=== PATIENT | female | born 1960 | race Caucasian/White ===

== ENCOUNTER 2024-07-25 13:49 | Emergency (ER) | payer MEDICARE, OTHER, SELFPAY ==
[2024-07-25] VITALS (15 sets, daily range): BP systolic 169–250; BP diastolic 77–120; PULSE 60–76; TEMP 36.4; O2SAT 95–98; BMI 24.2
--- NOTE | 2024-07-25 14:17 | XR_ITS ---
The [address] [address] Patient Name: LING MALDONADO MRN: [id number] date: 1960 Sex: F Assigned Patient Location: ER Current Patient Location: ER Accession/Order Number: [id number] Exam Date: 07/25/2024 14:36 Report Date: 07/25/2024 14:48 At the request of: RONDA CABRERA Procedure: XR chest 1V EXAMINATION: XR chest 1V HISTORY: HTN Urgency COMPARISON: 08/12/2021 TECHNIQUE: AP portable FINDINGS: LUNGS: No significant pulmonary parenchymal abnormalities. VASCULATURE: No increased pulmonary vasculature. PLEURA: No pneumothorax, effusion, or pleural thickening. CARDIAC: No cardiomegaly or cardiac silhouette abnormality. MEDIASTINUM: No visible mass or adenopathy. Aortic atherosclerosis BONES: No fracture or visible bone lesion. Cervical fusion hardware OTHER: Negative. XR/XR chest 1V IMPRESSION: No acute cardiopulmonary process Electronically authenticated by: ARBEN VANN Date: 07/25/2024 14:48
--- NOTE | 2024-07-25 14:17 | CT_ITS ---
The [address] [address] Patient Name: LING MALDONADO MRN: [id number] date: 1960 Sex: F Assigned Patient Location: ER Current Patient Location: ER Accession/Order Number: [id number] Exam Date: 07/25/2024 14:36 Report Date: 07/25/2024 14:54 At the request of: RONDA CABRERA Procedure: CT head/brain wo con EXAM: CT scan of the head without contrast. Dose reduction technique used: Automated exposure control and/or adjustment of the mA and/or kV according to patient size and/or use of iterative reconstruction technique. REASON FOR EXAM: headache, HTN Uregency COMPARISON: CT scan dated 11/20/2020 FINDINGS: No intracranial hemorrhage, mass effect, midline shift, fractures or evidence of acute ischemic infarct. No hydrocephalus. Paranasal sinuses and mastoid air cells are clear. Remainder unremarkable. CT/CT head/brain wo con IMPRESSION: No acute intracranial abnormalities. Electronically authenticated by: SHY BRENNER Date: 07/25/2024 14:54
--- NOTE | 2024-07-25 14:17 | ECG_ITS ---
The [facility] Test Date: 2024-07-25 Pat Name: LING MALDONADO Department: Room: - Gender: Female Material Assistant: : 1960 Requested By: [id number] Order Number: [id number] Reading MD: MIGEL CHRISTIANSON Measurements Intervals [place] Rate: 65 P: 80 SD: 152 QRS: 77 QRSD: 84 T: 70 QT: 424 QTc: 435 Interpretive Statements 1100 Sinus rhythm 9110 normal ECG Compared to ECG 08/12/2021 15:48:19 ST (T wave) deviation no longer present Possible ischemia no longer present Electronically Signed On 07-25-2024 20:49:04 EST by MIGEL CHRISTIANSON
--- NOTE | 2024-07-25 14:19 | ED.GENADUL1 ---
HPI HPI - General Adult General Chief complaint: Headache Stated complaint: HIGH BLOOD PRESSURE SENT BY Time Seen by Provider: 07/25/24 14:08 Source: patient and family (grandson) Mode of arrival: walk-in Limitations: no limitations History of Present Illness HPI narrative: 64-year-old female presents with grandson with complaint of elevated blood pressure. States she started not feeling well yesterday. Patient has had a slight headache, intermittent blurry vision, numbness tingling in her fingers. They went to area stores where they checked her blood pressure and noted it to be above 200/100. Went to her doctor's office this afternoon where they noted her blood pressure to be 250/110 and sent her in for further evaluation. Patient takes carvedilol 3.125 mg twice daily. Has not missed any doses. Denies any chest pain, shortness of breath, focal weakness. Quality:?As above Severity:?Severe Timing:?As above, constant Context: Normal setting and activity? Modifying factors:?None Associated symptoms: As above Related Data Home Medications ?Medication ?Instructions ?Recorded ?Confirmed albuterol sulfate 90 mcg/actuation 2 puff inhalation Q6H PRN 07/25/24 07/25/24 aerosol inhaler shortness of breath or wheezing aspirin 81 mg tablet,delayed 81 mg PO DAILY 07/25/24 07/25/24 release (Adult Aspirin Regimen) carvedilol 3.125 mg tablet 3.125 mg PO Q12H 07/25/24 07/25/24 escitalopram oxalate 5 mg tablet 5 mg PO DAILY 07/25/24 07/25/24 methimazole 5 mg tablet 5 mg PO .q12 07/25/24 07/25/24 Allergies Allergy/AdvReac Type Severity Reaction Status Date / Time No Known Drug Allergies Allergy Verified 07/25/24 13:54 Opioid HPI Opioid Management Most Recent Opioid Data: No Data to Display Review of Systems ROS Narrative CONST: Denies fever, chills EYES: + intermittent blurred vision. Denies eye redness RESP: Denies shortness of breath CV: Denies chest pain, palpitations GI: Denies abd pain, nausea, vomiting MS: Denies back pain, myalgias SKIN: Denies color change, rash NEURO: + headache, numbness. Denies weakness, dizziness PSYCHIATRIC: Denies confusion, agitation PFSH PFSH Medical History (Updated 07/25/24 @ 15:40 by SHAYNA Lloyd) Anxiety disorder ?F41.9 - Anxiety disorder, unspecified (ICD-10) HTN (hypertension) ?I10 - Essential (primary) hypertension (ICD-10) Hyperthyroidism ?E05.90 - Thyrotoxicosis, unspecified without thyrotoxic crisis or storm (ICD-10) Surgical History (Updated 07/25/24 @ 15:08 by Deborah Villalobos) Hx of cardiac catheterization ?Z98.890 - Other specified postprocedural states (ICD-10) Social History Little interest or pleasure in doing things: not at all Feeling down, depressed, or hopeless: not at all Exam Narrative Exam Narrative: Vital signs reviewed Nurses notes noted CONST: Nontoxic, well appearing, well nourished, in no distress.? No diaphoresis.?? HENT: normocephalic, atraumatic, moist mucous membrane, no abnormalities of the nose noted, hearing normal EYES: normal appearing conjunctiva, no apparent discharge bilat. PERRL. EOMI NECK: normal appearance CV: normal rate, regular rhythm, no murmur RESP: normal effort, speaking in complete sentences. Lung sounds clear and equal bilat.? No wheezes, rales, rhonchi MS: no edema, tenderness SKIN: no pallor NEURO: A&Ox 3, no focal findings, gait intact PSYCH: normal mood, affect Constitutional Vital Signs, click to edit/add: Last Vital Signs Temp 97.6 F 07/25/24 13:55 Pulse 60 07/25/24 15:55 Resp 14 07/25/24 15:55 BP 185/89 H 07/25/24 15:55 Pulse Ox 97 07/25/24 15:55 O2 Del Method Room Air 07/25/24 15:55 Course Reevaluation(s) Reevaluation #1: Blood pressure improved to 177/93. States she only has a, very, very slight headache. Denies any blurred vision, malaise at this time. Discussed with patient and grandson, at length, results, plan, and disposition. They are agreeable with plan. Consultations Consultation #1: Patient discussed with patient's provider, Tamara Spears NP. Feels comfortable with plan to discharge patient to home. Will send Rx to patient's pharmacy for Losartan and will see patient within 2 weeks. Would like patient to keep a diary of her blood pressures Time: 15:17 Vital Signs Vital signs: Vital Signs Temperature 97.6 F 07/25/24 13:55 Pulse Rate 72 07/25/24 13:55 Respiratory Rate 16 07/25/24 13:55 Blood Pressure 250/120 H 07/25/24 13:55 Pulse Oximetry 98 07/25/24 13:55 Oxygen Delivery Method Room Air 07/25/24 13:55 Temperature 97.6 F 07/25/24 13:55 Pulse Rate 60 07/25/24 15:55 Respiratory Rate 14 07/25/24 15:55 Blood Pressure 185/89 H 07/25/24 15:55 Pulse Oximetry 97 07/25/24 15:55 Oxygen Delivery Method Room Air 07/25/24 15:55 Medical Decision Making MDM Narrative Medical decision making narrative: This is a pleasant 64-year-old who presents to the emergency department for evaluation of elevated blood pressure. Also had a slight headache, intermittent blurred vision. Denies any chest pain, shortness of breath. On arrival, afebrile, hypertensive, otherwise vital signs are stable. Initial blood pressure was 250/120 Exam, nontoxic, well-appearing patient in no distress. No focal deficits on exam. Gait intact. PERRL. EOMI. No facial droop. Heart regular rate and rhythm. Lung sounds clear and equal bilaterally. Passenger Booking Clerk, push, pull are strong and equal bilaterally. EKG reveals no acute or concerning changes IV access established, blood work was drawn and sent to the lab. She was given 10 mg of hydralazine IV. Labs revealed no leukocytosis, anemia, thrombocytopenia, electrolyte imbalance, renal impairment. Glucose 87. LFTs unremarkable. Magnesium 1.7. Chest x-ray imaging, per radiologist reveals no acute findings CT head imaging, per radiologist reveals no acute findings Patient had good response to the hydralazine during ED course. Her symptoms improved. She was discussed with her primary provider as noted above who is comfortable with patient being discharged to home. She sent a prescription to patient's pharmacy for losartan. Patient and grandson are comfortable with being discharged home. They were advised to start a diary of blood pressures in the morning, afternoon, and evening. She is to return for any blood pressure greater than 190/100. She is otherwise to follow-up in 2 weeks. Favor hypertensive urgency, resolved Hypertensive emergency less likely based on lab work, no evidence of endorgan injury ICH less likely based on imaging ACS less likely based on EKG, patient not having any chest pain, shortness of breath. History and Record Review Discussion with independent historian: Yony Management Discussion with another healthcare provider: Patient's provider Independent interpretation: Chest x-ray: NAD Additional Tests and Interventions ECG Re-Evaluation See ED course Disposition ? The patient was discharged. Plan: Patient will be discharged to home.? Condition at time of disposition: stable, improved.? Advised to follow up with primary provider. Advised to return for any worsening and/or development of new, concerning signs or symptoms Admission considered: But patient's blood pressure markedly improved and her symptoms improved as well. Close follow-up plan put in place PLEASE NOTE: Portions of the medical record may have been produced using electronic power and recovery supervisor and may contain errors with respect to translation of words which may not have been identified prior to finalization of the chart. Medical Records Medical records reviewed: Yes I reviewed the patient's medical records Lab Data Lab results reviewed: Yes I reviewed the patient's lab results Labs: Lab Results 07/25/24 Range/Units 14:15 WBC 6.7 (4.0-11.0) 10^3/uL RBC 4.37 (4.20-5.40) 10^6/uL Hgb 13.2 (12.0-16.0) g/dL Hct 38.9 (36.0-48.0) % MCV 89.0 (81.0-99.0) fL MCH 30.2 (26.7-34.0) pg MCHC 33.9 (29.9-35.2) g/dL RDW 12.5 (11.0-15.0) % Plt Count 260 (150-450) 10^3/uL MPV 9.8 (9.5-13.5) fL Neut % (Auto) 44.8 (43.0-75.0) % Lymph % (Auto) 39.3 (20.5-60.0) % [place] % (Auto) 11.5 (1.7-12.0) % Eos % (Auto) 3.6 (0.9-7.0) % Baso % (Auto) 0.7 (0.2-2.0) % Neut # (Auto) 3.0 (1.4-6.5) 10^3/uL Lymph # (Auto) 2.6 (1.2-3.8) 10^3/uL [place] # (Auto) 0.8 (0.3-0.8) 10^3/uL Eos # (Auto) 0.2 (0.0-0.7) 10^3/uL Baso # (Auto) 0.1 (0.0-0.1) 10^3/uL Abs Immat Gran (auto) 0.01 (0.00-0.03) 10^3/uL Imm/Tot Granulo (auto) 0.1 (0.0-0.5) % Sodium 138 (136-145) mmol/L Potassium 3.7 (3.5-5.1) mmol/L Chloride 102 (98-107) mmol/L Carbon Dioxide 25.3 (21.0-32.0) mmol/L Anion Gap 14.4 BUN 20.0 H (7.0-18.0) mg/dL Creatinine 0.94 (0.55-1.02) mg/dL Est GFR ( Amer) >60 (>=60 mL/min/1.73m^2) Est GFR (Non-Af Amer) 60 (>=60 mL/min/1.73m^2) BUN/Creatinine Ratio 21.3 Glucose 87 (74-106) mg/dL Calcium 8.9 (8.5-10.1) mg/dL Magnesium 1.7 L (1.8-2.4) mg/dL Total Bilirubin 0.4 (0.2-1.0) mg/dL AST 16 (15-37) U/L ALT 20 (14-59) U/L Alkaline Phosphatase 79 (46-116) U/L Total Protein 7.1 (6.4-8.2) g/dL Albumin 3.5 (3.4-5.0) g/dL Globulin 3.6 g/dL Albumin/Globulin Ratio 1.0 Imaging Data CXR, CT BRAIN: Radiologist's impression: ITS Impressions Chest X-Ray 07/25/24 14:17 IMPRESSION: No acute cardiopulmonary process Electronically authenticated by: ARBEN VANN Date: 07/25/2024 14:[address] 07/25/24 14:17 IMPRESSION: No acute intracranial abnormalities. Electronically authenticated by: SHY BRENNER Date: 07/25/2024 14:54 ECG Data Attestation: I personally reviewed and interpreted this ECG as follows: (EKG performed at 1421 hrs. reveals sinus rhythm at 65 bpm. No ectopy, ischemia, other acute changes noted. Normal axis.) Discharge Plan Discharge Chief Complaint: Headache Clinical Impression: Hypertension Qualifiers: Hypertension type: unspecified Qualified Code(s): I10 - Essential (primary) hypertension Headache Qualifiers: Headache type: unspecified Headache chronicity pattern: acute headache Intractability: not intractable Qualified Code(s): R51.9 - Headache, unspecified Patient Disposition: Home, Self-Care Time of Disposition Decision: 15:41 Condition: Good Mode of Transportation: Private Vehicle Prescriptions / Home Meds: No Action albuterol sulfate 90 mcg/actuation HFA aerosol inhaler 2 puff INHALATION Q6H PRN (Reason: shortness of breath or wheezing) carvedilol 3.125 mg tablet 3.125 mg PO Q12H escitalopram oxalate 5 mg tablet 5 mg PO DAILY methimazole 5 mg tablet 5 mg PO .q12 aspirin [Adult Aspirin Regimen] 81 mg tablet,delayed release (DR/EC) 81 mg PO DAILY Print Language: Faroese Instructions: Acute Headache (DC), Hypertension (ED) Additional Instructions: Obtain losartan prescription sent to your pharmacy by your provider Keep a diary of your blood pressures over the next 2 weeks. RETURN FOR ANY BLOOD PRESSURE GREATER THAN 190/100 Referrals: JAQUELINE SPEARS [Primary Care Provider] - 1-2 weeks Discharge Date/Time: 07/25/24 15:57
[2024-07-25] MEDS: HYDRALAZINE HCL 20 MG/ML VIAL 10 MG IVP (14:32)
[2024-07-25 14:36] LABS: Basophils Absolute Auto 0.1 10^3/uL (0.0-0.1); Basophils Percent Auto 0.7 % (0.2-2.0); Eosinophils Absolute Auto 0.2 10^3/uL (0.0-0.7); Eosinophils Percent Auto 3.6 % (0.9-7.0); Hematocrit 38.9 % (36.0-48.0); Hemoglobin 13.2 g/dL (12.0-16.0); Immature Granulocytes Abs Auto 0.01 10^3/uL (0.00-0.03); Immature Granulocytes Pct Auto 0.1 % (0.0-0.5); Lymphocytes Absolute Auto 2.6 10^3/uL (1.2-3.8); Lymphocytes Percent Auto 39.3 % (20.5-60.0); Mean Corpuscular HGB Conc 33.9 g/dL (29.9-35.2); Mean Corpuscular Hemoglobin 30.2 pg (26.7-34.0); Mean Platelet Volume 9.8 fL (9.5-13.5); Monocytes Absolute Auto 0.8 10^3/uL (0.3-0.8); Monocytes Percent Auto 11.5 % (1.7-12.0); Neutrophils Percent Auto 44.8 % (43.0-75.0); Platelet Count 260 10^3/uL (150-450); Red Blood Count 4.37 10^6/uL (4.20-5.40); Red Cell Distribution Width 12.5 % (11.0-15.0); White Blood Count 6.7 10^3/uL (4.0-11.0)
[2024-07-25 14:50] LABS: Alanine Aminotransferase 20 U/L (14-59); Albumin Level 3.5 g/dL (3.4-5.0); Alkaline Phosphatase 79 U/L (46-116); Anion Gap 14.4; Aspartate Amino Transferase 16 U/L (15-37); BUN Creatinine Ratio 21.3; Bilirubin Total 0.4 mg/dL (0.2-1.0); Calcium 8.9 mg/dL (8.5-10.1); Carbon Dioxide 25.3 mmol/L (21.0-32.0); Chloride 102 mmol/L (98-107); Estimated GFR (African America >60 (>=60 mL/min/1.73m^2); Estimated GFR (Non-African Ame 60 (>=60 mL/min/1.73m^2); Globulin 3.6 g/dL; Glucose 87 mg/dL (74-106); Magnesium 1.7 mg/dL (1.8-2.4); Potassium 3.7 mmol/L (3.5-5.1); Sodium 138 mmol/L (136-145); Total Protein 7.1 g/dL (6.4-8.2)
[2024-07-25] MEDS: LOSARTAN POTASSIUM 25 MG TABLET PO (15:48)
== END 2024-07-25 15:57 | disposition home or self-care (01) ==
PROVIDERS: Physician Assistant; Emergency Provider Emergency Medicine; PCP Nurse Practitioner
DX: I10 Essential (primary) hypertension (principal); H53.8 Other visual disturbances; Z79.899 Other long term (current) drug therapy; R51.9 Headache, unspecified
CPT/HCPCS: 36415; 70450; 71045; 80053; 83735; 85025; 93005; 96374; 99285; J0360

== ENCOUNTER 2024-08-14 19:51 | Outpatient (OUT) | payer MEDICARE, OTHER, SELFPAY ==
--- OUTSIDE RECORDS SUMMARY | 2024-08-14 19:54 | XMS_ITS | CCD ---
Author Organization [facility] Care Team Providers Care Attendant Arcade Name Role Phone JORDON CARDOSO Unavailable Unavailable DELMER OSEGUERA Unavailable Unavailable Unavailable Unavailable DO Luisa Mott Admit Provider [phone] DO Luisa Mott Attending Provider [phone] MANAS Nava Primary Care Provider JACQUE Maki Attending Provider ALYXC, DR MORAN Primary Care Unavailable HAY, DR CAGLE Attending Unavailable ZIEBER, DR JOHNATHAN Pereira Consulting Unavailable HAY, DR CAGLE Admitting Unavailable HAY, DR CAGLE Consulting Unavailable MISC, DR MORAN Admitting Unavailable REQUEST, DR LOCK LISTED Primary Care Unavaila ble MISC, DR MORAN Attending Unavailable MISC, DR MORAN Consulting Unavailable PAY, DR SAPP Attending Unavailable PAY, DR SAPP Consulting Unavailable PAY, DR SAPP Admitting Unavailable MISC, DR MORAN Primary Care Unavailable Karo Nava Primary Care Physician Pantera, Dr. Berto Haas Referring Unava ilable Pantera, Dr. Berto Haas Attending Unava ilable KAELA, Dr. SHAWN Sharp Attending Unavailabl e Tonya Fan Referring Unavaila ble ARAFAH, Dr. OVIDIO Treviño Attending Unavailable KAELA, Dr. SHAWN Sharp Referring Unavailabl e Pantera, Dr. Berto Haas Referring Unava ilable Pantera, Dr. Berto Haas Attending Unava ildahiana Mott, Dr. Berto Haas Referring Unava ilable Pantera, Dr. Berto Haas Attending Unava ilable Pantera, Dr. Berto Haas Attending Unava ilable Pantera, Dr. Berto Haas Attending Unava ilable Pantera, Dr. Berto Haas Attending Unava Karo Willams Primary Care Unavailable Simona Maki Attending Unavailable Simona Maki Admitting Unavailable Luisa Mott Admitting Unavailable Luisa Mott Attending Unavailable Karo Nava Primary Care Unavailable VIRY AHN Primary Care Physician [phone] Unavailable Primary Care Provider UnavailMOUNIKA Riley Attending Unavailable MOUNIKA GOINS Attending Unavailable Chacho, Josephine Ferguson Primary Care Physician [phone] Chacho, Josephine Ferguson Attending Unavailable Chacho, Josephine L Admitting Unavailable Chacho, Josephine L Attending Unavailable Chacho, Josephine L Attending Unavailable Chacho, Josephine L Attending Unavailable Chacho, MANAGER CULINARY Josephine L Attending Unavailable Chacho, MANAGER CULINARY Josephine L Admitting Unavailable Chacho, MANAGER CULINARY Josephine L Attending Unavailable Chacho, MANAGER CULINARY Josephine L Admitting Unavailable Chacho, MANAGER CULINARY Josephine L Attending Unavailable Chacho, MANAGER CULINARY Josephine L Attending Unavailable Chacho, MANAGER CULINARY Josephine L Admitting Unavailable Chacho, MANAGER CULINARY Josephine L Attending Unavailable Chacho, MANAGER CULINARY Josephine L Referring Unavailable REFERRAL, SELF Admitting Unavailable REFERRAL, SELF Attending Unavailable REFERRAL, SELF Referring Unavailable Chacho, MANAGER CULINARY Josephine L Consulting Unavailable Chacho, Josephine L Consulting Unavailable Chacho, Josephine L Consulting Unavailable Chacho, Josephine L Consulting Unavailable Chacho, Josephine L Consulting Unavailable Chacho, Josephine L Consulting Unavailable Chacho, Josephine L Consulting Unavailable Chacho, Josephine L Consulting Unavailable Chacho, Josephine L Consulting Unavailable Chacho, Josephine L Consulting Unavailable Chacho, Josephine L Attending Unavailable Chacho, Josephine L Attending Unavailable Chacho, Josephine L Attending Unavailable Chacho, Josephine L Attending Unavailable Chacho, Josephine L Referring Unavailable Chacho, Josephine L Admitting Unavailable Chacho, Josephine L Attending Unavailable Chacho, Josephine L Attending Unavailable Chacho, Josephine L Admitting Unavailable SarminMarilyn arnold Attending Unavaila ble Chacho, Josephine Ferguson Attending Unavailable Medications Current Medications Medication Drug Class(es) Dates Sig (Normalized) Sig (Original) amLODIPine 5 mg oral tablet (2 sources) Dihydropyridine Calcium Channel Juancarlos Start: 08-01-2024 take 1 tablet by mouth once daily amLODIPine 5 mg Tab 5 mg = 1 tab(s), Oral, Daily, # 90 tab(s), Refills(s) 0, Pharmacy: [facility]/pharmacy #[id number], 151, cm, 08/01/24 11:07:00 EST, Height/Length Dosing, 54, kg, 08/01/24 11:07:00 EST, Weight Dosing Start Date: 08/01/24 Status: Ordered amoxicillin 500 mg oral capsule (3 sources) Penicillin-class Antibacterial Start: 03-17-2023 take 1 capsule by mouth every twelve hours amoxicillin 500 mg Cap 500 mg = 1 cap(s), Oral, q12hr, # 20 cap(s), Refills(s) 0, [id number], cm, 03/17/23 9:22:00 EDT, Height/Length Dosing, 47.4, kg, 03/17/23 9:22:00 EDT, Weight Dosing Start Date: 03/17/23 Status: Ordered Start: 05-16-2021 Amoxicillin 87 5 MG Oral Tablet Quantity: 14 Refills: 0 Ordered: 16-May-2021 DO Start : 16-May-2021 Complete amoxicillin 875 mg / clavulanate 125 mg oral tablet (2 sources) Penicillin-class Antibacterial Start: 08-07-2024 End: 08-14-2024 amoxicillin-clavulanate 875 mg-125 mg Tab 1 tab(s), Oral, q12hr for 7 day(s), 14 tab(s), Refill(s) 0, [facility]/pharmacy #[id number], 151, cm, 08/07/24 8:48:00 EST, Height/Length Dosing, 53, kg, 08/07/24 8:48:00 EST, Weight Dosing Start Date: 08/07/24 Stop Date: 08/14/24 Status: Ordered aspirin 81 mg delayed release oral tablet (20 sources) Platelet Aggregation Inhibitor, Nonsteroidal Anti-inflammatory Drug Start: 05-31-2024 take 1 mg by mouth once daily aspirin 81 mg Oral EC Tab mg tab(s), Oral, Daily, Refills(s) 0 Start Date: 05/31/24 Status: Ordered Start: 11-18-2022 take 1 tablet by valentin th once daily aspirin 81 mg Oral EC Tab 81 mg = 1 tab(s), Oral, Daily, # 90 tab(s), Refills(s) 3, Pharmacy: [facility] #[id number], 156, cm, 04/02/22 10:26:00 EDT, Height/Length Dosing, 52.5, kg, 04/02/22 10:26:00 EDT, Weight Dosing Start Date: 11/18/22 Status: Ordered Start: 08-12-2021 take 1 tablet by valentin th once daily aspirin 81 mg Oral EC Tab 81 mg = 1 tab(s), Oral, Daily, # 90 tab(s), Refills(s) 2, Pharmacy: [facility]/pharmacy #[id number], 156, cm, 02/02/22 14:25:00 EDT, Height/Length Dosing, 49.2, kg, 02/02/22 14:25:00 EDT, Weight Dosing Start Date: 02/02/22 Status: Ordered atorvastatin 40 mg oral tablet (18 sources) HMG-CoA Reductase Inhibitor Start: 10-14-2022 take 1 tablet by mouth once daily in the evening atorvastatin 40 mg Tab 40 mg = 1 tab(s), Oral, Daily, take in the evening, # 90 tab(s), Refills(s) 1, [id number], cm, 04/02/22 10:26:00 EDT, Height/Length Dosing, 52.5, kg, 04/02/22 10:26:00 EDT, Weight Dosing Start Date: 10/14/22 Status: Ordered Start: 08-12-2021 take 1 tablet by valentin th once daily in the evening atorvastatin 40 mg Tab 40 mg = 1 tab(s), Oral, Daily, take in the evening, # 90 tab(s), Refills(s) 2, Pharmacy: [facility]/pharmacy #[id number], 156, cm, 02/02/22 14:25:00 EDT, Height/Length Dosing, 49.2, kg, 02/02/22 14:25:00 EDT, Weight Dosing Start Date: 02/02/22 Status: Ordered carvedilol 3.125 mg oral tablet (20 sources) alpha-Adrenergic Juancarlos, beta-Adrenergic Juancarlos Start: 05-31-2024 take 1 tablet by mouth twice daily carvedilol 3.125 mg Tab 3.125 mg = 1 tab(s), Oral, BID, # 180 tab(s), Refills(s) 0, Pharmacy: [id number], 151, cm, 05/31/24 14:29:00 EST, Height/Length Dosing, 53.6, kg, 05/31/24 14:29:00 EST, Weight Dosing Start Date: 05/31/24 Status: Ordered Start: 10-22-2022 take 1 tablet by valentin th twice daily Coreg 3.125 mg Tab 3.125 mg = 1 tab(s), Oral, BID, # 180 tab(s), Refills(s) 0, Pharmacy: [facility]/pharmacy #[id number], 156, cm, 04/02/22 10:26:00 EDT, Height/Length Dosing, 52.5, kg, 04/02/22 10:26:00 EDT, Weight Dosing Start Date: 10/22/22 Status: Ordered Start: 08-12-2021 take 3.125 mg by valentin th twice daily Carvedilol Active 3.125 MG PO Twice daily August 12, 2021 8:21pm Start: 08-11-2021 End: 08-06-2022 take 1 tablet by mouth twice daily Coreg 3.125 mg Tab 3.125 mg = 1 tab(s), Oral, BID, X 90 day(s), # 180 tab(s), Refills(s) 3, [id number], cm, 08/01/21 14:10:00 EST, Height/Length Dosing, 50.4, kg, 08/01/21 14:10:00 EST, Weight Dosing Start Date: 08/11/21 Stop Date: 08/06/22 Status: Ordered chlorthalidone 25 mg oral tablet (2 sources) Thiazide-like Diuretic Start: 08-01-2024 take 1 tablet by mouth once daily chlorthalidone 25 mg Tab 25 mg = 1 tab(s), Oral, Daily, # 90 tab(s), Refills(s) 0, Pharmacy: [facility]/pharmacy #[id number], 151, cm, 08/01/24 11:07:00 EST, Height/Length Dosing, 54, kg, 08/01/24 11:07:00 EST, Weight Dosing Start Date: 08/01/24 Status: Ordered doxycycline hyclate 100 mg oral capsule (1 source) Tetracycline-class Drug Start: 04-07-2023 End: 04-17-2023 take 1 capsule by mouth twice daily doxycycline hyclate 100 mg Cap 100 mg = 1 cap(s), Oral, BID, X 10 day(s), # 20 cap(s), Refills(s) 0, Pharmacy: [facility]/pharmacy #[id number], 156, cm, 04/05/23 8:07:00 EDT, Height/Length Dosing, 48.2, kg, 04/05/23 8:07:00 EDT, Weight Dosing Start Date: 04/07/23 Stop Date: 04/17/23 Status: Ordered escitalopram 5 mg oral tablet (6 sources) Serotonin Reuptake Inhibitor Start: 07-18-2024 End: 07-13-2025 take 1 tablet by mouth once daily escitalopram 5 mg oral tablet 5 mg = 1 tab(s), Oral, Daily, X 90 day(s), # 90 tab(s), Refills(s) 3, Pharmacy: [facility]/pharmacy #[id number], 151, cm, 07/18/24 8:27:00 EST, Height/Length Dosing, 55, kg, 07/18/24 8:27:00 EST, Weight Dosing Start Date: 07/18/24 Stop Date: 07/13/25 Status: Ordered Start: 05-31-2024 take 1 tablet by valentin th once daily escitalopram 5 mg oral tablet 5 mg = 1 tab(s), Oral, Daily, # 90 tab(s), Refills(s) 0, Pharmacy: [facility]/pharmacy #[id number], 151, cm, 05/31/24 14:29:00 EST, Height/Length Dosing, 53.6, kg, 05/31/24 14:29:00 EST, Weight Dosing Start Date: 05/31/24 Status: Ordered fluticasone furoate 0.0275 mg/actuat metered dose nasal spray (3 sources) Corticosteroid Start: 04-02-2022 End: 05-02-2022 fluticasone nasal 27.5 mcg/inh spray 2 spray(s), Nasal, Daily for allergy symptoms for 30 day(s), 15.8 mL, Refill(s) 0, [facility]/pharmacy #[id number], 156, cm, 04/02/22 10:26:00 EDT, Height/Length Dosing, 52.5, kg, 04/02/22 10:26:00 EDT, Weight Dosing Start Date: 04/02/22 Stop Date: 05/02/22 Status: Ordered Start: 05-28-2021 take 2 spray(s) nasa l route once daily Fluticasone Propionate 50 MCG/ACT Nasal Suspension USE 2 SPRAYS IN EACH NOSTRIL ONCE A DAY Quantity: 16 Refills: 0 Ordered: 28-May-2021 DO Start : 28-May-2021 Complete hydrOXYzine pamoate 25 mg oral capsule (4 sources) Antihistamine Start: 08-12-2021 take 25 mg by mouth three times daily Hydroxyzine Pamoate Active 25 MG PO Three times daily August 12, 2021 8:30pm take 1 tablet by valentin th three times daily as needed hydrOXYzine HCl - 25 MG Oral Tablet TAKE 1 TABLET 3 TIMES DAILY NEEDED. Quantity: 0 Refills: 0 Ordered: 03-Sep-2021 DO Active loratadine 10 mg oral tablet (1 source) Start: 04-02-2022 End: 04-16-2022 take 1 tablet by mouth once daily Claritin 10 mg Tab 10 mg = 1 tab(s), Oral, Daily, X 14 day(s), # 14 tab(s), Refills(s) 0, Pharmacy: [facility]/pharmacy #[id number], 156, cm, 04/02/22 10:26:00 EDT, Height/Length Dosing, 52.5, kg, 04/02/22 10:26:00 EDT, Weight Dosing Start Date: 04/02/22 Stop Date: 04/16/22 Status: Ordered losartan potassium 50 mg oral tablet (2 sources) Angiotensin 2 Receptor Juancarlos Start: 07-25-2024 take 1 tablet by mouth once daily losartan 50 mg Tab 50 mg = 1 tab(s), Oral, Daily, # 90 tab(s), Refills(s) 0, Pharmacy: [facility]/pharmacy #[id number], 151, cm, 07/18/24 8:27:00 EST, Height/Length Dosing, 55, kg, 07/18/24 8:27:00 EST, Weight Dosing Start Date: 07/25/24 Status: Ordered methIMAzole 5 mg oral tablet (16 sources) Thyroid Hormone Synthesis Inhibitor Start: 07-17-2024 take 1 tablet by mouth twice daily methimazole 5 mg Tab 5 mg = 1 tab(s), Oral, BID, # 180 tab(s), Refills(s) 0, Pharmacy: [facility]/pharmacy #[id number], 151, cm, 05/31/24 14:29:00 EST, Height/Length Dosing, 53.6, kg, 05/31/24 14:29:00 EST, Weight Dosing Start Date: 07/17/24 Status: Ordered Start: 10-24-2021 take 1 tablet by valentin twice daily methimazole 5 mg Tab 5 mg = 1 tab(s), Oral, BID, # 90 tab(s), Refills(s) 0 Start Date: 02/02/22 Status: Ordered Mucinex DM 30 mg-600 mg Tab-ER (1 source) Start: 04-02-2022 End: 04-12-2022 Mucinex DM 30 mg-600 mg Tab-ER 1 tab(s), Oral, q12hr for 10 day(s), 20 tab(s), Refill(s) 0, [facility]/pharmacy #[id number], 156, cm, 04/02/22 10:26:00 EDT, Height/Length Dosing, 52.5, kg, 04/02/22 10:26:00 EDT, Weight Dosing Start Date: 04/02/22 Stop Date: 04/12/22 Status: Ordered 24 hr nicotine 0.875 mg/hr transdermal system (19 sources) Cholinergic Nicotinic Agonist Start: 05-31-2024 apply 1 dose transdermal route once daily nicotine 21 mg/24 hr Transderm ER Film APPLY 1 PATCH TOPICALLY DAILY Start Date: 05/31/24 Status: Ordered Start: 03-17-2023 nicotine 21 mg /24 hr Transderm ER Film 1 patch(es), Topical, Daily, 30 EA, Refill(s) 1, [facility]/pharmacy #[id number], 156, cm, 03/17/23 9:22:00 EDT, Height/Length Dosing, 47.4, kg, 03/17/23 9:22:00 EDT, Weight Dosing Start Date: 03/17/23 Status: Ordered Start: 02-02-2022 nicotine 14 mg /24 hr Transderm ER Film 1 patch(es), Topical, Daily, 30 EA, Refill(s) 1, [facility]/pharmacy #[id number], 156, cm, 02/02/22 14:25:00 EDT, Height/Length Dosing, 49.2, kg, 02/02/22 14:25:00 EDT, Weight Dosing Start Date: 02/02/22 Status: Ordered Start: 02-02-2022 nicotine 21 mg /24 hr Transderm ER Film 1 patch(es), Topical, Daily, 30 EA, Refill(s) 1, [facility]/pharmacy #[id number], 156, cm, 02/02/22 14:25:00 EDT, Height/Length Dosing, 49.2, kg, 02/02/22 14:25:00 EDT, Weight Dosing Start Date: 02/02/22 Status: Ordered Start: 08-01-2021 apply 1 dose transde rmal route once daily Nicotine 21 MG/24HR Transdermal Patch 24 Hour APPLY 1 PATCH DAILY Quantity: 28 Refills: 0 Ordered: 29-Aug-2021 DO Start : 01-Aug-2021 Complete nicotine (Nicode rm, Step 1) 21 MG/24HR patch 1 patch Daily Active pantoprazole 20 mg delayed release oral tablet (19 sources) Proton Pump Inhibitor Start: 10-22-2022 take 1 tablet by mouth once daily Pantoprazole [address] Tab 20 mg = 1 tab(s), Oral, Daily, # 90 tab(s), Refills(s) 1, Pharmacy: [facility]/pharmacy #[id number], 156, cm, 04/02/22 10:26:00 EDT, Height/Length Dosing, 52.5, kg, 04/02/22 10:26:00 EDT, Weight Dosing Start Date: 10/22/22 Status: Ordered Start: 08-12-2021 take 1 tablet by valentin th once daily Pantoprazole [address] Tab 20 mg = 1 tab(s), Oral, Daily, # 90 tab(s), Refills(s) 1, Pharmacy: [facility]/pharmacy #[id number], 156, cm, 08/01/21 14:10:00 EST, Height/Length Dosing, 50.4, kg, 08/01/21 14:10:00 EST, Weight Dosing Start Date: 10/27/21 Status: Ordered Start: 09-18-2020 Pantoprazole S odium 40 MG Oral Tablet Delayed Release Quantity: 30 Refills: 0 Ordered: 18-Oct-2020 DO Start : 18-Sep-2020 Complete polyethylene glycol 3350 736576 mg / potassium chloride 1480 mg / sodium bicarbonate 5720 mg / sodium chloride 99587 mg powder for oral solution (2 sources) Osmotic Laxative Start: 08-07-2024 Rafa Pedrotimur mishra oral powder for reconstitution See Instructions, 1 EA, Refill(s) 0, follow up physicians insctructions, [facility]/pharmacy #[id number], 151, cm, 08/07/24 8:48:00 EST, Height/Length Dosing, 53, kg, 08/07/24 8:48:00 EST, Weight Dosing Start Date: 08/07/24 Status: Ordered sertraline 25 mg oral tablet (11 sources) Serotonin Reuptake Inhibitor Start: 07-05-2023 take 1 tablet by mouth once daily sertraline (Zoloft) 25 MG tablet Take 25 mg by mouth Daily 07/05/2023 Active Start: 04-05-2023 take 1 tablet by valentin th once daily sertraline 25 mg Tab 25 mg = 1 tab(s), Oral, Daily, # 30 tab(s), Refills(s) 0, Pharmacy: [facility]/pharmacy #[id number], 156, cm, 04/05/23 8:07:00 EDT, Height/Length Dosing, 48.2, kg, 04/05/23 8:07:00 EDT, Weight Dosing Start Date: 04/05/23 Status: Ordered Start: 11-16-2022 take 1 tablet by valentin th once daily Zoloft 25 mg Tab 25 mg = 1 tab(s), Oral, Daily, # 90 tab(s), Refills(s) 1, Pharmacy: [facility]/pharmacy #[id number], 156, cm, 04/02/22 10:26:00 EDT, Height/Length Dosing, 52.5, kg, 04/02/22 10:26:00 EDT, Weight Dosing Start Date: 11/16/22 Status: Ordered Start: 02-02-2022 take 1 tablet by valentin th once daily Zoloft 25 mg Tab 25 mg = 1 tab(s), Oral, Daily, # 30 tab(s), Refills(s) 2, Pharmacy: [facility]/pharmacy #[id number], 156, cm, 02/02/22 14:25:00 EDT, Height/Length Dosing, 49.2, kg, 02/02/22 14:25:00 EDT, Weight Dosing Start Date: 02/02/22 Status: Ordered Symbicort 80/4.5 inhalation aerosol with adapter (6 sources) Start: 05-31-2024 take 2 puff(s) by inhalation twice daily Symbicort 80/4.5 inhalation aerosol with adapter 2 puff(s), Inhalation, BID, 10.2 gm, Refill(s) 0, [facility]/pharmacy #[id number], 151, cm, 05/31/24 14:29:00 EST, Height/Length Dosing, 53.6, kg, 05/31/24 14:29:00 EST, Weight Dosing Start Date: 05/31/24 Status: Ordered Completed/Discontinued Medications Medication Drug Class(es) Dates Sig (Normalized) Sig (Original) [id number] 200 actuat albuterol 0.09 mg/actuat metered dose inhaler (19 sources) beta2-Adrenergic Agonist Start: 09-08-2021 take 2 puff(s) by inhalation every six hours Ventolin HFA 108 (90 Base) MCG/ACT Inhalation Aerosol Solution INHALE 2 PUFFS EVERY 6 HOURS Quantity: 18 Refills: 0 Ordered: 08-Sep-2021 DO Start : 08-Sep-2021 Complete Start: 08-12-2021 take 1 puff(s) by in halation every six hours Albuterol Sulfate Active 2 PUFF INHALATION Q6H August 12, 2021 8:21pm Start: 03-16-2019 take 2 puff(s) by in halation every four hours for wheezing ProAir HFA 90 mcg/inh inhalation aerosol 2 puff(s), Inhalation, q4hr for wheezing, 8.5 gram, Refill(s) 2, [facility]/pharmacy #[id number] Start Date: 03/16/19 Status: Ordered take 2 puff(s) by in halation every six hours albuterol HFA 90 mcg/act inhaler Inhale 2 puffs every 6 (six) hours Active Albuterol Sulfat e (2.5 MG/3ML) 0.083% Inhalation Nebulization Solution USE DIRECTED. Quantity: 0 Refills: 0 Ordered: 03-Sep-2021 DO Active Albuterol (Eqv-ProAir HFA) 90 mcg/inh inhalation aerosol (13 sources) Start: 05-25-2023 take 1 dose by inhalation every six hours Albuterol (Eqv-ProAir HFA) 90 mcg/inh inhalation aerosol 2 puff(s), Inhalation, q6hr, 1 EA, Refill(s) 4, [facility]/pharmacy #[id number], 151, cm, 05/03/23 10:31:00 EST, Height/Length Dosing, 47.9, kg, 05/03/23 10:31:00 EST, Weight Dosing Start Date: 05/25/23 Status: Ordered Start: 01-11-2023 take 1 dose by inhal ation every six hours Albuterol (Eqv-ProAir HFA) 90 mcg/inh inhalation aerosol 2 puff(s), Inhalation, q6hr, 1 EA, Refill(s) 4, [facility]/pharmacy #[id number], 156, cm, 04/02/22 10:26:00 EDT, Height/Length Dosing, 52.5, kg, 04/02/22 10:26:00 EDT, Weight Dosing Start Date: 01/11/23 Status: Ordered Start: 01-09-2022 take 1 dose by inhal ation every six hours Albuterol (Eqv-ProAir HFA) 90 mcg/inh inhalation aerosol 2 puff(s), Inhalation, q6hr, 1 EA, Refill(s) 4, [facility]/pharmacy #[id number], 156, cm, 08/01/21 14:10:00 EST, Height/Length Dosing, 50.4, kg, 08/01/21 14:10:00 EST, Weight Dosing Start Date: 01/09/22 Status: Ordered cefdinir 300 mg oral capsule (2 sources) Cephalosporin Antibacterial Start: 05-28-2021 Cefdinir 300 MG Oral Capsule Quantity: 14 Refills: 0 Ordered: 28-May-2021 DO Start : 28-May-2021 Complete cholecalciferol 0.025 mg oral tablet (13 sources) Vitamin D Start: 08-12-2021 Vitamin D 25 M CG (1000 UT) Oral Tablet Quantity: 30 Refills: 0 Ordered: 26-Aug-2021 DO Start : 26-Aug-2021 Complete take 1 capsule by mouth once amauri ly Vitamin D3 25 MCG (1000 UT) Oral Capsule TAKE 1 CAPSULE Daily Quantity: 0 Refills: 0 Ordered: 03-Sep-2021 DO Active citalopram 10 mg oral tablet (2 sources) Serotonin Reuptake Inhibitor Start: 08-01-2021 take 1 tablet by mouth once daily Citalopram Hydrobromide 10 MG Oral Tablet TAKE 1 TABLET BY MOUTH EVERY DAY Quantity: 30 Refills: 0 Ordered: 26-Aug-2021 DO Start : 01-Aug-2021 Complete clopidogrel 75 mg oral tablet (1 source) [id number] Platelet Inhibitor Start: 08-12-2021 End: 08-14-2021 take 75 mg by mouth once daily Clopidogrel Discontinued 75 MG PO Daily August 12, 2021 8:21pm August 14, 2021 3:07pm dextromethorphan hydrobromide 10 mg / guaiFENesin 200 mg oral capsule (2 sources) Uncompetitive P-mkqxea-O-aspart ate Receptor Antagonist, Sigma-1 Agonist Start: 05-16-2021 take 10-200 mg by mouth every four hours as needed [facility] Chest Congestion-Cough HBP 10-200 MG Oral Capsule TAKE 2 CAPSULES BY MOUTH EVERY 4 HOURS NEEDED FOR COUGH Quantity: 20 Refills: 0 Ordered: 16-May-2021 DO Start : 16-May-2021 Complete hydroCHLOROthiazide 25 mg oral tablet (1 source) Thiazide Diuretic Start: 08-12-2021 End: 08-14-2021 take 25 mg by mouth once daily Hydrochlorothiazide Discontinued 25 MG PO Daily August 12, 2021 8:21pm August 14, 2021 3:07pm hydrocortisone 25 mg/ml rectal cream (2 sources) Corticosteroid Start: 11-25-2020 Hydrocortisone (Perianal) 2.5 % External Cream Quantity: 30 Refills: 0 Ordered: 25-Nov-2020 DO Start : 25-Nov-2020 Complete lisinopril 40 mg oral tablet (1 source) Angiotensin Converting Enzyme Inhibitor Start: 08-12-2021 End: 08-14-2021 take 40 mg by mouth once daily Lisinopril Discontinued 40 MG PO Daily August 12, 2021 8:21pm August 14, 2021 3:07pm polyethylene glycol 3350 [id number] mg / potassium chloride 2970 mg / sodium bicarbonate 6740 mg / sodium chloride 5860 mg / sodium sulfate 36442 mg powder for oral solution (1 source) Osmotic Laxative Start: 07-14-2021 GaviLyte-G 236 GM Oral Solution Reconstituted Quantity: 4000 Refills: 0 Ordered: 25-Dec-2020 DO Start : 25-Dec-2020 Complete potassium chloride 10 meq oral tablet (2 sources) Start: 08-01-2024 take 1 tablet by mouth twice daily Potassium Chloride (Eqv-K-Tab) 10 mEq oral tablet, extended release 10 mEq = 1 tab(s), Oral, BID, # 90 tab(s), Refills(s) 0, Pharmacy: [facility]/pharmacy #[id number], 151, cm, 08/01/24 11:07:00 EST, Height/Length Dosing, 54, kg, 08/01/24 11:07:00 EST, Weight Dosing Start Date: 08/01/24 Status: Ordered psyllium 520 mg oral capsule (2 sources) Start: 12-23-2020 take 2 capsules by mouth once daily [facility] Fiber 0.52 GM Oral Capsule TAKE 2 CAPSULES BY MOUTH DAILY, 2 HOUR APART FROM THE OTHER MEDICATIONS WITH AT LEAST 8 OZ OF WATER Quantity: 160 Refills: 0 Ordered: 23-Dec-2020 DO Start : 23-Dec-2020 Complete sennosides, snf 8.6 mg oral tablet (1 source) Start: 11-25-2020 Senna 8.6 MG Oral Tablet Quantity: 20 Refills: 0 Ordered: 25-Nov-2020 DO Start : 25-Nov-2020 Complete Vitamin D 1000 intl units (25 mcg) Tab (7 sources) Start: 10-22-2022 take 1 tablet by mouth once daily Vitamin D 1000 intl units (25 mcg) Tab 1,000 International_Unit = 1 tab(s), Oral, Daily, # 90 tab(s), Refills(s) 1, Pharmacy: [facility]/pharmacy #[id number], 156, cm, 04/02/22 10:26:00 EDT, Height/Length Dosing, 52.5, kg, 04/02/22 10:26:00 EDT, Weight Dosing Start Date: 10/22/22 Status: Ordered Start: 10-27-2021 take 1 tablet by valentin th once daily Vitamin D 1000 intl units (25 mcg) Tab 1,000 International_Unit = 1 tab(s), Oral, Daily, # 90 tab(s), Refills(s) 1, Pharmacy: [facility]/pharmacy #[id number], 156, cm, 08/01/21 14:10:00 EST, Height/Length Dosing, 50.4, kg, 08/01/21 14:10:00 EST, Weight Dosing Start Date: 10/27/21 Status: Ordered Problems Active Problems Problem Classification Problem Date Documented Da te Episodic/Chronic Acute myocardial infarction (1 source) ST elevation (STEMI) myocardial infarction of unspecified site; Translations: [ST ELEVATION MT UNSPECIFIED SITE] Onset: 08-14-2021 Chronic Anxiety disorders (15 sources) Generalized anxiety disorder; Translations: [Generalized anxiety disorder] Onset: 02-02-2022 Chronic Chronic obstructive pulmonary disease and bronchiectasis (16 sources) Chronic obstructive lung disease; Translations: [Chronic obstructive pulmonary disease, unspecified] Onset: 02-02-2022 Chronic Coma; stupor; and brain damage (2 sources) Daytime somnolence 08-01-2024 Episodic Coronary atherosclerosis and other heart disease (20 sources) Coronary atherosclerosis; Translations: [Coronary atherosclerosis of unspecified type of vessel, [place] or graft] Onset: 02-02-2022 08-12-2021 Chronic Disorders of lipid metabolism (16 sources) Mixed hyperlipidemia; Translations: [Mixed hyperlipidemia] 05-31-2024 Chronic Essential hypertension (20 sources) Benign hypertension; Translations: [Benign essential hypertension] Onset: 02-02-2022 Chronic Gastrointestinal hemorrhage (13 sources) Rectal hemorrhage 12-23-2020 Episodic Mood disorders (8 sources) Depressive disorder; Translations: [Moderate recurrent major depression] 05-31-2024 Chronic Comment on above: added per 07/17/2024 query response. Nonspecific chest pain (9 sources) Chest pain, unspecified; Translations: [Chest pain] Onset: 08-12-2021 Episodic Occlusion or stenosis of precerebral arteries (20 sources) Carotid artery stenosis; Translations: [Occlusion and stenosis of carotid artery without mention of cerebral infarction] 09-09-2020 Chronic Other circulatory disease (1 source) Disorder of carotid artery; Translations: [Disorder of arteries and arterioles, unspecified] 08-12-2021 Chronic Other circulatory disease (2 sources) Disorder of arteries and arterioles, unspecified; Translations: [Unspecified disorders of arteries and arterioles] Onset: 08-12-2021 Chronic Other gastrointestinal disorders (13 sources) Constipation 07-12-2021 Episodic Other hereditary and degenerative nervous system conditions (2 sources) Restless legs 08-01-2024 Chronic Other lower respiratory disease (1 source) Shortness of breath; Translations: [Shortness of breath] Onset: 09-17-2017 Episodic Other lower respiratory disease (6 sources) Cough 05-03-2023 Episodic Other lower respiratory disease (2 sources) Snoring 08-01-2024 Episodic Other nutritional; endocrine; and metabolic disorders (1 source) Body mass index less than 20; Translations: [Body mass index (BMI) 19.9 or less, adult] Onset: 04-05-2023 Episodic Other screening for suspected conditions (not mental disorders or infectious disease) (11 sources) Echocardiogram abnormal; Translations: [Nonspecific (abnormal) findings on radiological and other examination of other intrathoracic organs] Onset: 08-04-2024 Episodic Other skin disorders (2 sources) Seborrheic keratosis; Translations: [Other seborrheic keratosis] 05-09-2024 Episodic Other skin disorders (4 sources) Actinic keratosis; Translations: [Actinic keratosis] 05-09-2024 Episodic Other upper respiratory infections (6 sources) Sinusitis 05-03-2023 Chronic Other upper respiratory infections (2 sources) Acute upper respiratory infection; Translations: [Acute upper respiratory infection, unspecified] Onset: 04-02-2022 Episodic Otitis media and related conditions (20 sources) Otitis media; Translations: [Non-suppurative otitis media] Onset: 04-02-2022 08-01-2021 Episodic Pulmonary heart disease (10 sources) Pulmonary hypertension; Translations: [Other chronic pulmonary heart diseases] Chronic Residual codes; unclassified (2 sources) Sleep apnea 08-01-2024 Chronic Residual codes; unclassified (10 sources) Body mass index 20-24 - normal; Translations: [Body Mass Index between 19-24, adult] Episodic Residual codes; unclassified (1 source) Tobacco user; Translations: [Tobacco use] 08-12-2021 Episodic Screening and history of mental health and substance abuse codes (1 source) Ex-smoker; Translations: [Personal history of tobacco use] Episodic Comment on above: 2020 quit; Substance-related disorders (16 sources) Nicotine dependence, cigarettes, uncomplicated; Translations: [Nicotine dependence] Onset: 08-14-2021 Chronic Comment on above: Added secondary to d ocumentation in Social History. Added secondary to d ocumentation in Social History. Thyroid disorders (20 sources) Goiter; Translations: [Goiter, unspecified] Onset: 09-19-2021 Chronic Unclassified (1 source) CONTACT W/AND (SUSP) EXPOS COVID-19; Translations: [CONTACT W/AND (SUSP) EXPOS COVID-19] Onset: 08-14-2021 Unclassified (1 source) E87.1 - Hypo-osmolality and hyponatremia; Translations: [E87.1 - Hypo-osmolality and hyponatremia] Onset: 09-03-2021 Unclassified (1 source) I24.9 - Acute ischemic heart disease, unspecified; Translations: [I24.9 - Acute ischemic heart disease, unspecified] Onset: 08-12-2021 Unclassified (6 sources) Body mass index 20-24 - normal 05-31-2024 Unclassified (2 sources) Patient encounter status 08-04-2024 Past or Other Problems Problem Classification Problem Date Documented Da te Episodic/Chronic Fluid and electrolyte disorders (14 sources) Hyponatremia; Translations: [Hyposmolality and/or hyponatremia] Onset: 08-12-2021 08-12-2021 Episodic Open wounds of head; neck; and trunk (4 sources) Laceration without foreign body of scalp, subsequent encounter; Translations: [LACERATION W/O FB SCLP SUBSQT ENC] Onset: 11-29-2020 Episodic Other aftercare (1 source) group home (current) use of antithrombotics/an tiplatelets; Translations: [SENIOR LIVING ANTITHROMBOT/ANTIP LATLETS] Onset: 08-14-2021 Episodic Other aftercare (1 source) [employer] (current) use of aspirin; Translations: [SENIOR LIVING CURRENT USE OF ASPIRIN] Onset: 08-14-2021 Episodic Other aftercare (1 source) Other [facility] (current) drug therapy; Translations: [OTH SENIOR LIVING CURRENT DRUG THERAPY] Onset: 08-14-2021 Episodic Residual codes; unclassified (2 sources) Tobacco use; Translations: [Tobacco use disorder] Onset: 08-12-2021 Episodic Results Test Name Value Interpretation Reference Range Facility CT Chest, Low Dose Screening on 08-11-2024 CT Chest, Low Dose Screening Exam Date/Time: 08/10/2024 09:11 EST Reason for Exam: Screening;Z87.891 Report IMPRESSION: Lung RADS category 1: Negative. No nodules and/or definitely benign nodules. Continue annual screening with screening CT chest in [address] IMAGING OF THE CHEST WITHOUT INTRAVENOUS CONTRAST MEDIUM. HISTORY: Tobacco use. TECHNICAL FACTORS: Low dose CT imaging of the chest was obtained and formatted as 2.5 mm contiguous axial images from the thoracic inlet through the adrenal glands. Sagittal and coronal reconstructions obtained during postprocessing. Intravenous contrast medium: None. Comparison: CT chest 08/09/2020. Thyroid ultrasound June 05, 2024. FINDINGS: Right lung: No nodules, masses, consolidation, pleural effusion, pneumothorax. Scarring anterior base right middle lobe. Left lung: No nodules, masses, consolidation, pleural effusion, pneumothorax. Lymph nodes: No hilar, mediastinal, or axillary lymph node enlargement. Thoracic aorta: Normal in course and caliber. Cardiac: Size normal. No pericardial effusion. Coronary artery calcification identified. Thyroid: Enlarged thyroid bilaterally and diffusely with multiple bilateral low-attenuation nodules and calcification identified, unchanged. Upper abdomen:Limited imaging upper abdomen shows no gross anomaly. Musculoskeletal:No osteoblastic, and no osteolytic lesions. Remote internal fixation T1. Report All CT scans at this facility use dose modulation, iterative reconstruction, and/or weight based dosing when appropriate to reduce radiation dose to as low as reasonably achievable. Ordering Provider: Josephine Flor FINAL REPORT Dictated: 08/11/2024 12:52 pm Dillan Camarillo MD Signed (Electronic Signature): 08/11/2024 12:52 pm Signed by: Dillan Camarillo MD Transcribed by: CHAPIN Technologist: AUNDREA [facility] Reminderson 08-11-2024 Reminders Reminders - From: Josephine Flores To: [facility] - Clinical; Sent: 08/10/2024 13:45:04 EST Show up: 08/10/2024 13:44:00 EST Subject: Ambulatory Reminder Due Date/Time: 08/11/2024 13:43:00 EST Bone density showed osteopenia. will need to start calcium and Vitamin D. Does she want to get that OTC or would she like me to send in prescription for it. Results: Date Result Type Result Name 08/10/2024 13:34 Radiology BD Bone Density DEXA - From: Melissa Anaya M.A. ([facility] - Clinical) To: Josephine Flores; Sent: 08/11/2024 12:38:21 EST Show up: 08/11/2024 12:32:00 EST Subject: RE: Ambulatory Reminder she would like a prescription sent in so she knows she is taking the right thing pt. called to check on script. . Normal [facility] Reminders Reminders - From: Josephine Flores To: [facility] Clinical; Sent: 08/11/2024 13:34:30 EST Show up: 08/11/2024 13:35:00 EST Subject: Ambulatory Reminder Due Date/Time: 08/12/2024 13:34:[address] of chest was negative Results: Date Result Type Result Name 08/11/2024 12:[address] Chest, Low Dose Screening LVM for pt to return call, please advise pt of message below Normal [facility] BD Bone Density DEXAon 08-10 BD Bone Density DEXA Exam Date/Time: 08/10/2024 09:08 EST Reason for Exam: E28.39;Post menopausal Report IMPRESSION: OSTEOPENIA. The 10 year probability (FRAX) of a major osteoporotic fracture with a calculated due to treatment. EXAM: BD Bone Density DEXA CLINICAL HISTORY: Post menopausal, E28.39. COMPARISON: None COMMENTS: The lumbar spine and both hips were scanned. The mean bone mineral density from L1 to L4 is 0.951 g/cm2 and this value is -1.9 standard of deviation below the standard reference value for a young adult. Bone mineral density of the left femoral neck is 0.711 g/cm2 and this value is -2.4 standard of deviation below the standard reference value. Bone mineral density of the right femoral neck is 0.722 g/cm2 and this value is -2.3 standard of deviation below the standard reference value. The lowest value(s) meet WHO criteria for osteopenia. RECOMMENDATIONS: 1. All patients should optimize her calcium and vitamin D intake. 2. Consider FDA-approved medical therapies in postmenopausal women and minimal age 50 years and older, based on the following: - hip or vertebral (clinical or morphometric) fracture. - T-score less than or equal to -2.5 at the femoral neck or spine after the appropriate evaluation to exclude secondary causes. - Low bone density (T score between -1.0 and -2.5 at the femoral neck or spine) and a 10 year probability of hip fracture greater than or equal to 3% or a 10-year probability of a major osteoporosis-related fracture greater than or equal to 20% based on FRAX calculation. - Clinician judgment and/or patient preferences may indicate treatment for people with 10 year fracture probability above or below these levels. - Further guidance on treatment can be found at the National Osteoporosis Foundation's website: bonesource.org 3. Patients with diagnosis of osteoporosis or high risk for fracture should have regular bone mineral density tests. For patients eligible for Medicare, routine testing is allowed once every 2 years. Testing frequency can be increased to 1 year for patient's history of rapidly progressing disease, those who are receiving or discontinuing medical therapy to restore bone mass or have additional risk factors. Report Ordering Provider: Josephine Flor FINAL REPORT Dictated: 08/10/2024 1:31 pm Mitchell Carrera MD. Signed (Electronic Signature): 08/10/2024 1:31 pm Signed by: Mitchell Carrera MD Transcribed by: CHAPIN Technologist: [facility] Ambulatory Visit Summaryon 0 08-07-2024 Ambulatory Visit Summary Ambulatory Visit Summary SANDHYA MALDONADO :1960 Visit Date:08/07/2024 Ambulatory Visit Instructions Your Diagnosis Screening for colon cancer Your Care Team Attending Physician - Marilyn Hopson MD Primary Care Physician - Josephine Flores This Is Your Medications List polyethylene glycol 3350 with electrolytes (NuLYTELY [place] oral powder for reconstitution) Contact prescribing physician if questions or concerns albuterol (Albuterol (Eqv-ProAir HFA) 90 mcg/inh inhalation aerosol) amlodipine (amLODIPine 5 mg Tab) aspirin (aspirin 81 mg Oral EC Tab) budesonide-formotero l (Symbicort 80/4.5 inhalation aerosol with adapter) chlorthalidone (chlorthalidone 25 mg Tab) escitalopram (escitalopram 5 mg oral tablet) losartan (losartan 50 mg Tab) methimazole (methimazole 5 mg Tab) potassium chloride (Potassium Chloride (Eqv-K-Tab) 10 mEq oral tablet, extended release) Procedures Performed pinched nerve in neck (1960), colonoscopy. Discharge Vitals Heart Rate (Peripheral) 75 Respiratory Rate 14 Blood Pressure 163/80 Height 151 cm Height 59 in Weight 53 kg Weight 116.845 lb BMI 23.24 What to do next Scheduled Follow-Up Appointments Wednesday 10:20 AM EST With: Where: [place] [id number] 2024 9:00 AM EST With: Where: [facility] 2024 9:30 AM EST With: Where: [facility] Wednesday 8:20 AM EDT With: Josephine Flores Where: [address] [id number]- Wednesday2025 8:00 AM EST With: Where: [address] [address]- Medications What How Much When Why Instructions New polyethylene glycol 3350 with electrolytes (NuLYTELY [place] oral powder for reconstitution) See instructions follow up physicians insctructions Pickup at [facility]/pharmacy #[id number] Unchanged albuterol (Albuterol (Eqv-ProAir HFA) 90 mcg/ inh inhalation aerosol) 2 Puffs Inhalation Every 6 hours Contact prescribing physician if questions or concerns Unchanged amlodipine (amLODIPine 5 mg Tab) 1 Tablets By Mouth Every day Hypertension Sleep apnea Loud snoring Restless leg Daytime somnolence BMI 23.0-23.9, adult Former smoker Contact prescribing physician if questions or concerns Unchanged aspirin (aspirin 81 mg Oral EC Tab) By Mouth Every day Contact prescribing physician if questions or concerns Unchanged budesonide-formotero l (Symbicort 80/ 4.5 inhalation aerosol with adapter) 2 Puffs Inhalation 2 times a day COPD, mild Carotid artery stenosis Multiple thyroid nodules Chest pain Goiter Hyperlipemia BMI 23.0-23.9, adult Smoker Contact prescribing physician if questions or concerns Unchanged chlorthalidone (chlorthalidone 25 mg Tab) 1 Tablets By Mouth Every day Hypertension Sleep apnea Loud snoring Restless leg Daytime somnolence BMI 23.0-23.9, adult Former smoker Contact prescribing physician if questions or concerns Unchanged escitalopram (escitalopram 5 mg oral tablet) 1 Tablets By Mouth Every day COPD, mild Carotid artery stenosis Multiple thyroid nodules Chest pain Goiter Hyperlipemia BMI 23.0-23.9, adult Smoker Duration: 90 Days Contact prescribing physician if questions or concerns Unchanged losartan (losartan 50 mg Tab) 1 Tablets By Mouth Every day Contact prescribing physician if questions or concerns Unchanged methimazole (methimazole 5 mg Tab) 1 Tablets By Mouth 2 times a day Contact prescribing physician if questions or concerns Unchanged potassium chloride (Potassium Chloride (Eqv-K-Tab) 10 mEq oral tablet, extended release) 1 Tablets By Mouth 2 times a day Hypertension Sleep apnea Loud snoring Restless leg Daytime somnolence BMI 23.0-23.9, adult Former smoker Contact prescribing physician if questions or concerns Pharmacy Information [facility]/pharmacy #[id number]: [address] [place], [place] [id number] [phone] Allergies No Known Allergies Problems Ongoing - Any problem that you are currently receiving treatment for. BMI 24.0-24.9, adult Carotid artery stenosis Chest pain Constipation COPD, mild Cough Daytime somnolence Fluid level behind tympanic membrane of both ears Generalized anxiety disorder Hyperlipemia Hypertension Hyperthyroidism Loud snoring Major depressive disorder, recurrent episode, moderate Mild CAD Multiple thyroid nodules Rectal bleed Restless leg Screening for colon cancer Sinusitis Sleep apnea Smoker Thyroid goiter Historical - Any problem that you are no longer receiving treatment for. Depression Hypertension Patient Survey You may receive a survey via text or e-mail asking about your office visit. Please share your experience with us by complet (more content not included)... Normal [facility] Gastroenterology Office/Clin ic Noteon 08-07-2024 Gastroenterology Office/Clinic Note Gastroenterology Office/Clinic Note Chief Complaint screening colonoscopy HPI Staff New patient is a(n) 64 year old female who was referred by [facility] for a screening colonoscopy. Denies Fhx colon cancer/diseases. previous EGD/Colonoscopy- [place] about 30 years ago. Cologuard - 5 years ago. Previously seen with Dr. Serrano for constipation - colonoscopy ordered but pt did not complete. Denies n/v/c/d, abd pain, bloody or mucus stools. Blood thinners? aspirin 81mg daily. GLP-1 agonists? no. History of Present Illness Reviewed HPI collected by staff Review of Systems PHQ Score Initial Depression Screen Score: 0 SCORE All systems reviewed, negative; Except for above Physical Exam Vitals & Measurements HR: 75(Peripheral) RR: 14 BP: 163/80 HT: 59 in HT: 151 cm WT: 53 kg WT: 116.845 lb BMI: 23.24 General: in Nad Abdomen: Soft, NTND Assessment/Plan 1. Screening for colon cancer (Z12.11: Encounter for screening for malignant neoplasm of colon) Negative cologuard 5 years ago Denies Fhx of colon cancer Quit smoking 4 years ago C/o hemorrhoids - OTC fibers - Avoid constipation - Advised to use MiraLAX and titrate to have 1-2 bowel movements every day Schedule Colonoscopy to evaluate. Discussed risks and benefits, patient agreeable. I, Emmanuelle Gee, personally scribed for Marilyn Hopson on 08/07/2024 08:59:27. .. Documentation recorded by Herminia Gee, accurately reflects the services I performed and decisions made by me. Marilyn Hopson MD Follow-up No qualifying data available Problem List/Past Medical History Ongoing BMI 24.0-24.9, adult Carotid artery stenosis Chest pain Constipation COPD, mild Cough Daytime somnolence Fluid level behind tympanic membrane of both ears Generalized anxiety disorder Hyperlipemia Hypertension Hyperthyroidism Loud snoring Major depressive disorder, recurrent episode, moderate Mild CAD Multiple thyroid nodules Rectal bleed Restless leg Screening for colon cancer Sinusitis Sleep apnea Smoker Thyroid goiter Historical Depression Hypertension Procedure/Surgical History pinched nerve in neck (1960), colonoscopy. Medications Albuterol (Eqv-ProAir HFA) 90 mcg/inh inhalation aerosol, 2 puff(s), Inhalation, q6hr, 4 refills amLODIPine 5 mg Tab, 5 mg= 1 tab(s), Oral, Daily aspirin 81 mg Oral EC Tab, Oral, Daily chlorthalidone 25 mg Tab, 25 mg= 1 tab(s), Oral, Daily escitalopram 5 mg oral tablet, 5 mg= 1 tab(s), Oral, Daily, 3 refills losartan 50 mg Tab, 50 mg= 1 tab(s), Oral, Daily methimazole 5 mg Tab, 5 mg= 1 tab(s), Oral, BID NuLYTELY [place] oral powder for reconstitution, See Instructions Potassium Chloride (Eqv-K-Tab) 10 mEq oral tablet, extended release, 10 mEq= 1 tab(s), Oral, BID Symbicort 80/4.5 inhalation aerosol with adapter, 2 puff(s), Inhalation, BID Allergies No Known Allergies Social History Alcohol - Denies Alcohol Use, 03/16/2019 Never, 07/18/2024 Exercise - Does not exercise, 03/16/2019 Substance Abuse - Denies Substance Abuse, 03/16/2019 Never, 07/18/2024 Tobacco - High Risk, 08/01/2021 Former smoker, quit more than 30 days ago Tobacco Use:., 08/07/2024 Former smoker, quit more than 30 days ago Tobacco Use:. Never Smokeless Tobacco Use:. Cigarettes, Household tobacco concerns: No. Yes, 07/18/2024 Family History Cardiac arrest: Father. Hypertension: Brother and Brother. Lupus: Mother. Immunizations Vaccine Date Status Comments influenza virus vaccine, inactivated 04/05/2023 Given influenza virus vaccine, inactivated 08/14/2021 Recorded SARS-CoV-2 (COVID-19) mRNA-1273 vaccine 06/05/2021 Recorded 2022-04-02: [id number] SARS-CoV-2 (COVID-19) mRNA-1273 vaccine 09/20/2020 Recorded SARS-CoV-2 (COVID-19) mRNA-1273 vaccine 08/20/[address] [facility] Comment on above: Result Comment: Elec tronically Signed By: Emiliana SMILEY, Marilyn Burton\.br\Date and Time Signed: 08/07/24 09:08 EST\.br\Electronically Co-Signed By: Emmanuelle Gee MA\.br\Date and Time Co-Signed: 08/07/24 09:06 EST Ambulatory Visit Summaryon 0 08-01-2024 Ambulatory Visit Summary Ambulatory Visit Summary SANDHYA MALDONADO :1960 Visit Date:08/01/2024 Ambulatory Visit Instructions Your Diagnosis Sleep apnea Hypertension BMI 23.0-23.9, adult Former smoker Your Care Team Attending Physician - Josephine Flores Primary Care Physician - Josephine Flores This Is Your Medications List albuterol (Albuterol (Eqv-ProAir HFA) 90 mcg/inh inhalation aerosol) aspirin (aspirin 81 mg Oral EC Tab) budesonide-formotero l (Symbicort 80/4.5 inhalation aerosol with adapter) escitalopram (escitalopram 5 mg oral tablet) losartan (losartan 50 mg Tab) methimazole (methimazole 5 mg Tab) [Image Removed: STOP]Stop taking these medications carvedilol (carvedilol 3.125 mg Tab) Procedures Performed pinched nerve in neck (1960), colonoscopy. Discharge Vitals Heart Rate (Peripheral) 66 Respiratory Rate 18 Blood Pressure 170/80 Height 151.0 cm Height 59 in Weight 54.0 kg Weight 119.049 lb BMI 23.68 What to do next Scheduled Follow-Up Appointments Wednesday 8:30 AM EST With: Emiliana SMILEY, Marilyn Burton Where: [facility] [address] [place] [address] [place] [id number]- Wednesday 10:20 AM EST With: Where: [facility] [address] [address] 2024 9:00 AM EST With: Where: [facility] 2024 9:30 AM EST With: Where: [facility] Wednesday 8:20 AM EDT With: Josephine Flores Where: [address] [address] [id number] 8:00 AM EST With: Where: [address] [address]- Medications What How Much When Why Instructions Unchanged albuterol (Albuterol (Eqv-ProAir HFA) 90 mcg/ inh inhalation aerosol) 2 Puffs Inhalation Every 6 hours Unchanged aspirin (aspirin 81 mg Oral EC Tab) By Mouth Every day Unchanged budesonide-formotero l (Symbicort 80/ 4.5 inhalation aerosol with adapter) 2 Puffs Inhalation 2 times a day COPD, mild Carotid artery stenosis Multiple thyroid nodules Chest pain Goiter Hyperlipemia BMI 23.0-23.9, adult Smoker Unchanged escitalopram (escitalopram 5 mg oral tablet) 1 Tablets By Mouth Every day COPD, mild Carotid artery stenosis Multiple thyroid nodules Chest pain Goiter Hyperlipemia BMI 23.0-23.9, adult Smoker Duration: 90 Days Unchanged losartan (losartan 50 mg Tab) 1 Tablets By Mouth Every day Unchanged methimazole (methimazole 5 mg Tab) 1 Tablets By Mouth 2 times a day What How Much When Comments Stop Taking carvedilol (carvedilol 3.125 mg Tab) 1 Tablets By Mouth 2 times a day Duration: 90 Days Allergies No Known Allergies Problems Ongoing - Any problem that you are currently receiving treatment for. BMI 24.0-24.9, adult Carotid artery stenosis Chest pain Constipation COPD, mild Cough Fluid level behind tympanic membrane of both ears Generalized anxiety disorder Hyperlipemia Hypertension Major depressive disorder, recurrent episode, moderate Mild CAD Multiple thyroid nodules Rectal bleed Sinusitis Sleep apnea Smoker Thyroid goiter Historical - Any problem that you are no longer receiving treatment for. Depression Hypertension Patient Survey You may receive a survey via text or e-mail asking about your office visit. Please share your experience with us by completing your survey. We appreciate your feedback and thank you for choosing us for your care. Normal [facility] Medicine Office/Clini c Noteon 08-01-2024 Family Medicine Office/Clinic Note Family Medicine Office/Clinic Note HPI Staff Sandhya is a 64 year old female presenting for ER follow up ER followup: 07/25/24 started Losartan 50mg Hospital: [facility] Visit date: 07/25/24 Symptoms the patient presented with: elevated blood pressure Symptom onset/injury onset: 07/25/24 Current concerns: Pt has been checking blood pressures at home and brought in a log, continues to have headache Left Frontal. Pt di bring in a list of her Twin brothers medication who also had HTN and he is controlled with his medication. Pt brought in at home b/p cuff and took in offcie and got 173/86 Snoring: yes Witnessed Apnea: no Gasping at night: yes Fatigue: yes Restless leg: yes HTN: yes Nocturnal Urination: yes Concerns: pt would like to be checked for sleep apnea. Respiratory C/O: Onset:5 days ago Body aches: yes Chest congestion: yes Chills: no Cough: yes Sputum production: yes Sore throat: yes Ear complaints: yes popping,pressure Eye itching/watering: no Fever: no Headache: yes Nasal congestion: yes Nasal discharge: yes Poor appetite: no Reduced activity: yes Sinus pain/pressure: yes Sneezing: yes Wheezing: yes Ill contacts: no Remedies tried: none Questions/Concerns: History of Present Illness pt presents today for follow up on HTN. She is also having some sinus drainage Review of Systems PHQ Score Initial Depression Screen Score: 0 SCORE Physical Exam Vitals & Measurements HR: 66(Peripheral) RR: 18 BP: 170/80 SpO2: 95% HT: 59 in HT: 151.0 cm WT: 54.0 kg WT: 119.049 lb BMI: 23.68 General: alert, no acute distress ENMT: oral mucosa moist, no pharyngeal erythema or exudate Cardiovascular: regular rate and rhythm, normal peripheral perfusion Respiratory: Lungs CTA, respirations non labored Extremities: no deformity, no trauma Neurological: oriented x 4, LOC appropriate for age, CN II-XII intact, motor strength equal & normal bilaterally, speech normal Assessment/Plan 1. Hypertension (I10: Essential (primary) hypertension) pt presents today for follow up on BP. BP log reviewed. Bp is still elevated. will adjust meds today. will stop carvdilol. Will add amlodipine 5mg, chlorthalidone and potassium to losartan she is already taking. will also order sleep apnea testing. pt was sent to ER last week when she walked into clinic with severely high BP. we started losartan at that time. RTC in 1 week for BP check. Ordered: amlodipine, 5 mg = 1 tab(s), Oral, Daily, # 90 tab(s), Refills(s) 0, [id number], cm, 08/01/24 11:07:00 EST, Height/Length Dosing, 54, kg, 08/01/24 11:07:00 EST, Weight Dosing chlorthalidone, 25 mg = 1 tab(s), Oral, Daily, # 90 tab(s), Refills(s) 0, [id number], 151, cm, 08/01/24 11:07:00 EST, Height/Length Dosing, 54, kg, 08/01/24 11:07:00 EST, Weight Dosing potassium chloride, 10 mEq = 1 tab(s), Oral, BID, # 90 tab(s), Refills(s) 0, [id number], 151, cm, 08/01/24 11:07:00 EST, Height/Length Dosing, 54, kg, 08/01/24 11:07:00 EST, Weight Dosing Influenza Type A&B POC 44153 Rapid COVID POC 90851 2. Sleep apnea (G47.30: Sleep apnea, unspecified) pt c/o snoring, gasping, frequent wakening, restless leg, daytime fatigue will order sleep apnea testing through [facility]. pt is convinced her BP is elevated due to sleep apnea issues. Ordered: amlodipine, 5 mg = 1 tab(s), Oral, Daily, # 90 tab(s), Refills(s) 0, [id number], 151, cm, 08/01/24 11:07:00 EST, Height/Length Dosing, 54, kg, 08/01/24 11:07:00 EST, Weight Dosing chlorthalidone, 25 mg = 1 tab(s), Oral, Daily, # 90 tab(s), Refills(s) 0, [id number], 151, cm, 08/01/24 11:07:00 EST, Height/Length Dosing, 54, kg, 08/01/24 11:07:00 EST, Weight Dosing potassium chloride, 10 mEq = 1 tab(s), Oral, BID, # 90 tab(s), Refills(s) 0, [id number], 151, cm, 08/01/24 11:07:00 EST, Height/Length Dosing, 54, kg, 08/01/24 11:07:00 EST, Weight Dosing Influenza Type A&B POC 10131 Rapid COVID POC 95146 3. Loud snoring (R06.83: Snoring) see above Ordered: amlodipine, 5 mg = 1 tab(s), Oral, Daily, # 90 tab(s), Refills(s) 0, [id number], 151, cm, 08/01/24 11:07:00 EST, Height/Length Dosing, 54, kg, 08/01/24 11:07:00 EST, Weight Dosing chlorthalidone, 25 mg = 1 tab(s), Oral, Daily, # 90 tab(s), Refills(s) 0, [id number], 151, cm, 08/01/24 11:07:00 EST, Height/Length Dosing, 54, kg, 08/01/24 11:07:00 EST, Weight Dosing potassium chloride, 10 mEq = 1 tab(s), Oral, BID, # 90 tab(s), Refills(s) 0, [id number], 151, cm, 08/01/24 11:07:00 EST, Height/Length Dosing, 54, kg, 08/01/24 11:07:00 EST, Weight Dosing 4. Restless leg (G25.81: Restless legs syndrome) see above Ordered: amlodipine, 5 mg = 1 tab(s), Oral, Daily, # 90 tab(s), Refills(s) 0, [id number], 151, cm, 08/01/24 11:07:00 EST, Height/Length Dosing, 54, kg, 08/01/24 11:07:00 EST, Weight Dosing chlorthalidon (more content not included)... Normal [facility] Comment on above: Result Comment: Elec tronically Signed By: Josephine Flores\.br\Date and Time Signed: 08/01/24 11:51 EST Reminderson 07-27-2024 Reminders Reminders - From: Yadira Junior To: [facility] - Clinical; Sent: 07/25/2024 15:23:06 EST Show up: 07/25/2024 15:23:00 EST Subject: Ambulatory Reminder Due Date/Time: 07/27/2024 15:23:00 EST Reminder/Recall Check to see if pt scheudled a 2 week ER follow up for blood pressure. Pt went to [facility] 07/25/14 for elevated blood pressure in office to when she stopped in 250/110. pt has appt 08/07 for follow up Normal [facility] Family Medicine Phone Visit - Telehealthon 07-25-2024 Family Medicine Phone Visit - Telehealth Family Medicine Phone Visit - Telehealth Physical Exam Vitals & Measurements BP: 250/110 Assessment/Plan 1. Hypertension (I10: Essential (primary) hypertension) pt walked into office to have BP checked. Was sent to [facility] ER. they treated her with IV medication and wanted to keep her but she insisted on going home. will order losartan. pt will return in 2 weeks with BP log. Orders: losartan, 50 mg = 1 tab(s), Oral, Daily, # 90 tab(s), Refills(s) 0, Pharmacy: [facility] #[id number], 151, cm, 07/18/24 8:27:00 EST, Height/Length Dosing, 55, kg, 07/18/24 8:27:00 EST, Weight Dosing Follow-up No qualifying data available Problem List/Past Medical History Ongoing BMI 24.0-24.9, adult Carotid artery stenosis Chest pain Constipation COPD, mild Cough Fluid level behind tympanic membrane of both ears Generalized anxiety disorder Hyperlipemia Hypertension Major depressive disorder, recurrent episode, moderate Mild CAD Multiple thyroid nodules Rectal bleed Sinusitis Smoker Thyroid goiter Historical Depression Hypertension Procedure/Surgical History pinched nerve in neck (1959), colonoscopy. Medications Albuterol (Eqv-ProAir HFA) 90 mcg/inh inhalation aerosol, 2 puff(s), Inhalation, q6hr, 4 refills aspirin 81 mg Oral EC Tab, Oral, Daily carvedilol 3.125 mg Tab, 3.125 mg= 1 tab(s), Oral, BID, 3 refills escitalopram 5 mg oral tablet, 5 mg= 1 tab(s), Oral, Daily, 3 refills losartan 50 mg Tab, 50 mg= 1 tab(s), Oral, Daily methimazole 5 mg Tab, 5 mg= 1 tab(s), Oral, BID, Not taking Symbicort 80/4.5 inhalation aerosol with adapter, 2 puff(s), Inhalation, BID Allergies No Known Allergies Social History Alcohol - Denies Alcohol Use, 03/16/2019 Never, 07/18/2024 Exercise - Does not exercise, 03/16/2019 Substance Abuse - Denies Substance Abuse, 03/16/2019 Never, 07/18/2024 Tobacco - High Risk, 08/01/2021 Former smoker, quit more than 30 days ago Tobacco Use:. Never Smokeless Tobacco Use:. Cigarettes, Household tobacco concerns: No. Yes, 07/18/2024 Family History Cardiac arrest: Father. Hypertension: Brother and Brother. Lupus: Mother. Immunizations Vaccine Date Status Comments influenza virus vaccine, inactivated 04/05/2023 Given influenza virus vaccine, inactivated 08/14/2021 Recorded SARS-CoV-2 (COVID-19) mRNA-1273 vaccine 06/05/2021 Recorded 2022-04-02: [id number] SARS-CoV-2 (COVID-19) mRNA-1273 vaccine 09/20/2020 Recorded SARS-CoV-2 (COVID-19) mRNA-1273 vaccine 08/20/2020 Recorded [address] [facility] Comment on above: Result Comment: Elec tronically Signed By: Josephine Flores\.br\Date and Time Signed: 07/25/24 15:24 EST Ambulatory Visit Summaryon 0 07-18-2024 Ambulatory Visit Summary Ambulatory Visit Summary SANDHYA MALDONADO Rao :1960 Visit Date:07/18/2024 Ambulatory Visit Instructions Your Diagnosis Welcome to Medicare preventive visit Major depressive disorder, recurrent episode, moderate Hyperlipemia Hypertension Generalized anxiety disorder Ovarian failure due to menopause History of smoking Advance directive declined by patient BMI 24.0-24.9, adult Smoker Screening for malignant neoplasm of colon Your Care Team Attending Physician - Josephine Flores Primary Care Physician - Josephine Flores This Is Your Medications List albuterol (Albuterol (Eqv-ProAir HFA) 90 mcg/inh inhalation aerosol) aspirin (aspirin 81 mg Oral EC Tab) budesonide-formotero l (Symbicort 80/4.5 inhalation aerosol with adapter) carvedilol (carvedilol 3.125 mg Tab) escitalopram (escitalopram 5 mg oral tablet) methimazole (methimazole 5 mg Tab) Procedures Performed pinched nerve in neck (1959), colonoscopy. Discharge Vitals Heart Rate (Peripheral) 53 Respiratory Rate 16 Blood Pressure 148/90 Height 59 in Height 151 cm Weight 121.298 lb Weight 55.02 kg BMI 24.13 What to do next Scheduled Follow-Up Appointments Wednesday 8:30 AM EST Where: [facility] Wednesday2025 8:00 AM EST Where: [place] [id number]- You Need to Complete the Following [facility] DEXA, 07/25/24, Routine, Order for Future Visit, Transport Mode: Ambulatory, Reason: Post menopausal, Reason: E28.39, Ovarian failure due to menopause, No, 121, pp_set_radiology_sub specialty, Not Required, [facility] CT Chest, Low Dose Screening, 07/18/24, Routine, Order for future visit, Transport Mode: Ambulatory, Reason: Screening, No, Yes, Yes, 1, 40, Yes, 4, [id number], No, History of smoking, pp_set_radiology_sub specialty, Not Required, [facility] Medications What How Much When Why Instructions Unchanged albuterol (Albuterol (Eqv-ProAir HFA) 90 mcg/ inh inhalation aerosol) 2 Puffs Inhalation Every 6 hours Unchanged aspirin (aspirin 81 mg Oral EC Tab) By Mouth Every day Unchanged budesonide-formotero l (Symbicort 80/ 4.5 inhalation aerosol with adapter) 2 Puffs Inhalation 2 times a day COPD, mild Carotid artery stenosis Multiple thyroid nodules Chest pain Goiter Hyperlipemia BMI 23.0-23.9, adult Smoker Unchanged carvedilol (carvedilol 3.125 mg Tab) 1 Tablets By Mouth 2 times a day Unchanged escitalopram (escitalopram 5 mg oral tablet) 1 Tablets By Mouth Every day COPD, mild Carotid artery stenosis Multiple thyroid nodules Chest pain Goiter Hyperlipemia BMI 23.0-23.9, adult Smoker Unchanged methimazole (methimazole 5 mg Tab) 1 Tablets By Mouth 2 times a day Pickup at [facility]/pharmacy #[id number] Pharmacy Information [facility]/pharmacy #[id number]: [address] [place], [place] [id number] [phone] Allergies No Known Allergies Problems Ongoing - Any problem that you are currently receiving treatment for. BMI 24.0-24.9, adult Carotid artery stenosis Chest pain Constipation COPD, mild Cough Fluid level behind tympanic membrane of both ears Generalized anxiety disorder Hyperlipemia Hypertension Major depressive disorder, recurrent episode, moderate Mild CAD Multiple thyroid nodules Rectal bleed Sinusitis Smoker Thyroid goiter Historical - Any problem that you are no longer receiving treatment for. Depression Hypertension Patient Survey You may receive a survey via text or e-mail asking about your office visit. Please share your experience with us by completing your survey. We appreciate your feedback and thank you for choosing us for your care. Education Materials Health Maintenance After Age 65 After age 65, you are at a higher risk for certain long-term diseases and infections as well as injuries from falls. Falls are a major cause of broken bones and head injuries in people who are older than age 65. Getting regular preventive care can help to keep you healthy and well. Preventive care includes getting regular testing and making lifestyle changes as recommended by your health care provider. Talk with your health care provider about: ??? Which screenings and tests you should have. A screening is a test that checks for a disease when you have no symptoms. ??? A diet and exercise plan that is right for you. What should I know about screenings and tests to prevent falls? Screening and testing are the best ways to find a health problem early. Early diagnosis and treatment give you the best chance of managing medical conditions that are common after age 65. Certain conditions and lifestyle choices may make you more likely to have a fall. Your health care provider may recommend: ??? Regular vision checks. Poor vision and conditions such as cataracts can make you more likely to have a fall. If you wear glasses, make sure to (more content not included)... Normal [facility] Family Medicine Office/Tosha santiago Noteon 07-18-2024 Family Medicine Office/Clinic Note Family Medicine Office/Clinic Note Chief Complaint Welcome to Medicare HPI Staff Sandhya is a 64 year old female presenting for medication refill. Patient had Welcome to Medicare visit today. Patient is here for follow up on hypertension. How often are you checking your blood pressure? no What are your average readings? _ COPD: Inhaler is working well Follow up for Mental Status: Medication adherence- Yes, takes medication as prescribed Medication refill needed: _ Suicidal thoughts-Not at this time Most recent ISHAAN: 4 Most recent PHQ: 10 Hyperthyroidism: pt hadn't picked up medication yet to start. Pt needs refill Carvedilol, escitalopram, History of Present Illness pt presents today for follow up on BP Review of Systems PHQ Score Initial Depression Screen Score: 4 SCORE Physical Exam Vitals & Measurements HR: 53(Peripheral) RR: 16 BP: 148/90 SpO2: 97% HT: 151 cm HT: 59 in WT: 55.02 kg WT: 121.298 lb BMI: 24.13 General: alert, no acute distress ENMT: oral mucosa moist, no pharyngeal erythema or exudate Cardiovascular: regular rate and rhythm, normal peripheral perfusion Respiratory: Lungs CTA, respirations non labored Extremities: no deformity, no trauma Neurological: oriented x 4, LOC appropriate for age, CN II-XII intact, motor strength equal & normal bilaterally, speech normal Assessment/Plan 1. Welcome to Medicare preventive visit (Z00.00: Encounter for general adult medical examination without abnormal findings) pt presents for welcome to medicare. Ordered: 1124F ACP discussed and documented; patient declines surrogate decision or ACPr 1125F Pain severity quantified; pain present Body Mass Index (BMI) documented 3008F Current tobacco non-user 1036F Depression Screening Positive 3354F Functional status assessed 1170F Influenza immunization status assessed 1030F Medicare Welcome Visit G0402 Medication list documented in medical record 1159F Most recent diastolic blood pressure 80-89 mm Hg 3079F Most recent systolic blood pressure >= 140 mm Hg 3077F Patient screen for fall risk: no falls in last year or 1 fall with no injury in last year 1101F Pneumococcus immunization status assessed 1022F Review of all meds by a prescribing practitioner or clinical pharmacist documented in EHR 1160F Screening mammography documented and reviewed 3014F 2. Major depressive disorder, recurrent episode, moderate (F33.1: Major depressive disorder, recurrent, moderate) continue escitalopram 3. Hyperlipemia (E78.5: Hyperlipidemia, unspecified) discussed making healthy food choices Ordered: escitalopram, 5 mg = 1 tab(s), Oral, Daily, X 90 day(s), # 90 tab(s), Refills(s) 3, [id number] 151, cm, 07/18/24 8:27:00 EST, Height/Length Dosing, 55, kg, 07/18/24 8:27:00 EST, Weight Dosing escitalopram, 5 mg = 1 tab(s), Oral, Daily, # 90 tab(s), Refills(s) 0, [id number], 151, cm, 05/31/24 14:29:00 EST, Height/Length Dosing, 53.6, kg, 05/31/24 14:29:00 EST, Weight Dosing 4. Hypertension (I10: Essential (primary) hypertension) refills sent 5. Generalized anxiety disorder (F41.1: Generalized anxiety disorder) stable at this time 6. Ovarian failure due to menopause (E28.39: Other primary ovarian failure) dexa scan ordered Ordered: [facility] DEXA 7. History of smoking (Z87.891: Personal history of nicotine dependence) LDCT ordered Ordered: CT Chest, Low Dose Screening 8. Advance directive declined by patient (Z78.9: Other specified health status) declines 9. BMI 24.0-24.9, adult (Z68.24: Body mass index [BMI] 24.0-24.9, adult) BMIK education 10. Smoker (F17.200: Nicotine dependence, unspecified, uncomplicated) consider not smoking Ordered: escitalopram, 5 mg = 1 tab(s), Oral, Daily, X 90 day(s), # 90 tab(s), Refills(s) 3, Pharmacy: [facility] #[id number], 151, cm, 07/18/24 8:27:00 EST, Height/Length Dosing, 55, kg, 07/18/24 8:27:00 EST, Weight Dosing escitalopram, 5 mg = 1 tab(s), Oral, Daily, # 90 tab(s), Refills(s) 0, [id number], 151, cm, 05/31/24 14:29:00 EST, Height/Length Dosing, 53.6, kg, 05/31/24 14:29:00 EST, Weight Dosing 11. Screening for malignant neoplasm of colon (Z12.11: Encounter for screening for malignant neoplasm of colon) colonoscopy ordered Ordered[place] [facility] [place] BMI 23.0-23.9, adult (Z68.23: Body mass index [BMI] 23.0-23.9, adult) BMI education given Ordered: escitalopram, 5 mg = 1 tab(s), Oral, Daily, X 90 day(s), # 90 tab(s), Refills(s) 3, [id number], 151, cm, 07/18/24 8:27:00 EST, Height/Length Dosing, 55, kg, 07/18/24 8:27:00 EST, Weight Dosing escitalopram, 5 mg = 1 tab(s), Oral, Daily, # 90 tab(s), Refills(s) 0, [id number], 151, cm, 05/31/24 14:29:00 EST, Height/Length Dosing, 53.6, kg, 05/31/24 14:29:00 EST, Weight Dosing Carotid artery stenosis (I65.29: Occlusion and stenosis of unspecified carotid artery) w (more content not included)... Normal [facility] Comment on above: Result Comment: Elec tronically Signed By: Josephine Flores\.br\Date and Time Signed: 07/18/24 09:56 EST Pre-Visit Planningon 025 Pre-Visit Planning Pre-Visit Planning - From: Eunice Taylor To: Josephine Flores; Sent: 07/17/2024 08:58:38 EST Subject: Pre-Visit Planning Due Date/Time: 07/17/2024 08:58:00 EST Caller Name: SANDHYA MALDONADO; Caller Number: , Frederic Burton. During a pre-visit planning chart review, I noted the following documentation in the medical record: Current Problem List: Depression, unspecified and ISHAAN. Current Medication List: escitalopram. PHQ-9 Score: =14 on 04/05/2023. 05/31/2024 Office Visit Note: Depression (F32.A: Depression, unspecified) pt becomes very tearful during visit. states I lost my mother last year we just lost my sister in law. my daughter 4 years ago. and I am just not doing well with all of this. denies suicidal ideations. lexapro sent to pharmacy' Based on your medical judgment, can you please clarify which, if any, of the following conditions are present? I can update the Chronic Problem List with your response if you would like. Major Depressive Disorder, Single Episode ??? Major depressive disorder, single episode, mild ??? Major depressive disorder, single episode, moderate ??? Major depressive disorder, single episode, severe without mention of psychotic behavior ??? Major depressive disorder, single episode, in partial remission ??? Major depressive disorder, single episode in full remission Major Depressive Disorder, Recurrent ??? Major depressive disorder, recurrent, mild ??? Major depressive disorder, recurrent, moderate ??? Major depressive disorder, recurrent, severe without mention of psychotic behavior ??? Major depressive disorder, recurrent, in partial remission ??? Major depressive disorder, recurrent, in full remission -Other (Please Specify): In responding to this request, please exercise your independent professional judgement. The fact that a question is asked does not imply that any particular answer is desired or expected. If you have any questions, please feel free to contact me at extension [phone]. Thank you! Eunice Taylor LPN Clinical Pulmonologist Intensivist [place] [address] Extension: [email or web address] - From: Josephine Flores To: Eunice Taylor; Sent: 07/17/2024 10:40:35 EST Subject: RE: Pre-Visit Planning Caller Name: SANDHYA MALDONADO; Caller Number: , M major depressive disorder moderate recurrent Normal [facility] Reminderson 07-17-2024 Reminders Reminders - From: Josephine Flores To: B - Clinical; Sent: 07/17/2024 08:09:47 EST Show up: 07/17/2024 08:09:00 EST Subject: Ambulatory Reminder Due Date/Time: 07/18/2024 08:08:00 EST TSH is still low. She will need to restart methimazole for hyperthyroidism. I will send to pharmacy. Results: Date Result Name Ind Value Ref Range 07/14/2024 9:57 TSH ((L)) 0.25 mcIU/mL (0.34 - 5.60) 07/14/2024 9:57 T4 Free 1.13 ng/dL (0.58 - 1.64) 07/14/2024 9:57 T3 Free 2.6 pg/mL (2.0-4.4 - ) pt notified of message below Normal [facility] T3 Freeon 07-16-2024 Free T3 [Mass/Vol] 2.6 pg/mL Invalid Interpretation Code 2.0-4.[address] [facility] Comment on above: Result Comment: Perf ormed at: [facility] [address] [id number] PhD Piyush Aaron Performed By: #### 2 [id number] ####[facility] [address] [place] [address] CHEMISTRYOrdered By: SYSTEM SYSTEM on 07-14-2024 Free T4 [Mass/Vol] 1.13 ng/dL Normal 0.58 - 1. 64 ng/dL Remisol Chem TSH Qn 0.25 m[IU]/L Low 0.34 - 5.60 mcIU/mL Remisol Chem Free T4on 07-14-2024 Free T4 [Mass/Vol] 1.13 ng/dL Normal 0.58-1.[address] [facility] Comment on above: Performed By: #### 2 [id number] #### [facility] [address] [place] [address] TSHon 07-14-2024 TSH Qn 0.25 m[IU]/L Low 0.34-5.[address] [facility] Comment on above: Performed By: #### 2 [id number] #### [facility] [address] [place] [address] Reminderson 06-19-2024 Reminders Reminders - From: Josephine Flores To: [facility] - Clinical; Sent: 06/09/2024 15:17:57 EST Show up: 06/09/2024 15:18:00 EST Subject: Ambulatory Reminder Due Date/Time: 06/10/2024 15:17:00 EST mammogram negative Results: Date Result Type Result Name 06/08/2024 14:17 Radiology MA Mamm Screen w/CAD if perf and 3D Kush - From: Melissa Anaya M.A. ([facility] - Clinical) To: Josephine Flores; [facility] - Clinical; Sent: 06/09/2024 15:31:07 EST Show up: 06/09/2024 15:30:00 EST Subject: RE: Ambulatory Reminder left message for her to call back to relay below message Pt has been notified. Normal [facility] MA Mamm Screen w/CAD if perf and 3D Bilon 06-08-2024 MA Mamm Screen w/CAD if perf and 3D Kush Exam Date/Time: 06/06/2024 09:39 EST Reason for Exam: Z12.31 Report IMPRESSION: BIRADS 1 NEGATIVE, NORMAL INTERVAL FOLLOW-UP Follow-up: 12 MONTH RECALL Density: There are scattered areas of fibroglandular density. Vascular calcifications: Absent. EXAM: MA Mamm Screen w/CAD if perf and 3D Kush DATE: 06/06/2024 9:38 AM CLINICAL HISTORY: Z12.31. COMPARISONS: 02/04/2022, 04/27/2020, and 09/23/2017. TECHNIQUE: Routine full-field digital mammograms and 3D breast tomosynthesis were obtained of both breasts. FINDINGS: There are no developing densities, suspicious microcalcifications, or areas of architectural distortion identified on the current study. No significant changes are identified from the prior studies, given differences in technique and positioning. Dense Breast: No. CAD analysis was performed and used in the interpretation. Board Certified Radiologists. Accredited by the ACR and FDA. MAMMOGRAPHY IS VERY IMPORTANT TO YOUR HEALTH. THE CURRENT [employer] GUIDELINES RECOMMENDS ANNUAL MAMMOGRAPHY BEGINNING AT AGE 40. THIS FACILITY UTILIZES A REMINDER SYSTEM TO ENSURE ALL PATIENTS RECEIVE REMINDER NOTIFICATIONS AT THE APPROPRIATE TIME BASED ON THE RECOMMENDATIONS OF THIS EXAM. Report Ordering Provider: REFERRAL, SELF FINAL REPORT Dictated: 06/08/2024 2:14 pm Olayinka Yost MD Signed (Electronic Signature): 06/08/2024 2:14 pm Signed by: Olayinka Yost MD Transcribed by: CHAPIN Technologist: SANTIAGO Assessment: BI-RADS Category 1-Negative Recommendation: Normal interval follow-up Normal [facility] Reminderson 06-08-2024 Reminders Reminders - From: Josephine Flores To: [facility] - Clinical; Sent: 06/08/2024 11:41:25 EST Show up: 06/08/2024 11:41:00 EST Subject: Ambulatory Reminder Due Date/Time: 06/09/2024 11:40:00 EST thyroid goiter is stable. has not changed since last ultrasound. Results: Date Result Type Result Name 06/06/2024 15:42 Radiology US Thyroid - From: Melissa Anaya M.A. ([facility] - Clinical) To: Josephine Flores; Sent: 06/08/2024 12:38:17 EST Show up: 06/08/2024 12:37:00 EST Subject: RE: Ambulatory Reminder verbalizes understanding Normal [facility] US Thyroidon 06-06-2024 US Thyroid Exam Date/Time: 06/05/2024 10:26 EST Reason for Exam: E04.2;Other (please specify) Report IMPRESSION: STABLE MULTINODULAR GOITER. EXAM: US Thyroid DATE: 06/05/2024 10:09 AM CLINICAL HISTORY: E04.2. COMPARISON: 04/11/[address] 08/09/2020. TECHNIQUE: Ultrasound of the thyroid was performed with a regional survey. Guidance on fine-needle aspiration (FNA) and follow-up for nodules using TI-RADS, based on 2017 ACR white paper. FINDINGS: The thyroid is normal in size, with expected vascularity. Numerous essentially contiguous predominantly T3 nodules have not significantly changed, but were measured in aggregate dimension rather than individually on the prior ultrasound. The right lobe measures 5.6 cm x 3.4 cm x 3.4 cm with a volume of 34.2 cm3. The left lobe measures 6.1 cm x 2.2 cm x 2.9 cm with a volume of 20.2 cm3. The isthmus measures 1.2 cm. Ordering Provider: Josephine Flor FINAL REPORT Dictated: 06/06/2024 3:39 pm Olayinka Yost MD Signed (Electronic Signature): 06/06/2024 3:39 pm Signed by: Olayinka Yost MD Transcribed by: CHAPIN Technologist: VICKIE Wise [facility] Reminderson 06-02-2024 Reminders Reminders - From: Josephine Flores To: [facility] - Clinical; Sent: 06/02/2024 09:02:19 EST Show up: 06/02/2024 09:02:00 EST Subject: Ambulatory Reminder Due Date/Time: 06/03/2024 09:01:00 EST cholesterol is slightly elevated her TSH is really low. would like to recheck TSH with free T3 and Free T4 in 6 weeks please have her schedule that as a nurse visit. Thank you Results: Date Result Name Ind Value Ref Range 05/31/2024 15: WBC 6.3 E9/L (4.0 - 11.0) 05/31/2024 15: RBC 4.3 E12/L (4.3 - 5.9) 05/31/2024 15: HGB 13.6 gm/dL (12.0 - 16.0) 05/31/2024 15: Hct 40.0 % (34.0 - 46.0) 05/31/2024 15: MCV 92.0 fL (80.0 - 100.0) 05/31/2024 15: MCH 31.2 pg (27.0 - 34.0) 05/31/2024 15:29 MCHC 33.9 gm/dL (31.4 - 36.0) 05/31/2024 15:29 RDW 13.9 % (10.9 - 14.2) 05/31/2024 15:29 Platelet 271.0 E9/L (150.0 - 500.0) 05/31/2024 15: MPV 8.6 fL (6.4 - 10.8) 05/31/2024 15:29 Neutro Auto 49.2 % (36.0 - 75.0) 05/31/2024 15: Lymph Auto 39.3 % (14.0 - 50.0) 05/31/2024 15:29 Chase Auto 6.5 % (4.0 - 14.0) 05/31/2024 15:29 Eos Auto 3.7 % (0.0 - 8.0) 05/31/2024 15: Basophil Auto 1.3 % (0.0 - 2.0) 05/31/2024 15:29 Neutro Absolute 3.1 E9/L (2.0 - 7.5) 05/31/2024 15:29 Lymph Absolute 2.5 E9/L (1.0 - 4.0) 05/31/2024 15:29 Chase Absolute 0.4 E9/L (0.2 - 1.0) 05/31/2024 15:29 Eos Absolute 0.2 E9/L (0.0 - 0.5) 05/31/2024 15: Basophil Absolute 0.1 E9/L (0.0 - 0.2) 05/31/2024 15:29 Glucose Lvl 98 mg/dL (55 - 199) 05/31/2024 15:29 BUN 14 mg/dL (5 - 21) 05/31/2024 15:29 Creatinine 0.8 mg/dL (0.5 - 1.3) 05/31/2024 15:29 eGFR 82 mL/min/1.73 m2 (>=59 - ) 05/31/2024 15:29 BUN/Creat Ratio 18 (10 - 20) 05/31/2024 15:29 Sodium Lvl 138 mmol/L (135 - 145) 05/31/2024 15:29 Potassium Lvl 4.9 mmol/L (3.5 - 5.3) 05/31/2024 15:29 Chloride 105 mmol/L (101 - 111) 05/31/2024 15:29 CO2 29 mmol/L (21 - 31) 05/31/2024 15:29 AGAP 9 mEq/L (6 - 16) 05/31/2024 15:29 Calcium Lvl 9.2 mg/dL (8.9 - 11.1) 05/31/2024 15:29 Alk Phos 63 Int._Unit/L (21 - 98) 05/31/2024 15:29 ALT 13 Int._Unit/L (6 - 46) 05/31/2024 15:29 AST 17 Int._Unit/L (5 - 43) 05/31/2024 15:29 Total Protein 6.9 gm/dL (6.0 - 7.8) 05/31/2024 15:29 Albumin Lvl 4.0 gm/dL (3.3 - 5.0) 05/31/2024 15:29 Globulin 2.9 gm/dL (1.4 - 4.0) 05/31/2024 15:29 A/G Ratio 1.4 (1.1 - 2.2) 05/31/2024 15:29 Bili Total 0.3 mg/dL (0.0 - 1.1) 05/31/2024 15:29 Chol ((H)) 212 mg/dL (120 - 200) 05/31/2024 15:29 Trig 133 mg/dL ( - <=149) 05/31/2024 15:29 HDL 65 mg/dL 05/31/2024 15:29 LDL Direct ((H)) 135 mg/dL ( - <=129) 05/31/2024 15:29 VLDL 27 mg/dL (7 - 40) 05/31/2024 15:29 TSH ((L)) 0.13 mcIU/mL (0.34 - 5.60) 05/31/2024 15:29 Troponin HS ((L)) 6.10 pg/mL (10.10 - 27.10) Pt has been notified & transferred to desk lieutenant to schedule appt. Normal [facility] CBC w/ Auto Diffon 4 Basophils/100 WBC (Bld) 1.3 % Normal 0.0-2.[address] [facility] Comment on above: Performed By: #### 2 [id number] #### [facility] [address] [place] [address] Basophils/Leukocytes Auto (Bld) [Pure # fraction] 0.1 E9/L Normal 0.0-0.[address] [facility] Comment on above: Performed By: #### 2 [id number] #### [facility] [address] [place] [address] Eosinophils (Bld) [#/Vol] 0.2 E9/L Normal 0.0-0.[address] [facility] Comment on above: Performed By: #### 2 [id number] #### [facility] [address] [place] [address] Eosinophils/100 WBC (Bld) 3.7 % Normal 0.0-8.[address] [facility] Comment on above: Performed By: #### 2 [id number] #### [facility] [address] [place] [address] Erythrocyte distribution width (RBC) [Ratio] 13.9 % Normal 10.9-14.[address] [facility] Comment on above: Performed By: #### 2 [id number] #### [facility] [address] [place] [address] Hematocrit (Bld) [Volume fraction] 40.0 % Normal 34.0-46.[address] [facility] Comment on above: Performed By: #### 2 [id number] #### [facility] [address] [place] [address] Hemoglobin (Bld) [Mass/Vol] 13.6 g/dL Normal 12.0-16.[address] [facility] Comment on above: Performed By: #### 2 [id number] #### [facility] [address] [place] [address] Lymphocytes (Bld) [#/Vol] 2.5 E9/L Normal 1.0-4.[address] [facility] Comment on above: Performed By: #### 2 [id number] #### [facility] [address] [place] [address] Lymphocytes/100 WBC (Bld) 39.3 % Normal 14.0-50.[address] [facility] Comment on above: Performed By: #### 2 [id number] #### [facility] [address] [place] [address] MCH (RBC) [Entitic mass] 31.2 pg Normal 27.0-34.[address] [facility] Comment on above: Performed By: #### 2 [id number] #### [facility] [address] [place] [address] MCHC (RBC) [Mass/Vol] 33.9 g/dL Normal 31.4-36.0 [facility] Comment on above: Performed By: #### 2 [id number] #### [facility] [address] [place] [address] MCV (RBC) [Entitic vol] 92.0 fL Normal 80.0-100.[address] [facility] Comment on above: Performed By: #### 2 [id number] #### [facility] [address] [place] [address] Monocytes (Bld) [#/Vol] 0.4 E9/L Normal 0.2-1.[address] [facility] Comment on above: Performed By: #### 2 [id number] #### [facility] [address] [place] [address] Neutrophils (Bld) [#/Vol] 3.1 E9/L Normal 2.0-7.[address] [facility] Comment on above: Performed By: #### 2 [id number] #### [facility] [address] [place] [address] Neutrophils/100 WBC (Bld) 49.2 % Normal 36.0-75.[address] [facility] Comment on above: Performed By: #### 2 865035 #### [facility] [address] [place] [address] Platelet 271.0 E9/L Normal 150.0-500.[address] [facility] Comment on above: Performed By: #### 2 [id number] #### [facility] [address] [place] [address] Platelet mean volume (Bld) [Entitic vol] 8.6 fL Normal 6.4-10.[address] [facility] Comment on above: Performed By: #### 2 074844 #### [facility] [address] [place] [address] RBC (Bld) [#/Vol] 4.3 E12/L Normal 4.3-5.[address] [facility] Comment on above: Performed By: #### 2 [id number] #### [facility] [address] [place] [address] WBC corrected for nucl RBC Auto (Bld) [#/Vol] 6.3 E9/L Normal 4.0-11.0 [facility] Comment on above: Performed By: #### 2 [id number] #### [facility] [address] [place] [address] CMPon 06-01-2024 Albumin [Mass/Vol] 4.0 g/dL Normal 3.3-5.[address] [facility] Comment on above: Performed By: #### 2 972174 #### [facility] [address] [place] [address] Albumin/Globulin (S) [Mass conc ratio] 1.4 Normal 1.1-2.[address] [facility] Comment on above: Performed By: #### 2 [id number] #### [facility] [address] [place] [address] ALP [Catalytic activity/Vol] 63 Int._Unit/L Normal 21-[address] [facility] Comment on above: Performed By: #### 2 [id number] #### [facility] [address] [place] [address] ALT No additional P-5'-P [Catalytic activity/Vol] 13 Int._Unit/L Normal 6-[address] [facility] Comment on above: Performed By: #### 2 197000 #### [facility] [address] [place] [address] Anion gap [Moles/Vol] 9 mmol/L Normal 6-16 [facility] Comment on above: Performed By: #### 2 [id number] #### [facility] [address] [place] [address] AST [Catalytic activity/Vol] 17 Int._Unit/L Normal 5-[address] [facility] Comment on above: Performed By: #### 2 [id number] #### [facility] [address] [place] [address] Bilirubin [Mass/Vol] 0.3 mg/dL Normal 0.0-1.1 [facility] Comment on above: Performed By: #### 2 823310 #### [facility] [address] [place] [address] Calcium [Mass/Vol] 9.2 mg/dL Normal 8.9-11.[address] [facility] Comment on above: Performed By: #### 2 [id number] #### [facility] [address] [place] [address] Chloride [Moles/Vol] 105 mmol/L Normal 101-111 [facility] Comment on above: Performed By: #### 2 [id number] #### [facility] [address] [place] [address] CO2 [Moles/Vol] 29 mmol/L Normal 21-31 [facility] Comment on above: Performed By: #### 2 207873 #### [facility] [address] [place] [address] Creatinine [Mass/Vol] 0.8 mg/dL Normal 0.5-1.3 [facility] Comment on above: Performed By: #### 2 911122 #### [facility] [address] [place] [address] Globulin (S) [Mass/Vol] 2.9 g/dL Normal 1.4-4.[address] [facility] Comment on above: Performed By: #### 2 [id number] #### [facility] [address] [place] [address] Glucose [Mass/Vol] 98 mg/dL Normal 55-[address] [facility] Comment on above: Performed By: #### 2 102957 #### [facility] [address] [place] [address] Potassium [Moles/Vol] 4.9 mmol/L Normal 3.5-5.3 [facility] Comment on above: Performed By: #### 2 156809 #### [facility] [address] [place] [address] Protein [Mass/Vol] 6.9 g/dL Normal 6.0-7.[address] [facility] Comment on above: Performed By: #### 2 [id number] #### [facility] [address] [place] [address] Sodium [Moles/Vol] 138 mmol/L Normal 135-[address] [facility] Comment on above: Performed By: #### 2 425859 #### [facility] [address] [place] [address] Urea nitrogen [Mass/Vol] 14 mg/dL Normal 5-[address] [facility] Comment on above: Performed By: #### 2 158303 #### [facility] [address] [place] [address] Urea nitrogen/Creatinine [Mass ratio] 18 No Units Normal 10-[address] [facility] Comment on above: Performed By: #### 2 [id number] #### [facility] [address] [place] [address] Lipid Panelon 06-01-2024 Cholesterol [Mass/Vol] 212 mg/dL High 120-200 [facility] Comment on above: Performed By: #### 2 [id number] #### [facility] [address] [place] [address] Cholesterol in HDL [Mass/Vol] 65 mg/dL Invalid Interpretation Code [facility] Comment on above: Result Comment: '>= 60 LOW RISK' '<= 40 HIGH RISK' Performed By: #### 2 [id number] #### [facility] [address] [place] [address] Cholesterol in LDL [Mass/Vol] 135 mg/dL High <=[address] [facility] Comment on above: Performed By: #### 2 [id number] #### [facility] [address] [place] [address] Cholesterol in VLDL [Mass/Vol] 27 mg/dL Normal 7-[address] [facility] Comment on above: Performed By: #### 2 172584 #### [facility] [address] [place] [address] Triglyceride [Mass/Vol] 133 mg/dL Normal <=[address] [facility] Comment on above: Performed By: #### 2 [id number] #### [facility] [address] [place] [address] TSHon 06-01-2024 TSH Qn 0.13 m[IU]/L Low 0.34-5.[address] [facility] Comment on above: Performed By: #### 2 [id number] #### [facility] [address] [place] [address] Troponinon 06-01-2024 Troponin HS 6.10 pg/mL Low 10.10-27.[address] [facility] Comment on above: Result Comment: The 95% CI (Confidence Interval) PPV (Positive Predictive Value) for myocardial infarction in females is 38 pg/mL, in males 51 pg/mL. The results should be used in conjunction with clinical conditions of myocardial infarction. (Access High Sensitivity Troponin I Instructions For Use, Marlen Romina, January 2018) Performed By: #### 2 [id number] #### [facility] [address] [place] [address] eGFRon 06-01-2024 eGFR 82 mL/min/1.73 m2 Normal >=[address] [facility] Comment on above: Performed By: #### 1 [id number] #### [facility] [address] [place] [address] Ambulatory Visit Summaryon 1 08-01-2023 Ambulatory Visit Summary Ambulatory Visit Summary SANDHYA MALDONADO :1960 Visit Date:05/31/2024 Ambulatory Visit Instructions Your Diagnosis COPD, mild Carotid artery stenosis Multiple thyroid nodules Chest pain Goiter Hyperlipemia BMI 23.0-23.9, adult Smoker Your Care Team Attending Physician - Josephine Flores Primary Care Physician - Josephine Flores This Is Your Medications List albuterol (Albuterol (Eqv-ProAir HFA) 90 mcg/inh inhalation aerosol) aspirin (aspirin 81 mg Oral EC Tab) escitalopram (escitalopram 5 mg oral tablet) nicotine (nicotine 21 mg/24 hr Transderm ER Film) Procedures Performed pinched nerve in neck (1960), colonoscopy. Discharge Vitals Heart Rate (Peripheral) 65 Respiratory Rate 18 Blood Pressure 162/90 Height 151 cm Height 59 in Weight 53.6 kg Weight 118.168 lb BMI 23.51 What to do next Scheduled Follow-Up Appointments Wednesday 8:40 AM EST With: Josephine Flores Where: [address] [address]- You Need to Complete the Following US Thyroid, 05/31/24, Routine, Order for future visit, Transport Mode: Ambulatory, Reason: Other (please specify), No, Multiple thyroid nodules Goiter, pp_set_radiology_sub specialty, [facility] Medications What How Much When Why Instructions New escitalopram (escitalopram 5 mg oral tablet) 1 Tablets By Mouth Every day COPD, mild Carotid artery stenosis Multiple thyroid nodules Chest pain Goiter Hyperlipemia BMI 23.0-23.9, adult Smoker Pickup at [facility]/pharmacy #[id number] Unchanged albuterol (Albuterol (Eqv-ProAir HFA) 90 mcg/ inh inhalation aerosol) 2 Puffs Inhalation Every 6 hours Unchanged aspirin (aspirin 81 mg Oral EC Tab) By Mouth Every day Unchanged nicotine (nicotine 21 mg/ 24 hr Transderm ER Film) APPLY 1 PATCH TOPICALLY DAILY Pharmacy Information [facility]/pharmacy #[id number]: [address] [place], [place] [id number] [phone] Allergies No Known Allergies Problems Ongoing - Any problem that you are currently receiving treatment for. Benign hypertension BMI 23.0-23.9, adult Carotid artery stenosis Chest pain Constipation COPD, mild Cough Fluid level behind tympanic membrane of both ears Generalized anxiety disorder Goiter Hyperlipemia Mild CAD Multiple thyroid nodules Otitis media Rectal bleed Right otitis media Sinusitis Smoker Thyroid goiter Historical - Any problem that you are no longer receiving treatment for. Hypertension Patient Survey You may receive a survey via text or e-mail asking about your office visit. Please share your experience with us by completing your survey. We appreciate your feedback and thank you for choosing us for your care. Normal [facility] Family Medicine Office/Clini c Noteon 05-31-2024 Family Medicine Office/Clinic Note Family Medicine Office/Clinic Note Chief Complaint Chronic Care follow up HPI Staff Sandhya is a 63 year old female presenting for chronic care follow up and refills. Stopped taking all medication except albuterol. States she has been having chest pain since Wednesday. started taking ASA 81mg. Someday 4 pills. Still having the chest pain but it has improved. States breathing has been difficult. States she is dx'd w/ COPD. BP is elevated today. Arm hurts. Fingers have been tingling. History of Present Illness pt presents today with multiple complaints Review of Systems PHQ Score Initial Depression Screen Score: 2 SCORE Physical Exam Vitals & Measurements HR: 65(Peripheral) RR: 18 BP: 162/90 SpO2: 98% HT: 59 in HT: 151 cm WT: 53.6 kg WT: 118.168 lb BMI: 23.51 General: alert, no acute distress ENMT: oral mucosa moist, no pharyngeal erythema or exudate Cardiovascular: regular rate and rhythm, normal peripheral perfusion Respiratory: Lungs CTA, respirations non labored Extremities: no deformity, no trauma Neurological: oriented x 4, LOC appropriate for age, CN II-XII intact, motor strength equal & normal bilaterally, speech normal Assessment/Plan 1. Chest pain (R07.9: Chest pain, unspecified) c/o right sided chest pain and hand tingling. ekg WNL in office today. pt had severe chest pain on wednesday and wednesday. took aspirin and says she is feeling better today. BP is elevated. pt stopped taking all meds a year ago. will restart carvedilol today. pt to monitor BP at home. will return in June for follow up. Ordered: budesonide-formotero l, 2 puff(s), Inhalation, BID, 10.2 gm, Refill(s) 0, [facility]/pharmacy #[id number], 151, cm, 05/31/24 14:29:00 EST, Height/Length Dosing, 53.6, kg, 05/31/24 14:29:00 EST, Weight Dosing escitalopram, 5 mg = 1 tab(s), Oral, Daily, # 90 tab(s), Refills(s) 0, Pharmacy: [facility]/pharmacy #[id number], 151, cm, 05/31/24 14:29:00 EST, Height/Length Dosing, 53.6, kg, 05/31/24 14:29:00 EST, Weight Dosing CBC w/ Auto Diff Comprehensive Metabolic Panel ECG 12 Lead Adult Lab Specimen Collect [id number] Lipid Panel Thyroid Stimulating Hormone Troponin 2. Carotid artery stenosis (I65.29: Occlusion and stenosis of unspecified carotid artery) EKG in office today normal sinus rhythm. was previously seen by DR. Restrepo. pt stopped taking all meds. Ordered: budesonide-formotero l, 2 puff(s), Inhalation, BID, 10.2 gm, Refill(s) 0, [facility]/pharmacy #[id number], 151, cm, 05/31/24 14:29:00 EST, Height/Length Dosing, 53.6, kg, 05/31/24 14:29:00 EST, Weight Dosing escitalopram, 5 mg = 1 tab(s), Oral, Daily, # 90 tab(s), Refills(s) 0, Pharmacy: [facility]/pharmacy #[id number], 151, cm, 05/31/24 14:29:00 EST, Height/Length Dosing, 53.6, kg, 05/31/24 14:29:00 EST, Weight Dosing CBC w/ Auto Diff Comprehensive Metabolic Panel ECG 12 Lead Adult Lab Specimen Collect [id number] Lipid Panel Thyroid Stimulating Hormone Troponin 3. COPD, mild (J44.9: Chronic obstructive pulmonary disease, unspecified) pt feeling short of breath with exertion. has never been on ICS. will send steroid inhaler today. when she returns may consider referral to pulm Ordered: budesonide-formotero l, 2 puff(s), Inhalation, BID, 10.2 gm, Refill(s) 0, [facility]/pharmacy #[id number], 151, cm, 05/31/24 14:29:00 EST, Height/Length Dosing, 53.6, kg, 05/31/24 14:29:00 EST, Weight Dosing escitalopram, 5 mg = 1 tab(s), Oral, Daily, # 90 tab(s), Refills(s) 0, Pharmacy: [facility]/pharmacy #[id number], 151, cm, 05/31/24 14:29:00 EST, Height/Length Dosing, 53.6, kg, 05/31/24 14:29:00 EST, Weight Dosing CBC w/ Auto Diff Comprehensive Metabolic Panel ECG 12 Lead Adult Lab Specimen Collect [id number] Lipid Panel Thyroid Stimulating Hormone Troponin 4. Multiple thyroid nodules (E04.2: Nontoxic multinodular goiter) will order u/s of thyroid. pt was supposed to have surgery but it was canceled during covid. and she never returned Ordered: budesonide-formotero l, 2 puff(s), Inhalation, BID, 10.2 gm, Refill(s) 0, [facility]/pharmacy #[id number], 151, cm, 05/31/24 14:29:00 EST, Height/Length Dosing, 53.6, kg, 05/31/24 14:29:00 EST, Weight Dosing escitalopram, 5 mg = 1 tab(s), Oral, Daily, # 90 tab(s), Refills(s) 0, Pharmacy: [facility]/pharmacy #[id number], 151, cm, 05/31/24 14:29:00 EST, Height/Length Dosing, 53.6, kg, 05/31/24 14:29:00 EST, Weight Dosing sertraline, 25 mg = 1 tab(s), Oral, Daily, # 30 tab(s), Refills(s) 0, Pharmacy: [facility]/pharmacy #[id number], 151, cm, 05/03/23 10:31:00 EST, Height/Length Dosing, 47.9, kg, 05/03/23 10:31:00 EST, Weight Dosing CBC w/ Auto Diff Comprehensive Metabolic Panel ECG 12 Lead Adult Lab Specimen Collect [id number] Lipid Panel Thyroid Stimulating Hormone Troponin US Thyroid 5. Goiter (E04.9: Nontoxic goiter, unspecified) pt was supposed to go to for further evaluation but covid hit and she never went back. u/s ordered Ordered: budesonide-formotero l, 2 puff(s), Inhalation, BID, 10.2 gm, Refill(s) 0, [id number], 151, cm, 05/31/24 14:29:00 EST, Height/Length Dosing, 53.6, kg, 12 (more content not included)... Normal [facility] Comment on above: Result Comment: Elec tronically Signed By: Josephine Flores\.ayesha\Date and Time Signed: 05/31/24 16:14 EST No Panel Informationon 05-29 [facility] Healthcare No Panel Informationon 05-09 [facility] CHEMISTRYOrdered By: SYSTEM SYSTEM on 04-05-2023 Albumin [Mass/Vol] 3.6 g/dL Normal 3.3 - 5.0 gm/dL [facility] Albumin/Globulin [Mass ratio] 1.0 {ratio} Low 1.1 - 2.2 [facility] ALP [Catalytic activity/Vol] 67 [iU]/d Normal 21 - 98 Int._Unit/L [facility] ALT No additional P-5'-P [Catalytic activity/Vol] 16 [iU]/d Normal 6 - 46 Int._Unit/L [facility] Anion gap [Moles/Vol] 6 mmol/L Normal 6 - 16 mEq/L [facility] AST [Catalytic activity/Vol] 17 [iU]/d Normal 5 - 43 Int._Unit/L [facility] Bilirubin [Mass/Vol] 0.2 mg/dL Normal 0.0 - 1 .1 mg/dL [facility] Calcium [Mass/Vol] 9.3 mg/dL Normal 8.9 - 11. 1 mg/dL [facility] Chloride [Moles/Vol] 106 mmol/L Normal 101 - 1 11 mmol/L [facility] Cholesterol [Mass/Vol] 207 mg/dL High 120 - 200 mg/dL [facility] Cholesterol in HDL [Mass/Vol] 57 mg/dL Invalid Interpretation Code [facility] Comment on above: Interpretive Data: H DL > or equal to 60 mg/dL: Low cardiovascular risk HDL < 40 mg/dL : High cardiovascular risk Cholesterol in LDL [Mass/Vol] 134 mg/dL High <=129mg/dL [facility] Cholesterol in VLDL [Mass/Vol] 16 mg/dL Normal 7 - 40 mg/dL [facility] CO2 [Moles/Vol] 28 mmol/L Normal 21 - 31 mmol/L [facility] Creatinine [Mass/Vol] 0.8 mg/dL Normal 0.5 - 1.3 mg/dL [facility] Free T4 [Mass/Vol] 1.16 ng/dL Normal 0.58 - 1. 64 ng/dL [facility] GFR/1.73 sq M.predicted among non-blacks MDRD (S/P/Bld) [Vol rate/Area] 83 mL/min/1.73 m2 Normal >=59mL/min/1 .73 m2 [facility] Comment on above: Interpretive Data: C hronic kidney disease could be indicated at eGFR's of less than 60 mL/min/1.73m2. Kidney failure is indicated at less than 15 mL/min/1.73m2. Globulin (S) [Mass/Vol] 3.5 g/dL Normal 1.4 - 4.0 gm/dL [facility] Glucose [Mass/Vol] 84 mg/dL Normal 55 - 199 mg/dL [facility] Comment on above: Interpretive Data: I f this glucose result represents a fasting glucose, interpretation should refer to the following reference range: 55-99 mg/dL Potassium [Moles/Vol] 4.4 mmol/L Normal 3.5 - 5.3 mmol/L [facility] Protein [Mass/Vol] 7.1 g/dL Normal 6.0 - 7.8 gm/dL [facility] Sodium [Moles/Vol] 136 mmol/L Normal 135 - 145 mmol/L [facility] Triglyceride [Mass/Vol] 79 mg/dL Normal <=149mg/dL [facility] TSH Qn 0.26 m[IU]/L Low 0.34 - 5.60 mcIU/mL [facility] Urea nitrogen [Mass/Vol] 16 mg/dL Normal 5 - 21 mg/dL [facility] Urea nitrogen/Creatinine [Mass ratio] 20 mg/mg Normal 10 - 20 [facility] Office Visit (Cardiology)on 05-13-2022 Follow-up visit Diagnoses/Problems Assessed Carotid stenosis (433.10) (I65.29) Mild CAD (414.00) (I25.10) Mixed hyperlipidemia (272.2) (E78.2) Pulmonary hypertension (416.8) (I27.20) Hypertension, benign (401.1) (I10) optimal in office COPD (chronic obstructive pulmonary disease) (496) (J44.9) Body mass index (BMI) of 22.0 to 22.9 in adult (V85.1) (Z68.22) Former smoker (V15.82) (Z87.891) 2020 quit Orders SocHx: Former smoker Tobacco Use Screening; Status:Complete; Done: [id number] Patient Instructions Please bring all medicines, vitamins, and herbal supplements with you when you come to the office. Prescriptions will not be filled unless you are compliant with your follow up appointments or have a follow up appointment scheduled as per instruction of your physician. Refills should be requested at the time of your visit. Follow up as needed only. Instructed to follow up with PCP for Carotid Ultrasound. Chief Complaint SANDHYA MALDONADO is being seen for a 6 month follow-up of. 61-year-old female returns for follow-up, she is doing well she has no cardiovascular complaints, remains on primary preventive therapies for mild ASHD. She had a suspected anterior STEMI (falsely) in September 02, catheterization revealed minimal disease. She has underlying COPD and right carotid disease that needs to be followed by her primary care physician and vascular surgery eventually. She is in need of partial thyroidectomy and certainly from a cardiovascular standpoint she is clear for this procedure. As she has no primary cardiac related issues, and she is doing well from cardiovascular standpoint and remains simply on primary preventive therapies she can follow-up with her primary care physician and/or nurse practitioner. We did educate her and the need to further follow-up with primary care or vascular surgery for ongoing surveillance of her right carotid, we can see her on a as needed basis. Surgical History Problems History of Neck surgery Current Meds Medication NameInstruction Albuterol Sulfate (2.5 MG/3ML) 0.083% Inhalation Nebulization SolutionUSE DIRECTED. Aspirin EC 81 MG Oral Tablet Delayed ReleaseTAKE 1 TABLET DAILY. Carvedilol 3.125 MG Oral TabletTAKE 1 TABLET TWICE DAILY WITH MEALS. Lipitor 40 MG Oral TabletTAKE 1 TABLET DAILY. methIMAzole 5 MG Oral Tablettake one tablet twice a day Pantoprazole Sodium 20 MG Oral Tablet Delayed ReleaseTAKE 1 TABLET DAILY. Vitamin D3 25 MCG (1000 UT) Oral CapsuleTAKE 1 CAPSULE Daily Allergies Medication No Known Drug Allergies Recorded By: Esha Mahajan; 09/03/2021 8:37:49 AM Social History Problems Daily caffeine consumption 10 CUPS OF COFFEE DAILY Former smoker (V15.82) (Z87.891) 2019 quit No alcohol use No illicit drug use Review of Systems Constitutional: not feeling tired. Cardiovascular: no intermittent leg claudication and as noted in HPI. Respiratory: shortness of breath, but no cough. Gastrointestinal: no change in bowel habits and no blood in stools. Integumentary: no skin rashes. Neurological: no seizures and no frequent falls. All other systems have been reviewed and are negative for complaint. Vitals Vital Signs Recorded: 13May2022 09:27AM Heart Rate66, L Radial Dfnnjoyf267, LUE, Sitting Oazdshnaf41, LUE, Sitting Height5 ft 1 in Pqszbf873 lb BMI Nsketmdvbp62.11 kg/m2 BSA Calculated1.5 Tobacco Useb) No PHQ-2 #1. Over the last 2 weeks have you felt down, depressed or hopeless? (If yes, answer PHQ-9 below)No PHQ-2 #2. Over the last 2 weeks have you felt little interest or pleasure in doing things? (If yes, answer PHQ-9 below)No Falls Screening (Age 18+)c) Not medically indicated Physical Exam Constitutional: alert and in no acute distress. Neck: neck is supple, symmetric, trachea midline, no masses and no thyromegaly . Pulmonary: no increased work of breathing or signs of respiratory distress and lungs clear to auscultation. Cardiovascular: carotid pulses 2+ bilaterally with no bruit , JVP was normal, no thrills , regular rhythm, normal S1 and S2, no murmurs , pedal pulses 2+ bilaterally and no edema . Abdomen: abdomen non-tender, no masses and no hepatomegaly . Skin: skin warm and dry, normal skin turgor . Psychiatric judgment and insight is normal and oriented to person, place and time . Signatures Electronically signed by : Berto Mott DO; May 13 2022 4:47PM EST (Author) Normal Touchworks Tobacco Screening.on 022 Adult depression screening assessment No -[facility] [facility] [address] DO Work Phone: Fall risk assessment c) Not medically indicated -[facility] [address] DO Work Phone: Tobacco use status [facility] b) No -[facility] [address] DO Work Phone: CHEMISTRYOrdered By: SYSTEM SYSTEM on 02-04-2022 Albumin [Mass/Vol] 3.6 g/dL Normal 3.3 - 5.0 gm/dL [facility] Albumin/Globulin [Mass ratio] 1.2 {ratio} Normal 1.1 - 2.2 [facility] ALP [Catalytic activity/Vol] 54 [iU]/d Normal 21 - 98 Int._Unit/L [facility] ALT No additional P-5'-P [Catalytic activity/Vol] 16 [iU]/d Normal 6 - 46 Int._Unit/L [facility] Anion gap [Moles/Vol] 10 mmol/L Normal 6 - 16 mEq/L [facility] AST [Catalytic activity/Vol] 17 [iU]/d Normal 5 - 43 Int._Unit/L [facility] Bilirubin [Mass/Vol] 0.3 mg/dL Normal 0.0 - 1 .1 mg/dL [facility] Calcium [Mass/Vol] 9.0 mg/dL Normal 8.9 - 11. 1 mg/dL [facility] Chloride [Moles/Vol] 107 mmol/L Normal 101 - 1 11 mmol/L [facility] Cholesterol [Mass/Vol] 168 mg/dL Normal 120 - 200 mg/dL [facility] Cholesterol in HDL [Mass/Vol] 54 mg/dL Invalid Interpretation Code [facility] Cholesterol in LDL [Mass/Vol] 102 mg/dL Normal <=129mg/dL [facility] Cholesterol in VLDL [Mass/Vol] 13 mg/dL Normal 7 - 40 mg/dL [facility] CO2 [Moles/Vol] 27 mmol/L Normal 21 - 31 mmol/L [facility] Creatinine [Mass/Vol] 0.9 mg/dL Normal 0.5 - 1.3 mg/dL [facility] GFR/1.73 sq M.predicted among blacks MDRD (S/P/Bld) [Vol rate/Area] mL/min/1.73 m2 Normal >=59mL/min/1 .73 m2 [facility] GFR/1.73 sq M.predicted among non-blacks MDRD (S/P/Bld) [Vol rate/Area] mL/min/1.73 m2 Normal >=59mL/min/1 .73 m2 [facility] Globulin (S) [Mass/Vol] 3.1 g/dL Normal 1.4 - 4.0 gm/dL [facility] Glucose [Mass/Vol] 93 mg/dL Normal 55 - 199 mg/dL [facility] Potassium [Moles/Vol] 4.5 mmol/L Normal 3.5 - 5.3 mmol/L [facility] Protein [Mass/Vol] 6.7 g/dL Normal 6.0 - 7.8 gm/dL [facility] Sodium [Moles/Vol] 139 mmol/L Normal 135 - 145 mmol/L [facility] Triglyceride [Mass/Vol] 67 mg/dL Normal <=149mg/dL [facility] Urea nitrogen [Mass/Vol] 17 mg/dL Normal 5 - 21 mg/dL [facility] Urea nitrogen/Creatinine [Mass ratio] 19 mg/mg Normal 10 - 20 [facility] Chart Updateon 11-26-2021 Chart Update Chart Update This is a 61-year-old female referred to us by Dr. 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 She has been taking MMI 5 mg BID as prescribed with appropriate response. Most recent TSH 0.24 and FT4 0.94 (labs scanned to chart, 11/17/21) Okay to proceed with surgery from endocrine standpoint. Patient advised to schedule f/u with Dr. Sandoval for surgery planning. Continue MMI until surgery. Prescription refilled. Case discussed with attending Dr. Williamson and recommendations conveyed to patient.2 1 1 Amended By: Jose Guadalupe Bowden; Nov 27 2021 7:43 PM EST 2 Amended By: Jose Guadalupe Bowden; Nov 27 2021 8:08 PM ESTSignatures Reviewed by : Ovidio Williamson MD; Nov 26 2021 2:47PM EST Electronically signed by : Jose Guadalupe Bowden MD; Nov 27 2021 8:08PM EST (Author) Reviewed by : Shawn Sandoval MD; Nov 28 2021 9:35AM EST Normal Touchworks T3, TOTAL (TRIIODOTHYRONINE) on 11-18-2021 T3, TOTAL 97 ng/dL Normal 71-180 [facility] Comment on above: Performed By: #### T 3TOTAL #### [facility] [address] [place] [address] Dr. Stuart Weaver FREE T4on 11-17-2021 Free T4 [Mass/Vol] 0.94 ng/dL Normal 0.76-1.46 [facility] Comment on above: Performed By: #### F T4 #### [facility] [address] [place] [address] Dr. Stuart Weaver TSHon 11-17-2021 TSH 0.249 uIU/mL Critically low 0.358-3.740 [facility] Comment on above: Performed By: #### T SH #### [facility] [address] [place] [address] Dr. Stuart Weaver TSH RANGE SEE BELOW Normal [facility] Comment on above: Result Comment: <0.3 4 UIU/ml HYPERTHYROID 0.34-5.60 UIU/ml EUTHYROID >5.60 UIU/ml HYPOTHYROID Performed By: #### T SH #### [facility] [address] [place] [address] Dr. Stuart Weaver THYROID STIM IMMUNOGLOBon THYROID STIM IMMUNOGLOB <1.0 Normal <=1.3 [facility] Comment on above: Result Comment: Test Performed by: [facility] [address] [place] [address] Shop Coordinator: Berto Barraza M.D. Ph.D.; CLIA# [id number] Performed By: #### T SIG #### [facility] [address] [place] [address] THYROGLOBULIN AND ANTI THYRO GLOBULIN ABon 10-28-2021 ANTI-THYROGLOBULIN AB 2.2 IU/mL Normal 0.0-4.0 [facility] Comment on above: Result Comment: INTE RPRETIVE INFORMATION: Thyroglobulin Antibody A value of 4.0 IU/mL or less indicates a negative result for thyroglobulin antibodies. The Thyroglobulin Antibody assay is being performed using the Marlen York Access DxI method. Performed By: #### T HYR2 #### [address] [address] THYROGLOBULIN 108.9 ng/mL High 1.3-31.8 [facility] Comment on above: Result Comment: INTE RPRETIVE INFORMATION: Thyroglobulin, Serum or Plasma Specimens negative for thyroglobulin antibodies (TgAb) are tested for thyroglobulin (Tg) by chemiluminescent immunoassay (MIKY) using the Marlen Romina Access DxI method. Specimens with TgAb results above the upper reference limit are tested for Tg by high-performance liquid chromatography-tandem mass spectrometry (LC-MS/MS). Results obtained with different test methods or kits cannot be used interchangeably. Tg results, regardless of concentration, should not be interpreted as absolute evidence for the presence or absence of papillary or follicular thyroid cancer. Tg testing is not recommended for use as a screening procedure to detect the presence of thyroid cancer in the general population. Performed By: #### T HYR2 #### [address] [address] THYROGLOBULIN LC-MS/MS Not Applicable Normal 1.3-31.8 [facility] Comment on above: Result Comment: INTE RPRETIVE INFORMATION: Thyroglobulin by LC-MS/MS, Serum/Plasma Lower limit of detection for Thyroglobulin by LC-MS/MS is 0.5 ng/mL. This test was developed and its performance characteristics determined by [facility]. It has not been cleared or approved by the US Food and Drug Administration. This test was performed in a CLIA certified laboratory and is intended for clinical purposes. Performed By: [facility] [address] [place] [id number] Proposition Player: Georgina Chao MD Performed By: #### T HYR2 #### [address] [address] CBCon 10-24-2021 Erythrocyte distribution width (RBC) [Ratio] 13.5 % Normal 11.5 - 14.5 [facility] Comment on above: Performed By: #### C BC #### [facility] [address] [place] [address] Hematocrit (Bld) [Volume fraction] 38.1 % Normal 36.0 - 46.0 [facility] Comment on above: Performed By: #### C BC #### [facility] [address] [place] [address] Hemoglobin (Bld) [Mass/Vol] 12.6 g/dL Normal 12.0 - 16.0 [facility] Comment on above: Performed By: #### C BC #### [facility] [address] [place] [address] MCHC (RBC) [Mass/Vol] 33.1 g/dL Normal 32.0 - 36.0 [facility] Comment on above: Performed By: #### C BC #### [facility] [address] [place] [address] MCV (RBC) [Entitic vol] 92 fL Normal 80 - 100 [facility] Comment on above: Performed By: #### C BC #### [facility] [address] [place] [address] NUCLEATED RBC 0.0 /100 WBC Normal 0.0-0.0 [facility] Comment on above: Performed By: #### C BC #### [facility] [address] [place] [address] Platelets (Bld) [#/Vol] 247 10*3/uL Normal 150 - 450 [facility] Comment on above: Performed By: #### C BC #### [facility] [address] [place] [address] RBC 4.14 x10E12/L Normal 4.00 - 5.20 [facility] Comment on above: Performed By: #### C BC #### [facility] [address] [place] [address] WBC (Bld) [#/Vol] 6.4 10*3/uL Normal 4.4 - 11.3 [facility] Comment on above: Performed By: #### C BC #### [facility] [address] [place] [address] HEPATIC FUNCTION PANELon Albumin [Mass/Vol] 4.1 g/dL Normal 3.4 - 5.0 [facility] Comment on above: Performed By: #### H EPFP #### [facility] [address] [place] [address] ALP [Catalytic activity/Vol] 57 U/L Normal 33 - 136 [facility] Comment on above: Performed By: #### H EPFP #### [facility] [address] [place] [address] ALT [Catalytic activity/Vol] 18 U/L Normal 7 - 45 [facility] Comment on above: Result Comment: Awilda ents treated with Sulfasalazine may generate falsely decreased results for ALT. Performed By: #### H EPFP #### [facility] [address] [place] [address] AST [Catalytic activity/Vol] 15 U/L Normal 9 - 39 [facility] Comment on above: Performed By: #### H EPFP #### [facility] [address] [place] [address] Bilirubin [Mass/Vol] 0.5 mg/dL Normal 0.0 - 1.2 [facility] Comment on above: Performed By: #### H EPFP #### [facility] [address] [place] [address] Bilirubin.indirect [Mass/Vol] 0.1 mg/dL Normal 0.0 - 0.3 [facility] Comment on above: Performed By: #### H EPFP #### [facility] [address] [place] [address] Protein [Mass/Vol] 6.7 g/dL Normal 6.4 - 8.2 [facility] Comment on above: Performed By: #### H EPFP #### [facility] [address] [place] [address] Hepatic Function Panelon Albumin BCP dye [Mass/Vol] 4.1 g/dL 3.4 - 5.0 [facility] [place] [facility] [address] Work Phone: ALP [Catalytic activity/Vol] 57 U/L 33 - 136 [facility] [address] Work Phone: ALT With P-5'-P [Catalytic activity/Vol] 18 U/L 7 - 45 [facility] Work Phone: Comment on above: Patients treated wit h Sulfasalazine may generate falsely decreased results for ALT. AST With P-5'-P [Catalytic activity/Vol] 15 U/L 9 - 39 [facility] [place] [facility] Work Phone: Bilirubin [Mass/Vol] 0.5 mg/dL 0.0 - 1.2 [facility] ndocrinol o[facility]-[employer] Work Phone: Bilirubin.direct [Mass/Vol] 0.1 mg/dL 0.0 - 0.3 [facility] [place] [facility] Work Phone: Protein [Mass/Vol] 6.7 g/dL 6.4 - 8.2 [facility] [place] Work Phone: Initial Visit (Endocrinology )on 10-24-2021 Initial Visit (Endocrinology) Diagnoses/Problems Assessed Thyroid goiter (240.9) (E04.9) Hyperthyroidism (242.90) (E05.90) Orders Thyroid goiter Start: methIMAzole 5 MG Oral Tablet; take one tablet twice a day Rx By: Jose Guadalupe Bowden; Dispense: 30 Days ; #:60 Tablet; Refill: 0;For: Thyroid goiter; LIDIA = N; Verified Transmission to [id number]; Last Updated By: [employer]; 10/24/2021 11:48:40 AM Complete Blood Count; Status:Resulted - Requires Verification; Done: 24Oct2021 11:02AM Performed:[facility]; Due:29Oct2021;Ordere d; For:Thyroid goiter; Ordered By:Ovidio Williamson; Hepatic Function Panel; Status:In Progress - Specimen/Data Collected; Done: 24Oct2021 Perform:Lab Services - Lab To Draw (Blood Test); Due:29Oct2021;Ordere d; For:Thyroid goiter; Ordered By:Ovidio Williamson; T4 - Free Thyroxine, Serum; Status:Active; Requested for:07Nov2021; Perform:Lab Services - Lab To Draw (Blood Test); Due:12Nov2021; Last Updated By:Jose Guadalupe Bowden; 10/24/2021 10:28:50 AM;Ordered; For:Thyroid goiter; Ordered By:Ovidio iWlliamson; T4 - Free Thyroxine, Serum; Status:In Progress - Specimen/Data Collected; Done: 24Oct2021 Perform:Lab Services - Lab To Draw (Blood Test); Due:29Oct2021;Ordere d; For:Thyroid goiter; Ordered By:Ovidio Williamson; THYROGLOBULIN AND ANTI-THYRGLOBULIN AB; Status:In Progress - Specimen/Data Collected; Done: 24Oct2021 Perform:Lab Services - Lab To Draw (Blood Test); Due:29Oct2021;Ordere d; For:Thyroid goiter; Ordered By:Ovidio Williamson; Thyroid Stimulating Immunoglobulin; Status:In Progress - Specimen/Data Collected; Done: 24Oct2021 Perform:Lab Services - Lab To Draw (Blood Test); Due:29Oct2021;Ordere d; For:Thyroid goiter; Ordered By:Ovidio Williamson; Triiodothyronine, Level (T3); Status:Active; Requested for:07Nov2021; Perform:Lab Services - Lab To Draw (Blood Test); Due:12Nov2021; Last Updated By:Jose Guadalupe Bowden; 10/24/2021 10:28:50 AM;Ordered; For:Thyroid goiter; Ordered By:Ovidio Williamson; Triiodothyronine, Level (T3); Status:In Progress - Specimen/Data Collected; Done: 24Oct2021 Perform:Lab Services - Lab To Draw (Blood Test); Due:29Oct2021;Ordere d; For:Thyroid goiter; Ordered By:Ovidio Williamson; TSH - Thyroid Stimulating Hormone, Serum; Status:Active; Requested for:07Nov2021; Perform:Lab Services - Lab To Draw (Blood Test); Due:12Nov2021; Last Updated By:Jose Guadalupe Bowden; 10/24/2021 10:28:50 AM;Ordered; For:Thyroid goiter; Ordered By:Ovidio Williamson; TSH - Thyroid Stimulating Hormone, Serum; Status:In Progress - Specimen/Data Collected; Done: 24Oct2021 Perform:Lab Services - Lab To Draw (Blood Test); Due:29Oct2021;Ordere d; For:Thyroid goiter; Ordered By:Ovidio Williamson; Provider Impressions This is a 61-year-old female who is referred to us by Dr Sandoval for clinical and biochemical evidence of 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 Labs AND images reviewed by Dr Williamson and myself. Recommendations - Agree with deferring surgery until a euthyroid state is achieved - Start methimazole 5mg BID - Adverse effects of MMI therapy discussed with patient: can cause pruritus, rash, urticaria, arthralgias, arthritis, fever, nausea, or vomiting. Agranulocytosis is a rare but serious complication. Advised patient to have an immediate white cell count with differential at the earliest sign of a fever, sore throat, or other infection and to discontinue the drug until the result is available. Hepatotoxicity is also a rare complication, patient will require periodic monitoring of hepatic function while on methimazole therapy. - Labs today including: TSH, FT4, T3, TSI, Tg, TgAb, CBC, Hepatic panel - Repeat labs in 2 weeks. May need adjustment of MMI dose based on lab results. Will call patient with results. - RTC in 2 months Patient seen AND examined with attending Dr. Williamson Chief Complaint Chief Complaints Visit For: Other Referred by ENT for thyroid goiter. 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 Review of systems: Constitutional: Reports no recent changes in energy levels, baseline chronic fatigue, awakens at night to use bathroom and drink water with difficulty falling back asleep, no changes in weight per EMR review but patient feels like she has gained a few pounds in the past one year. Eyes: Denies protruding of eyes, denies photosensitivity, denies itching/redness/tear ing/irritation of eyes, no changes in vision, no double vision Cardiovascular: No chest pain, shortness of breath, reports exertional palpitations Respiratory: No cough, sputum, wheezing or dyspnea Gastrointestinal: No nausea or vomiting, regular bowel movements with no diarrhea or constipation Musculoskeletal: No arthralgias, occasional leg cramps Skin: No skin lesions, no pruritis Neuro: No weakness, numbness, paresthesias, dizziness or headaches Psych: No anxiety or depression Endocrine: No p (more content not included)... Normal [facility] - Chemistry and C hemistry - challengeon 10-24-2021 Thyroglobulin [Mass/Vol] Not Applicable 1.3-31.8 [facility] [address] Work Phone: Comment on above: INTERPRETIVE INFORMA TION: Thyroglobulin by LC-MS/MS, Serum/PlasmaLower limit of detection for Thyroglobulin by LC-MS/MS is 0.5 ng/mL.This test was developed and its performance characteristics determined by [facility]. It has not been cleared or approved by the US Food and Drug Administration. This test was performed in a CLIA certified laboratory and is intended for clinical purposes.Performed By: [facility] [place] [id number] Director: Georgina Chao MD Thyroglobulin [Mass/Vol] 108.9 ng/mL above high threshold 1.3-31.8 [facility] [place] [facility] [address] Work Phone: Comment on above: INTERPRETIVE INFORMA TION: Thyroglobulin, Serum or PlasmaSpecimens negative for thyroglobulin antibodies (TgAb) are tested for thyroglobulin (Tg) by chemiluminescent immunoassay (MIKY) using the Marlen [place] Access DxI method. Specimens with TgAb results above the upper reference limit are tested for Tg by high-performance liquid chromatography-tandem mass spectrometry (LC-MS/MS). Results obtained with different test methods or kits cannot be used interchangeably. Tg results, regardless of concentration, should not be interpreted as absolute evidence for the presence or absence of papillary or follicular thyroid cancer. Tg testing is not recommended for use as a screening procedure to detect the presence of thyroid cancer in the general population. Laboratory - Hematology and Cell countson 10-24-2021 Erythrocyte distribution width (RBC) [Ratio] 13.5 % See Below [facility] [address] Work Phone: Comment on above: Reference Range: 11. 5 - 14.5 Hematocrit (Bld) [Volume fraction] 38.1 % See Below [facility] [place] [employer] Work Phone: [phone] Comment on above: Reference Range: 36. 0 - 46.0 Hemoglobin (Bld) [Mass/Vol] 12.6 g/dL See Below [facility] [employer] [address] Work Phone: [phone] Comment on above: Reference Range: 12. 0 - 16.0 MCHC (RBC) [Mass/Vol] 33.1 g/dL See Below [facility] [employer] Work Phone: [phone] Comment on above: Reference Range: 32. 0 - 36.0 MCV (RBC) [Entitic vol] 92 fL 80 - 100 [facility] [place] [employer] Work Phone: [phone] Platelets (Bld) [#/Vol] 247 10*3/uL 150 - 450 [facility] [place] [employer] Work Phone: [phone] RBC (Bld) [#/Vol] 4.14 {x10E12/L} See Below [facility] [employer] Work Phone: [phone] Comment on above: Reference Range: 4.0 0 - 5.20 WBC (Bld) [#/Vol] 6.4 10*3/uL 4.4 - 11.3 [facility] [place] [place] [employer] Work Phone: [phone] Laboratory - Serology - non- microon 10-24-2021 Thyroglobulin Ab Qn 2.2 [IU]/mL 0.0-4.0 [facility] [place] [employer] Work Phone: [phone] Comment on above: INTERPRETIVE INFORMA TION: Thyroglobulin Antibody A value of 4.0 IU/mL or less indicates a negative result for thyroglobulin antibodies.The Thyroglobulin Antibody assay is being performed using the [employer] DxI method. No Panel Informationon 10-24 0.0 {/100_WBC} 0.0-0.0 MG-Endocri nol [facility] [employer] [address] Work Phone: T4 - Free Thyroxine, Serumon 10-24-2021 Free T4 [Mass/Vol] 1.36 ng/dL See Below MG-End ocrinol [facility] [address] Work Phone: Comment on above: Reference Range: 0.7 8 - 1.48 Thyroxine Free testing is performed using different testing methodology at [facility] than at [facility]. Direct result comparisons should only be made within the same method. THYROXINE,FREEon 10-24-2021 THYROXINE,FREE 1.36 ng/dL Normal 0.78 - 1.48 [facility] Comment on above: Result Comment: Thyr oxine Free testing is performed using different testing methodology at [facility] than at [facility]. Direct result comparisons should only be made within the same method. Performed By: #### T 4FRE #### [facility] [address] [place], [place] TRIIODOTHYRONINEon 2 TRIIODOTHYRONINE 115 ng/dL Normal 60 - 200 [facility] Comment on above: Performed By: #### T 3 #### [facility] [address] [place] [address] TSHon 10-24-2021 TSH Qn 0.04 m[IU]/L Low 0.44 - 3.98 [facility] Comment on above: Result Comment: TSH testing is performed using different testing methodology at [facility] than at other [facility]. Direct result comparisons should only be made within the same method. Performed By: #### T SH2 #### [facility] [address] [place] [address] TSH - Thyroid Stimulating Ho rmone, Serumon 10-24-2021 TSH Qn 0.04 m[IU]/L below low threshold See Below MG-Endocrinol [facility] [address] Work Phone: Comment on above: Reference Range: 0.4 4 - 3.98 TSH testing is performed using different testing methodology at [facility] than at other [facility]. Direct result comparisons should only be made within the same method. Thyroid Stimulating Immunogl obulinon 10-24-2021 Thyroid stimulating immunoglobulins Qn (S) <1.0 <=1.3 [facility]Endocr inol [facility] [address] Work Phone: Comment on above: Test Performed by:[facility] [address] [address]Vkt Director: Berto Barraza M.D. Ph.D.; [facility]# [id number] Tobacco Screening.on 022 Fall risk assessment a) No falls within the last year [facility]ocrinol [facility] [address] Work Phone: Tobacco use status CPHS b) No [facility]inol [facility] [address] Work Phone: Triiodothyronine, Level (T3) on 10-24-2021 T3 [Mass/Vol] 115 ng/dL 60 - 200 [facility]ocrin ol [facility] [employer] Work Phone: BASIC METABOLIC PANELon 04-0 Anion gap [Moles/Vol] 15 mmol/L Normal 10 - 20 [facility] Comment on above: Performed By: #### B MP #### [facility] [address] [place] [address] Calcium [Mass/Vol] 9.4 mg/dL Normal 8.6 - 10.6 [facility] Comment on above: Performed By: #### B MP #### [facility] [address] [place] [address] Chloride [Moles/Vol] 105 mmol/L Normal 98 - 107 [facility] Comment on above: Performed By: #### B MP #### [facility] [address] [place] [address] Creatinine [Mass/Vol] 0.77 mg/dL Normal 0.50 - 1.05 [facility] Comment on above: Performed By: #### B MP #### [facility] [address] [place] [address] GFR/1.73 sq M.predicted among non-blacks MDRD (S/P/Bld) [Vol rate/Area] 87 mL/min/{1.73_m2} Normal >90 [facility] Comment on above: Result Comment: CALC ULATIONS OF ESTIMATED GFR ARE PERFORMED USING THE 2020 CKD-EPI STUDY REFIT EQUATION WITHOUT THE RACE VARIABLE FOR THE IDMS-TRACEABLE CREATININE METHODS. https://jasn.asnjournals.org/content//ASN.45863 00901 Performed By: #### B MP #### [facility] [address] [place] [address] Glucose [Mass/Vol] 87 mg/dL Normal 74 - 99 [facility] Comment on above: Performed By: #### B MP #### [facility] [address] [place] [address] HCO3 (Bld) [Moles/Vol] 25 mmol/L Normal 21 - 32 [facility] Comment on above: Performed By: #### B MP #### [facility] [address] [place] [address] Potassium [Moles/Vol] 4.4 mmol/L Normal 3.5 - 5.3 [facility] Comment on above: Performed By: #### B MP #### [facility] [address] [place] [address] Sodium [Moles/Vol] 141 mmol/L Normal 136 - 145 [facility] Comment on above: Performed By: #### B MP #### [facility] [address] [place] [address] Urea nitrogen [Mass/Vol] 16 mg/dL Normal 6 - 23 [facility] Comment on above: Performed By: #### B MP #### [facility] [address] [place] [address] Initial Visit (Otolaryngolog y)on 09-19-2021 Initial Visit (Otolaryngology) Diagnoses/Problems Thyroid goiter (240.9) (E04.9) Orders TSH - Thyroid Stimulating Hormone, Serum; Status:Active; Requested for:19Sep2021; Patient Discussion/Summary Large thyroid goiter with substernal extension. Surgical excision is recommended. Thyroid function levels will be obtained. The patient is told about the surgery and possible complications including bleeding, injury to the recurrent laryngeal nerves, and parathyroids. She wishes to proceed. Obviously we will make sure that her cardiology clearance is completed. I will see her at the time of the surgery. Provider Impressions Large thyroid goiter with substernal extension. Surgical excision is recommended. Thyroid function levels will be obtained. The patient is told about the surgery and possible complications including bleeding, injury to the recurrent laryngeal nerves, and parathyroids. She wishes to proceed. Obviously we will make sure that her cardiology clearance is completed. I will see her at the time of the surgery. Chief Complaint Consultation for the management of a thyroid goiter History of Present IllnessThikatie is a 62-year-old lady is seen at the request of a local colleague. She was found to have a fairly large area thyroid gland with substernal extension. She may have had some issues with airway obstruction recently related to that. She had some scans that were done in July 2020. It shows an enlarged gland bilaterally with a substernal extension on the left side. There is minimal compression of the trachea. She does have occasional dysphagia. Review of Systems Her past medical history and view the system otherwise shows high blood pressure, elevated cholesterol. She had some recent evaluation for possible carotid stenosis and it does not seem that this is an issue. She used to be a significant smoker. She smoked for about 40 years plus. She stopped about a year year and a half ago. She is here today with her . Active Problems Body mass index (BMI) of 20.0 to 20.9 in adult (V85.1) (Z68.20) Carotid stenosis (433.10) (I65.29) Echocardiogram abnormal (793.2) (R93.1) Hypertension, benign (401.1) (I10) optimal in office Hyponatremia (276.1) (E87.1) Mild CAD (414.00) (I25.10) Mixed hyperlipidemia (272.2) (E78.2) Pulmonary hypertension (416.8) (I27.20) Surgical History History of Neck surgery Family History Family history of atrial fibrillation (V17.49) (Z82.49) Family history of Lupus Family history of Family history of myocardial infarction (V17.3) (Z82.49) Family history of hypertension (V17.49) (Z82.49) Social History Daily caffeine consumption 10 CUPS OF COFFEE DAILY Former smoker (V15.82) (Z87.891) QUIT 6 MONTHS AGO No alcohol use No illicit drug use Allergies No Known Drug Allergies Recorded By: Esha Mahajan; 09/03/2021 8:37:49 AM Current Meds Medication NameInstruction Albuterol Sulfate (2.5 MG/3ML) 0.083% Inhalation Nebulization SolutionUSE DIRECTED. Aspirin EC 81 MG Oral Tablet Delayed ReleaseTAKE 1 TABLET DAILY. Carvedilol 3.125 MG Oral TabletTAKE 1 TABLET TWICE DAILY WITH MEALS. hydrOXYzine HCl - 25 MG Oral TabletTAKE 1 TABLET 3 TIMES DAILY NEEDED. Lipitor 40 MG Oral TabletTAKE 1 TABLET DAILY. Pantoprazole Sodium 20 MG Oral Tablet Delayed ReleaseTAKE 1 TABLET DAILY. Vitamin D3 25 MCG (1000 UT) Oral CapsuleTAKE 1 CAPSULE Daily Physical Exam The patient is alert and oriented. Examination of the external ears, ear canals, and eardrums, is within normal limits. Examination of the anterior and external nose is negative. Examination of the oral cavity and oropharynx is normal. There is no evidence of any mucosal lesions. There is good mobility of the tongue and palate. There is good mandibular excursion. Palpation of the parotid, neck, and thyroid field fails to show any worrisome masses or adenopathies. Interestingly it is difficult to appreciate the thyroid. A flexible laryngoscopy was carried out. Under topical Xylocaine and Jorge-Synephrine the scope was introduced through the nostril. The nasopharynx, base of tongue, hypopharynx, and larynx are visualized. The vocal cords are normally mobile. There is no pooling of secretions in the piriform sinuses. There is no evidence of any mucosal lesions. 'Scores and Scales' Signatures Electronically signed by : Shawn Sandoval MD; Sep 19 2021 11:10AM EST (Author) Normal [employer] TSHon 09-19-2021 TSH Qn 0.02 m[IU]/L Low 0.44 - 3.98 [facility] Comment on above: Result Comment: TSH testing is performed using different testing methodology at [facility] than at other [facility]. Direct result comparisons should only be made within the same method. Performed By: #### T [facility] #### [facility] [address] [place] [id number] Tobacco Screening.on 022 Fall risk assessment a) No falls within the last year MG-Otolaryngo logy[facility] Work Phone: Tobacco use status CPHS b) No MG-Otolaryngo logy[facility] Work Phone: Basic Metabolic Panelon 08-13 Calcium [Mass/Vol] 8.9 mg/dL Normal 8.2-10.2 [facility] Comment on above: Order Comment: PT IS NON FASTING Result Comment: PERF ORMED BY: [place] [address] PATHOLOGIST COLLATOR OPERATOR ERNESTO ALCARAZ M.D. Performed By: #### B MP #### [facility] [address] [place] [address] [place] Chloride [Moles/Vol] 103 mmol/L Normal 95-114 [facility] Comment on above: Order Comment: PT IS NON FASTING Performed By: #### B MP #### [facility] [address] [place] [address] [place] CO2 [Moles/Vol] 22.9 mmol/L Normal 22.0-30.0 [facility] Comment on above: Order Comment: PT IS NON FASTING Performed By: #### B MP #### [facility] [address] Creatinine [Mass/Vol] 0.78 mg/dL Normal 0.44-1.03 [facility] Comment on above: Order Comment: PT IS NON FASTING Performed By: #### B MP #### [facility] [address] [place] [id number] [place] Estimated GFR ( Lillie > 60 Normal [facility] Comment on above: Order Comment: PT IS NON FASTING Result Comment: GFR estimated reference range: According to KDOQI guidelines, <60 ml/min/1.73m2 is sufficient to diagnose a patient with chronic kidney disease. Performed By: #### B MP #### [facility] [address] [place] [address] [place] Estimated GFR (Non- Am > 60 Normal [facility] Comment on above: Order Comment: PT IS NON FASTING Performed By: #### B MP #### [facility] [address] Glucose [Mass/Vol] 88 mg/dL Normal 70-100 [facility] Comment on above: Order Comment: PT IS NON FASTING Result Comment: [facility] Glucose Reference Range is dependent on time and content of last meal. Glucose of more than 200 mg/dL in a nonstressed, ambulatory subject supports the diagnosis of Diabetes Mellitus. ADA recommended reference range Performed By: #### B MP #### [facility] [address] Potassium [Moles/Vol] 4.4 mmol/L Normal 3.5-5.1 [facility] Comment on above: Order Comment: PT IS NON FASTING Performed By: #### B MP #### [facility] [address] Sodium [Moles/Vol] 135 mmol/L Low 136-146 [facility] Comment on above: Order Comment: PT IS NON FASTING Performed By: #### B MP #### [facility] [address] Urea nitrogen [Mass/Vol] 10 mg/dL Normal - [facility] Comment on above: Order Comment: PT IS NON FASTING Performed By: #### B MP #### [facility] [address] [place] [address] [place] Creatinine and Glomerular fi ltration rate.predicted panel (S/P/Bld)Ordered By: Simona Vargas on 09-03-2021 Creatinine [Mass/Vol] 0.78 mg/dL 0.44-1.03 [facility] Estimated glomerular filtrat ion rate (GFR) non- AmericanOrdered By: Simona Vargas on 09-03-2021 GFR/1.73 sq M.predicted among non-blacks MDRD (S/P/Bld) [Vol rate/Area] > 60 mL/Min [facility] No Panel InformationOrdered By: Simona Vargas on 09-03-2021 Estimated GFR () > 60 mL/Min [facility] Comment on above: GFR estimated refere nce range: According to KDOQI guidelines, <60 ml/min/1.73m2 is sufficient to diagnose a patient with chronic kidney disease. Pharmacy Creatinine Clearance (Chem N/A [facility] No Panel Informationon 09-03 8.9\S\8.9 Normal 8.2-10.2 [facility]Kevin y 250 DO Work Phone: Comment on above: PERFORMED BY:[facility] [place] [phone] MEDICAL DIRECTORERNESTO ALCARAZ M.D. 22.9\S\22.9 Normal 22.0-30.0 [facility] y 250 DO Work Phone: 103\S\103 Normal 95-[facility] Work Phone: 4.4\S\4.4 Normal 3.5-5.1 [facility] HeartChanelle y 250 DO Work Phone: 135\S\135 below low threshold 136-146 [facility] Work Phone: > [address] [facility] Work Phone: Comment on above: GFR estimated refere nce range: According to KDOQI guidelines, <60 ml/min/1.73m2 is sufficient to diagnose a patient with chronic kidney disease. 0.78\S\0.78 Normal 0.44-1.03 [facility] HeartKevin y 250 DO Work Phone: 10\S\10 Normal 9-23 [facility] Work Phone: 88\S\88 Normal 70-100 [facility] Work Phone: Comment on above: Random Glucose Refer ence Range is dependent on time and content of last meal. Glucose of more than 200 mg/dL in a nonstressed, ambulatory subject supports the diagnosis of Diabetes Mellitus. ADA recommended reference range Office Visit (Cardiology)on 09-03-2021 Follow-up visit Diagnoses/Problems Assessed Mild CAD (414.00) (I25.10) August 2021 cardiac cath dLAD 25% Cx normal OM1 50% (small vessel) RCA normal Echocardiogram abnormal (793.2) (R93.1) August 2021 Echo LVEF 55-60% MR mild RVSP 40-50. Pulmonary hypertension (416.8) (I27.20) August 2021 Echo: RVSP 40-50 prior 50 p/yr/hx COPD Hypertension, benign (401.1) (I10) optimal in office optimal in office Mixed hyperlipidemia (272.2) (E78.2) Moderate intensity statin Carotid stenosis (433.10) (I65.29) Jul 2020 CT neck with severe bilateral stenosis August 2021 USN ALANIS 50-69% LICA < 50% Hyponatremia (276.1) (E87.1) HCTZ and lisinopril d/c'd at August 2021 discharge Need to repeat Body mass index (BMI) of 20.0 to 20.9 in adult (V85.1) (Z68.20) Orders Body mass index (BMI) of 20.0 to 20.9 in adult Healthy Weight Tips; Status:Complete; Done: 04Sep[address] Angio Neck; Status:Hold For - Scheduling; Requested for:03Sep2021; Patient taking Metformin or Derivatives? : No Radiologist to Determine Optimal Study : Y What are the patient's signs and symptoms? : dizziness Hyponatremia Basic Metabolic Panel; Status:Active; Requested for:03Sep2021; Patient Instructions Please bring all medicines, vitamins, and herbal supplements with you when you come to the office. Prescriptions will not be filled unless you are compliant with your follow up appointments or have a follow up appointment scheduled as per instruction of your physician. Refills should be requested at the time of your visit. PLAN: Through informed decision making process incorporating patients unique circumstances, the following treatment plan will be initiated: 1. Prescription drug management of cardiovascular medication for efficacy, adherence to treatment, side effect assessment and polypharmacy. Current treatment clinically warranted and to continue without modifications. 2. Chem 6 (f/u low sodium) 3. Carotid CT (f/u due to different results on 08/04 CT neck vs. 09/02 carotid USN) 4. Return for follow-up; in the interim, contact the office if new symptoms arise. Dr. Mott in 6 months Chief Complaint I am doing ok SANDHYA MALDONADO is being seen for follow-up of a hospitalization for chest pain. August 12, 2021 transferred from [place] to [facility] due to chest pain/? STEMI. Managed emergently by Dr. Mott - [facility] mild CAD, normal LVEF. Type II NSTEMI due to medical illness, hyponatremia, COPD. Added: asa, lipitor, coreg. Left groin access site healed with adverse sequelae. Tolerating meds without concerns. August 2021 Inpatient USN Carotids: ALANIS 50-69%, LICA no significant Jul 2020 CT neck with contrast: ALANIS 99%, LICA 68% - [place] someone [place] [facility] but did not hear any follow-up Will plan to repeat CTA carotids Thyroid: to see ENT at [facility] Hyponatremia; off HCTZ since discharge (also lisinopril) - has not been repeated since discharge Daily activity: housework, stairs at home History of Present Illness The patient states she has been generally doing well since the last visit. Comorbid Illnesses: hypertension and hyperlipidemia. Symptoms: denies chest pain at rest, denies exertional chest pain, denies dyspnea, denies fatigue, denies exercise intolerance, denies palpitations, denies edema, denies orthopnea, denies dizziness and denies orthostatic dizziness. Associated symptoms: no syncope. Her symptoms do not limit her activities. Disease Monitoring: Medications: the patient is adherent with her medication regimen. She denies medication side effects. Surgical History Problems History of Neck surgery Current Meds Medication NameInstruction Albuterol Sulfate (2.5 MG/3ML) 0.083% Inhalation Nebulization SolutionUSE DIRECTED. Aspirin EC 81 MG Oral Tablet Delayed ReleaseTAKE 1 TABLET DAILY. Carvedilol 3.125 MG Oral TabletTAKE 1 TABLET TWICE DAILY WITH MEALS. hydrOXYzine HCl - 25 MG Oral TabletTAKE 1 TABLET 3 TIMES DAILY NEEDED. Lipitor 40 MG Oral TabletTAKE 1 TABLET DAILY. Pantoprazole Sodium 20 MG Oral Tablet Delayed ReleaseTAKE 1 TABLET DAILY. Vitamin D3 25 MCG (1000 UT) Oral CapsuleTAKE 1 CAPSULE Daily Allergies Medication No Known Drug Allergies Recorded By: Esha Mahajan; 09/03/2021 8:37:49 AM Social History Problems Daily caffeine consumption 10 CUPS OF COFFEE DAILY Former smoker (V15.82) (Z87.891) QUIT 6 MONTHS AGO No alcohol use No illicit drug use Review of Systems Constitutional: not feeling tired. Cardiovascular: no chest pain, no palpitations and no lower extremity edema. Respiratory: no shortness of breath during exertion, no orthopnea and no PND. Vitals Vital Signs Recorded: 03Sep2021 08:42AM Heart Rate62, L Radial Vrobchgp487, LUE, Sitting Giipcwqdg00, LUE, Sitting Height5 ft 1 in Wcaovf978 lb BMI Fwyelbbixi34.97 kg/m2 BSA Calculated1.47 Tobacco Useb) No PHQ-2 #1. Over the last 2 weeks have you felt down, depressed or hopeless? (If yes, a (more content not included)... Normal Touchworks Serum or plasma calcium kashmir urement (mass/volume)Ordered By: Simona Vargas on 09-03-2021 Calcium [Mass/Vol] 8.9 mg/dL 8.2-10.2 [facility] Serum or plasma chloride henny surement (moles/volume)Ordered By: Simona Vargas on 09-03-2021 Chloride [Moles/Vol] 103 mmol/L 95-114 [facility] Serum or plasma glucose kashmir urement (mass/volume)Ordered By: Simona Vargas on 09-03-2021 Glucose [Mass/Vol] 88 mg/dL 70-100 [facility] Comment on above: ADA recommended refe rence rangeRandom Glucose Reference Range is dependent on time and content of last meal. Glucose of more than 200 mg/dL in a nonstressed, ambulatory subject supports the diagnosis of Diabetes Mellitus. Serum or plasma potassium me asurement (moles/volume)Ordered By: Simona Vargas on 09-03-2021 Potassium [Moles/Vol] 4.4 mmol/L 3.5-5.1 [facility] Serum or plasma sodium measu rement (moles/volume)Ordered By: Simona Vargas on 09-03-2021 Sodium [Moles/Vol] 135 mmol/L 136-146 [facility] Serum or plasma total carbon dioxide measurement (moles/volume)Ordered By: Simona Vargas on 09-03-2021 CO2 [Moles/Vol] 22.9 mmol/L 22.0-30.0 [facility] Serum or plasma urea nitroge n measurement (mass/volume)Ordered By: Simona Vargas on 09-03-2021 Urea nitrogen [Mass/Vol] 10 mg/dL 03-06 [facility] Tobacco Screening.on 022 Adult depression screening assessment No [facility] y 250 DO Work Phone: Fall risk assessment a) No falls within the last year [facility] [facility] 250 DO Work Phone: Tobacco use status CPHS b) No [facility] [facility] 250 DO Work Phone: Basic Metabolic Panelon Calcium [Mass/Vol] 8.4 mg/dL Normal 8.2-10.2 [facility] Comment on above: Performed By: #### D IFF CBC, BMP #### [facility] [address] [place] [address] [place] Chloride [Moles/Vol] 97 mmol/L Normal 95-114 [facility] Comment on above: Performed By: #### D IFF CBC, BMP #### [facility] [address] [place] [id number] [place] CO2 [Moles/Vol] 24.6 mmol/L Normal 22.0-30.0 [facility] Comment on above: Performed By: #### D IFF CBC, BMP #### [facility] [address] [place] [id number] [place] Creatinine [Mass/Vol] 0.75 mg/dL Normal 0.44-1.03 [facility] Comment on above: Performed By: #### D IFF CBC, BMP #### [facility] [address] [place] [id number] [place] Creatinine Clr Calc Pharmacy 59.67 Normal [facility] Comment on above: Result Comment: PERF ORMED BY: [facility] [address] [place] [id number] PATHOLOGIST COLLATOR OPERATOR ERNESTO ALCARAZ M.D. Performed By: #### D IFF CBC, BMP #### [address] Estimated GFR ( Lillie > 60 Normal [facility] Comment on above: Result Comment: GFR estimated reference range: According to KDOQI guidelines, <60 ml/min/1.73m2 is sufficient to diagnose a patient with chronic kidney disease. Performed By: #### D IFF CBC, BMP #### [address] Estimated GFR (Non- Am > 60 [facility] Comment on above: Performed By: #### D IFF CBC, BMP #### [address] Glucose [Mass/Vol] 88 mg/dL Normal 70-100 [facility] Comment on above: Result Comment: [place] Glucose Reference Range is dependent on time and content of last meal. Glucose of more than 200 mg/dL in a nonstressed, ambulatory subject supports the diagnosis of Diabetes Mellitus. ADA recommended reference range Performed By: #### D IFF CBC, BMP #### [address] Potassium [Moles/Vol] 4.2 mmol/L Normal 3.5-5.1 [facility] Comment on above: Performed By: #### D IFF CBC, BMP #### [place] [address] [place] Sodium [Moles/Vol] 128 mmol/L Low 136-146 [facility] Comment on above: Performed By: #### D IFF CBC, BMP #### [address] Urea nitrogen [Mass/Vol] 7 mg/dL Low 9-23 [facility] Comment on above: Performed By: #### D IFF CBC, BMP #### [facility] [address] [place] [address] [place] Basophils Auto (Bld) [#/Vol] Ordered By: Luisa Mott on 08-14-2021 Basophils (Bld) [#/Vol] N/A [facility] Basophils/100 WBC Auto (Bld) Ordered By: Luisa Mott on 08-14-2021 Basophils/100 WBC (Bld) N/A [facility] Blood hemoglobin measurement (mass/volume)Ordered By: Luisa Mott on 08-14-2021 Hemoglobin (Bld) [Mass/Vol] 12.4 g/dL 11.8-15.4 [facility] Blood leukocytes automated c ount (number/volume)Ordered By: Luisa Mott on 08-14-2021 WBC (Bld) [#/Vol] 5.9 10*3/uL 4.5-11.0 [facility] Creatinine and Glomerular fi ltration rate.predicted panel (S/P/Bld)Ordered By: Luisa Mott on 08-14-2021 Creatinine [Mass/Vol] 0.75 mg/dL 0.44-1.03 [facility] Diff and CBCon 08-14-2021 Eosinophils/100 WBC (Bld) 1 % Normal 1-3 [facility] Comment on above: Performed By: #### D IFF CBC, BMP #### [facility] [address] Erythrocyte distribution width (RBC) [Ratio] 13.3 % Normal 11.9-15.3 [facility] Comment on above: Performed By: #### D IFF CBC, BMP #### [facility] [address] [place] [address] [place] Hematocrit (Bld) [Volume fraction] 35.6 % Normal 34.0-46.4 [facility] Comment on above: Performed By: #### D IFF CBC, BMP #### [facility] [address] [place] [id number] [place] Hemoglobin (Bld) [Mass/Vol] 12.4 g/dL Normal 11.8-15.4 [facility] Comment on above: Performed By: #### D IFF CBC, BMP #### [facility] [address] [place] [id number] [place] Lymphocytes/100 WBC (Bld) 31 % Normal 18-42 [facility] Comment on above: Performed By: #### D IFF CBC, BMP #### [facility] [address] MCH (RBC) [Entitic mass] 30.8 pg Normal 24.7-34.3 [facility] Comment on above: Performed By: #### D IFF CBC, BMP #### [facility] [address] MCV (RBC) [Entitic vol] 88.4 fL Normal 80-100 [facility] Comment on above: Performed By: #### D IFF CBC, BMP #### [facility] [address] Mean Corpuscular HGB Conc 34.9 g/dL Normal 32.0-35.0 [facility] Comment on above: Performed By: #### D IFF CBC, BMP #### [address] Monocytes/100 WBC (Bld) 14 % High 2-11 [facility] Comment on above: Performed By: #### D IFF CBC, BMP #### [facility] [address] [place] [address] Myelocytes 3 % High 0-0 [facility] Comment on above: Performed By: #### D IFF CBC, BMP #### [facility] [address] [place] [address] Nucleated RBC/100 WBC (Bld) [Ratio] 0.2 % Normal 0-0.5 [facility] Comment on above: Result Comment: PERF ORMED BY: [place] [address] PATHOLOGIST COLLATOR OPERATOR ERNESTO ALCARAZ M.D. Performed By: #### D IFF CBC, BMP #### [address] Platelet Estimate Normal Normal Normal [facility] Comment on above: Performed By: #### D IFF CBC, BMP #### [address] Platelet mean volume (Bld) [Entitic vol] 7.2 fL Normal 6.3-10.7 [facility] Comment on above: Performed By: #### D IFF CBC, BMP #### [facility] [address] [place] [address] Platelet Morphology Normal Normal Normal [facility] Comment on above: Result Comment: PERF ORMED BY: [place] [address] PATHOLOGIST COLLATOR OPERATOR ERNESTO ALCARAZ M.D. Performed By: #### D IFF CBC, BMP #### [facility] [address] Platelets (Bld) [#/Vol] 290 10*3/uL Normal 150-450 [facility] Comment on above: Performed By: #### D IFF CBC, BMP #### [address] RBC (Bld) [#/Vol] 4.03 10*6/uL Normal 3.60-5.00 [facility] Comment on above: Performed By: #### D IFF CBC, BMP #### [facility] [address] [place] [address] RBC morphology finding Nom (Bld) Normal Normal [facility] Comment on above: Performed By: #### D IFF CBC, BMP #### [facility] [address] [place] [address] Reactive Lymphocytes 4 % Normal 0-12 [facility] Comment on above: Performed By: #### D IFF CBC, BMP #### [facility] [address] Segmented neutrophils/100 WBC (Bld) 47 % Low 50-70 [facility] Comment on above: Performed By: #### D IFF CBC, BMP #### [facility] [address] [place] [address] WBC (Bld) [#/Vol] 5.9 10*3/uL Normal 4.5-11.0 [facility] Comment on above: Performed By: #### D IFF CBC, BMP #### [facility] [address] [place] [address] [place] ECG 12 lead ECGon 08-14-2021 ECG 12 lead ECG [facility] [address] [place] [address] [place] [address] Electrocardiograph Report Signed Patient: Sandhya Maldonado MR#: [id number] 692 : 1960 Acct:[id number] Age/Sex: 61 / F ADM Date: 08/12/21 Loc: Room: [address] [place] [address] Type: DIS INOo Attending Dr: Luisa Mott DO Ordering Provider: Luisa Mott DO Date of Service: 08/14/2109/02/499 ECG/ECG 12 lead ECG: Possible Ant STEMI Copies to: Test Reason : Blood Pressure : / mmHG Vent. Rate : 092 BPM Atrial Rate : 092 BPM P-R Int : 146 ms QRS Dur : 082 ms QT Int : 370 ms P-R-T Axes : 071 060 055 degrees QTc Int : 457 ms Normal sinus rhythm Right atrial enlargement T wave abnormality, consider anterior ischemia Abnormal ECG When compared with ECG of 13-AUG-2021 07:32, T wave inversion no longer evident in Inferior leads T wave inversion no longer evident in Lateral leads Confirmed by ADRIANNA LAWS [facility] ([facility]) on 08/14/2021 11:38:08 AM Referred By: Electronically Signed By:PRECIOUS LAWS MD Transcribed By: MUS Signed By Precious Laws MD 0 08/14/21 1138 Normal [facility] Eosinophils Auto (Bld) [#/Vo l]Ordered By: Luisa Mott on 08-14-2021 Eosinophils (Bld) [#/Vol] N/A [facility] Eosinophils/100 WBC Auto (Bl d)Ordered By: Luisa Mott on 08-14-2021 Eosinophils/100 WBC (Bld) N/A [facility] Erythrocyte distribution wid th Auto (RBC) [Ratio]Ordered By: Luisa Mott on 08-14-2021 Erythrocyte distribution width (RBC) [Ratio] 13.3 % 11.9-15.3 [facility] Estimated glomerular filtrat ion rate (GFR) non- AmericanOrdered By: Luisa Mott on 08-14-2021 GFR/1.73 sq M.predicted among non-blacks MDRD (S/P/Bld) [Vol rate/Area] > 60 mL/Min [facility] Hematocrit Auto (Bld) [Volum e fraction]Ordered By: Luisa Mott on 08-14-2021 Hematocrit (Bld) [Volume fraction] 35.6 % 34.0-46.4 [facility] Laboratory - Hematology and Cell countsOrdered By: Luisa Mott on 08-14-2021 Nucleated RBC/100 WBC (Bld) [Ratio] 0.2 % 0-0.5 [facility] Lymphocytes Auto (Bld) [#/Vo l]Ordered By: Luisa Mott on 08-14-2021 Lymphocytes (Bld) [#/Vol] N/A [facility] Lymphocytes/100 WBC Auto (Bl d)Ordered By: Luisa Mott on 08-14-2021 Lymphocytes/100 WBC (Bld) N/A [facility] Lymphocytes/100 WBC (Bld) 31 % 18-42 [facility] Lymphocytes/100 WBC Manual c nt (Bld)Ordered By: Luisa Mott on 08-14-2021 Lymphocytes/100 WBC (Bld) 4 % 0-12 [facility] MCH Auto (RBC) [Entitic mass ]Ordered By: Luisa Mott on 08-14-2021 MCH (RBC) [Entitic mass] 30.8 pg 24.7-34.3 [facility] MCHC Auto (RBC) [Mass/Vol]Or dered By: Luisa Mott on 08-14-2021 MCHC (RBC) [Mass/Vol] 34.9 g/dL 32.0-35.0 [facility] MCV Auto (RBC) [Entitic vol] Ordered By: Luisa Mott on 08-14-2021 MCV (RBC) [Entitic vol] 88.4 fL 80-100 [facility] Monocyte %Ordered By: Luisa cheema on 08-14-2021 Monocytes/100 WBC (Bld) 1 % 1-3 [facility] Monocytes Auto (Bld) [#/Vol] Ordered By: Luisa Mott on 08-14-2021 Monocytes (Bld) [#/Vol] N/A [facility] Monocytes/100 WBC Auto (Bld) Ordered By: Luisa Mott on 08-14-2021 Monocytes/100 WBC (Bld) N/A [facility] Monocytes/100 WBC Manual cnt (Bld)Ordered By: Luisa Mott on 08-14-2021 Monocytes/100 WBC (Bld) 14 % 2-11 [facility] Myelocytes/100 WBC Manual cn t (Bld)Ordered By: Luisa Mott on 08-14-2021 Myelocytes/100 WBC (Bld) 3 % 0-0 [facility] Neutrophils Auto (Bld) [#/Vo l]Ordered By: Luisa Mott on 08-14-2021 Neutrophils (Bld) [#/Vol] N/A [facility] Neutrophils/100 WBC Auto (Bl d)Ordered By: Luisa Mott on 08-14-2021 Neutrophils/100 WBC (Bld) N/A [facility] No Panel InformationOrdered By: Luisa Mott on 08-14-2021 Estimated GFR () > 60 mL/Min [facility] Comment on above: GFR estimated refere nce range: According to KDOQI guidelines, <60 ml/min/1.73m2 is sufficient to diagnose a patient with chronic kidney disease. Pharmacy Creatinine Clearance (Chem 59.67 [facility] Platelet Estimate Normal Normal [facility] Platelet Morphology Comment Normal Normal [facility] Platelet mean volume Auto (B ld) [Entitic vol]Ordered By: Luisa Mott on 08-14-2021 Platelet mean volume (Bld) [Entitic vol] 7.2 fL 6.3-10.7 [facility] Platelets Auto (Bld) [#/Vol] Ordered By: Luisa Mott on 08-14-2021 Platelets (Bld) [#/Vol] 290 10*3/uL 150-450 [facility] RBC Auto (Bld) [#/Vol]Ordere d By: Luisa Mott on 08-14-2021 RBC (Bld) [#/Vol] 4.03 10*6/uL 3.60-5.00 [facility] RBC morphologyOrdered By: Luisa Mott on 08-14-2021 RBC morphology finding Nom (Bld) Normal [facility] Segmented neutrophils/100 WB C Manual cnt (Bld)Ordered By: Luisa Mott on 08-14-2021 Segmented neutrophils/100 WBC (Bld) 47 % 50-70 [facility] Serum or plasma calcium kashmir urement (mass/volume)Ordered By: Luisa Mott on 08-14-2021 Calcium [Mass/Vol] 8.4 mg/dL 8.2-10.2 [facility] Serum or plasma chloride henny surement (moles/volume)Ordered By: Luisa Mott on 08-14-2021 Chloride [Moles/Vol] 97 mmol/L 95-114 [facility] Serum or plasma glucose kashmir urement (mass/volume)Ordered By: Luisa Mott on 08-14-2021 Glucose [Mass/Vol] 88 mg/dL 70-100 [facility] Comment on above: ADA recommended refe rence rangeRandom Glucose Reference Range is dependent on time and content of last meal. Glucose of more than 200 mg/dL in a nonstressed, ambulatory subject supports the diagnosis of Diabetes Mellitus. Serum or plasma potassium me asurement (moles/volume)Ordered By: Luisa Mott on 08-14-2021 Potassium [Moles/Vol] 4.2 mmol/L 3.5-5.1 [facility] Serum or plasma sodium measu rement (moles/volume)Ordered By: Luisa Mott on 08-14-2021 Sodium [Moles/Vol] 128 mmol/L 136-146 [facility] Serum or plasma total carbon dioxide measurement (moles/volume)Ordered By: Luisa Mott on 08-14-2021 CO2 [Moles/Vol] 24.6 mmol/L 22.0-30.0 [facility] Serum or plasma urea nitroge n measurement (mass/volume)Ordered By: Luisa Mott on 08-14-2021 Urea nitrogen [Mass/Vol] 7 mg/dL 9-23 [facility] Basic Metabolic Panelon 0 Calcium [Mass/Vol] 7.6 mg/dL Low 8.2-10.2 [facility] Comment on above: Performed By: #### B MP #### [facility] [address] Chloride [Moles/Vol] 92 mmol/L Low 95-114 [facility] Comment on above: Performed By: #### B MP #### [facility] [address] CO2 [Moles/Vol] 23.9 mmol/L Normal 22.0-30.0 [facility] Comment on above: Performed By: #### B MP #### [address] Creatinine [Mass/Vol] 0.73 mg/dL Normal 0.44-1.03 [facility] Comment on above: Performed By: #### B MP #### [address] Creatinine Clr Calc Pharmacy 67.49 [facility] Comment on above: Result Comment: PERF ORMED BY: [place] [address] PATHOLOGIST COLLATOR OPERATOR ERNESTO ALCARAZ M.D. Performed By: #### B MP #### [address] Estimated GFR ( Lillie > 60 [facility] Comment on above: Result Comment: GFR estimated reference range: According to KDOQI guidelines, <60 ml/min/1.73m2 is sufficient to diagnose a patient with chronic kidney disease. Performed By: #### B MP #### [address] Estimated GFR (Non- Am > 60 [facility] Comment on above: Performed By: #### B MP #### [address] Glucose [Mass/Vol] 103 mg/dL High 70-100 [facility] Comment on above: Result Comment: [place] om Glucose Reference Range is dependent on time and content of last meal. Glucose of more than 200 mg/dL in a nonstressed, ambulatory subject supports the diagnosis of Diabetes Mellitus. ADA recommended reference range Performed By: #### B MP #### [address] Potassium [Moles/Vol] 3.3 mmol/L Low 3.5-5.1 [facility] Comment on above: Performed By: #### B MP #### [address] Sodium [Moles/Vol] 123 mmol/L Off scale low 136-146 [facility] Comment on above: Result Comment: Resu lts called at 0610 on 08/13/21 Performed By: #### B MP #### [facility] [address] Urea nitrogen [Mass/Vol] 7 mg/dL Low 9-23 [facility] Comment on above: Performed By: #### B MP #### [address] Complete Blood Count Auto Di ffon 08-13-2021 Basophils (Bld) [#/Vol] 0.0 10*3/uL Normal 0.0-0.2 [facility] Comment on above: Result Comment: PERF ORMED BY: [place] [address] PATHOLOGIST COLLATOR OPERATOR ERNESTO ALCARAZ M.D. Performed By: #### C BC, BMP #### [place] [id number] [place] Basophils/100 WBC (Bld) 0.6 % Normal . [facility] Comment on above: Performed By: #### C BC, BMP #### [place] [id number] [place] Eosinophils (Bld) [#/Vol] 0.1 10*3/uL Normal 0.0-0.45 [facility] Comment on above: Performed By: #### C BC, BMP #### [place] [id number] [place] Eosinophils/100 WBC (Bld) 1.9 % Normal . [facility] Comment on above: Performed By: #### C BC, BMP #### [facility] [address] Erythrocyte distribution width (RBC) [Ratio] 13.4 % Normal 11.9-15.3 [facility] Comment on above: Performed By: #### C BC, BMP #### [facility] [address] Hematocrit (Bld) [Volume fraction] 32.8 % Low 34.0-46.4 [facility] Comment on above: Performed By: #### C BC, BMP #### [address] Hemoglobin (Bld) [Mass/Vol] 11.6 g/dL Low 11.8-15.4 [facility] Comment on above: Performed By: #### C BC, BMP #### [address] Lymphocytes (Bld) [#/Vol] 1.6 10*3/uL Normal 1.00-4.8 [facility] Comment on above: Performed By: #### C BC, BMP #### [address] Lymphocytes/100 WBC (Bld) 29.8 % Normal . [facility] Comment on above: Performed By: #### C BC, BMP #### [address] MCH (RBC) [Entitic mass] 31.1 pg Normal 24.7-34.3 [facility] Comment on above: Performed By: #### C BC, BMP #### [address] MCV (RBC) [Entitic vol] 88.2 fL Normal 80-100 [facility] Comment on above: Performed By: #### C BC, BMP #### [address] Mean Corpuscular HGB Conc 35.3 g/dL High 32.0-35.0 [facility] Comment on above: Performed By: #### C BC, BMP #### [address] [place] [address] [place] Monocytes (Bld) [#/Vol] 0.7 10*3/uL Normal 0.0-0.8 [facility] Comment on above: Performed By: #### C BC, BMP #### [facility] [address] [place] [address] [place] Monocytes/100 WBC (Bld) 12.9 % Normal . [facility] Comment on above: Performed By: #### C BC, BMP #### [facility] [address] [place] [address] [place] Neutrophils (Bld) [#/Vol] 2.9 10*3/uL Normal 1.8-7.7 [facility] Comment on above: Performed By: #### C LUIS, BMP #### [address] Neutrophils/100 WBC (Bld) 54.8 % Normal . [facility] Comment on above: Performed By: #### C LUIS, BMP #### [facility] [address] [place] [address] [place] Nucleated RBC/100 WBC (Bld) [Ratio] 0.4 % Normal 0-0.5 [facility] Comment on above: Performed By: #### C LUIS, BMP #### [place] [id number] [place] Platelet mean volume (Bld) [Entitic vol] 7.4 fL Normal 6.3-10.7 [facility] Comment on above: Performed By: #### C BC, BMP #### [facility] [address] [place] [address] [place] Platelets (Bld) [#/Vol] 278 10*3/uL Normal 150-450 [facility] Comment on above: Performed By: #### C BC, BMP #### [facility] [address] [place] [address] [place] RBC (Bld) [#/Vol] 3.72 10*6/uL Normal 3.60-5.00 [facility] Comment on above: Performed By: #### C BC, BMP #### [address] [place] [address] [facility] WBC (Bld) [#/Vol] 5.3 10*3/uL Normal 4.5-11.0 [facility] Comment on above: Performed By: #### C BC, BMP #### [facility] [address] [place], [place] [id number] [facility] ECG 12 lead ECGon 08-13-2021 ECG 12 lead ECG [facility] [address] Electrocardiograph Report Signed Patient: Sandhya Maldonado MR#: [id number] 692 : 1960 Acct:[id number] Age/Sex: 61 / F ADM Date: 08/12/21 Loc: 3T Room: [address] [place] [address] Type: DIS INOo Attending Dr: Luisa Mott DO Ordering Provider: Luisa Mott DO Date of Service: 08/13/2108/05/499 ECG/ECG 12 lead ECG: Possible Ant STEMI Copies to: Test Reason : Blood Pressure : / mmHG Vent. Rate : 063 BPM Atrial Rate : 063 BPM P-R Int : 166 ms QRS Dur : 086 ms QT Int : 492 ms P-R-T Axes : 066 068 255 degrees QTc Int : 503 ms Normal sinus rhythm Septal infarct , age undetermined Prolonged QT Abnormal ECG No previous ECGs available Confirmed by PRECIOUS LAWS MD ([id number]) on 08/13/2021 1:11:11 PM Referred By: Electronically Signed By:PRECIOUS LAWS MD Transcribed By: MUS Signed By Precious Laws MD 0 08/13/21 1311 Normal [facility] ECH echo transthoracicon ECH echo transthoracic [facility] [place] [address] Echocardiogram Signed Patient: Sandhya Maldonado MR#: [id number] 692 : 1960 Acct:[id number] Age/Sex: 61 / F ADM Date: 08/12/21 Loc: 3T Room: [address] [place] [address] Type: DIS INOo Attending Dr: Luisa Mott DO Ordering Provider: Luisa Mott DO Date of Service: 08/13/2108/05/499 ECH/ECH echo transthoracic: Possible STEMI Copies to: MD Luisa Chandler DO Weight: 117 lb Performed By: VINNY Gandhi BSA: 1.6 m2 BP: 137/60 mmHg HR: 70 Reason For Study: Possible STEMI History: COPD,HTN,HLD Interpretation Summary Ejection Fraction = 55-60%. The left ventricular size, thickness and function are normal The left ventricular wall motion is normal. A variety of Doppler measurements indicate impaired left ventricular relaxation, which is associated with grade I/IV or mild diastolic dysfunction. There is mild mitral regurgitation. There is mild tricuspid regurgitation. Right ventricular systolic pressure is elevated at 40-50mmHg. Right ventricular systolic pressure is consistent with moderate pulmonary hypertension. There is no comparison study available. Procedure/Quality: A two-dimensional transthoracic echocardiogram with color flow and Doppler was performed. Left Ventricle: The left ventricular size, thickness and function are normal. Ejection Fraction = 55-60%. A variety of Doppler measurements indicate impaired left ventricular relaxation, which is associated with grade I/IV or mild diastolic dysfunction. The left ventricular wall motion is normal. Left Atrium: The left atrium appears normal in size. Right Atrium: The right atrium appears normal in size. Right Ventricle: The right ventricular size, thickness and function are normal. Aortic Valve: The aortic valve is normal in structure and function. No aortic regurgitation is present. Mitral Valve: The mitral valve is normal in structure and function. There is mild mitral regurgitation. Tricuspid Valve: The tricuspid valve is normal in structure and function. There is mild tricuspid regurgitation. Right ventricular systolic pressure is elevated at 40-50mmHg. Right ventricular systolic pressure is consistent with moderate pulmonary hypertension. Pulmonic Valve: The pulmonic valve is normal in structure and function. Arteries: The aortic root is normal size. Pericardium/Pleura: No pericardial effusion seen. There is no pleural effusion. IVC/Hepatic Viens: The inferior vena cava is normal in size, with a normal collapsibility index. Measurements with Normals IVSd: 0.91 cm (0.7-1.1 cm)LVIDd: 3.9 cm (3.7-5.4 cm) LVPWd: 0.86 cm (0.7-1.1 cm)LVIDs: 2.3 cm (2.3-3.6 cm) LA dimension: 3.1 cm(2.3-4.0 cm)Ao root diam: 2.6 cm(2.0-3.6 cm) Doppler with Normals RVSP(TR): 47.5 mmHg (18-35mmHg) MV E max raad: 75.8 cm/sec(0.8-1.3m/s) MV A max raad: 92.5 cm/sec(0.0-0.0m/s) MV E/A: 0.82 (<1.5) MMode/2D Measurements Calculations RVDd: 2.3 cm FS: 39.5 % Ao root area: LVOT diam: 1.8 cm TAPSE: 2.2 cm EDV(Teich): 5.3 cm2 LVOT area: 2.5 cm2 RV S Raad: 65.2 ml 15.4 cm/sec ESV(Teich): 19.1 ml EF(Teich): 70.7 % __ LVLd ap4: 6.2 cm SV(MOD-sp4): LAV(MOD-sp4): LA A2 area: 12.7 cm2 EDV(MOD-sp4): 14.0 ml 25.4 ml 25.3 ml LAV(MOD-sp2): LA A4 area: 11.5 cm2 LVLs ap4: 5.3 cm 29.7 ml LA length (vol): ESV(MOD-sp4): 4.2 cm 11.3 ml LA vol: 29.2 ml EF(MOD-sp4): 55.3 % LA vol index: 18.8 ml/m2 Doppler Measurements Calculations MV dec time: MV max PG: E/E' lat: 9.8 MV dec slope: 0.34 sec 21.0 mmHg E/E' med: 11.2 222.0 cm/sec2 __ MR max raad: TV max PG: TR max raad: 231.3 cm/sec 37.0 mmHg 306.2 cm/sec MR max PG: TR max P.5 mmHg 37.5 mmHg RAP systole: 10.0 mmHg Transcribed By: SCV Performed At: 08/13/21 0917 Signed By: Precious Laws MD 08/13/21 1127 Normal [facility] Troponin I High Sensitivityo n 08-13-2021 Troponin I High Sensitivity 60 pg/mL Off scale high 0-15 [facility] Comment on above: Result Comment: Resu lts called at 0609 on 08/13/21 PERFORMED BY: [place] [phone] PATHOLOGIST COLLATOR OPERATOR ERNESTO ALCARAZ M.D. Performed By: #### H S TROP #### [address] Troponin I High Sensitivity 75 pg/mL Off scale high [address] Comment on above: Result Comment: Resu lts called at 0140 on 08/13/21 PERFORMED BY: [place] [phone] PATHOLOGIST COLLATOR OPERATOR ERNESTO ALCARAZ M.D. Performed By: #### H S TROP #### [address] Troponin I.cardiac [Mass/vol ume] in Serum or Plasma by High sensitivity methodOrdered By: Luisa Mott on 08-13-2021 Troponin I.cardiac High sensitivity method [Mass/Vol] 60 pg/mL 0-15 [facility] Comment on above: Results calledat 060 9 on 08/13/21 US carotid doppler BIon - US carotid doppler BI [facility] [place] [address] [place] [address] Ultrasound Report Signed Patient: Sandhya Maldonado MR#: [id number] 692 : 1960 Acct:[id number] Age/Sex: 61 / F ADM Date: 08/12/21 Loc: 4C Room: 0E5650-1 Type: ADM INOo Attending Dr: Luisa Mott DO Ordering Provider: Luisa Mott DO Date of Service: 08/13/21 US/US carotid doppler BI: History of carotid disease Copies to: Luisa Mott DO CAROTID DUPLEX INDICATION: Surveillance study, patient with known history of carotid stenoses. Multiple vascular risk factors such as hypertension, smoking, hyperlipidemia PROCEDURE: Color-flow duplex scanning is used to interrogate the extracranial carotid arterial system, as well as both vertebral arteries. Both carotid bifurcations show mild to moderate heterogeneous plaque formation. The proximal right internal carotid artery shows a highest peak systolic velocity of 213 cm/s with an end-diastolic velocity of 65.9 cm/s . The mid internal carotid artery measures 146 cm/s peak systolic and 46.8 cm/s end diastolic. The distal segment measures 81.5 cm/s peak systolic with an end diastolic velocity of 18.8 cm/s . The velocities of the right common carotid artery are 92.2 cm/s peak systolic and 28.5 cm/s end-diastolic proximally and 179 cm/s peak systolic and 51.2 cm/s end diastolic distally. The peak systolic velocity ratio of the internal to the common carotid artery is 1.19. The right external carotid artery measures 220 cm/s peak systolic. The right vertebral artery is patent at 44.8 cm/s with antegrade flow. The proximal left internal carotid artery shows a highest peak systolic velocity of 96.8 cm/s with an end-diastolic velocity of 27 cm/s . The mid internal carotid artery measures 88.6 cm/s peak systolic and 29.3 cm/s end diastolic. The distal segment measures 78.1 cm/s peak systolic with an end diastolic velocity of 22.1 cm/s . The velocities of the left common carotid artery are 75.8 cm/s peak systolic and 24.2 cm/s end-diastolic proximally and 61.4 cm/s peak systolic and 25.6 cm/s end diastolic distally. The peak systolic velocity ratio of the internal to the common carotid artery is 1.28 . The left external carotid artery measures 388 cm/s peak systolic. The left vertebral artery is patent at 53.6 cm/s with antegrade flow. US/US carotid doppler BI IMPRESSION: MILD TO MODERATE PLAQUE FORMATION IS NOTED BILATERAL EXTRACRANIAL CAROTID ARTERIES. MODERATE STENOSIS OF 50-69% WAS FOUND IN THE RIGHT INTERNAL CAROTID ARTERY. The left internal carotid artery did not have any significant stenoses. The thyroid does have enlargement. Impression dictated by: Christian Ross MD08/13/2021 11:45 AM Dictation Location: [place] [address] Tech: Gilda Streeter Transcribed By: [facility] 08/13/21 1145 Dictated By: Christian Ross MD 08/13/21 1143 Signed By: 08/13/21 1145 Normal [facility] BNPon 08-12-2021 Natriuretic peptide B (Bld) [Mass/Vol] 5542.0 pg/mL Critically high <=900.0 [facility] Comment on above: Performed By: #### H STROPN, BNP, BMP #### [facility] [address] [place] [address] Dr. Stuart Weaver CBC AUTO DIFFon 08-12-2021 BASO # 0.1 103/ul Normal 0.0-0.1 [facility] Comment on above: Performed By: #### C BC #### [facility] [address] [address] [address] Stuart Weaver Basophils/100 WBC (Bld) 0.6 % Normal 0.2-2.0 [facility] Comment on above: Performed By: #### C BC #### [facility] [address] [place] [address] Dr. Stuart Weaver EO # 0.1 103/ul Normal 0.0-0.7 [facility] Comment on above: Performed By: #### C BC #### [facility] [address] [address] [address] Stuart Weaver Eosinophils/100 WBC (Bld) 1.4 % Normal 0.9-7.0 [facility] Comment on above: Performed By: #### C BC #### [facility] [address] [place] [address] Dr. Stuart Weaver Erythrocyte distribution width (RBC) [Ratio] 12.6 % Normal 11.0-15.0 [facility] Comment on above: Performed By: #### C BC #### [facility] [address] [place] [address] Dr. Stuart Weaver Hematocrit (Bld) [Volume fraction] 37.7 % Normal 36.0-48.0 [facility] Comment on above: Performed By: #### C BC #### [facility] [address] [place] [address] Dr. Stuart Weaver Hemoglobin (Bld) [Mass/Vol] 13.4 g/dL Normal 12.0-16.0 [facility] Comment on above: Performed By: #### C BC #### [facility] [address] [place] [address] Dr. Stuart Weaver IG # 0.02 10e3/ul Normal 0.00-0.03 [facility] Comment on above: Performed By: #### C BC #### [facility] [address] [place] [address] Dr. Stuart Weaver IG % 0.2 % Normal 0.0-0.5 [facility] Comment on above: Performed By: #### C BC #### [facility] [address] [place] [address] Dr. Stuart Weaver LYMPH # 3.1 103/ul Normal 1.2-3.8 [facility] Comment on above: Performed By: #### C BC #### [facility] [address] [place] [address] Dr. tSuart Weaver Lymphocytes/100 WBC (Bld) 37.7 % Normal 20.5-60.0 [facility] Comment on above: Performed By: #### C BC #### [facility] [address] [place] [address] Dr. Stuart Weaver MANUAL DIFF REQ NO Normal [facility] Comment on above: Performed By: #### C BC #### [facility] [address] [place] [address] Dr. Stuart Weaver MCH (RBC) [Entitic mass] 30.3 pg Normal 26.7-34.0 [facility] Comment on above: Performed By: #### C BC #### [facility] [address] [address] [address] Stuart Weaver MCHC (RBC) [Mass/Vol] 35.5 g/dL Critically high 29.9-35.2 [facility] Comment on above: Performed By: #### C BC #### [facility] [address] [address] [address] Stuart Weaver MCV (RBC) [Entitic vol] 85.3 fL Normal 81.0-99.0 [facility] Comment on above: Performed By: #### C BC #### [facility] [address] [address] [address] Stuart Weaver MONO # 1.2 103/ul Critically high 0.3-0.8 [facility] Comment on above: Performed By: #### C BC #### [facility] [address] [place] [address] Dr. Stuart Weaver Monocytes/100 WBC (Bld) 13.8 % Critically high 1.7-12.0 [facility] Comment on above: Performed By: #### C BC #### [facility] [address] [address] [address] Stuart Weaver NEUT # 3.8 103/ul Normal 1.4-6.5 [facility] Comment on above: Performed By: #### C BC #### [facility] [address] [address] [address] Stuart Weaver Neutrophils/100 WBC (Bld) 46.3 % Normal 43.0-75.0 [facility] Comment on above: Performed By: #### C BC #### [facility] [address] [address] [address] Stuart Weaver Platelet mean volume (Bld) [Entitic vol] 9.1 fL Critically low 9.5-13.5 [facility] Comment on above: Performed By: #### C BC #### [facility] [address] [address] [address] Stuart Weaver PLT 322 103/ul Normal 150-450 [facility] Comment on above: Performed By: #### C BC #### [facility] [address] [place] [address] Dr. Stuart Weaver RBC 4.42 106/ul Normal 4.20-5.40 [facility] Comment on above: Performed By: #### C BC #### [facility] [address] [place] [address] Dr. Stuart Weaver WBC 8.3 103/ul Normal 4.0-11.0 [facility] Comment on above: Performed By: #### C BC #### [facility] [address] [place] [address] Dr. Stuart Weaver Covid-19 PCR (CVDTB)on SARS-CoV-2 (COVID-19) RNA RAFIA+probe Ql (Unsp spec) Not detected Normal NOT DETECTED [facility] Comment on above: Result Comment: This test is not yet approved or cleared by the [place] FDA. When there are no FDA-approved or cleared tests available, and other criteria are met, FDA can make tests available under an emergency access mechanism called an Emergency Use Authorization (EUA). The EUA for this test is supported by the Activity Therapist of Health and Human Service's (HHS's) declaration that circumstances exist to justify the emergency use of in vitro diagnostics for the detection and/or diagnosis of the virus that causes COVID-19. This EUA will remain in effect (meaning this test can be used) for the duration of the COVID-19 declaration justifying emergency of IVDs, unless it is terminated or revoked by FDA (after which the test may no longer be used). When diagnostic testing is negative, the possibility of a false negative should be considered in the context of a patient's recent exposures and the presence of clinical signs and symptoms consistent with SARS-CoV-2. Performed By: #### C VDTBH #### [facility] [address] [place] [address] Dr. Stuart Weaver PROF CHEM 8 (BAS METB)on Anion gap [Moles/Vol] 7.0 mmol/L Normal [facility] Comment on above: Performed By: #### H STROPN, BNP, BMP #### [facility] [address] [place] [address] Dr. Stuart Weaver Calcium [Mass/Vol] 8.6 mg/dL Normal 8.4-10.2 [facility] Comment on above: Performed By: #### H STROPN, BNP, BMP #### [facility] [address] [address] [address] Stuart Weaver Chloride [Moles/Vol] 87 mmol/L Critically low 98-107 [facility] Comment on above: Performed By: #### H STROPN, BNP, BMP #### [facility] [address] [place] [address] Dr. Stuart Weaver CO2 [Moles/Vol] 28.3 mmol/L Normal 22.0-30.0 [facility] Comment on above: Performed By: #### H STROPN, BNP, BMP #### [facility] [address] [place] [address] Dr. Stuart Weaver Creatinine [Mass/Vol] 0.82 mg/dL Normal 0.52-1.04 [facility] Comment on above: Performed By: #### H STROPN, BNP, BMP #### [facility] [address] [place] [address] Dr. Stuart Weaver EGFR-AF NICARAGUAN >60 Normal >=60 [facility] Comment on above: Performed By: #### H STROPN, BNP, BMP #### [facility] [address] [place] [address] Dr. Stuart Weaver EGFR-NON AF NICARAGUAN >60 Normal >=60 [facility] Comment on above: Performed By: #### H STROPN, BNP, BMP #### [facility] [address] [place] [address] Dr. Stuart Weaver Glucose [Mass/Vol] 111 mg/dL Critically high 74-106 [facility] Comment on above: Performed By: #### H STROPN, BNP, BMP #### [facility] [address] [place] [address] Dr. Stuart Weaver Potassium [Moles/Vol] 4.3 mmol/L Normal 3.4-5.0 [facility] Comment on above: Performed By: #### H STROPN, BNP, BMP #### [facility] [address] [address] [address] Stuart Weaver Sodium [Moles/Vol] 117 mmol/L Critically low 137-145 [facility] Comment on above: Result Comment: TEST REPEATED CRITICAL VALUE VERIFIED Performed By: #### H STROPN, BNP, BMP #### [facility] [address] [place] [address] Dr. Stuart Weaver Urea nitrogen [Mass/Vol] 9.0 mg/dL Normal 7.0-17.0 [facility] Comment on above: Performed By: #### H STROPN, BNP, BMP #### [facility] [address] [address] [address] Stuart Weaver Urea nitrogen/Creatinine [Mass ratio] 11.0 mg/mg Normal [facility] Comment on above: Performed By: #### H STROPN, BNP, BMP #### [facility] [address] [place] [address] Dr. Stuart Weaver TROPONIN, HIGH SENSITIVITYon 08-12-2021 HSTROP 131.4 pg/mL Critically high 4.0-35.5 [facility] Comment on above: Result Comment: CUT- OFF POINTS HAVE BEEN ESTABLISHED BASED ON THE FOURTH UNIVERSAL DEFINITIONS OF MYOCARDIAL INFARCTION. THE UPPER REFERENCE LIMIT (URL) OF TROPONIN, DEFINED THE 99TH PERCENTILE OF cTnI DISTRIBUTION IN A REFERENCE POPULATION, HAS BEEN CONFIRMED THE DECISION THRESHOLD FOR MT DIAGNOSIS. TEST REPEATED CRITICAL VALUE VERIFIED Performed By: #### H STROPN, BNP, BMP #### [facility] [address] [place] [address] Dr. Stuart Weaver Troponin I High Sensitivityo n 08-12-2021 Troponin I High Sensitivity 86 pg/mL Off scale high 0-15 [facility] Comment on above: Result Comment: Resu lts called at 2228 on 08/12/21 PERFORMED BY: [place] [address] PATHOLOGIST COLLATOR OPERATOR ERNESTO ALCARAZ M.D. Performed By: #### H S TROP #### [address] Troponin I High Sensitivity 91 pg/mL Off scale high 0-15 [facility] Comment on above: Result Comment: LUCAS TITY NOT SUFFICIENT FOR REPEAT TESTING. FIBRIN MAY FALSELY ELEVATE RESULTS. Results called at 2056 on 08/12/21 PERFORMED BY: [place] [address] PATHOLOGIST COLLATOR OPERATOR ERNESTO ALCARAZ M.D. Performed By: #### H S TROP #### [address] XR CHEST 1 Von 08-12-2021 XR CHEST 1 V EXAMINATION: XR CHEST 1 V HISTORY: SHORTNESS OF BREATH COMPARISON: XR chest 03/01/2012 FINDINGS: LUNGS: No significant pulmonary parenchymal abnormalities. VASCULATURE: No increased pulmonary vasculature. PLEURA: No pneumothorax, effusion, or pleural thickening. CARDIAC: No cardiomegaly or cardiac silhouette abnormality. MEDIASTINUM: No visible mass or adenopathy. BONES: Mechanical stabilization of lower cervical spine. OTHER: Negative. IMPRESSION: 1. No acute cardiopulmonary process. Electronically authenticated by: JOHNATHAN BETANCOURT Date: 2021-08-12 16:28 Normal [facility] Vital Signs Date Time Vital Sign Value Performing Clinician Facility 08-07-2024 08:43-0500 Blood Pressure Location Marilyn Sanchezi [facility] 08-07-2024 08:43-0500 Diastolic blood pressure 80 mm[Hg] Sanders Sarmini [facility] 08-07-2024 08:43-0500 Heart rate 75 /min Sanders Sarmini [facility] 08-07-2024 08:43-0500 Respiratory rate 14 /min Sanders Sarmini [facility] 08-07-2024 08:43-0500 Systolic blood pressure 163 mm[Hg] Sanders Sarmini [facility] 04-05-2023 08:00-0400 Blood Pressure Location VIRY ANABELLE [facility] 04-05-2023 08:00-0400 Diastolic blood pressure 60 mm[Hg] VIRY ANABELLE [facility] 04-05-2023 08:00-0400 Heart rate 69 /min VIRY ANABELLE [facility] 04-05-2023 08:00-0400 SaO2% (BldA) [Mass fraction] 100 % VIRY ANABELLE [facility] 04-05-2023 08:00-0400 Systolic blood pressure 130 mm[Hg] VIRY ANABELLE [facility] 03-17-2023 09:26-0400 Diastolic blood pressure 72 mm[Hg] VIRY ANABELLE [facility] 03-17-2023 09:26-0400 Mean blood pressure 95 mm[Hg] VIRY ANABELLE [facility] 03-17-2023 09:26-0400 Systolic blood pressure 140 mm[Hg] VIRY ANABELLE [facility] 03-17-2023 09:20-0400 Blood Pressure Location VIRY ANABELLE [facility] 03-17-2023 09:20-0400 Body temperature 98.6 [degF] VIRY ANABELLE [facility] 03-17-2023 09:20-0400 Diastolic blood pressure 70 mm[Hg] VIRY ANABELLE [facility] 03-17-2023 09:20-0400 Heart rate 54 /min VIRY ANABELLE [facility] 03-17-2023 09:20-0400 Respiratory rate 19 /min VIRY AHN [facility] 03-17-2023 09:20-0400 SaO2% (BldA) [Mass fraction] 98 % VIRY AHN [facility] 03-17-2023 09:20-0400 Systolic blood pressure 128 mm[Hg] VIRY AHN [facility] 05-13-2022 09:27-0500 Body height 154.94 cm Shawn Sandoval MD Work Phone: [facility] [address] DO Work Phone: 05-13-2022 09:27-0500 Body mass index (BMI) [Ratio] 22.11 kg/m2 Shawn Sandoval MD Work Phone: [facility] [address] DO Work Phone: 05-13-2022 09:27-0500 Body surface area Derived from formula 1.5 m2 Shawn Sandoval MD Work Phone: [facility] [address] DO Work Phone: 05-13-2022 09:27-0500 Body weight 53.07 kg Shawn Sandoval MD Work Phone: [facility] [address] DO Work Phone: 05-13-2022 09:27-0500 Diastolic blood pressure 70 mm[Hg] Shawn Sandoval MD Work Phone: [facility] [address] DO Work Phone: 05-13-2022 09:27-0500 Heart rate 66 /min Shawn Sandoval MD Work Phone: [facility] [address] DO Work Phone: 05-13-2022 09:27-0500 Systolic blood pressure 134 mm[Hg] Shawn Sandoval MD Work Phone: [facility] DO Work Phone: 04-02-2022 10:22-0400 Blood Pressure Location Kamilahqing MASCORRO [facility] 04-02-2022 10:22-0400 Body temperature 97.7 [degF] Kamilah LUDWIN [facility] 04-02-2022 10:22-0400 Diastolic blood pressure 86 mm[Hg] Kamilahqing MASCORRO [facility] 04-02-2022 10:22-0400 Heart rate 63 /min Kamilah LUDWIN [facility] 04-02-2022 10:22-0400 SaO2% (BldA) [Mass fraction] 98 % Kamilah LUDWIN [facility] 04-02-2022 10:22-0400 Systolic blood pressure 134 mm[Hg] Kamilahqing MASCORRO [facility] 02-02-2022 15:01-0400 Diastolic blood pressure 84 mm[Hg] Karo Freireonk [facility] 02-02-2022 15:01-0400 Mean blood pressure 103 mm[Hg] Karo Klonk [facility] 02-02-2022 15:01-0400 Systolic blood pressure 142 mm[Hg] Karo Klonk [facility] 02-02-2022 14:23-0400 Blood Pressure Location Karo Nava [facility] 02-02-2022 14:23-0400 Body temperature 97.16 [degF] Karo Nava [facility] 02-02-2022 14:23-0400 Diastolic blood pressure 100 mm[Hg] Karo Gonzalezk [facility] 02-02-2022 14:23-0400 Heart rate 70 /min Karo Nava [facility] 02-02-2022 14:23-0400 SaO2% (BldA) [Mass fraction] 98 % Karo Nava [facility] 02-02-2022 14:23-0400 Systolic blood pressure 170 mm[Hg] Karo Nava [facility] 10-24-2021 08:58-0400 Body height 154.94 cm Ovidio Williamson MD Work Phone: OB-Vycykjdaouakr-JX [address] [place] [address] Work Phone: 10-24-2021 08:58-0400 Body mass index (BMI) [Ratio] 20.6 kg/m2 Ovidio Williamson MD Work Phone: WR-Epszepyemhhbb-DN [address] [place] [address] Work Phone: 10-24-2021 08:58-0400 Body surface area Derived from formula 1.46 m2 Ovidio Williamson MD Work Phone: YZ-Jcabmpgrixbhb-VH [address] [place] [address] Work Phone: 10-24-2021 08:58-0400 Body weight 49.44 kg Ovidio Williamson MD Work Phone: II-Vgebwsygdgdlf-CE [address] [place] [address] Work Phone: 10-24-2021 08:58-0400 Diastolic blood pressure 78 mm[Hg] Ovidio Williamson MD Work Phone: MU-Pvollvpednvkw-HH [address] [place] [address] Work Phone: 10-24-2021 08:58-0400 Heart rate 57 /min Ovidio Williamson MD Work Phone: QD-Rwkcvqfstymwk-DR [address] [place] [address] Work Phone: 10-24-2021 08:58-0400 Systolic blood pressure 168 mm[Hg] Ovidio Williamson MD Work Phone: ZR-Nirihpkvzrbiw-JO [address] [place] [address] Work Phone: 09-19-2021 10:03-0400 Body height 154.94 cm Simona Vargas [employer] Work Phone: UZ-Hclatidnplrhir-U [place] Work Phone: 09-19-2021 10:03-0400 Body mass index (BMI) [Ratio] 21.01 kg/m2 Simona Vargas [employer] Work Phone: MQ-Gagtgigcgmqjes-L [place] Work Phone: 09-19-2021 10:03-0400 Body surface area Derived from formula 1.47 m2 Simona Vargas [employer] Work Phone: XO-Doquifjrabcxoe-F [place] Work Phone: 09-19-2021 10:03-0400 Body temperature 97.88 [degF] Simona Vargas [employer] Work Phone: PS-Tmwanhoybkrjxl-F [place] Work Phone: 09-19-2021 10:03-0400 Body weight 50.44 kg Simona Vargas [employer] Work Phone: SP-Ngdtpbywuqhqey-T [place] Work Phone: 09-19-2021 10:03-0400 Respiratory rate 16 /min Simona Vargas [employer] Work Phone: VK-Qcjcuprravczsu-F [place] Work Phone: 09-03-2021 08:42-0400 Body height 154.94 cm Simona Vargas [employer] Work Phone: [facility] DO Work Phone: 09-03-2021 08:42-0400 Body mass index (BMI) [Ratio] 20.97 kg/m2 Simona Vargas [employer] Work Phone: [facility] DO Work Phone: 09-03-2021 08:42-0400 Body surface area Derived from formula 1.47 m2 Simona Vargas [employer] Work Phone: [facility] DO Work Phone: 09-03-2021 08:42-0400 Body weight 50.35 kg Simona Vargas [employer] Work Phone: [facility] DO Work Phone: 09-03-2021 08:42-0400 Diastolic blood pressure 68 mm[Hg] Simona Vargas [employer] Work Phone: [facility] DO Work Phone: 09-03-2021 08:42-0400 Heart rate 62 /min Simona Vargas [employer] Work Phone: [facility] DO Work Phone: 09-03-2021 08:42-0400 Systolic blood pressure 114 mm[Hg] Simona Maria Vargas [employer] Work Phone: [facility] DO Work Phone: 08-14-2021 11:23-0500 Diastolic blood pressure 65 mm[Hg] DO W Waldo Mott Work Phone: [facility] 08-14-2021 11:23-0500 Heart rate 67 /min DO W Waldo Mott Work Phone: [facility] 08-14-2021 11:23-0500 Respiratory rate 14 /min DO W Waldo Mott Work Phone: [facility] 08-14-2021 11:23-0500 SaO2% (BldA) [Mass fraction] 95 % DO W Waldo Mott Work Phone: [facility] 08-14-2021 11:23-0500 Systolic blood pressure 113 mm[Hg] DO W Waldo Mott Work Phone: [facility] 08-14-2021 08:00-0500 Body temperature 97.8 [degF] DO W Waldo Mott Work Phone: [facility] 08-14-2021 04:01-0500 Body weight 48.6 kg DO W Waldo Mott Work Phone: [facility] 08-13-2021 12:12-0500 Body height 162.56 cm DO W Waldo Mott Work Phone: [facility] 08-12-2021 19:11-0500 Body mass index (BMI) [Ratio] 20.2 kg/m2 DO W Waldo Mott Work Phone: [facility] Encounters Encounter Date Encounter Type Care Provider Facility Start: 08-10-2024 End: 08-10-2024 ambulatory Josephine Flor [facility] Start: 08-10-2024 End: 08-10-2024 Patient encounter procedure Josephine Flor [facility] Start: 08-08-2024 End: 08-08-2024 ambulatory Josephine L Chacho Facility:[facility] [place] [facility] Start: 08-07-2024 End: 08-07-2024 ambulatory Sanders Talal Katiemini Facility:[facility] Start: 08-07-2024 End: 08-07-2024 Patient encounter procedure Sanders Talal Sarmini [facility] Start: 08-01-2024 End: 08-01-2024 ambulatory Josephine L Chacho Facility:[facility] [place] [facility] Start: 07-25-2024 End: 07-25-2024 ambulatory Josephine L Chacho Facility:[facility] [place] [facility] Start: 07-18-2024 End: 07-18-2024 ambulatory MANAGER CULINARY Josephine L Chacho Facility:[facility] [place] [facility] Start: 07-14-2024 End: 07-14-2024 Lab Drop off Josephine L Chacho [facility] Start: 07-14-2024 End: 07-14-2024 ambulatory MANAGER CULINARY Josephine L Chacho Facility[facility] Start: 06-19-2024 ambulatory Josephine L Chacho Facility: [facility] [place] Start: 06-06-2024 End: 06-06-2024 ambulatory SELF REFERRAL Facility[place] Start: 06-06-2024 End: 06-06-2024 Patient encounter procedure SELF REFERRAL [facility] Start: 06-05-2024 End: 06-05-2024 ambulatory MANAGER CULINARY Josephine L Chacho Facility[facility] Start: 06-05-2024 End: 06-05-2024 Patient encounter procedure Josephine L Chacho [facility] Start: 05-31-2024 End: 05-31-2024 Lab Drop off Josephine L Chacho [facility] Start: 05-31-2024 End: 05-31-2024 ambulatory Josephine L Chacho Facility[facility] Start: 05-29-2024 End: 05-29-2024 Patient encounter procedure Mounika Goins PA Work Phone: [facility] Comment on above: Actinic keratosis (P rimary Dx) Start: 05-29-2024 End: 05-29-2024 ambulatory MOUNIKA GOINS Not Available Start: 05-25-2024 End: 05-25-2024 ambulatory [facility] Start: 05-09-2024 End: 05-09-2024 Bamboo flowsheet Mounika Goins PA Work Phone: [facility] Start: 05-09-2024 End: 05-09-2024 Bamboo flowsheet Mounika Goins PA Work Phone: [facility] Start: 05-09-2024 End: 05-09-2024 Office outpatient new 20 minutes Mounika Buster PA Work Phone: [facility] Comment on above: Seborrheic keratosis (Primary Dx); Actinic keratosis Start: 05-09-2024 End: 05-09-2024 ambulatory [facility] Start: 04-07-2023 End: 04-07-2023 Off-Site VIRY AHN [facility] Start: 04-05-2023 End: 04-05-2023 Lab Drop off VIRY A ANABELLE [facility] Start: 04-05-2023 End: 04-05-2023 Patient encounter procedure VIRY A ANABELLE [facility] Start: 03-17-2023 End: 03-17-2023 Patient encounter procedure VIRY A ANABELLE [facility] [facility] Start: 05-13-[address] Berto Mott Facility: Start: 04-02-2022 End: 04-02-2022 Patient encounter procedure Kamilah MASCORRO [facility] Start: 02-04-2022 End: 02-04-2022 Patient encounter procedure Karo Nava [facility] Start: 02-02-2022 End: 02-02-2022 Patient encounter procedure Karo Nava [facility] Start: 01-20-2022 BERENICE Williamson MD Work Phone: DK-Mppyudzkztqbi-HSY [place] [address] Work Phone: Start: 11-26-2021 Chart Update Jose Guadalupe Bowden MD Work Phone: [id number]-Uwrluvzxmchbz-Qzqiln [address] Inj Work Phone: Start: 11-17-2021 End: 11-18-[address] DOCTOR SIMS Facility:H1 Start: 10-31-2021 Patient encounter procedure Shawn Sandoval MD Work Phone: [facility] [address] DO Work Phone: Start: 10-30-2021 Chart Update Ovidio Williamson MD Work Phone: GH-Jueaznpblkpzr-RTW [place] [address] Work Phone: Start: 10-28-2021 Chart Update Ovidio Williamson MD Work Phone: UU-Lqdkaswhytdyb-RAU [place] [address] Work Phone: Start: 10-24-2021 Office outpatient ne w 60 minutes Ovidio Williamson MD Work Phone: PQ-Qtcszcclbaehc-CUD [place] [address] Work Phone: Start: 10-24-[address] OVIDIO WILLIAMSON [facility] ity:[id number] Start: 09-19-[address] SHAWN enamoradoty:[facility] Start: 09-03-2021 End: 09-03-2021 ambulatory Karo Nava Facility:[facility] Start: 09-03-2021 Office outpatient vi sit 25 minutes Simona Vargas [employer] Work Phone: [facility] [address] DO Work Phone: Start: 09-03-[address] Berto Mott Facility: Start: 09-03-2021 End: 09-03-2021 Patient encounter procedure Simona Vargas [employer] Work Phone: [facility] [place] Start: 08-14-[address] Berto Mott Facility:[id number] Start: 08-13-[address] Berto Mott Facility:[id number] Start: 08-12-2021 End: 08-14-2021 ambulatory Luisa Mott Facility:[facility] Start: 08-12-2021 End: 08-14-2021 Evaluation and management of inpatient DO W Waldo Mott Work Phone: [facility] [place] [facility] Start: 08-12-2021 End: 08-12-[address] DOCTOR SIMS Facility:H1 Start: 11-29-2020 End: 11-29-[address] SEKOU ANNA Facility:H1 Start: 09-17-2017 End: 09-17-2017 Ambulatory JORDON [facility] Procedures Date Procedure Procedure Detail Performing Clinician Start: 05-29-2024 CRYOTHERAPY SKIN LESION Mounika Reyesronda PA Work Phone: Start: 05-09-2024 CRYOTHERAPY SKIN LESION Mounikaeva Diazm PA Work Phone: Start: 08-13-2021 Doppler ultrasonogra phy of bilateral carotid arteries DO W Waldo Mott Work Phone: Start: 08-12-[address] acement 0 DO W Waldo Mott Work Phone: Start: 08-12-2021 CL [facility] Angio DO W Waldo Mott Work Phone: Start: 1960 pinched nerve in neck A kemi Freireelieldrew Colonoscopy Karo Elijah Procedure on neck Simona Vargas [employer] Work Phone: Plan of Treatment Date Care Activity Detail Author Start: 07-18-2025 ambulatory Ambulatory Facility:[facility] Start: 08-29-2024 ambulatory Ambulatory Facility:[facility] Start: 02-13-2024 Influenza vaccination Influenza Vacc ine (#1) [facility] Start: 03-27-2022 Screening for malign ant neoplasm of colon [facility] Start: 02-19-2022 FUV, Provider: Berto Mott, Status: Pen, Time: 9:30 AM FUV, Provider: Berto Mott, Status: Pen, Time: 9:30 AM [facility] DO Work Phone: Start: 09-19-2021 NPV, Provider: Shawn Sandoval, Status: Pen, Time: 10:30 AM NPV, Provider: Shawn Sandoval, Status: Pen, Time: 10:30 AM [facility] DO Work Phone: Start: 1999 Screening for malign ant neoplasm of breast Mammogram [facility] Start: 1989 Screening for malign ant neoplasm of cervix [facility] Start: 1980 Screening for malign ant neoplasm of cervix Pap Smear [facility] Start: 1959 Screening for malign ant neoplasm of colon [facility] Patient referral [facility] Work Phone: Immunizations Immunization Date Immunization Notes Care Provider Rochelle delgado 04-05-2023 influenza, high dose seasonal, preservative-free VIRY AHN [facility] [place] 04-05-2023 influenza virus vaccine, unspecified formulation Mounika Ericlalodenia SHAYNA Work Phone: [facility] 08-14-2021 influenza virus vaccine, unspecified formulation Kamilah MASCORRO [facility] 08-14-2021 influenza, injectabl e, quadrivalent, preservative free Simona Vargas [employer] Work Phone: [facility] 06-05-2021 Moderna COVID-19 Vaccine 100 MCG/0.5ML Intramuscular Suspension Simona Vargas [employer] Work Phone: [facility] Comment on above: Series: Result Comment: 2021: [id number] 11-20-2020 diphtheria, tetanus toxoids and pertussis vaccine Simona Vargas [employer] Work Phone: [facility] [address] DO Work Phone: 09-20-2020 Moderna COVID-19 Vaccine 100 MCG/0.5ML Intramuscular Suspension Simona Vargas [employer] Work Phone: [facility] 09-20-2020 Pfizer-BioNTech COVID-19 Vacc 30 MCG/0.3ML Intramuscular Suspension Simona Vargas [employer] Work Phone: [facility] Work Phone: Comment on above: Series: 08-20-2020 Moderna COVID-19 Vaccine 100 MCG/0.5ML Intramuscular Suspension Simona Vargas [employer] Work Phone: [facility] 08-20-2020 Pfizer-BioNTech COVID-19 Vacc 30 MCG/0.3ML Intramuscular Suspension Simona Vargas [employer] Work Phone: [facility]btqnted[facility] Work Phone: Comment on above: Series: Payers Date Payer Category Payer Medicare [id number] 2024 Medicare [id number] 2021 Self-pay [id number] 2020 Medicaid (Managed Care) [facility] MEDICAID [id number] 1959 Unknown [id number] 2.16.840.1.180178.3.579.2. 593 1959 Unknown [id number] 2.16.840.1.962586.3.579.2. 593 1959 Unknown [id number] 2.16.840.1.318114.3.579.2. 593 1959 Unknown [id number] 2.16.840.1.373030.3.579.2. 356 1959 Unknown [id number] 2.16.840.1.191328.3.579.2. 356 1959 Unknown [id number] 2.16.840.1.624724.3.579.2. 356 1959 Unknown [id number] 2.16.840.1.367992.3.579.2. 356 1959 Unknown [id number] 2.16.840.1.370681.3.579.2. 356 1959 Unknown [id number] 2.16.840.1.389369.3.579.2. 356 1959 Unknown [id number] 2.16.840.1.706498.3.579.2. 356 1959 Unknown [id number] 2.16.840.1.224719.3.579.2. 356 1959 Unknown [id number] 2.16.840.1.595488.3.579.2. 356 1959 Unknown [id number] 2.16.840.1.905105.3.579.2. 1259 1959 Unknown [id number] 2.16.840.1.388079.3.579.2. 1259 1959 Unknown [id number] 2.16.840.1.416205.3.579.2. 1959 Unknown [id number] 2.16.840.1.254281.3.579.2. 1959 Unknown [id number] 2.16.840.1.836833.3.579.2. 72 1959 Unknown [id number] 2.16.840.1.869137.3.579.2. 72 1959 Unknown [id number] 2.16.840.1.987895.3.579.2. 72 1959 Unknown [id number] 2.16.840.1.573870.3.579.2. 1959 Unknown [id number] 2.16.840.1.203794.3.579.2. 727 1959 Unknown [id number] 2.16.840.1.595567.3.579.2. 72 1959 Unknown [id number] 2.16.840.1.583722.3.579.2. 72 1959 Unknown [id number] 2.16.840.1.775201.3.579.2. 72 1959 Unknown [id number] 2.16.840.1.612197.3.579.2. 727 1959 Unknown [id number] 2.16.840.1.642517.3.579.2. 72 1959 Unknown [id number] 2.16.840.1.377022.3.579.2. 727 1959 Unknown [id number] 2.16.840.1.135422.3.579.2. 727 1959 Unknown [id number] 2.16.840.1.663380.3.579.2. 727 1959 Unknown [id number] 2.16.840.1.519735.3.579.2. 727 1959 Unknown [id number] 2.16.840.1.804758.3.579.2. 727 1959 Unknown [id number] Unknown Unknown [id number] 2.16.840.1.625217.3.579.2. 531 Unknown [id number] 2.16.840.1.244702.3.579.2. 531 Social History Date Type Detail Facility Former smoker Former smoker [facility] [address] DO Work Phone: Comment on above: QUIT 6 MONTHS AGO; 10 CUPS OF COFFEE DA SUZAN; 2019 quit; Start: 08-12-2021 End: 05-31-2024 Tobacco smoking status NHIS Smoker (finding) [facility] Comment on above: stoppped smoking may 2020 stoppped smoking may 2020 Start: 1960 Sex Assigned At Female F [facility] Never [facility] Comment on above: stoppped smoking may 2020 stoppped smoking may 2020 Female [facility] Start: 04-02-2022 End: 08-07-2024 Tobacco smoking status Ex-smoker (finding) [facility] Tobacco smoking status ALIS Tobacco smoking consumption unknown [facility] Start: 1960 Sex assigned at Not on file [facility] Medical Equipment Procedure Code Equipment Code Equipment Origin al Text Equipment Identifier Dates Femoral artery closure plug/patch, synthetic polymer [id number] FDA Start: 08-12-2021 Goals Date Patient Goal Desired Activity /State Functional Status Date Assessment Result Facility 08-07-2024 Functional Status N/A [facility] 04-05-2023 Functional Status N/A [facility] Family [facility] 03-17-2023 Functional Status N/A [facility] 04-02-2022 Functional Status N/A [facility] 02-02-2022 N/A [facility] 08-14-2021 Functional status Patient at [facility] Work Phone: Mental Status Date Assessment Result Facility 08-14-2021 Cognitive function Cognitive Sta tus Patient at Baseline [facility] Work Phone: Clinical Notes 05-15-2021 to 08-08-2024 SHAYNA Mcdonald - 05/29/2024 10:10 AM SHAYNA Peace - 05/09/2024 1:50 PM EST[facility]atoryRadiologyLaboratoryRadiologyRadiologyRadiology Note Date & Type Note Facility 08-08-2024 Note Nurse Consultation N ote Reason for Visit patient cam IO today to get her B/P rechecked Physical Exam Vitals & Measurements BP: 128/84 Medications Albuterol (Eqv-ProAir HFA) 90 mcg/inh inhalation aerosol, 2 puff(s), Inhalation, q6hr, 4 refills amLODIPine 5 mg Tab, 5 mg= 1 tab(s), Oral, Daily amoxicillin-clavulanate 875 mg-125 mg Tab, 1 tab(s), Oral, q12hr aspirin 81 mg Oral EC Tab, Oral, Daily chlorthalidone 25 mg Tab, 25 mg= 1 tab(s), Oral, Daily escitalopram 5 mg oral tablet, 5 mg= 1 tab(s), Oral, Daily, 3 refills losartan 50 mg Tab, 50 mg= 1 tab(s), Oral, Daily methimazole 5 mg Tab, 5 mg= 1 tab(s), Oral, BID NuLYTELY [place] oral powder for reconstitution, See Instructions Potassium Chloride (Eqv-K-Tab) 10 mEq oral tablet, extended release, 10 mEq= 1 tab(s), Oral, BID Symbicort 80/4.5 inhalation aerosol with adapter, 2 puff(s), Inhalation, BID Allergies No Known Allergies Immunizations Vaccine Date Status Comments influenza virus vaccine, inactivated 04/05/2023 Given influenza virus vaccine, inactivated 08/14/2021 Recorded SARS-CoV-2 (COVID-19) mRNA-1273 vaccine 06/05/2021 Recorded 2022-04-02: TPV60 SARS-CoV-2 (COVID-19) mRNA-1273 vaccine 09/20/2020 Recorded SARS-CoV-2 (COVID-19) mRNA-1273 vaccine 08/20/[address] [facility] 07-25-2024 Note Nurse Consultation N ote Physical Exam Vitals & Measurements BP: 250/110 pt stopped into office her blood pressure has been running high at home 200's/100's for the last few days. C/o vision changes, headache and numbness to bilateral hands. Blood pressure in office today is 250/110. Notified Josephine of patient blood pressure and she advises pt go straight to ER. Notified patient she needed to go to ER pt left office and is going straight to [facility]. Once pt left health science writer called [facility] and gave report on patient. Medications Albuterol (Eqv-ProAir HFA) 90 mcg/inh inhalation aerosol, 2 puff(s), Inhalation, q6hr, 4 refills aspirin 81 mg Oral EC Tab, Oral, Daily carvedilol 3.125 mg Tab, 3.125 mg= 1 tab(s), Oral, BID, 3 refills escitalopram 5 mg oral tablet, 5 mg= 1 tab(s), Oral, Daily, 3 refills methimazole 5 mg Tab, 5 mg= 1 tab(s), Oral, BID, Not taking Symbicort 80/4.5 inhalation aerosol with adapter, 2 puff(s), Inhalation, BID Allergies No Known Allergies Immunizations Vaccine Date Status Comments influenza virus vaccine, inactivated 04/05/2023 Given influenza virus vaccine, inactivated 08/14/2021 Recorded SARS-CoV-2 (COVID-19) mRNA-1273 vaccine 06/05/2021 Recorded 2022-04-02: TPV60 SARS-CoV-2 (COVID-19) mRNA-1273 vaccine 09/20/2020 Recorded SARS-CoV-2 (COVID-19) mRNA-1273 vaccine 08/20/[address] [facility] 07-18-2024 Note Nurse Consultation N ote Reason for Visit Welcome to Medicare Physical Exam Vitals & Measurements HR: 53(Peripheral) RR: 16 BP: 148/90 SpO2: 97% HT: 151 cm HT: 59 in WT: 55.02 kg WT: 121.298 lb BMI: 24.13 Assessment/Plan 1. Welcome to Medicare preventive visit (Z00.00: Encounter for general adult medical examination without abnormal findings) The patient was given a customized and personalized print out of all the current AHRQ USPSTF???s recommendations for preventative services and all current CDC recommended immunizations, relevant risk recommendations and the following patient brochures were given. Reviewed Medicare Prevention Services checklist. CDC-Falls Prevention and home safety screening reviewed. Patient denies any falls in last 12 months, voices no worry about falling. Exhibits no problems with sitting, standing or ambulation. Patient aware with keeping walk way area free of clutter to prevent tripping and/or falling. [place] Advance Directives reviewed. See #8. Patient denies any problems with ADL???s and Instrumental ADL???s. Cognitive screening completed with memory and clock face drawing. No deficits noted. Immunization record reviewed, discussed Shingrix vaccine with educational handout and availability. 2 COVID vaccines have been administered, with 1 Booster received. Allergies and medications reviewed and up to date. No concerns with taking medication as prescribed. Reviewed OTC medications, medication list up to date. Blood tests were reviewed: Blood work UTD. No concerns with bowel/ bladder. Colonoscopy has never been done. Patient had Cologuard approximately 30 years ago. See #9. Reviewed pain symptoms : chronic legs and elbows, rates pain as a 5 out of 10, Tylenol used for pain. Reviewed all outside providers that patient follows. Last visit summary notes available in chart and/or have been requested. Patient admits to signs or symptoms of depression at this time. 8 minutes spent with screening and documentation. PHQ2 screening score 4. Patient denies alcohol use. 8 minutes spent with screening and documentation. Audit score 0. Follow up scheduled with PCP, today after AWV AWV has been scheduled, 07/18/2025 Abnormal findings with elevated BP Abnormal findings with positive depression screening Medicare provides yearly screening for alcohol and depression concerns. This is completed during our Medicare wellness visit for those who do not have a current diagnosis of depression or concerns with alcohol use. I spent a total of 17 minutes on this date of service which included preparing to see the patient, face to face patient care, completing clinical documentation, obtaining and/or reviewing separately obtained history, counseling and educating the patient with handouts. Explanations were provided with reviewing questionnaires. AUDIT risk assessment screening completed, risk score 0 with patient denying concerns with use. Completed PHQ-2 risk assessment for depression with risk score 4, total risk score 10, positive findings. Patient has been reminded to notify the provider if there would be a change or concerns with symptoms with fear, unable to sleep, worrying too much or feeling down and/or sad with lost of interest with daily activities. Will continue to monitor with screening yearly during Medicare wellness visits. Patient eligible for CCM. Patient declines at this time. Information provided to patient. Patient can call for a referral to be placed at any time. 2. Major depressive disorder, recurrent episode, moderate (F33.1: Major depressive disorder, recurrent, moderate) Patient taking escitalopram daily, voices medication is effective some. Follows up with PCP with medication management and symptom control. PHQ-9 risk assessment completed with positive findings. Total risk score is 10. Patient denies any suicidal ideations at this time. Reviewed additional signs/symptoms to monitor for and report to provider. 3. Hyperlipemia (E78.5: Hyperlipidemia, unspecified) Reviewed healthy lifestyle with low fat diet and exercise regimen. When you are overweight our body produces more lipids. Risk also increases with family history of hyperlipidemia and with monitoring alcohol use and avoid smoking. Pt voices understanding with importance of monitoring dietary intake to reduce risk factors associated with CVA. Patient is not on statin. Will continue to follow up with office visits with updated labs as directed. 4. Hypertension (I10: Essential (primary) hypertension) Patient is taking carvedilol daily as directed. Does not monitor BP pressure at home. HTN stoplight reviewed with BP goal to be <140/90. Reviewed different factors that can alter blood pressure readings. Education handout provided with s/s to monitor for and report to provider. Patient is encouraged to increase portions of fruit, vegetables, fiber and increase exercise as much as tolerable. Reviewed importance with monitoring foods high in salt content and encouraged to (more content not included)... [facility] 07-18-2024 Note Patient Education Cardiovascular Hypertension, Adult Hypertension is another name for high blood pressure. High blood pressure forces your heart to work harder to pump blood. This can cause problems over time. There are two numbers in a blood pressure reading. There is a top number (systolic) over a bottom number (diastolic). It is best to have a blood pressure that is below 120/80. What are the causes? The cause of this condition is not known. Some other conditions can lead to high blood pressure. What increases the risk? Some lifestyle factors can make you more likely to develop high blood pressure: ??? Smoking. ??? Not getting enough exercise or physical activity. ??? Being overweight. ??? Having too much fat, sugar, calories, or salt (sodium) in your diet. ??? Drinking too much alcohol. Other risk factors include: ??? Having any of these conditions: ? Heart disease. ? Diabetes. ? High cholesterol. ? Kidney disease. ? Obstructive sleep apnea. ??? Having a family history of high blood pressure and high cholesterol. ??? Age. The risk increases with age. ??? Stress. What are the signs or symptoms? High blood pressure may not cause symptoms. Very high blood pressure (hypertensive crisis) may cause: ??? Headache. ??? Fast or uneven heartbeats (palpitations). ??? Shortness of breath. ??? Nosebleed. ??? Vomiting or feeling like you may vomit (nauseous). ??? Changes in how you see. ??? Very bad chest pain. ??? Feeling dizzy. ??? Seizures. How is this treated? This condition is treated by making healthy lifestyle changes, such as: ? Eating healthy foods. ? Exercising more. ? Drinking less alcohol. ??? Your doctor may prescribe medicine if lifestyle changes do not help enough and if: ? Your top number is above 130. ? Your bottom number is above 80. ??? Your personal target blood pressure may vary. Follow these instructions at home: Eating and drinking ??? If told, follow the DASH eating plan. To follow this plan: ? Fill one half of your plate at each meal with fruits and vegetables. ? Fill one fourth of your plate at each meal with whole grains. Whole grains include whole-wheat pasta, brown rice, and whole-grain bread. ? Eat or drink low-fat dairy products, such as skim milk or low-fat yogurt. ? Fill one fourth of your plate at each meal with low-fat (lean) proteins. Low-fat proteins include fish, chicken without skin, eggs, beans, and tofu. ? Avoid fatty meat, cured and processed meat, or chicken with skin. ? Avoid pre-made or processed food. ??? Limit the amount of salt in your diet to less than 1,500 mg each day. ??? Do not drink alcohol if: ? Your doctor tells you not to drink. ? You are , may be , or are planning to become . ??? If you drink alcohol: ? Limit how much you have to: ? 0?1 drink a day for women. ? 0?2 drinks a day for men. ? Know how much alcohol is in your drink. In the [place] one drink equals one 12 oz bottle of beer (355 mL), one 5 oz glass of wine (148 mL), or one 1? oz glass of hard liquor (44 mL). Lifestyle ??? Work with your doctor to stay at a healthy weight or to lose weight. Ask your doctor what the best weight is for you. ??? Get at least 30 minutes of exercise that causes your heart to beat faster (aerobic exercise) most days of the week. This may include walking, swimming, or biking. ??? Get at least 30 minutes of exercise that strengthens your muscles (resistance exercise) at least 3 days a week. This may include lifting weights or doing Pilates. ??? Do not smoke or use any products that contain nicotine or tobacco. If you need help quitting, ask your doctor. ??? Check your blood pressure at home as told by your doctor. ??? Keep all follow-up visits. Medicines ??? Take pbkz-dhp-potmvwl and prescription medicines only as told by your doctor. Follow directions carefully. ??? Do not skip doses of blood pressure medicine. The medicine does not work as well if you skip doses. Skipping doses also puts you at risk for problems. ??? Ask your doctor about side effects or reactions to medicines that you should watch for. Contact a doctor if: ??? You think you are having a reaction to the medicine you are taking. ??? You have headaches that keep coming back. ??? You feel dizzy. ??? You have swelling in your ankles. ??? You have trouble with your vision. Get help right away if: ??? You get a very bad headache. ??? You start to feel mixed up (confused). ??? You feel weak or numb. ??? You feel faint. ??? You have very bad pain in your: ? Chest. ? Belly (abdomen). ??? You vomit more than once. ??? You have trouble breathing. These symptoms may be an emergency. Get help right away. Call 911. ??? Do not wait to see if the symptoms will go away. ??? Do not drive yourself to the hospital. Summary ??? Hypertension is a (more content not included)... [facility] 05-29-2024 History of Present illness Narrative Follow up Diagnosis: Actinic Keratosis Location: left nasal sidewall Last visit: 05/09/2024 Symptoms: red, scaly Status: its getting smaller Procedure performed: Cryotherapy Date of procedure: 05/09/2024 Number of treatments to date: 1 All pertinent medical history, medications, and allergies were reviewed. General Exam: alert, oriented to person, place, and time, normal affect, well appearing Unaccompanied A focused exam completed based on patient reported problems, see below: 1. Actinic keratosis Left Nasal Sidewall Erythematous scaly papules Patient was counseled regarding these sun-induced growths that can develop into squamous cell carcinoma if left untreated. Discussed treatment with cryotherapy. It was emphasized that any treated lesions that fail to resolve should be re-evaluated. Cryotherapy performed today; see procedure note Diagnosis: Actinic keratosis Indication: Precancerous Location: see skin exam Consent: Verbal consent was obtained and risks were discussed, including, but not limited to risks of scarring, darker or enrollment processor pigmentary changes, recurrence, incomplete removal and infection. Method: Liquid nitrogen was used to treat the lesion(s) with two 5-10 second freeze-thaw cycles. Number of lesions treated: 1 Post-procedure instructions: Instructions were given orally and in writing. The office will be contacted if the lesion fails to resolve despite treatment, or if a side effect develops such as abnormal crusting, scabbing, redness or tenderness Cryotherapy, skin lesion - Left Nasal Sidewall Next Visit: Recommend FBSE, 3-4 weeks if unresolved. documented in this encounter [facility] 05-09-2024 History of Present illness Narrative Lesions: Location: left nasal side wall Duration: long time Quality: denies pain, denies itch, denies bleeding Associated symptoms: non-healing Treatments: none New patient All pertinent medical history, medications, and allergies were reviewed. General Exam: alert, oriented to person, place, and time, normal affect, well appearing Unaccompanied A focused exam completed based on patient reported problems, see below: 1. Seborrheic keratosis (2) Left Forehead, Left Lower Leg - Anterior Stuck on verrucous, raphael-brown papules and plaques. Patient was counseled regarding these benign growths. Removal is normally not necessary, but they may be removed if they are symptomatic or for cosmetic reasons. 2. Actinic keratosis Left Nasal Sidewall Erythematous scaly papules Patient was counseled regarding these sun-induced growths that can develop into squamous cell carcinoma if left untreated. Discussed treatment with cryotherapy. It was emphasized that any treated lesions that fail to resolve should be re-evaluated. Cryotherapy performed today; see procedure note Diagnosis: Actinic keratosis Indication: Precancerous Location: see skin exam Consent: Verbal consent was obtained and risks were discussed, including, but not limited to risks of scarring, darker or enrollment processor pigmentary changes, recurrence, incomplete removal and infection. Method: Liquid nitrogen was used to treat the lesion(s) with two 5-10 second freeze-thaw cycles. Number of lesions treated: 1 Post-procedure instructions: Instructions were given orally and in writing. The office will be contacted if the lesion fails to resolve despite treatment, or if a side effect develops such as abnormal crusting, scabbing, redness or tenderness Cryotherapy, skin lesion - Left Nasal Sidewall Next Visit: Recommend FBSE documented in this encounter [facility] 04-05-2023 Hospital Discharge instructions Patient Education 04/05/2023 08:29:44 Generalized Anxiety Disorder, Adult Generalized Anxiety Disorder, Adult Generalized anxiety disorder (ISHAAN) is a mental health condition. Unlike normal worries, anxiety related to ISHAAN is not triggered by a specific event. These worries do not fade or get better with time. ISHAAN interferes with relationships, work, and school. ISHAAN symptoms can vary from mild to severe. People with severe ISHAAN can have intense waves of anxiety with physical symptoms that are similar to panic attacks. What are the causes? The exact cause of ISHAAN is not known, but the following are believed to have an impact: Differences in natural brain chemicals. Genes passed down from parents to children. Differences in the way threats are perceived. Development and stress during childhood. Personality. What increases the risk? The following factors may make you more likely to develop this condition: Being female. Having a family history of anxiety disorders. Being very shy. Experiencing very stressful life events, such as the of a loved one. Having a very stressful family environment. What are the signs or symptoms? People with ISHAAN often worry excessively about many things in their lives, such as their health and family. Symptoms may also include: Mental and emotional symptoms: ?Worrying excessively about natural disasters. ?Fear of being late. ?Difficulty concentrating. ?Fears that others are judging your performance. Physical symptoms: ?Fatigue. ?Headaches, muscle tension, muscle twitches, trembling, or feeling shaky. ?Feeling like your heart is pounding or beating very fast. ?Feeling out of breath or like you cannot take a deep breath. ?Having trouble falling asleep or staying asleep, or experiencing restlessness. ?Sweating. ?Nausea, diarrhea, or irritable bowel syndrome (IBS). Behavioral symptoms: ?Experiencing erratic moods or irritability. ?Avoidance of new situations. ?Avoidance of people. ?Extreme difficulty making decisions. How is this diagnosed? This condition is diagnosed based on your symptoms and medical history. You will also have a physical exam. Your health care provider may perform tests to rule out other possible causes of your symptoms. To be diagnosed with ISHAAN, a person must have anxiety that: Is out of his or her control. Affects several different aspects of his or her life, such as work and relationships. Causes distress that makes him or her unable to take part in normal activities. Includes at least three symptoms of ISHAAN, such as restlessness, fatigue, trouble concentrating, irritability, muscle tension, or sleep problems. Before your health care provider can confirm a diagnosis of ISHAAN, these symptoms must be present more days than they are not, and they must last for 6 months or longer. How is this treated? This condition may be treated with: Medicine. Antidepressant medicine is usually prescribed for long-term daily control. Anti-anxiety medicines may be added in severe cases, especially when panic attacks occur. Talk therapy (psychotherapy). Certain types of talk therapy can be helpful in treating ISHAAN by providing support, education, and guidance. Options include: ?Cognitive behavioral therapy (CBT). People learn coping skills and self-calming techniques to ease their physical symptoms. They learn to identify unrealistic thoughts and behaviors and to replace them with more appropriate thoughts and behaviors. ?Acceptance and commitment therapy (ACT). This treatment teaches people how to be mindful as a way to cope with unwanted thoughts and feelings. ?Biofeedback. This process trains you to manage your body's response (physiological response) through breathing techniques and relaxation methods. You will work with a therapist while machines are used to monitor your physical symptoms. Stress management techniques. These include yoga, meditation, and exercise. A mental health specialist can help determine which treatment is best for you. Some people see improvement with one type of therapy. However, other people require a combination of therapies. Follow these instructions at home: Lifestyle Maintain a consistent routine and schedule. Anticipate stressful situations. Create a plan and allow extra time to work with your plan. Practice stress management or self-calming techniques that you have learned from your therapist or your health care provider. Exercise regularly and spend time outdoors. Eat a healthy diet that includes plenty of vegetables, fruits, whole grains, low-fat dairy products, and lean protein. ?Do not eat a lot of foods that are high in fat, added sugar, or salt (sodium). ?Drink plenty of water. Avoid alcohol. Alcohol can increase anxiety. Avoid caffeine and certain dxae-uim-sxryopa cold medicines. These may make you feel worse. Ask your pharmacist which medicines to avoid. General instructions Take okfs-bvk-wglydou and prescription medicines only as told by your health care provider. Understand that you are likely to have setbacks. Accept this and be kind to yourself as you persist to take better care of yourself. Anticipate stressful situations. Create a plan and allow extra time to work with your plan. Recognize and accept your accomplishments, even if you sr. director them as small. Spend time with people who care about you. Keep all follow-up visits. This is important. Where to find more information [place] of Mental Health: www.nimh.nih.gov Substance Abuse and Mental Health Services: www.samhsa.gov Contact a health care provider if: Your symptoms do not get better. Your symptoms get worse. You have signs of depression, such as: ?A persistently sad or irritable mood. ?Loss of enjoyment in activities that used to bring you yusra. ?Change in weight or eating. ?Changes in sleeping habits. Get help right away if: You have thoughts about hurting yourself or others. If you ever feel like you may hurt yourself or others, or have thoughts about taking your own life, get help right away. Go to your nearest emergency department or: Call your local emergency services (719 in the [place] Call a suicide crisis helpline, such as the National Suicide Prevention Lifeline at or 137 in the [place] This is open 24 hours a day in the [place] Text the Crisis Text Line at 430122 (in the [place] Summary Generalized anxiety disorder (ISHAAN) is a mental health condition that involves worry that is not triggered by a specific event. People with ISHAAN often worry excessively about many things in their lives, such as their health and family. ISHAAN may cause symptoms such as restlessness, trouble concentrating, sleep problems, frequent sweating, nausea, diarrhea, headaches, and trembling or muscle twitching. A mental health specialist can help determine which treatment is best for you. Some people see improvement with one type of therapy. However, other people require a combination of therapies. This information is not intended to replace advice given to you by your health care provider. Make sure you discuss any questions you have with your health care provider. Document Revised: 12/24/2021 Document Reviewed: 09/21/2021 [employer] Patient Education 2022 [employer]. Follow Up Care 03/17/2023 09:52:22 With:ANABELLE VARGAS VIRY YehJULIO C Address: [address] [place], [place] [id number]- Business (1) When:4 weeks Comments:Saar [facility] 03-17-2023 Hospital Discharge instructions Patient Education 03/17/2023 09:58:44 Sinus Infection, Adult, Uoyf-io-Tbhh Sinus Infection, Adult A sinus infection is soreness and swelling (inflammation) of your sinuses. Sinuses are hollow spaces in the bones around your face. They are located: Around your eyes. In the middle of your forehead. Behind your nose. In your cheekbones. Your sinuses and nasal passages are lined with a fluid called mucus. Mucus drains out of your sinuses. Swelling can trap mucus in your sinuses. This lets germs (bacteria, virus, or fungus) grow, which leads to infection. Most of the time, this condition is caused by a virus. What are the causes? Allergies. Asthma. Germs. Things that block your nose or sinuses. Growths in the nose (nasal polyps). Chemicals or irritants in the air. A fungus. This is rare. What increases the risk? Having a weak body defense system (immune system). Doing a lot of swimming or diving. Using nasal sprays too much. Smoking. What are the signs or symptoms? The main symptoms of this condition are pain and a feeling of pressure around the sinuses. Other symptoms include: Stuffy nose (congestion). This may make it hard to breathe through your nose. Runny nose (drainage). Soreness, swelling, and warmth in the sinuses. A cough that may get worse at night. Being unable to smell and taste. Mucus that collects in the throat or the back of the nose (postnasal drip). This may cause a sore throat or bad breath. Being very tired (fatigued). A fever. How is this diagnosed? Your symptoms. Your medical history. A physical exam. Tests to find out if your condition is short-term (acute) or long-term (chronic). Your doctor may: ?Check your nose for growths (polyps). ?Check your sinuses using a tool that has a light on one end (endoscope). ?Check for allergies or germs. ?Do imaging tests, such as an MRI or CT scan. How is this treated? Treatment for this condition depends on the cause and whether it is short-term or long-term. If caused by a virus, your symptoms should go away on their own within 10 days. You may be given medicines to relieve symptoms. They include: ?Medicines that shrink swollen tissue in the nose. ?A spray that treats swelling of the nostrils. ?Rinses that help get rid of thick mucus in your nose (nasal saline washes). ?Medicines that treat allergies (antihistamines). ?Ghxb-cgq-kmfnysc pain relievers. If caused by bacteria, your doctor may wait to see if you will get better without treatment. You may be given antibiotic medicine if you have: ?A very bad infection. ?A weak body defense system. If caused by growths in the nose, surgery may be needed. Follow these instructions at home: Medicines Take, use, or apply nyyp-gky-iiqgeik and prescription medicines only as told by your doctor. These may include nasal sprays. If you were prescribed an antibiotic medicine, take it as told by your doctor. Do not stop taking it even if you start to feel better. Hydrate and humidify Drink enough water to keep your pee (urine) pale yellow. Use a cool mist humidifier to keep the humidity level in your home above 50%. Breathe in steam for 10 15 minutes, 3 4 times a day, or as told by your doctor. You can do this in the bathroom while a hot shower is running. Try not to spend time in cool or dry air. Rest Rest as much as you can. Sleep with your head raised (elevated). Make sure you get enough sleep each night. General instructions Put a warm, moist washcloth on your face 3 4 times a day, or as often as told by your doctor. Use nasal saline washes as often as told by your doctor. Wash your hands often with soap and water. If you cannot use soap and water, use hand telegraphic typewriter mechanic. Do not smoke. Avoid being around people who are smoking (secondhand smoke). Keep all follow-up visits. Contact a doctor if: You have a fever. Your symptoms get worse. Your symptoms do not get better within 10 days. Get help right away if: You have a very bad headache. You cannot stop vomiting. You have very bad pain or swelling around your face or eyes. You have trouble seeing. You feel confused. Your neck is stiff. You have trouble breathing. These symptoms may be an emergency. Get help right away. Call 911. Do not wait to see if the symptoms will go away. Do not drive yourself to the hospital. Summary A sinus infection is swelling of your sinuses. Sinuses are hollow spaces in the bones around your face. This condition is caused by tissues in your nose that become inflamed or swollen. This traps germs. These can lead to infection. If you were prescribed an antibiotic medicine, take it as told by your doctor. Do not stop taking it even if you start to feel better. Keep all follow-up visits. This information is not intended to replace advice given to you by your health care provider. Make sure you discuss any questions you have with your health care provider. Document Revised: 05/05/2022 Document Reviewed: 05/05/2022 [employer] Patient Education 2022 [employer]. Follow Up Care 03/10/2023 08:10:45 With:VIRY AHN CNP, FAM Address: When: Unknown [facility] 04-02-2022 Hospital Discharge instructions Patient Education 04/02/2022 10:57:51 Viral Respiratory Infection, Gzwq-Mr-Egok Viral Respiratory Infection A viral respiratory infection is an illness that affects parts of the body that are used for breathing. These include the lungs, nose, and throat. It is caused by a germ called a virus. Some examples of this kind of infection are: A cold. The flu (influenza). A respiratory syncytial virus (RSV) infection. A person who gets this illness may have the following symptoms: A stuffy or runny nose. Yellow or green fluid in the nose. A cough. Sneezing. Tiredness (fatigue). Achy muscles. A sore throat. Sweating or chills. A fever. A headache. Follow these instructions at home: Managing pain and congestion Take sdzf-dbp-mqpkhul and prescription medicines only as told by your doctor. If you have a sore throat, gargle with salt water. Do this 3 4 times per day or as needed. To make a salt-water mixture, dissolve 1 tsp of salt in 1 cup of warm water. Make sure that all the salt dissolves. Use nose drops made from salt water. This helps with stuffiness (congestion). It also helps soften the skin around your nose. Drink enough fluid to keep your pee (urine) pale yellow. General instructions Rest as much as possible. Do not drink alcohol. Do not use any products that have nicotine or tobacco, such as cigarettes and e-cigarettes. If you need help quitting, ask your doctor. Keep all follow-up visits as told by your doctor. This is important. How is this prevented? Get a flu shot every year. Ask your doctor when you should get your flu shot. Do not let other people get your germs. If you are sick: ?Stay home from work or school. ?Wash your hands with soap and water often. Wash your hands after you cough or sneeze. If soap and water are not available, use hand telegraphic typewriter mechanic. Avoid contact with people who are sick during cold and flu season. This is in fall and winter. Get help if: Your symptoms last for 10 days or longer. Your symptoms get worse over time. You have a fever. You have very bad pain in your face or forehead. Parts of your jaw or neck become very swollen. Get help right away if: You feel pain or pressure in your chest. You have shortness of breath. You faint or feel like you will faint. You keep throwing up (vomiting). You feel confused. Summary A viral respiratory infection is an illness that affects parts of the body that are used for breathing. Examples of this illness include a cold, the flu, and respiratory syncytial virus (RSV) infection. The infection can cause a runny nose, cough, sneezing, sore throat, and fever. Follow what your doctor tells you about taking medicines, drinking lots of fluid, washing your hands, resting at home, and avoiding people who are sick. This information is not intended to replace advice given to you by your health care provider. Make sure you discuss any questions you have with your health care provider. Document Released: 05/13/2009 Document Revised: 06/08/2019 Document Reviewed: 07/11/2018 [employer] Patient Education 2020 [employer]. Follow Up Care 04/02/2022 09:42:29 With:Elijah DOSS, JULIO C Santana Address: [address] [place] [address] [phone] When: Unknown [facility] 05-15-2021 Evaluation + Plan note Future Scheduled TestsRapid [place] Antigen [place] 05/15/21Comprehensive Metabolic Panel 02/02/22Lipid Panel 02/02/22MA Mamm Screen w/CAD if perf and 3D Kush 02/02/22 [facility] 05-15-2021 Evaluation + Plan note Future Scheduled TestsRapid COVID Antigen [place] 05/15/21 [facility] Evaluation + Plan note Future Appointments Appointment Date:04/05/2023 08:00:00 AM Scheduled Provider:VIRY AHN CNP Location:[facility] Appointment Type:[facility] Evaluation + Plan note Future Appointments Appointment Date:05/03/2023 08:00:00 AM Scheduled Provider:VIRY AHN CNP Location:[facility] Appointment Type: Open [facility] Evaluation + Plan note Future Appointments Appointment Date:06/19/2024 08:40:00 AM Scheduled Provider:Josephine Flores Location:[facility] [place] Appointment Type: Open Diagnostic Tests PendingCBC w/ Auto Diff 05/31/24Comprehensive Metabolic Panel 05/31/24Lipid Panel 05/31/24Thyroid Stimulating Hormone 05/31/24Troponin 05/31/24 Future Scheduled TestsUS Thyroid 05/31/24 [facility] Evaluation + Plan note Future Appointments Appointment Date:06/06/2024 10:15:00 AM Scheduled Provider: [facility] Type:MA Screen (FT) Appointment Date:06/19/2024 08:40:00 AM Scheduled Provider:Josephine Flores [facility] Type:FM Open Appointment Date:07/14/2024 10:00:00 AM Scheduled Provider: [facility] Type:FM Lab Draw Future Scheduled TestsMA Mamm Screen w/CAD if perf and 3D Kush 06/06/24 [facility] Evaluation + Plan note Future Appointments Appointment Date:06/19/2024 08:40:00 AM Scheduled Provider:Josephine Flores [facility] App[facility] Type: Open Appointment Date:07/14/2024 10:00:00 AM Scheduled Provider: [facility] App[facility] Type:FM Lab Draw [facility] Evaluation + Plan note Future Appointments Appointment Date:07/18/2024 08:40:00 AM Scheduled Provider:Josephine Flores Location:[facility] Appointment Type: Open Diagnostic Tests PendingT3 Free 07/14/24 [facility] Evaluation + Plan note Future Appointments Appointment Date:08/08/2024 10:20:00 AM Scheduled Provider: [facility] App[facility] Type:FM Nurse Visit Appointment Date:08/10/2024 09:00:00 AM Scheduled Provider: [facility] Type:CT Chest, Low Dose Screening (FT) Appointment Date:08/10/2024 09:30:00 AM Scheduled Provider: Location:.[facility] Appointment Type:BD Bone Density () Appointment Date:08/21/2024 12:15:00 PM Scheduled Provider: Location:[facility] Appointment Type:Surgery FT Appointment Date:08/29/2024 08:20:00 AM Scheduled Provider:Josephine Flores [facility] App[facility] Type:FM Open Appointment Date:07/18/2025 08:00:00 AM Scheduled Provider: [facility] App[facility] Type:FM Medicare Wellness Subsequent Future Scheduled TestsCT Chest, Low Dose Screening 08/10/24BD Bone Density DEXA 08/10/24 [facility] Evaluation + Plan note Future Appointments Appointment Date:08/21/2024 12:15:00 PM Scheduled Provider: Location:[facility] Appointment Type:Surgery FT Appointment Date:08/29/2024 08:20:00 AM Scheduled Provider:Josephine Flores Location:[facility] Appointment Type:FM Open Appointment Date:07/18/2025 08:00:00 AM Scheduled Provider: Location:[facility] Appointment Type:FM Medicare Wellness Subsequent [facility] Evaluation note Diagnosis Onset Date Acute coronary syndrome acut e Bilateral carotid artery disease acute Hyponatremia acute Tobacco abuse acute [facility] Work Phone: Evaluation note* Diagnosis Seborrheic keratosis- Primary Actinic keratosis [facility] Diagnosis Actinic keratosis- Primary [facility] N[facility]* The patient states she has been generally doing well since the last visit. Comorbid Illnesses: hyper tension and hyperlipidemia. * Symptoms: denies chest pain at rest, denies exertional chest pain, denies dyspnea, denies fatigue, denies exercise intolerance, denies palpitations, denies edema, denies orthopnea, denies dizziness and denies orthostatic dizziness. * Associated symptoms: no syncope. * Her symptoms do not limit her activities. * Disease Monitoring: * Medications: the patient is adherent with her medication regimen. She denies medication side effects. [facility] [address] DO Work Phone: History of Present illness Narrative* The patient states she has been generally doing well since the last visit. Comorbid Illnesses: hypertension and hyperlipidemia. * Symptoms: denies chest pain at rest, denies exertional chest pain, denies dyspnea, denies fatigue, denies exercise intolerance, denies palpitations, denies edema, denies orthopnea, denies dizziness and denies orthostatic dizziness. * Associated symptoms: no syncope. * Her symptoms do not limit her activities. * Disease Monitoring: * Medications: the patient is adherent with her medication regimen. She denies medication side effects. [facility] [address] DO Work Phone: History of Present illness Narrative* The patient states she has been generally doing well since the last visit. Comorbid Illnesses: hypertension and hyperlipidemia. * Symptoms: denies chest pain at rest, denies exertional chest pain, denies dyspnea, denies fatigue, denies exercise intolerance, denies palpitations, denies edema, denies orthopnea, denies dizziness and denies orthostatic dizziness. * Associated symptoms: no syncope. * Her symptoms do not limit her activities. * Disease Monitoring: * Medications: the patient is adherent with her medication regimen. She denies medication side effects. ZH-Ypfwkqhppgagtn-Ohjwsbi Work Phone: History of Present illness Narrative* This is a 61-year-old female who is referred to us by Dr Sandoval for biochemical evidence of 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 * Review of systems: * Constitutional: Reports no recent changes in energy levels, baseline chronic fatigue, awakens at night to use bathroom and drink water with difficulty falling back asleep, no changes in weight per EMR review but patient feels like she has gained a few pounds in the past one year. * Eyes: Denies protruding of eyes, denies photosensitivity, denies itching/redness/tearing/irritationof eyes, no changes in vision, no double vision * Cardiovascular: No chest pain, shortness of breath, reports exertional palpitations * Respiratory: No cough, sputum, wheezing or dyspnea * Gastrointestinal: No nausea or vomiting, regular bowel movements with no diarrhea or constipation * Musculoskeletal: No arthralgias, occasional leg cramps * Skin: No skin lesions, no pruritis * Neuro: No weakness, numbness, paresthesias, dizziness or headaches * Psych: No anxiety or depression * Endocrine: No polyuria, polydipsia, occasional heat intolerance no overt night sweats * Past Medical/Surgical History: hypertension, hyperlipidemia, GERD, hx of NSTEMI * Family History: unspecified thyroid pathology in mother and sister * Social History: lives by self, independent in ADL, former tobacco user (quit in 2020) * Medications & Allergies: reviewed in EMR * Pertinent labs and images reviewed. BZ-Qfnfftvyzgyts-LCQ [place] [address] Work Phone: Hospital course Narrative No data available for this section [facility] Work Phone: Hospital Discharge instructions No data available for this section [facility] Progress note No data available for this section [facility] Summary Purpose Family History No Family History Records FoundUnknown Family Member Name Dates Details : Father Status:Active Family history of myocardial infarction: Father(V17.3, Z82.49) Status:Active Lupus: Mother Status:Active Family history of atrial fib rillation: Mother(V17.49, Z82.49) Status:Active Family history of hypertensi on: Brother(V17.49, Z82.49) Status:Active Relationship Condition Age at Onset Recorded Date/T spike father Myocardial infarction Unknown Not Specified Malignant neoplasm Unknown Unknown Family Member Name Dates Details : Father Status:Active Family history of myocardial infarction: Father(V17.3, Z82.49) Status:Active Lupus: Mother Status:Active Family history of atrial fib rillation: Mother(V17.49, Z82.49) Status:Active Family history of hypertensi on: Brother(V17.49, Z82.49) Status:Active Unknown Family Member Name Dates Details : Father Status:Active Family history of myocardial infarction: Father(V17.3, Z82.49) Status:Active Lupus: Mother Status:Active Family history of atrial fib rillation: Mother(V17.49, Z82.49) Status:Active Family history of hypertensi on: Brother(V17.49, Z82.49) Status:Active Unknown Family Member Name Dates Details : Father Status:Active Family history of myocardial infarction: Father(V17.3, Z82.49) Status:Active Lupus: Mother Status:Active Family history of atrial fib rillation: Mother(V17.49, Z82.49) Status:Active Family history of hypertensi on: Brother(V17.49, Z82.49) Status:Active Unknown Family Member Name Dates Details : Father Status:Active Family history of myocardial infarction: Father(V17.3, Z82.49) Status:Active Lupus: Mother Status:Active Family history of atrial fib rillation: Mother(V17.49, Z82.49) Status:Active Family history of hypertensi on: Brother(V17.49, Z82.49) Status:Active Unknown Family Member Name Dates Details : Father Status:Active Family history of myocardial infarction: Father(V17.3, Z82.49) Status:Active Lupus: Mother Status:Active Family history of atrial fib rillation: Mother(V17.49, Z82.49) Status:Active Family history of hypertensi on: Brother(V17.49, Z82.49) Status:Active Unknown Family Member Name Dates Details : Father Status:Active Family history of myocardial infarction: Father(V17.3, Z82.49) Status:Active Lupus: Mother Status:Active Family history of atrial fib rillation: Mother(V17.49, Z82.49) Status:Active Family history of hypertensi on: Brother(V17.49, Z82.49) Status:Active Unknown Family Member Name Dates Details : Father Status:Active Family history of myocardial infarction: Father(V17.3, Z82.49) Status:Active Lupus: Mother Status:Active Family history of atrial fib rillation: Mother(V17.49, Z82.49) Status:Active Family history of hypertensi on: Brother(V17.49, Z82.49) Status:Active Unknown Family Member Name Dates Details : Father Status:Active Family history of myocardial infarction: Father(V17.3, Z82.49) Status:Active Lupus: Mother Status:Active Family history of atrial fib rillation: Mother(V17.49, Z82.49) Status:Active Family history of hypertensi on: Brother(V17.49, Z82.49) Status:Active Unknown Family Member Name Dates Details : Father Status:Active Family history of myocardial infarction: Father(V17.3, Z82.49) Status:Active Lupus: Mother Status:Active Family history of atrial fib rillation: Mother(V17.49, Z82.49) Status:Active Family history of hypertensi on: Brother(V17.49, Z82.49) Status:Active Advance Directives No Advanced Directives Records Found Advance Directive Response Recorded Date/ Time Advance Directives Yes August 25 12:44pm Chief Complaint * I am doing ok * SANDHYA MALDONADO is being seen for follow-up of a hospitalization for chest pain. * August 12, 2021 transferred from [place] to [facility] due to chest pain/? STEMI. Managed emergently by Dr. Pantera villa mild CAD, normal LVEF. Type II NSTEMI due to medical illness, hyponatremia, COPD. Added: asa, lipitor, coreg. * Left groin access site healed with adverse sequelae. * Tolerating meds without concerns. * August 2021 Inpatient USN Carotids: ALANIS 50-69%, LICA no significant * Jul 2020 CT neck with contrast: ALANIS 99%, LICA 68% - saw someone at [facility] but did not hear any follow-up * Will plan to repeat CTA carotids * Thyroid: to see ENT at [facility] * Hyponatremia; off HCTZ since discharge (also lisinopril) - has not been repeated since discharge * Daily activity: housework, stairs at home * I am doing ok * SANDHYA MALDONADO is being seen for follow-up of a hospitalization for chest pain. * August 12, 2021 transferred from [place] to [facility] due to chest pain/? STEMI. Managed emergently by Dr. Pantera villa mild CAD, normal LVEF. Type II NSTEMI due to medical illness, hyponatremia, COPD. Added: asa, lipitor, coreg. * Left groin access site healed with adverse sequelae. * Tolerating meds without concerns. * August 2021 Inpatient USN Carotids: ALANIS 50-69%, LICA no significant * Jul 2020 CT neck with contrast: ALANIS 99%, LICA 68% - saw someone at [facility] but did not hear any follow-up * Will plan to repeat CTA carotids * Thyroid: to see ENT at [facility] * Hyponatremia; off HCTZ since discharge (also lisinopril) - has not been repeated since discharge * Daily activity: housework, stairs at home * I am doing ok * SANDHYA MALDONADO is being seen for follow-up of a hospitalization for chest pain. * August 12, 2021 transferred from [place] to [facility] due to chest pain/? STEMI. Managed emergently by Dr. Mott - angela rodríguez mild CAD, normal LVEF. Type II NSTEMI due to medical illness, hyponatremia, COPD. Added: asa, lipitor, coreg. * Left groin access site healed with adverse sequelae. * Tolerating meds without concerns. * August 2021 Inpatient USN Carotids: ALANIS 50-69%, LICA no significant * Jul 2020 CT neck with contrast: ALANIS 99%, LICA 68% - saw someone at [facility] but did not hear any follow-up * Will plan to repeat CTA carotids * Thyroid: to see ENT at [facility] * Hyponatremia; off HCTZ since discharge (also lisinopril) - has not been repeated since discharge * Daily activity: housework, stairs at home Referred by ENT for thyroid goiter. Chief Complaint and Reason for Visit Chief Complaint STEMI E87.1 Reason for Visit Acute coronary syndr ome Bilateral carotid artery disease Hyponatremia Tobacco abuse Additional Source Comments INFORMATION SOURCE (unrecogn ized section and content) DATE CREATED AUTHOR 12/02/2017 [facility] DATE CREATED AUTHOR AUTHOR'S ORGANIZ ATION 11/21/2021 [facility] DATE CREATED AUTHOR AUTHOR'S ORGANIZ ATION 05/13/2022 [facility] DATE CREATED AUTHOR AUTHOR'S ORGANIZ ATION 05/14/2022 [facility] DATE CREATED AUTHOR AUTHOR'S ORGANIZ ATION 07/18/2022 [facility] DATE CREATED AUTHOR AUTHOR'S ORGANIZ ATION 05/31/2024 [facility] DATE CREATED AUTHOR AUTHOR'S ORGANIZ ATION 06/05/2024 [facility] DATE CREATED AUTHOR AUTHOR'S ORGANIZ ATION 06/24/2024 [facility] DATE CREATED AUTHOR AUTHOR'S ORGANIZ ATION 07/17/2024 [facility] DATE CREATED AUTHOR AUTHOR'S ORGANIZ ATION 07/19/2024 [facility] DATE CREATED AUTHOR AUTHOR'S ORGANIZ ATION 08/12/2024 [facility] Care Teams (unrecognized sec tion and content) Team Status: Inactive Member Role Status Dates Luisa Mott DO Admit Provider, Attending Provide r Active MANAS Locke Primary Care Provider Active Team Status: Inactive Member Role Status Dates MANAS Locke Primary Care Provider Active Simona Vargas APRN Attending Provider Active Team Status: Active Member Role Status Dates MANAS Locke Primary Care Provider Active Reason for Visit (unrecogniz ed section and content) Reason Comments Suspicious Skin Lesion Reason Comments Follow-up FOR RECORDS PERTAINING TO PATIENTS WHO ARE OR HAVE BEEN ENROLLED IN A CHEMICAL DEPENDENCY/SUBSTANCEABUSE PROGRAM, SOME INFORMATION MAY BE OMITTED. This clinical summary was aggregated from multiple sources. Caution should be exercised in using it in the provision of clinical care. This summary normalizes information from multiple sources, and as a consequence, information in this document may materially change the coding, format and clinical context of patient data. In addition, data may be omitted in some cases. CLINICAL DECISIONS SHOULD BE BASED ON THE PRIMARY CLINICAL RECORDS. [facility] [employer] [facility]. provides no warranty or guarantee of the accuracy or completeness of information in this document.
== END 2024-08-14 19:52 | disposition home or self-care (01) ==
LOC: SLEEP 19:51
PROVIDERS: PCP Nurse Practitioner; Visit Provider Nurse Practitioner
DX: G47.33 Obstructive sleep apnea (adult) (pediatric) (principal)
CPT/HCPCS: 95810

== ENCOUNTER 2025-04-17 20:25 | Emergency (ER) | payer MEDICARE, OTHER, SELFPAY ==
--- OUTSIDE RECORDS SUMMARY | 2025-04-11 22:59 | XMS_ITS | Continuity of Care Document ---
Author Organization [facility] Address [address] [place] [id number] Care Team Providers Care Acetylene Operator Name Role Phone Josephine Flor Primary Care Physician [phone] Encounter FT_AMBFIN [id number] Date(s): 04/11/25 - 04/11/25 [facility] [address] [place] [address]- Encounter Diagnosis Hyperthyroidism(Discharge Diagnosis) - 04/11/25 Smoker(Discharge Diagnosis) - 04/11/25 BMI 25.0-25.9,adult(Discharge Diagnosis) - 04/11/25 Hypertension(Discharge Diagnosis) - 04/11/25 Discharge Disposition: Home (Routine DC) Attending Physician: Josephine Flores Encounter Type: Clinic Allergies, Adverse Reactions, Alerts No Known Allergies Treatment Plan Future Appointments Appointment Date:05/30/2025 09:20:00 AM Scheduled Provider:Josephine Flores Location:[facility] Appointment Type: Open Appointment Date:07/18/2025 08:00:00 AM Scheduled Provider: Location:[facility] Appointment Type:FM Medicare Wellness Subsequent Immunizations Given and Recorded VaccineDateStatusRefusal Reasoninfluenza virus vaccine, nnwppzrluri71/23/23Given influenza virus vaccine, inactivated321AprjavusBXSQ-ZzY-4 (COVID-19) mRNA- 1273 xtvgagc533/23/03SawlpgfwWIHP-KvG-9 (COVID-19) mRNA-1273 vaccine09/20/20 JevqmbkzCUPG-IpU-0 (COVID-19) mRNA-1273 vaccine08/20/20Recorded 1Result Comment: 2022-04-02: TPV60 Medications Albuterol (Eqv-ProAir HFA) 90 mcg/inh inhalation aerosol 2 puff(s), Inhalation, q6hr, 1 EA, Refill(s) 4, [facility]/pharmacy #[id number], 151, cm, 10/10/24 9:55:00 EDT, Height/Length Dosing, 56, kg, 10/10/24 9:55:00 EDT, Weight Dosing Start Date: 10/10/24 Status: Ordered Medication Dispense Status: Completed Quantity: 1.0 Unit: EA Total Allowed Fills: 5 Fills Dispensed: 0 aspirin 81 mg Oral EC Tab mg tab(s), Oral, Daily, Refills(s) 0, Prophylaxis Start Date: 05/31/24 Status: Ordered Medication Dispense Status: Completed Total Allowed Fills: 1 Fills Dispensed: 0 escitalopram 5 mg oral tablet 5 mg = 1 tab(s), Oral, Daily, X 90 day(s), # 90 tab(s), Refills(s) 3, Pharmacy: [facility]/pharmacy #[id number],151, cm, 10/10/24 9:55:00 EDT, Height/Length Dosing, 56, kg, 10/10/24 9:55:00 EDT, Weight Dosing Start Date: 10/10/24 Stop Date: 10/05/25 Status: Ordered Medication Dispense Status: Completed Quantity: 90.0 Unit: tab(s) Total Allowed Fills: 4 Fills Dispensed: 0 Indications: Chest pain, unspecified; Body mass index [BMI] 23.0-23.9, adult; Nontoxic goiter, unspecified; Occlusion and stenosis of unspecified carotid artery; Nontoxic multinodular goiter; Chronicobstructive pulmonary disease, unspecified; Hyperlipidemia, unspecified; Nicotine dependence, unspecified, uncomplicated; losartan 50 mg Tab 100 mg = 2 tab(s), Oral, Daily, increased dose to 100mg, X 90 day(s), # 180 tab(s), Refills(s) 3, Pharmacy: [facility]/pharmacy #[id number], 151, cm, 10/10/24 9:55:00 EDT, Height/Length Dosing, 56, kg, 10/10/24 9:55:00 EDT, Weight Dosing Start Date: 10/10/24 Stop Date: 10/05/25 Status: Ordered Medication Dispense Status: Completed Quantity: 180.0 Unit: tab(s) Total Allowed Fills: 4 Fills Dispensed: 0 methimazole 5 mg Tab 5 mg = 1 tab(s), Oral, BID, # 180 tab(s), Refills(s) 3, [id number] 151, cm, 10/10/24 9:55:00 EDT, Height/Length Dosing, 56, kg, 10/10/24 9:55:00 EDT, Weight Dosing Start Date: 10/10/24 Status: Ordered Medication Dispense Status: Completed Quantity: 180.0 Unit: tab(s) Total Allowed Fills: 4 Fills Dispensed: 0 Symbicort 80/4.5 inhalation aerosol with adapter 2 puff(s), Inhalation, BID, 10.2 gm, Refill(s) 5, [id number] 151, cm, 10/10/24 9:55:00 EDT, Height/Length Dosing, 56, kg, 10/10/24 9:55:00 EDT, Weight Dosing Start Date: 10/10/24 Status: Ordered Medication Dispense Status: Completed Quantity: 10.2 Unit: g Total Allowed Fills: 6 Fills Dispensed: 0 Indications: Chest pain, unspecified; Nontoxic goiter, unspecified; Body mass index [BMI] 23.0-23.9, adult; Occlusion and stenosis of unspecified carotid artery; Nontoxic multinodular goiter; Chronicobstructive pulmonary disease, unspecified; Hyperlipidemia, unspecified; Nicotine dependence, unspecified, uncomplicated; Vitamin D 50,000 intl units (1.25 mg) oral capsule 50,000 International_Unit = 1 cap(s), Oral, qWeek, # 12 cap(s), Refills(s) 3, Pharmacy: [facility]/pharmacy #[id number], 151, cm, 10/10/24 9:55:00 EDT, Height/Length Dosing, 56, kg, 10/10/24 9:55:00 EDT, Weight Dosing Start Date: 10/10/24 Status: Ordered Medication Dispense Status: Completed Quantity: 12.0 Unit: cap(s) Total Allowed Fills: 4 Fills Dispensed: 0 Indications: Thyrotoxicosis, unspecified without thyrotoxic crisis or storm; Essential (primary) hypertension; Other fatigue; Generalized intra-abdominal and pelvic swelling, mass and lump; Nicotine dependence, unspecified, uncomplicated; Body mass index [BMI] 24.0-24.9, adult; Problem List ConditionConfirmationCourseEffective DatesStatusHealth StatusInformantBMI 24.0- 24.9, adultConfirmedActiveCarotid artery stenosisConfirmedActiveChest pain ConfirmedActiveConstipationConfirmedActiveMild CADConfirmedActiveCoughConfirmed ActiveDaytime somnolenceConfirmedActiveDepressionConfirmedResolvedFatigue ConfirmedActiveGeneralized swelling, mass, or lump of abdomen or pelvisConfirmed ActiveFluid level behind tympanic membrane of both earsConfirmedActive Generalized anxiety disorderConfirmedActiveThyroid goiterConfirmedActive HyperlipemiaConfirmedActiveHypertensionConfirmedResolvedHypertensionConfirmed ActiveHyperthyroidismConfirmedActiveCOPD, mildConfirmedActiveMajor depressive disorder, recurrent episode, digrcieh8WcnzbybvsHcdpucXwgtidub thyroid nodules ConfirmedActiveBMI 25.0-25.9,adultConfirmedActiveScreening for colon cancer ConfirmedActiveRectal bleedConfirmedActiveRestless legConfirmedActiveSinusitis ConfirmedActiveSleep lpndmLiywwmdgrYkamyaXoyolk5KrkyfqmnzMdaeegUgcb snoring ConfirmedActive 1added per 07/17/2024 query response. 2Added secondary to documentation in Social History. Procedures ProcedureDateRelated DiagnosisBody SiteStatusColonoscopy08/21/24Completedpinched nerve in neck59CompletedcolonoscopyCompleted Social History Social History TypeResponseSmoking StatusFormer smoker, quit more than 30 days ago entered on: 08/07/24Birth SexFemaleSex RepresentationFemale (finding) 1stopped smoking 2019 1 ppd smoker 40 years. 2stoppped smoking may 2020 Hospital Discharge Instructions Follow Up Care 10/10/2024 10:07:40 With:Josephine Flores, FAM, MED Address: [address] [place] [address]- Business (1) When:05/30/2025 Comments:after may??18 Patient Care team information Care Team Personnel Name: Josephine Flores Position: FT Ambulatory - Primary Care - NANY Member Role: Primary Care Physician Address: [address] [place] [address]- Telecom: Care Team Related Persons Name: NAVARRO HAIRSTON Name: NAVARRO HAIRSTON Name: NAVARRO HAIRSTON Insurance Providers Guarantor name: LING MALDONADO [employer] Plan Information #: 1 Payer: MEDICARE Payer Identifier: [id number] Member Number: [id number] Group Number: [id number] Subscriber Identifier: [id number] Relationship to Subscriber: self Coverage Type: MEDICARE Coverage Verification Date: 25 Telecom: [phone] Address: [facility] [id number] Health Plan Information #: 2 Payer: [facility] Payer Identifier: [id number] Member Number: [id number] Group Number: [id number] Subscriber Identifier: [id number] Relationship to Subscriber: self Coverage Type: PRIVATE HEALTH INSURANCE Coverage Verification Date: 25 Telecom: [phone] Address: [place], [place] [address]
[2025-04-17] VITALS (15 sets, daily range): BP systolic 138–222; BP diastolic 64–98; PULSE 56–73; TEMP 36.5; O2SAT 94–98; BMI 24.6
--- OUTSIDE RECORDS SUMMARY | 2025-04-17 20:35 | XMS_ITS | Clinical Summary ---
Author Organization [facility] Address [address] [place] [address] Phone Care Team Providers Care Vp Organizational Development Name Role Phone Unavailable Primary Care Provider Unavailabl e Social History Tobacco UseTypesPacks/DayYears UsedDateSmoking Tobacco: Never Assessed CommentsUnknownSex and Gender InformationValueDate RecordedSex Assigned at Not on fileLegal MklOvehko45/26/2022 3:15 PM ESTGender IdentityNot on fileSexual OrientationNot on file Last Filed Vital Signs Vital SignReadingTime TakenCommentsBlood Jolwgnqx794/7005/13/2022 9:27 AM EST Ahaiw606505/13/2022 9:27 AM HYXHgpgvpvyrhl59.6 ??C (97.9 ??F)09/19/2021 10:03 AM EDTRespiratory Gmtf779109/19/2021 10:03 AM EDTOxygen Saturation--Inhaled Oxygen Concentration--Micbif87.1 kg (117 lb)05/13/2022 9:27 AM SDUSvupci558.9 cm (5' 1 )05/13/2022 9:27 AM ESTBody Mass Index22. 9:27 AM EST Plan of Treatment Health MaintenanceDue DateLast DoneCommentsCT Wwcufytkuymv72/18/1960Colonoscopy 1959Colorectal Cancer Uuteqasfe62/18/1960FIT-DNA (Cologuard)1959FIT 1959Lipid Panel07/01/19592359Iceyaxgtfxtfw61/18/1960Yearly Adult Physical 1959MMR Vaccines (1 of 1 - Standard series)1960Hepatitis C Screening 1977Pneumococcal Vaccine (1 of 2 - PCV)1978Cervical Cancer Screening 1980HPV/Htoegh8607/01/1980Pap Smear1980DTaP/Tdap/Td Vaccines (1 - Tdap)07/01/19816203Vhhalslgt86/18/2000RSV High Risk: (Elderly (60+) or Population) (1 - Risk 50-74 years 1-dose series)2009Zoster Vaccines (1 of 2)2009TSH Level, 2Bone Density Scan2024 Influenza Vaccine (#1)2025OVID-19 Vaccine ( - season)2025 HIB VaccinesAged OutNo longer eligible based on patient's age to complete this topicHPV VaccinesAged OutNo longer eligible based on patient's age to complete this topicHepatitis A VaccinesAged OutNo longer eligible based on patient's age to complete this topicHepatitis B VaccinesAged OutNo longer eligible based on patient's age to complete this topicIPV VaccinesAged OutNo longer eligible based on patient's age to complete this topicMeningococcal VaccineAged OutNo longer eligible based on patient's age to complete this topicRotavirus VaccinesAged Out No longer eligible based on patient's age to complete this topic Procedures Procedure NamePriorityDate/TimeAssociated CxlrbblgkSpvgrshpCFCVtcorpq50/13/2022 11:02 AM EDT from Last 3 Months or Most Recently Relevant to Health Maintenance Results * (ABNORMAL) Thyroid Stimulating Hormone (10/24/2021 11:02 AM EDT)ComponentValue Ref RangeTest MethodAnalysis TimePerformed AtPathologist SignatureTSH0.04(L) 0.44 - 3.98 mIU/[facility] LABComment: TSH testing is performed using different testing methodology at [facility] than at other [facility]. Direct result comparisons should only be made within the same method. Specimen (Source)Anatomical Location / LateralityCollection Method / Volume Collection TimeReceived Time10/24/2021 11:02 AM EDT10/24/2021 2:07 PM EDT Narrative Authorizing ProviderResult TypeResult StatusSimona Williamson MDLAB BLOOD ORDERABLES Final ResultPerforming OrganizationAddressCity/State/ZIP CodePhone Number [facility] [address] [address] from Last 3 Months or Most Recently Relevant to Health Maintenance
--- OUTSIDE RECORDS SUMMARY | 2025-04-17 20:35 | XMS_ITS | Clinical Summary ---
Author Organization [facility] Address [address] [place] [address] Care Team Providers Care Manager Primary Name Role Phone Unavailable Primary Care Provider Unavailabl e Allergies No known active allergies Medications MedicationSigDispense QuantityRefillsLast FilledStart DateEnd DateStatus albuterol HFA 90 mcg/act inhaler Inhale 2 puffs every 6 (six) hoursActive nicotine (Nicoderm, Step 1) 21 MG/24HR patch 1 patch DailyActive sertraline (Zoloft) 25 MG tablet Take 25 mg by mouth Daily07/05/2023ctive Active Problems No known active problems Social History Tobacco UseTypesPacks/DayYears UsedDateSmoking Tobacco: Unknown Tobacco Cessation:Counseling Given: Not Answered CommentsUnknownSex and Gender InformationValueDate RecordedSex Assigned at BirthNot on fileLegal DdnXqdtpw48/01/2023 8:32 PM EDTGender IdentityNot on fileSexual OrientationNot on file Last Filed Vital Signs Vital SignReadingTime TakenCommentsBlood Oxdwkvgs682/76009/01/2021 12:00 PM EDT Pulse--Temperature--Respiratory Rate--Oxygen Saturation--Inhaled Oxygen Concentration--Yiipfw54 kg (108 lb)09/01/2021 12:00 PM NHRUfihac298.9 cm (5' 1 ) 09/01/2021 12:00 PM EDTBody Mass Index20.41009/01/2021 12:00 PM EDT Plan of Treatment Health MaintenanceDue DateLast DoneCommentsCT Dytqzjtsbfgy73/18/1960FIT 1959FOBT07/01/19595444Wemrrjutxhuld42/18/1960MMR Vaccines (1 of 1 - Standard series)1DTaP/Tdap/Td Vaccines (1 - Tdap)1966Pap Smear1980 Cervical Cancer Fnensyymj97/18/1990HPV/Rmtvml0407/01/19895518Kovilqblr30/18/2000 Pneumococcal Vaccine: 65+ Years (1 of 1 - PCV)2009FIT-DNA03/27/2022 03/27/2019COVID-19 Vaccine ( - 2024- season)/, 09/20/2020, 08/20/2020Influenza Vaccine (#1)/, 2Colonoscopy 505Colorectal Cancer Axemsbteb65/10/2035HIB VaccinesAged OutNo longer eligible based on patient's age to complete this topicHPV VaccinesAged OutNo longer eligible based on patient's age to complete this topicHepatitis A VaccinesAged OutNo longer eligible based on patient's age to complete this topic Hepatitis B VaccinesAged OutNo longer eligible based on patient's age to complete this topicIPV VaccinesAged OutNo longer eligible based on patient's age to complete this topicMeningococcal B VaccineAged OutNo longer eligible based on patient's age to complete this topicMeningococcal VaccineAged OutNo longer eligible based on patient's age to complete this topicRotavirus VaccinesAged Out No longer eligible based on patient's age to complete this [place] [id number]
--- OUTSIDE RECORDS SUMMARY | 2025-04-17 20:36 | XMS_ITS | CCD ---
Author Organization [facility] Care Team Providers Care Stallion Keeper Name Role Phone JORDON CARDOSO Unavailable Unavailable DELMER OSEGUERA Unavailable Unavailable Unavailable Unavailable DO Luisa Mott Admit Provider DO Luisa Mott Attending Provider [phone] MANAS Nava Primary Care Provider JACQUE Maki [...] Care Unavailable Karo Nava Primary Care Physician Dr. Berto Mott Referring Unava ilable Pantera, Dr. Berto Haas [...] Maki Attending Unavailable Simona Maki Admitting Unavailable Pantera, Luisa Haas Admitting Unavailable Pantera, Luisa Haas Attending Unavailable Karo Nava Primary Care Unavailable VIRY AHN Primary Care Physician [phone] Unavailable Primary Care Provider Unavailabl e Chacho, Josephine Ferguson Primary Care Physician Chacho, HOLE FILLER Josephine Ferguson Attending Unavailable Chacho, HOLE FILLER Josephine Ferguson Admitting Unavailable Chacho, HOLE FILLER Josephine Ferguson Attending Unavailable SarminiMarilyn Talal Admitting Unavaila ble Sarmini, Marilyn Calderonal Attending Unavaila ble Sarmini, Marilyn Calderonal Referring Unavaila ble Chahco, HOLE FILLER Josephine Ferguson Referring Unavailable Chacho, HOLE FILLER Josephine Ferguson Admitting Unavailable Chacho, HOLE FILLER Josephine Ferguson Attending Unavailable SarminiMarilynal Attending Unavaila ble Chacho, HOLE FILLER Josephine Ferguson Attending Unavailable Chacho, HOLE FILLER Josephine Ferguson Attending Unavailable Chacho, HOLE FILLER Josephine Ferguson Attending Unavailable Chacho, HOLE FILLER Josephine Ferguson Attending Unavailable Chacho, Josephine Ferguson Admitting Unavailable Chacho, Josephine Ferguson Attending Unavailable Chacho, Josephine Ferguson Attending Unavailable Chacho, Josephine Ferguson Attending Unavailable Chacho, Josephine Ferguson Attending Unavailable Chacho, Josephine Ferguson Attending Unavailable Chacho, Josephine Ferguson Admitting Unavailable Chacho, Josephine Ferguson Attending Unavailable NORTHEIM, MOUNIKA Attending Unavailable NORTHEIM, MOUNIKA Attending Unavailable NORTHEIM, MOUNIKA Attending Unavailable NORTHEIM, MOUNIKA Attending Unavailable Chacho, Josephine Ferguson Attending Unavailable Chacho, Josephine Ferguson Admitting Unavailable Chacho, Josephine Ferguson Attending Unavailable Chacho, Josephine Ferguson Attending Unavailable Chacho, Josephine Ferguson Admitting Unavailable Chacho, Josephine Ferguson Attending Unavailable Chacho, Josephine Ferguson Referring Unavailable REFERRAL, SELF Admitting Unavailable REFERRAL, SELF Attending Unavailable REFERRAL, SELF Referring Unavailable Chacho, Josephine Ferguson Consulting Unavailable Chacho, Josephine Ferguson Consulting Unavailable Chacho, Josephine Ferguson Consulting Unavailable Chacho, Josephine Ferguson Consulting Unavailable Chacho, Josephine Ferguson Consulting Unavailable Chacho, Josephine Ferguson Consulting Unavailable Chacho, Josephine Ferguson Consulting Unavailable Chacho, Josephine Ferguson Consulting Unavailable Chacho, Josephine Ferguson Consulting Unavailable Chacho, Josephine Ferguson Consulting Unavailable Chacho, Josephine Ferguson Admitting Unavailable Chacho, Josephine Ferguson Attending Unavailable Chacho, Josephine Ferguson Attending Unavailable Chacho, Josephine Ferguson Attending Unavailable Chacho, Josephine Ferguson Referring Unavailable Chacho, Josephine Ferguson Admitting Unavailable Chacho, Josephine Fegruson Attending Unavailable Medications Current Medications MedicationDrug Class(es)DatesSig (Normalized)Sig (Original)amLODIPine 5 mg oral tablet (3 sources)Dihydropyridine Calcium Channel BlockerStart: 86-58-3545yjnc 1 tablet by mouth once dailyamLODIPine 5 mg Tab 5 mg = 1 tab(s), Oral, Daily, # 90 tab(s), Refills(s) 0, Pharmacy: [facility]/pharmacy#[id number], 151, cm, 08/01/24 11:07:00 EST, Height/Length Dosing, 54, kg, 08/01/24 11:07:00 EST, Weight Dosing Start Date: 08/01/24 Status: Orderedamoxicillin 500 mg oral capsule (3 sources)Penicillin-class AntibacterialStart: 59-35-1448eiwz 1 capsule by mouth every twelve hoursamoxicillin 500 mg Cap 500 mg = 1 cap(s), Oral, q12hr, # 20 cap(s), Refills(s) 0, Pharmacy: [facility]/pharmacy #[id number], 156, cm, 03/17/23 9:22:00 EDT, Height/Length Dosing, 47.4, kg, 03/17/23 9:22:00 EDT, Weight Dosing Start Date: 03/17/23 Status: OrderedStart: 14-16-6403Tkumospicbf 875 MG Oral Tablet Quantity: 14 Refills: 0 Ordered: 16-May-2021 DO Start : 16-May-2021 Complete amoxicillin 875 mg / clavulanate 125 mg oral tablet (2 sources)Penicillin-class AntibacterialStart: 08-07-2024 End: 64-88-5257ncsfqkhzseo-clavulanate 875 mg-125 mg Tab 1 tab(s), Oral, q12hr for 7 day(s), 14 tab(s), Refill(s) 0, [facility]/pharmacy #[id number], 151, cm, 08/07/24 8:48:00 EST, Height/Length Dosing, 53, kg, 08/07/24 8:48:00EST, Weight Dosing Start Date: 08/07/24 Stop Date: 08/14/24 Status: Orderedaspirin 81 mg delayed release oral tablet (20 sources)Platelet Aggregation Inhibitor, Nonsteroidal Anti-inflammatory Drug Start: 11-33-7930izhy 1 mg by mouth once dailyaspirin 81 mg Oral EC Tab mg tab(s), Oral, Daily, Refills(s) 0, Prophylaxis Start Date: 05/31/24 Status: OrderedStart: 49-25-9956narj 1 tablet by mouth once dailyaspirin 81 mg Oral EC Tab 81 mg = 1 tab(s), Oral, Daily, # 90 tab(s), Refills(s) 3, Pharmacy: [facility] #[id number], 156, cm, 04/02/22 10:26:00 EDT, Height/Length Dosing, 52.5, kg, 04/02/22 10:26:00 EDT, Weight Dosing Start Date: 11/18/22 Status: OrderedStart: 78-07-7384kyia 1 tablet by mouth once dailyaspirin 81 mg Oral EC Tab 81 mg = 1 tab(s), Oral, Daily, # 90 tab(s), Refills(s) 2, [id number] 156, cm, 02/02/22 14:25:00 EDT, Height/Length Dosing, 49.2, kg, 02/02/22 14:25:00 EDT, Weight Dosing Start Date: 02/02/22 Status: Orderedatorvastatin 40 mg oral tablet (18 sources)HMG-CoA Reductase InhibitorStart: 83-40-0349tgrg 1 tablet by mouth once daily in the eveningatorvastatin 40 mg Tab 40 mg = 1 tab(s), Oral, Daily, take in the evening, # 90 tab(s), Refills(s) 1, Pharmacy: [facility]/pharmacy #[id number], 156, cm, 04/02/22 10:26:00 EDT, Height/Length Dosing, 52.5, kg, 04/02/22 10:26:00 EDT, Weight Dosing Start Date: 10/14/22 Status: OrderedStart: 08-12-2021 take 1 tablet by mouth once daily in the eveningatorvastatin 40 mg Tab 40 mg = 1 tab(s), Oral, Daily, take in the evening, # 90 tab(s), Refills(s) 2, Pharmacy: [facility]/pharmacy #[id number], 156, cm, 02/02/22 14:25:00 EDT, Height/Length Dosing, 49.2, kg, 02/02/22 14:25:00 EDT, Weight Dosing Start Date: 02/02/22 Status: Ordered calcium carbonate 1250 mg / cholecalciferol 200 unt oral tablet (1 source)Vitamin DStart: 63-83-6449lxtl 1 tablet by mouth twice dailycalcium (as carbonate)-vitamin D 500 mg-200 intl units oral tablet 1 tab(s), Oral, BID, 180 tab(s),Refill(s) 1, [facility]/pharmacy #[id number], 151, cm, 08/21/24 11:04:00 EDT, Height/Length Dosing, 53, kg, 08/21/24 11:04:00 EDT, Weight Dosing Start Date: 08/21/24 Status: Orderedcarvedilol 3.125 mg oral tablet (20 sources)alpha-Adrenergic Juancarlos, beta-Adrenergic BlockerStart: 05-31-2024 take 1 tablet by mouth twice dailycarvedilol 3.125 mg Tab 3.125 mg = 1 tab(s), Oral, BID, # 180 tab(s), Refills(s) 0, Pharmacy: [facility]/pharmacy #[id number], 151, cm, 05/31/24 14:29:00 EST, Height/Length Dosing, 53.6, kg, 05/31/24 14:29:00 EST, Weight Dosing Start Date: 05/31/24 Status: OrderedStart: 45-76-0509sjoo 1 tablet by mouth twice dailyCoreg 3.125 mg Tab 3.125 mg = 1 tab(s), Oral, BID, # 180 tab(s), Refills(s) 0, Pharmacy: [facility]/pharmacy #[id number], 156, cm, 04/02/22 10:26:00 EDT, Height/Length Dosing, 52.5, kg, 04/02/22 10:26:00 EDT, Weight Dosing Start Date: 10/22/22 Status: OrderedStart: 92-55-2221vxem 3.125 mg by mouth twice daily Carvedilol Active 3.125 MG PO Twice daily August 12, 2021 8:21pmStart: 08-11-2021 End: 86-72-2973qtta 1 tablet by mouth twice dailyCoreg 3.125 mg Tab 3.125 mg = 1 tab(s), Oral, BID, X 90 day(s), # 180 tab(s), Refills(s) 3, [id number], 156, cm, 08/01/21 14:10:00 EST, Height/Length Dosing, 50.4, kg, 08/01/21 14:10:00 EST, Weight Dosing Start Date: 08/11/21 Stop Date: 08/06/22 Status: Orderedchlorthalidone 25 mg oral tablet (3 sources)Thiazide-like DiureticStart: 08-67-9267xeqb 1 tablet by mouth once dailychlorthalidone 25 mg Tab 25 mg = 1 tab(s), Oral, Daily, # 90 tab(s), Refills(s) 0, [id number], 151, cm, 08/01/24 11:07:00 EST, Height/Length Dosing, 54, kg, 08/01/24 11:07:00 EST, Weight Dosing Start Date: 08/01/24 Status: Ordereddoxycycline hyclate 100 mg oral capsule (1 source)Tetracycline-class DrugStart: 04-07-2023 End: 67-35-8194rcfp 1 capsule by mouth twice dailydoxycycline hyclate 100 mg Cap 100 mg = 1 cap(s), Oral, BID, X 10 day(s), # 20 cap(s), Refills(s) 0, [id number], 156, cm, 04/05/23 8:07:00 EDT, Height/Length Dosing, 48.2, kg, 04/05/23 8:07:00 EDT, Weight Dosing Start Date: 04/07/23 Stop Date: 04/17/23 Status: Orderedescitalopram 5 mg oral tablet (7 sources)Serotonin Reuptake InhibitorStart: 07-18-2024 End: 84-96-1013bdwm 1 tablet by mouth once dailyescitalopram 5 mg oral tablet 5 mg = 1 tab(s), Oral, Daily, X 90 day(s), # 90 tab(s), Refills(s) 3,[id number], 151, cm, 07/18/24 8:27:00 EST, Height/Length Dosing, 55, kg, 258:27:00 EST, Weight Dosing Start Date: 07/18/24 Stop Date: 07/13/25 Status: OrderedStart: 68-03-6376vfcd 1 tablet by mouth once dailyescitalopram 5 mg oral tablet 5 mg = 1 tab(s), Oral, Daily, # 90 tab(s), Refills(s) 0, [id number], cm, 05/31/24 14:29:00 EST, Height/Length Dosing, 53.6, kg, 05/31/24 14:29:00 EST, Weight Dosing Start Date: 05/31/24 Status: Ordered fluticasone furoate 0.0275 mg/actuat metered dose nasal spray (3 sources)CorticosteroidStart: 04-02-2022 End: 99-29-2296bfqgcpvntvo nasal 27.5 mcg/inh spray 2 spray(s), Nasal, Daily for allergy symptoms for 30 day(s), 15.8 mL, Refill(s) 0, [id number] 156, cm, 04/02/22 10:26:00 EDT, Height/Length Dosing, 52.5,kg, 04/02/22 10:26:00 EDT, Weight Dosing Start Date: 04/02/22 Stop Date: 05/02/22 Status: OrderedStart: 52-36-6137uzxq 2 spray(s) nasal route once dailyFluticasone Propionate 50 MCG/ACT Nasal Suspension USE 2 SPRAYS IN EACH NOSTRIL ONCE A DAY Quantity: 16 Refills: 0 Ordered: 28-May-2021 DO Start : 28-May-2021 CompletehydrOXYzine pamoate 25 mg oral capsule (4 sources)AntihistamineStart: 41-76-2748hsug 25 mg by mouth three times daily Hydroxyzine Pamoate Active 25 MG PO Three times daily August 12, 2021 8:30pmtake 1 tablet by mouth three times daily as neededhydrOXYzine HCl - 25 MG Oral Tablet TAKE 1 TABLET 3 TIMES DAILY NEEDED. Quantity: 0 Refills: 0 Ordered: 03-Sep-2021 DO Activeloratadine 10 mg oral tablet (1 source)Start: 04-02-2022 End: 63-99-1668ufmd 1 tablet by mouth once dailyClaritin 10 mg Tab 10 mg = 1 tab(s), Oral, Daily, X 14 day(s), # 14 tab(s), Refills(s) 0, Pharmacy: [facility]/pharmacy #[id number], 156, cm, 04/02/22 10:26:00 EDT, Height/Length Dosing, 52.5, kg, 04/02/22 10:26:00 EDT, Weight Dosing Start Date: 04/02/22 Stop Date: 04/16/22 Status: Orderedlosartan potassium 50 mg oral tablet (3 sources)Angiotensin 2 Receptor BlockerStart: 91-94-2479rrle 1 tablet by mouth once dailylosartan 50 mg Tab 50 mg = 1 tab(s), Oral, Daily, # 90 tab(s), Refills(s) 0, [id number], 151, cm, 07/18/24 8:27:00 EST, Height/Length Dosing, 55, kg, 07/18/24 8:27:00 EST, Weight Dosing Start Date: 07/25/24 Status: OrderedmethIMAzole 5 mg oral tablet (17 sources)Thyroid Hormone Synthesis InhibitorStart: 29-45-6694eikw 1 tablet by mouth twice dailymethimazole 5 mg Tab 5 mg = 1 tab(s), Oral, BID, # 180 tab(s), Refills(s) 0, [id number], 151, cm, 05/31/24 14:29:00 EST, Height/Length Dosing, 53.6, kg, 05/31/24 14:29:00 EST, Weight Dosing Start Date: 07/17/24 Status: OrderedStart: 73-26-5398qqan 1 tablet by mouth twice daily methimazole 5 mg Tab 5 mg = 1 tab(s), Oral, BID, # 90 tab(s), Refills(s) 0 Start Date: 02/02/22 Status: OrderedMucinex DM 30 mg-600 mg Tab-ER (1 source)Start: 04-02-2022 End: 70-14-0492Axuhvjn DM 30 mg-600 mg Tab-ER 1 tab(s), Oral, q12hr for 10 day(s), 20 tab(s), Refill(s) 0, [id number], 156, cm, 04/02/22 10:26:00 EDT, Height/Length Dosing, 52.5, kg, 04/02/22 10:26:00 EDT, Weight Dosing Start Date: 04/02/22 Stop Date: 04/12/22 Status: Zvjaswb56 hr nicotine 0.875 mg/hr transdermal system (20 sources)Cholinergic Nicotinic AgonistStart: 79-53-3087ywghk 1 dose transdermal route once dailynicotine 21 mg/24 hr Transderm ER Film APPLY 1 PATCH TOPICALLY DAILY Start Date: 05/31/24 Status: OrderedStart: 12-70-7042fhivzhia 21 mg/24 hr Transderm ER Film 1 patch(es), Topical, Daily, 30 EA, Refill(s) 1, [id number], 156, cm, 03/17/23 9:22:00 EDT, Height/Length Dosing, 47.4, kg, 03/17/23 9:22:00 EDT, WeightDosing Start Date: 03/17/23 Status: OrderedStart: 51-86-8615ollxkdvt 14 mg/24 hr Transderm ER Film 1 patch(es), Topical, Daily, 30 EA, Refill(s) 1, [facility]acy #[id number], 156, cm, 02/02/22 14:25:00 EDT, Height/Length Dosing, 49.2, kg, 02/02/22 14:25:00 EDT, Weight Dosing Start Date: 02/02/22 Status: OrderedStart: 71-41-1093lxuutqto 21 mg/24 hr Transderm ER Film 1 patch(es), Topical, Daily, 30 EA, Refill(s) 1, [id number], 156, cm, 02/02/22 14:25:00 EDT, Height/Length Dosing, 49.2, kg, 02/02/22 14:25:00 EDT, Weight Dosing Start Date: 02/02/22 Status: OrderedStart: 70-17-9465pozgl 1 dose transdermal route once dailyNicotine 21 MG/24HR Transdermal Patch 24 Hour APPLY 1 PATCH DAILY Quantity: 28 Refills: 0 Ordered: 29-Aug-2021 DO Start : 01-Aug-2021 Completepantoprazole 20 mg delayed release oral tablet (19 sources)Proton Pump InhibitorStart: 67-05-8640jfok 1 tablet by mouth once dailyPantoprazole [address] Tab 20 mg = 1 tab(s), Oral, Daily, # 90 tab(s), Refills(s) 1, [id number], 156, cm, 04/02/22 10:26:00 EDT, Height/Length Dosing, 52.5, kg, 04/02/22 10:26:00 EDT, Weight Dosing Start Date: 10/22/22 Status: OrderedStart: 24-82-6395wksn 1 tablet by mouth once daily Pantoprazole [address] Tab 20 mg = 1 tab(s), Oral, Daily, # 90 tab(s), Refills(s) 1, Pharmacy: [facility]/pharmacy #[id number], 156, cm, 08/01/21 14:10:00 EST, Height/Length Dosing, 50.4, kg, 08/01/21 14:10:00 EST, Weight Dosing Start Date: 10/27/21 Status: OrderedStart: 41-68-9118Brsfoucjwgks Sodium 40 MG Oral Tablet Delayed Release Quantity: 30 Refills: 0 Ordered: 18-Oct-2020 DO Start : 18-Sep-2020 Completepolyethylene glycol 3350 487404 mg / potassium chloride 1480 mg / sodium bicarbonate 5720 mg / sodium chloride 75360 mg powder for oral solution (2 sources)Osmotic LaxativeStart: 29-92-5124ImZXZEVX [place] oral powder for reconstitution See Instructions, 1 EA, Refill(s) 0, follow up physicians insctructions, [facility]/pharmacy #[id number], 151, cm, 08/07/24 8:48:00 EST, Height/Length Dosing, 53, kg, 08/07/24 8:48:00 EST, Weight Dosing Start Date: 08/07/24 Status: Orderedsertraline 25 mg oral tablet (17 sources)Serotonin Reuptake InhibitorStart: 56-83-6003lzek 1 tablet by mouth once dailysertraline (Zoloft) 25 MG tablet Take 25 mg by mouth Daily 07/05/2023 ActiveStart: 13-08-7391modk 1 tablet by mouth once dailysertraline 25 mg Tab 25 mg = 1 tab(s), Oral, Daily, # 30 tab(s), Refills(s) 0, Pharmacy: [facility]/pharmacy #[id number], 156, cm, 04/05/23 8:07:00 EDT, Height/Length Dosing, 48.2, kg, 04/05/23 8:07:00 EDT, Weight Dosing Start Date: 04/05/23 Status: OrderedStart: 11-16-2022 take 1 tablet by mouth once dailyZoloft 25 mg Tab 25 mg = 1 tab(s), Oral, Daily, # 90 tab(s), Refills(s) 1, [id number], 156, cm, 04/02/22 10:26:00 EDT, Height/Length Dosing, 52.5, kg, 04/02/22 10:26:00 EDT, Weight D osing Start Date: 11/16/22 Status: OrderedStart: 56-88-5202dydi 1 tablet by mouth once dailyZoloft 25 mg Tab 25 mg = 1 tab(s), Oral, Daily, # 30 tab(s), Refills(s) 2, Pharmacy: [facility]/pharmacy #[id number], 156, cm, 02/02/22 14:25:00 EDT, Height/Length Dosing, 49.2, kg, 02/02/22 14:25:00 EDT, Weight Dosing Start Date: 02/02/22 Status: OrderedSymbicort 80/4.5 inhalation aerosol with adapter (7 sources)Start: 95-80-6063dlpq 2 puff(s) by inhalation twice dailySymbicort 80/4.5 inhalation aerosol with adapter 2 puff(s), Inhalation, BID, 10.2 gm, Refill(s) 0, [facility]/pharmacy #[id number], 151, cm, 05/31/24 14:29:00 EST, Height/Length Dosing, 53.6, kg, 05/31/24 14:29:00 EST, Weight Dosing Start Date: 05/31/24 Status: Ordered Completed/Discontinued Medications MedicationDrug Class(es)DatesSig (Normalized)Sig (Original)[id number] 200 actuat albuterol 0.09 mg/actuat metered dose inhaler (20 sources)beta2-Adrenergic AgonistStart: 86-46-0614gjsk 2 puff(s) by inhalation every six hoursVentolin HFA 108 (90 Base) MCG/ACT Inhalation Aerosol Solution INHALE 2 PUFFS EVERY 6 HOURS Quantity: 18 Refills: 0 Ordered: 08-Sep-2021 DO Start : 08-Sep-2021 CompleteStart: 49-72-8469uthq 1 puff(s) by inhalation every six hoursAlbuterol Sulfate Active 2 PUFF INHALATION Q6H August 12, 2021 8:21pmStart: 09-78-9628slub 2 puff(s) by inhalation every four hours for wheezingProAir HFA 90 mcg/inh inhalation aerosol 2 puff(s), Inhalation, q4hr for wheezing, 8.5 gram, Refill(s) 2, [facility]/pharmacy #[id number] Start Date: 03/16/19 Status: Orderedtake 2 puff(s) by inhalation every six hoursalbuterol HFA 90 mcg/act inhaler Inhale 2 puffs every 6 (six) hours ActiveAlbuterol Sulfate (2.5 MG/3ML) 0.083% Inhalation Nebulization Solution USE DIRECTED. Quantity: 0 Refills: 0 Ordered: 03-Sep-2021 DO ActiveAlbuterol (Eqv-ProAir HFA) 90 mcg/inh inhalation aerosol (14 sources)Start: 53-95-3072fmaj 1 dose by inhalation every six hoursAlbuterol (Eqv-ProAir HFA) 90 mcg/inh inhalation aerosol 2 puff(s), Inhalation, q6hr, 1 EA, Refill(s) 4, [facility]acy #[id number], 151, cm, 05/03/23 10:31:00 EST, Height/Length Dosing, 47.9, kg, 05/03/23 10:31:00 EST, Weight Dosing Start Date: 05/25/23 Status: OrderedStart: 51-61-7505dxql 1 dose by inhalation every six hoursAlbuterol (Eqv-ProAir HFA) 90 mcg/inh inhalation aerosol 2 puff(s), Inhalation, q6hr, 1 EA, Refill(s) 4, [facility]/pharmacy #[id number], 156, cm, 04/02/22 10:26:00 EDT, Height/Length Dosing, 52.5, kg, 04/02/22 10:26:00 EDT, Weight Dosing Start Date: 01/11/23 Status: OrderedStart: 53-53-6830wrrb 1 dose by inhalation every six hoursAlbuterol (Eqv-ProAir HFA) 90 mcg/inh inhalation aerosol 2 puff(s), Inhalation, q6hr, 1 EA, Refill(s) 4, [facility]/pharmacy #[id number], 156, cm, 08/01/21 14:10:00 EST, Height/Length Dosing, 50.4, kg, 08/01/21 14:10:00 EST, Weight Dosing Start Date: 01/09/22 Status: Orderedcefdinir 300 mg oral capsule (2 sources)Cephalosporin AntibacterialStart: 23-08-7607Tohymraw 300 MG Oral Capsule Quantity: 14 Refills: 0 Ordered: 28-May-2021 DO Start : 28-May-2021 Com pletecholecalciferol 0.025 mg oral tablet (13 sources)Vitamin DStart: 55-76-9977Hookrty D 25 MCG (1000 UT) Oral Tablet Quantity: 30 Refills: 0 Ordered: 26-Aug-2021 DO Start : 26-Aug-2021 Completetake 1 capsule by mouth once dailyVitamin D3 25 MCG (1000 UT) Oral Capsule TAKE 1 CAPSULE Daily Quantity: 0 Refills: 0 Ordered: 03-Sep-2021 DO Activecitalopram 10 mg oral tablet (2 sources)Serotonin Reuptake InhibitorStart: 20-93-0334vppa 1 tablet by mouth once dailyCitalopram Hydrobromide 10 MG Oral Tablet TAKE 1 TABLET BY MOUTH EVERY DAY Quantity: 30 Refills: 0 Ordered: 26-Aug-2021 DO Start : 01-Aug-2021 Complete clopidogrel 75 mg oral tablet (1 source)P2Y12 Platelet InhibitorStart: 08-12-2021 End: 08-90-2903dzbj 75 mg by mouth once dailyClopidogrel Discontinued 75 MG PO Daily August 12, 2021 8:21pm August 14, 2021 3:07pmdextromethorphan hydrobromide 10 mg / guaiFENesin 200 mg oral capsule (2 sources)Uncompetitive L-qmunlw-C-aspartate Receptor Antagonist, Sigma-1 AgonistStart: 26-05-4007jwmj 10-200 mg by mouth every four hours as neededCVS Chest Congestion-Cough HBP 10-200 MG Oral Capsule TAKE 2 CAPSULES BY MOUTH EVERY 4 HOURS NEEDED FOR COUGH Quantity: 20 Refills: 0 Ordered: 16-May-2021 DO Start : 16-May-2021 CompletehydroCHLOROthiazide 25 mg oral tablet (1 source)Thiazide DiureticStart: 08-12-2021 End: 72-79-8627kwkt 25 mg by mouth once dailyHydrochlorothiazide Discontinued 25 MG PO Daily August 12, 2021 8:21pm August 14, 2021 3:07pmhydrocortisone 25 mg/ml rectal cream (2 sources)CorticosteroidStart: 88-56-8762Rdpfxlqwsrqron (Perianal) 2.5 % External Cream Quantity: 30 Refills: 0 Ordered: 25-Nov-2020 DO Start : 25-Nov-2020 Completelisinopril 40 mg oral tablet (1 source)Angiotensin Converting Enzyme InhibitorStart: 08-12-2021 End: 64-02-7423wfto 40 mg by mouth once dailyLisinopril Discontinued 40 MG PO Daily August 12, 2021 8:21pm August 14, 2021 3:07pmpolyethylene glycol 3350 392419 mg / potassium chloride 2970 mg / sodium bicarbonate 6740 mg / sodium chloride 5860 mg / sodium sulfate 70780 mg powder for oral solution (1 source)Osmotic LaxativeStart: 40-06-0383MczwJmno-G 236 GM Oral Solution Reconstituted Quantity: 4000 Refills: 0 Ordered: 25-Dec-2020 DO Start : 25-Dec-2020 Completepotassium chloride 10 meq oral tablet (3 sources)Start: 33-32-9389ifxa 1 tablet by mouth twice dailyPotassium Chloride (Eqv-K-Tab) 10 mEq oral tablet, extended release 10 mEq = 1 tab(s), Oral, BID, # 90 tab(s), Refills(s) 0, Pharmacy: [facility]/pharmacy #[id number], 151, cm, 08/01/24 11:07:00 EST, Height/Length Dosing, 54, kg, 08/01/24 11:07:00 EST, Weight Dosing Start Date: 08/01/24 Status: Orderedpsyllium 520 mg oral capsule (2 sources)Start: 13-09-4864gbhr 2 capsules by mouth once dailyCVS Fiber 0.52 GM Oral Capsule TAKE 2 CAPSULES BY MOUTH DAILY, 2 HOUR APART FROM THE OTHER MEDICATIONS WITH AT LEAST 8 OZ OF WATER Quantity: 160 Refills: 0 Ordered: 23-Dec-2020 DO Start : 06-Xtc-1941Nmozqcnmxkiwwmpprv, correction 8.6 mg oral tablet (1 source)Start: 09-93-8600Hcffp 8.6 MG Oral Tablet Quantity: 20 Refills: 0 Ordered: 25-Nov-2020 DO Start : 25-Nov-2020 CompleteVitamin D 1000 intl units (25 mcg) Tab (7 sources)Start: 21-24-2340rlgy 1 tablet by mouth once dailyVitamin D 1000 intl units (25 mcg) Tab 1,000 International_Unit = 1 tab(s), Oral, Daily, # 90 tab(s) , Refills(s) 1, Pharmacy: [facility]/pharmacy #[id number], 156, cm, 04/02/22 10:26:00 EDT, Height/Length Dosing,52.5, kg, 04/02/22 10:26:00 EDT, Weight Dosing Start Date: 10/22/22 Status: OrderedStart: 60-23-4082fpkb 1 tablet by mouth once dailyVitamin D 1000 intl units (25 mcg) Tab 1,000 International_Unit = 1 tab(s), Oral, Daily, # 90 tab(s), Refills(s) 1, Pharmacy: [facility]/pharmacy #[id number], 156, cm, 08/01/21 14:10:00 EST, Height/Length Dosing,50.4, kg, 08/01/21 14:10:00 EST, Weight Dosing Start Date: 10/27/21 Status: Ordered Problems Active Problems Problem ClassificationProblemDateDocumented DateEpisodic/ChronicAcute myocardial infarction (1 source)ST elevation (STEMI) myocardial infarction of unspecified site; Translations: [ST ELEVATION MD UNSPECIFIED SITE]Onset: [id number] disorders (18 sources)Generalized anxiety disorder; Translations: [Generalized anxiety disorder]Onset: [id number] obstructive pulmonary disease and bronchiectasis (19 sources)Chronic obstructive lung disease; Translations: [Chronic obstructive pulmonary disease, unspecified]Onset: 87-88-8786KpltjsjJoqw; stupor; and brain damage (5 sources)Daytime [id number] atherosclerosis and other heart disease (20 sources)Coronary atherosclerosis; Translations: [Coronary atherosclerosis of unspecified type of vessel, atka or graft]Onset: hronic Disorders of lipid metabolism (19 sources)Mixed hyperlipidemia; Translations: [Mixed hyperlipidemia]05-31-2024 ChronicEssential hypertension (20 sources)Benign hypertension; Translations: [Benign essential hypertension] Onset: 01-12-3746OjmucczXgeqavmhlqocvjaz hemorrhage (16 sources)Rectal rgcuqdguzb86-31-1749WbvfqficMmxrtpv and fatigue (2 sources)Sfmkdte53-03-0986FmxbgjovGuxy disorders (14 sources)Depressive disorder; Translations: [Moderate recurrent major depression]81-59-8277HcjfsrcIxuivol on above:added per 07/17/2024 query response.Nonspecific chest pain (12 sources)Chest pain, unspecified; Translations: [Chest pain]Onset: 08-12-2021 EpisodicOcclusion or stenosis of precerebral arteries (20 sources)Carotid artery stenosis; Translations: [Occlusion and stenosis of carotid artery without mention ofcerebral infarction]89-71-8095VtsimfuEzjfg and unspecified benign neoplasm (1 source)Polyp of colon; Translations: [Polyp of colon]Onset: 08-21-2024 EpisodicOther circulatory disease (1 source)Disorder of carotid artery; Translations: [Disorder of arteries and arterioles, unspecified]73-02-0118TefaibsDzfcq circulatory disease (2 sources)Disorder of arteries and arterioles, unspecified; Translations: [Unspecified disorders of arteries and arterioles]Onset: 71-87-0028DnhlmxdOunkd gastrointestinal disorders (16 sources)Hlyshdrijjbw20-08-5530JjqilqzsLmxqm hereditary and degenerative nervous system conditions (5 sources)Restless rrdm87-54-3411NjkuntrVikjy lower respiratory disease (1 source)Shortness of breath; Translations: [Shortness of breath]Onset: 69-92-8034XkpbzphtTowop lower respiratory disease (9 sources)Tixzi30-46-2635LevzbzwdGebzk lower respiratory disease (5 sources)Tdpkock48-31-6871NhtykgmkWipnc nutritional; endocrine; and metabolic disorders (1 source)Body mass index less than 20; Translations: [Body mass index (BMI) 19.9 or less, adult]Onset: 22-20-5454FqabpqxeMaabe screening for suspected conditions (not mental disorders or infectious disease) (11 sources)Echocardiogram abnormal; Translations: [Nonspecific (abnormal) findings on radiological and other examination of other intrathoracic organs] Onset: 81-52-3939MitzzqefIxwix skin disorders (4 sources)Seborrheic keratosis; Translations: [Other seborrheic keratosis] 24-18-9711CosoqpijTxjjb skin disorders (8 sources)Actinic keratosis; Translations: [Actinic keratosis]05-09-2024 EpisodicOther upper respiratory infections (9 sources)Bvedvgfts27-49-7572UgitvfgRcfjt upper respiratory infections (2 sources)Acute upper respiratory infection; Translations: [Acute upper respiratory infection, unspecified]Onset: 31-39-1623VycbuzodAiback media and related conditions (20 sources)Otitis media; Translations: [Non-suppurative otitis media]Onset: 455730-03-9892CgcjcoaaKbrmbekmf heart disease (10 sources)Pulmonary hypertension; Translations: [Other chronic pulmonary heart diseases]ChronicResidual codes; unclassified (5 sources)Sleep -42-2875RxxymonDehfrtgd codes; unclassified (10 sources)Body mass index 20-24 - normal; Translations: [Body Mass Index between 19-24, adult]EpisodicResidual codes; unclassified (1 source)Tobacco user; Translations: [Tobacco use]15-51-1398YsoaubneZeguwlmrb and history of mental health and substance abuse codes (1 source)Ex-smoker; Translations: [Personal history of tobacco use]Episodic Comment on above:2019 quit;Substance-related disorders (19 sources)Nicotine dependence, cigarettes, uncomplicated; Translations: [Nicotine dependence]Onset: 52-92-4290ZsbkokrVzwmzdz on above:Added secondary to documentation in Social History.Added secondary to documentation in Social History.Thyroid disorders (20 sources)Goiter; Translations: [Goiter, unspecified]Onset: 28-01-7528Wjbidqq Unclassified (1 source)CONTACT W/AND (SUSP) EXPOS COVID-19; Translations: [CONTACT W/AND (SUSP) EXPOS COVID-19]Onset: 76-61-9833Bwuljmcturzy (1 source)E87.1 - Hypo-osmolality and hyponatremia; Translations: [E87.1 - Hypo- osmolality and hyponatremia]Onset: 05-52-4894Fbemdwogwdly (1 source)I24.9 - Acute ischemic heart disease, unspecified; Translations: [I24.9 - Acute ischemic heart disease, unspecified]Onset: 83-02-5019Qmunybcnitqg (9 sources)Body mass index 20-24 - duntnr31-82-4150Wgcwdhezgcek (5 sources)Patient encounter hwowdq77-67-3487Qrxelhjygmol (2 sources)Finding of gtxvipl08-44-5597 Past or Other Problems Problem ClassificationProblemDateDocumented DateEpisodic/ChronicFluid and electrolyte disorders (14 sources)Hyponatremia; Translations: [Hyposmolality and/or hyponatremia] Onset: 932435-38-6835CwlhntevAqzj wounds of head; neck; and trunk (4 sources)Laceration without foreign body of scalp, subsequent encounter; Translations: [LACERATION W/O FB SCLP SUBSQT ENC]Onset: 94-29-4207YrrnxpqfKmsat aftercare (1 source)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; Translations: [TRUCK PACKER ANTITHROMBOT/ANTIPLATLETS]Onset: 14-91-2633Xkmfujql Other aftercare (1 source)residential (current) use of aspirin; Translations: [DETENTION CURRENT USE OF ASPIRIN]Onset: 42-16-7886VlqrlugrHgihk aftercare (1 source)Other intermediate project manager (current) drug therapy; Translations: [OTH TRUCK PACKER CURRENT DRUG THERAPY]Onset: 39-15-4130CqgirbvtTsodcomd codes; unclassified (2 sources)Tobacco use; Translations: [Tobacco use disorder]Onset: 08-12-2021 Episodic Results Test NameValueInterpretationReference RangeFacilityAmbulatory Visit Summaryon 72-29-4264Heapapwkez Visit SummaryAmbulatory Visit Summary SANDHYA MALDONADO :1960 Visit Date:04/11/2025 Ambulatory Visit Instructions Your Diagnosis Hypertension Hyperthyroidism Your Care Team Attending Physician - Josephine Flores Primary Care Physician - Josephine Flores This Is Your Medications List albuterol (Albuterol (Eqv-ProAir HFA) 90 mcg/inh inhalation aerosol) amlodipine (amLODIPine 5 mg Tab) aspirin (aspirin 81 mg Oral EC Tab) budesonide-formoterol (Symbicort 80/4.5 inhalation aerosol with adapter) calcium-vitamin D (calcium (as carbonate)-vitamin D 500 mg-200 intl units oral tablet) chlorthalidone (chlorthalidone 25 mg Tab) ergocalciferol (Vitamin D 50,000 intl units (1.25 mg) oral capsule) escitalopram (escitalopram 5 mg oral tablet) losartan (losartan 50 mg Tab) methimazole (methimazole 5 mg Tab) potassium chloride (Potassium Chloride (Eqv-K-Tab) 10 mEq oral tablet, extended release) Procedures Performed Colonoscopy (08/21/2024), pinched nerve in neck (1960), colonoscopy. Discharge Vitals Heart Rate (Peripheral) 62 Respiratory Rate 16 Blood Pressure 164/82 Height 59 in Height 151 cm Weight 128.309 lb Weight 58.2 kg BMI 25.53 What to do next Scheduled Follow-Up Appointments Wednesday 9:20 AM EST With: Josephine Flores Where: [address] [id number] 8:00 AM EST With: Where: [address] [address]- You Need to Schedule the Following Appointments Follow Up with Josephine Flores, [facility], MED When: In 7 weeks 05/30/2025 EST Comments: after may 31 Where: [address] [place] [address]- Business (1) Medications What How Much When Why Instructions Unchanged albuterol (Albuterol (Eqv-ProAir HFA) 90 mcg/ inh inhalation aerosol) 2 Puffs Inhalation Every 6 hours Unchanged amlodipine (amLODIPine 5 mg Tab) 1 Tablets By Mouth Every day Hypertension Sleep apnea Loud snoring Restless leg Daytime somnolence BMI 23.0- 23.9, adult Former smoker Duration: 90 Days Unchanged aspirin (aspirin 81 mg Oral EC Tab) By Mouth Every day Unchanged budesonide-formoterol (Symbicort 80/ 4.5 inhalation aerosol with adapter) 2 Puffs Inhalation 2 times a day COPD, mild Carotid artery stenosis Multiple thyroid nodules Chest pain Goiter Hyperlipemia BMI 23.0-23.9, adult Smoker Unchanged calcium-vitamin D (calcium (as carbonate)-vitamin D 500 mg-200 intl units oral tablet) 1 Tablets By Mouth 2 times a day Unchanged chlorthalidone (chlorthalidone 25 mg Tab) 1 Tablets By Mouth Every day Hypertension Sleepapnea Loud snoring Restless leg Daytime somnolence BMI 23.0- 23.9, adult Former smoker Duration: 90 Days Unchanged ergocalciferol (Vitamin D 50,000 intl units (1.25 mg) oral capsule) 1 Capsules By Mouth Every week Hypertension Hyperthyroidism Fatigue BMI 24.0-24.9, adult Smoker Generalized swelling, mass, or lump of abdomen or pelvis Unchanged escitalopram (escitalopram 5 mg oral tablet) 1 Tablets By Mouth Every day COPD, mild Carotid artery stenosis Multiple thyroid nodules Chest pain Goiter Hyperlipemia BMI 23.0-23.9, adult Smoker Duration: 90 Days Unchanged losartan (losartan 50 mg Tab) 1 Tablets By Mouth Every day Duration: 90 Days Unchanged methimazole (methimazole 5 mg Tab) 1 Tablets By Mouth 2 times a day Unchanged potassium chloride (Potassium Chloride (Eqv-K-Tab) 10 mEq oral tablet, extended release) See instructions TAKE 1 TABLET BY MOUTH TWICE A DAY Allergies No Known Allergies Problems Ongoing - Any problem that you are currently receiving treatment for. BMI 24.0-24.9, adult Carotid artery stenosis Chest pain Constipation COPD, mild Cough Daytime somnolence Fatigue Fluid level behind tympanic membrane of both ears Generalized anxiety disorder Generalized swelling, mass, or lump of abdomen or pelvis Hyperlipemia Hypertension Hyperthyroidism Loud snoring Major depressive [...] you for choosing us for your care. Patient Portal You may access all of your results and other medical record information on our secure patient portal. If you are not signed up for this yet, please contact [employer] at [phone] to get signed up today. Language Information Language assistance services (more content not included)...[facility] Medicine Office/Clinic Noteon [id number] [facility] Office/Cl[facility] NoteF[facility]ond[facility]/Clinic Note HPI Staff Pt is presenting for 6 month follow up hypertension C/O pt is concerned about her medications pt stated she feels like it is too much medication pt sated after taking mainly her morning medication she feels really pt stated her stomach hurts and she had diarrhea right away, pt stated has been skipping some of her evening medication because she is feeling ill and she is getting SOB after taking her Meds as well pt stated she does have a rash on her back pt stated it itches it is red and had some raised red bumps pt stated is going wednesday for cataract surgery Patient is here for follow up on hypertension. How often are you checking your blood pressure? Couple times a week What are your average readings? 175/83 Yearly BMP: BUN: 14 mg/dL (05/31/24 15:29:00) Calcium Lvl: 9.2 mg/dL (05/31/24 15:29:00) Chloride: 105 mmol/L (05/31/24 15:29:00) CO2: 29 mmol/L (05/31/24 15:29:00) Creatinine: 0.8 mg/dL (05/31/24 15:29:00) eGFR: 82 mL/min/1.73 m2 (05/31/24 15:29:00) Glucose Lvl: 98 mg/dL (05/31/24 15:29:00) Potassium Lvl: 4.9 mmol/L (05/31/24 15:29:00) Sodium Lvl: 138 mmol/L (05/31/24 15:29:00) As per DREW note, check TSH and labs if needed today History of Present Illness pt presents today for 6 month follow up Review of Systems PHQ Score Initial Depression Screen Score: 1 SCORE General: alert, no acute distress ENMT: oral mucosa moist, no pharyngeal erythema or exudate Cardiovascular: regular rate and rhythm, normal peripheral perfusion Respiratory: Lungs CTA, respirations non labored Extremities: no deformity, no trauma Neurological: oriented x 4, LOC appropriate for age, CN II-XII intact, motor strength equal & normal bilaterally, speech normal Physical Exam Vitals & Measurements HR: 62(Peripheral) RR: 16 BP: 164/82 SpO2: 96% HT: 151 cm HT: 59 in WT: 128.309 lb WT: 58.2 kg BMI: 25.53 Assessment/Plan 1. Hypertension (I10: Essential (primary) hypertension) pt presents today for 6 month follow up. pt admits that she has not been taking her meds as prescribed because they make her sick to her stomach. reviewed all meds. BP is elevated in office today. will increase losartan to 100mg. will d/c clorthalidone, potassium and amlodipine. pt also wants to stop vitamin d/cacium combo. will return after May 31 for annual labs and follow up. pt will monitor BP at home if it is trending higher she will call office. Ordered: Complex E&M Add on G2211 E&M of Est. Patient Moderate 30-39 Min 86679 2. Hyperthyroidism (E05.90: Thyrotoxicosis, unspecified without thyrotoxic crisis or storm) will check TSH in May. has plenty of meds. does not need refills at this time. Ordered: Complex E&M Add on G2211 E&M of Est. Patient Moderate 30-39 Min 91670 3. BMI 25.0-25.9,adult (Z68.25: Body mass index [BMI] 25.0-25.9, adult) BMI education given Ordered: Complex E&M Add on G2211 E&M of Est. Patient Moderate 30-39 Min 94015 4. Smoker (F17.200: Nicotine dependence, unspecified, uncomplicated) consider not smoking Ordered: Complex E&M Add on G2211 E&M of Est. Patient Moderate 30-39 Min 97902 Orders: losartan, 100 mg = 2 tab(s), Oral, Daily, increased dose to 100mg, X 90 day(s), # 180 tab(s), Refills(s) 3, Pharmacy: [facility]/pharmacy #[id number], 151, cm, 10/10/24 9:55:00 EDT, Height/Length Dosing, 56, kg, 10/10/24 9:55:00 EDT, Weight Dosing Follow-up With When Contact Information Chacho STEINER, Josephine Ferguson, JULIO C, MED In 7 weeks 05/30/[address] [facility] (1) Additional Instructions: after may 31 Problem List/Past Medical History Ongoing BMI 24.0-24.9, adult BMI 25.0-25.9,adult Carotid artery stenosis Chest pain Constipation COPD, mild Cough Daytime somnolence Fatigue Fluid level behind tympanic membrane of both ears Generalized anxiety disorder Generalized swelling, mass, or lump of abdomen or pelvis Hyperlipemia Hypertension Hyperthyroidism Loud snoring Major depressive disorder, recurrent episode, moderate Mild CAD Multiple thyroid nodules Rectal bleed Restless leg Screening for colon cancer Sinusitis Sleep apnea Smoker Thyroid goiter Historical Depression Hypertension Procedure/Surgical History Colonoscopy (08/21/2024), pinched nerve in neck (1960), colonoscopy. Medications Albuterol (Eqv-ProAir HFA) 90 mcg/inh inhalation aerosol, 2 puff(s), Inhalation, q6hr, 4 refills aspirin 81 mg Oral EC Tab, Oral, Daily escitalopram 5 mg oral tablet, 5 mg= 1 tab(s), Oral, Daily, 3 refills losartan 50 mg Tab, 100 mg= 2 tab(s), Oral, Daily, 3 refills methimazole 5 mg Tab, 5 mg= 1 tab(s), Oral, BID, 3 refills Symbicort 80/4.5 inhalation aerosol with adapter, 2 puff(s), Inhalation, BID, 5 refills Vitamin D 50,000 intl units (1.25 mg) oral capsule, 89050 International_Unit= 1 cap(s), Oral, qWeek, 3 refills Allergies No Known Allergies Social His (more content not included)...[facility] Comment on above:Result Comment: Electronically Signed By: Josephine Flores\Date and Time Signed: 04/11/25 10:03 [facility] on [id number] Medicine Office/Clinic NoteBenjamin [facility]/Clinic Note HPI Staff Sandhya is a 64 year old female presenting for 6 week follow up Patient is here for follow up on hypertension. How often are you checking your blood pressure? yes What are your average readings? 150/80 Do you have any of the following symptoms? Chest Pain? no Palpitations? no REYES/SOB? no Headache? no Peripheral Edema? no Light Headed? no TSH: U/s of thyroid ordered needs refill on Symbicort INH History of Present Illness pt presents today for follow up on BP. Review of Systems PHQ Score Initial Depression Screen Score: 0 SCORE Physical Exam Vitals & Measurements HR: 60(Peripheral) RR: 16 BP: 140/84 SpO2: 95% HT: 151.0 cm HT: 59 in WT: 56.0 kg WT: 123.459 lb BMI: 24.56 General: alert, no acute distress ENMT: oral mucosa moist, no pharyngeal erythema or exudate Cardiovascular: regular rate and rhythm, normal peripheral perfusion Respiratory: Lungs CTA, respirations non labored Extremities: no deformity, no trauma Neurological: oriented x 4, LOC appropriate for age, CN II-XII intact, motor strength equal & normal bilaterally, speech normal Assessment/Plan 1. Hypertension (I10: Essential (primary) hypertension) BP at goal in office today. will send refills on all meds. pt will continue to monitor BP at home. RTC 6 months will check TSH and other labs if needed at that time. Ordered: amlodipine, 5 mg = 1 tab(s), Oral, Daily, # 90 tab(s), Refills(s) 0, Pharmacy: [facility]/pharmacy #[id number], 151, cm, 08/01/24 11:07:00 EST, Height/Length Dosing, 54, kg, 08/01/24 11:07:00 EST, Weight Dosing amlodipine, 5 mg = 1 tab(s), Oral, Daily, X 90 day(s), # 90 tab(s), Refills(s) 3, Pharmacy: [facility]/pharmacy #[id number], 151, cm, 10/10/24 9:55:00 EDT, Height/Length Dosing, 56, kg, 10/10/24 9:55:00 EDT, Weight Dosing chlorthalidone, 25 mg = 1 tab(s), Oral, Daily, # 90 tab(s), Refills(s) 0, [id number], 151, cm, 08/01/24 11:07:00 EST, Height/Length Dosing, 54, kg, 08/01/24 11:07:00 EST, Weight Dosing chlorthalidone, 25 mg = 1 tab(s), Oral, Daily, X 90 day(s), # 90 tab(s), Refills(s) 3, Pharmacy: [facility]/pharmacy #[id number], 151, cm, 10/10/24 9:55:00 EDT, Height/Length Dosing, 56, kg, 10/10/24 9:55:00 EDT,Weight Dosing ergocalciferol, 50,000 International_Unit = 1 cap(s), Oral, qWeek, # 12 cap(s), Refills(s) 3, Pharmacy: [facility]/pharmacy #[id number], 151, cm, 08/29/24 8:26:00 EDT, Height/Length Dosing, 54.8, kg, 08/29/24 8:26:00 EDT, Weight Dosing ergocalciferol, 50,000 International_Unit = 1 cap(s), Oral, qWeek, # 12 cap(s), Refills(s) 3, Pharmacy: [facility]/pharmacy #[id number], 151, cm, 10/10/24 9:55:00 EDT, Height/Length Dosing, 56, kg, 10/10/24 9:55:00 EDT, Weight Dosing 2. 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 nodules are stable at this time. Ordered: budesonide-formoterol, 2 puff(s), Inhalation, BID, 10.2 gm, Refill(s) 5, [facility]/pharmacy #[id number], 151, cm, 10/10/24 9:55:00 EDT, Height/Length Dosing, 56, kg, 10/10/24 9:55:00 EDT, Weight Dosing budesonide-formoterol, 2 puff(s), Inhalation, BID, 10.2 gm, Refill(s) 0, [id number], cm, 05/31/24 14:29:00 EST, Height/Length Dosing, 53.6, kg, 05/31/24 14:29:00 EST, Weight Dosing escitalopram, 5 mg = 1 tab(s), Oral, Daily, X 90 day(s), # 90 tab(s), Refills(s) 3, [id number], 151, cm, 07/18/24 8:27:00 EST, Height/Length Dosing, 55, kg, 07/18/24 8:27:00 EST, Weight Dosing escitalopram, 5 mg = 1 tab(s), Oral, Daily, X 90 day(s), # 90 tab(s), Refills(s) 3, [id number], 151, cm, 10/10/24 9:55:00 EDT, Height/Length Dosing, 56, kg, 10/10/24 9:55:00 EDT, Weight Dosing 3. BMI 24.0-24.9, adult (Z68.24: Body mass index [BMI] 24.0-24.9, adult) BMI educaiton Ordered: ergocalciferol, 50,000 International_Unit = 1 cap(s), Oral, qWeek, # 12 cap(s), Refills(s) 3, [id number], 151, cm, 08/29/24 8:26:00 EDT, Height/Length Dosing, 54.8, kg, 08/29/24 8:26:00 EDT, Weight Dosing ergocalciferol, 50,000 International_Unit = 1 cap(s), Oral, qWeek, # 12 cap(s), Refills(s) 3, [id number], 151, cm, 10/10/24 9:55:00 EDT, Height/Length Dosing, 56, kg, 10/10/24 9:55:00 EDT, Weight Dosing 4. Former smoker (Z87.891: Personal history of nicotine dependence) continue not smoking Ordered: amlodipine, 5 mg = 1 tab(s), Oral, Daily, # 90 tab(s), Refills(s) 0, [id number], 151, cm, 08/01/24 11:07:00 EST, Height/Length Dosing, 54, kg, 08/01/24 11:07:00 EST, Weight Dosing amlodipine, 5 mg = 1 tab(s), Oral, Daily, X 90 day(s), # 90 tab(s), Refills(s) 3, [id number], 151, cm, 10/10/24 9:55:00 EDT, Height/Length Dosing, 56, kg, 10/10/24 9:55:00 EDT, Weight Dosing chlorthalidone, 25 mg = 1 tab(s), Oral, Daily, # 90 tab(s), Refills(s) 0, [id number], 151, cm, 08/01/24 11:07:00 EST, Height/Length Dosing, 54, kg, 08/01/24 11:07:00 EST, Weight Dosing chlorthalidone, 25 mg = 1 tab(s), Oral, Daily, X 90 day(s), # 90 tab(s), Refills(s) (more content not included)...[facility] Comment on above:Result Comment: Electronically Signed By: Josephine Flores\.br\Date and Time Signed: 10/10/24 10:18 EDTNo Panel Informationon 09-21-2024 [facility] HealthcarePatient Letter FTMCon [phone] Letter FTPatient Letter [facility] September 14, 2024 SANDHYA MALDONADO [address] [place] [phone] : 1960 Below is a summary of the results of your recent colonoscopy. Your results have been sent to your primary care provider along with recommendations on when the procedure should be repeated. COLONOSCOPY WITH POLYP REMOVAL OR BIOPSY Type of polyp 1x tubular adenoma - not cancer but can become cancer if not removed. Additional colonoscopies willbe necessary to monitor your condition and assure that new polyps have not developed. 1x hyperplastic polyps - benign - not considered precancerous Based on your results we are recommending you repeat the procedure in 3 years You will be placed in our reminder system and will receive a reminder letter prior to your next duedate. [facility] [phone] [phone] Reminders From: Xiomara Obrien MA To: [facility] - Reminders/Recalls; Sent: 09/14/2024 14:28:34 EDT Show up: 07/15/2027 14:28:00 EST Subject: colon recall Due Date/Time: 08/22/2027 14:28:00 EST Reminder/Recall [address] Hopson [facility]/24[facility], Limitedon [id number] Abdomen, LimitedExam Date/Time: 09/07/2024 09:41 EDT Reason for Exam: R19.07;Abnormal mass Report IMPRESSION: SUBCUTANEOUS ABDOMINAL WALL LIPOMA. CLINICAL HISTORY: Abnormal mass, R19.07 1-2 cm palpable lump with intermittent tenderness. COMPARISON: NONE. FINDINGS: Rectal sonographic interrogation was performed over the region of mid abdomen in the area of clinical concern. A subcutaneous 1.1 x 1.4 x 0.8 cm area of well-defined oval-shaped increased echogenicity was identified, corresponding to the area of clinical concern. No color flow identified. Technical Comments: Ordering Provider: Josephine Flor FINAL REPORT Dictated: 09/07/2024 10:26 am Dillan Camarillo MD Signed (Electronic Signature): 09/07/2024 10:26 am Signed by: Dillan Camarillo MD Transcribed by: CHAPIN Technologist: [facility] [phone] From: Josephine Flores To: [facility] - Clinical; Sent: 08/30/2024 12:00:10 EDT Show up: 08/30/2024 12:00:00 EDT Subject: Ambulatory Reminder Due Date/Time: 08/31/2024 11:59:00 EDT Vitamin D was pretty low. otherwise labs look good. I will send in higher dose of vitamin D. This will be taken once a week. Hopefully getting that back up will help with her fatigue Results: Date Result Name Ind Value Ref Range 08/29/2024 9:01 WBC 6.6 E9/L (4.0 - 11.0) 08/29/2024 9: RBC 4.4 E12/L (4.3 - 5.9) 08/29/2024 9:01 HGB 13.4 gm/dL (12.0 - 16.0) 08/29/2024 9:01 Hct 39.6 % (34.0 - 46.0) 08/29/2024 9: MCV 89.4 fL (80.0 - 100.0) 08/29/2024 9: MCH 30.2 pg (27.0 - 34.0) 08/29/2024 9: MCHC 33.8 gm/dL (31.4 - 36.0) 08/29/2024 9: RDW 13.8 % (10.9 - 14.2) 08/29/2024 9:01 Platelet 315.0 E9/L (150.0 - 500.0) 08/29/2024 9: MPV 8.6 fL (6.4 - 10.8) 08/29/2024 9:01 Neutro Auto 55.3 % (36.0 - 75.0) 08/29/2024 9:01 Lymph Auto 30.4 % (14.0 - 50.0) 08/29/2024 9:01 Leslie Auto 9.4 % (4.0 - 14.0) 08/29/2024 9:01 Eos Auto 3.9 % (0.0 - 8.0) 08/29/2024 9:01 Basophil Auto 1.0 % (0.0 - 2.0) 08/29/2024 9:01 Neutro Absolute 3.7 E9/L (2.0 - 7.5) 08/29/2024 9:01 Lymph Absolute 2.0 E9/L (1.0 - 4.0) 08/29/2024 9:01 Leslie Absolute 0.6 E9/L (0.2 - 1.0) 08/29/2024 9:01 Eos Absolute 0.3 E9/L (0.0 - 0.5) 08/29/2024 9:01 Basophil Absolute 0.1 E9/L (0.0 - 0.2) 08/29/2024 9:01 Iron 98 mcg/dL (35 - 153) 08/29/2024 9:01 Transferrin 235 mg/dL (200 - 370) 08/29/2024 9:01 TIBC 329 mcg/dL (250 - 400) 08/29/2024 9:01 TSH 1.05 mcIU/mL (0.34 - 5.60) 08/29/2024 9:01 Vitamin D 25 Hydroxy (L) 28.4 ng/mL (30.0 - 100.0) 08/29/2024 9:01 Ferritin Lvl 73 ng/mL (11 - 307) pt notified.NormalPremier Health Atrium Medical CenterCBC w/ Auto Diffon 08-29-2024 Basophils/100 WBC (Bld)1.0 %Normal0.0-2.0Prem[facility] Atrium Medical CenterComment on above:Performed By: #### [id number] #### [facility] [address], [place] [address]Yxqtkogca/Leukocytes Auto (Bld) [Pure # fraction]0.1 E9/LNormal 0.0-0.2FGlenbeigh HospitalComment on above:Performed By: #### [id number] #### [facility] [address] [place] [address]Isoyndcearv (Bld) [#/Vol]0.3 E9/LNormal0.0-0.5FGlenbeigh HospitalComment on above:Performed By: #### [id number] #### [facility] [address], [place] [address]Somdjhzhpmv/100 WBC (Bld)3.9 %Normal0.0-8.0Prem[facility] Atrium Medical CenterComment on above:Performed By: #### [id number] #### [facility] [address], [place] [address]Egdxpieijcy distribution width (RBC) [Ratio]13.8 %Normal 10.9-14.2FGlenbeigh HospitalComment on above:Performed By: #### [id number] #### [facility] [address] [place] [address]Ijgwcvmjxl (Bld) [Volume fraction]39.6 %Uhmhkt65.0-46.0Prem[facility] Atrium Medical CenterComment on above:Performed By: #### [id number] #### [facility] [address] [place] [address]Uiagydoppm (Bld) [Mass/Vol]13.4 g/oGIuzqya47.0-16.0[facility] Atrium Medical CenterComment on above:Performed By: #### [id number] #### [facility] [address] [place] [address] 35[address]Nzvclahypyc (Bld) [#/Vol]2.0 E9/LNormal1.0-4.0[facility] Atrium Medical CenterComment on above:Performed By: #### [id number] #### [facility] [address] [place] [address]Nwmdkvdxrvq/100 WBC (Bld)30.4 %Limrhf67.0-50.0[facility] Atrium Medical CenterComment on above:Performed By: #### [id number] #### [facility] [address] [place] [address] 24418THF (RBC) [Entitic mass]30.2 geNoxiju60.0-34.0Prem[facility] Atrium Medical CenterComment on above:Performed By: #### [id number] #### [facility] [address] [place] [address]32[address]WLMN (RBC) [Mass/Vol]33.8 g/bRQismmv34.4-36.0[facility]rium Medical CenterComment on above:Performed By: #### [id number] #### [facility] [address] [place] [address] 27704SVD (RBC) [Entitic vol]89.4 rDLycrgw55.0-100.0[facility]rium Medical CenterComment on above:Performed By: #### [id number] #### [facility] [address] [place] [address]Auyfgggje (Bld) [#/Vol]0.6 E9/LNormal0.2-1.0Prem[facility] Atrium Medical CenterComment on above:Performed By: #### [id number] #### [facility] [address] [place] [address] 18[address]Yrmuhogjgll (Bld) [#/Vol]3.7 E9/LNormal2.0-7.5FGlenbeigh HospitalComment on above:Performed By: #### [id number] #### [facility] [address] [place] [address] 012[address]Ctoucymcddp/100 WBC (Bld)55.3 %Jhyihc48.0-75.0[facility] Atrium Medical CenterComment on above:Performed By: #### [id number] #### [facility] [address] [place] [address] 08398Jikovuzp mean volume (Bld) [Entitic vol]8.6 fLNormal6.4-10.8 [facility] Medical CenterComment on above:Performed By: #### [id number] #### [facility] [address] [place] [address] 874[address]Tqnvovufh (Bld) [#/Vol]315.0 E9/FMmwbjb923.0-500.0Prem[facility] Atrium Medical CenterComment on above:Performed By: #### [id number] #### [facility] [address] [place] [address] 522[address]MAV (Bld) [#/Vol]4.4 E12/LNormal4.3-5.9Prem[facility] Atrium Medical CenterComment on above:Performed By: #### [id number] #### [facility] [address] [place] [address] 16768SXL corrected for nucl RBC Auto (Bld) [#/Vol]6.6 E9/LNormal 4.0-11.0Prem[facility] Atrium Medical CenterComment on above:Performed By: #### [id number] #### [facility] [address], [place] [address]FMOGGPVYNJglatny By: SYSTEM SYSTEM on - hydroxyvitamin D3 [Mass/Vol]28.4 ng/mLLow30.0 - 100.0 ng/mLRemisol ChemFerritin [Mass/Vol]73 ng/aHVkvexe41 - 307 ng/mLRemisol ChemIron [Mass/Vol]98 ug/dLNormal 35 - 153 mcg/dLRemisol ChemIron binding capacity [Mass/Vol]329 ug/rSTsemfi784 - 400 mcg/dLRemisol ChemTransferrin [Mass/Vol]235 mg/oSDowcuk569 - 370 mg/dL Remisol ChemTSH Qn1.05 m[IU]/LNormal0.34 - 5.60 mcIU/mLRemisol ChemFamily Medicine Office/Clinic Noteon 18-11-7249Vccmld Medicine Office/Clinic NoteFami Medicine Office/Clinic Note HPI Staff Sandhya is a 64 year old female presenting for 6 week follow up Patient is here for follow up on hypertension. DREW 08/01/24 stopped carvedilol, added amlodipine, chlorthalidone and potassium to the losartan. ordered sleep apnea testing. Pt was to come back in a week How often are you checking your blood pressure? Daily What are your average readings? 140/86 Do you have any of the following symptoms? Chest Pain? no Palpitations? no REYES/SOB? no Headache? no Peripheral Edema? no Light Headed? no Pt had sleep apnea testing done 08/14/24 Pt states she is tired all the time, says she wants to do things just doesn't have the energy. History of Present Illness pt presents today for BP follow up. Review of Systems PHQ Score Initial Depression Screen Score: 5 SCORE Detailed Depression Screen Score: 15 Total Depression Screen Score: 20 Physical Exam Vitals & Measurements HR: 70(Peripheral) RR: 18 BP: 126/74 SpO2: 98% HT: 59 in HT: 151 cm WT: 54.80 kg WT: 120.813 lb BMI: 24.03 General: alert, no acute distress ENMT: oral mucosa moist, no pharyngeal erythema or exudate Cardiovascular: regular rate and rhythm, normal peripheral perfusion Respiratory: Lungs CTA, respirations non labored Extremities: no deformity, no trauma Neurological: oriented x 4, LOC appropriate for age, CN II-XII intact, motor strength equal & normal bilaterally, speech normal Assessment/Plan 1. Hypertension (I10: Essential (primary) hypertension) BP at goal will continue current dose of medication. continue monitoring Bp at home RTC 6 weeks Ordered: CBC w/ Auto Diff Ferritin Iron Level Lab Specimen Collect [id number] Thyroid Stimulating Hormone TIBC Calculated Vitamin D 25 Hydroxy 2. Hyperthyroidism (E05.90: Thyrotoxicosis, unspecified without thyrotoxic crisis or storm) will check TSH today. pt was supposed to have surgery on thyroid during covid but never went. will order ultrasound for further evaluation of her thyroid. Ordered: CBC w/ Auto Diff Ferritin Iron Level Lab Specimen Collect [id number] Thyroid Stimulating Hormone TIBC Calculated US Thyroid Vitamin D 25 Hydroxy 3. Fatigue (R53.83: Other fatigue) pt c/o severe fatigue. she says I just don't have the energy to do anything. she is usually very active. sleep study was negative. and she is very surprised by this. will check labs today. and will also order u/s of thyroid Ordered: CBC w/ Auto Diff Ferritin Iron Level Lab Specimen Collect 13292 Thyroid Stimulating Hormone TIBC Calculated US Thyroid Vitamin D 25 Hydroxy 4. BMI 24.0-24.9, adult (Z68.24: Body mass index [BMI] 24.0-24.9, adult) BMI education gvien Ordered: CBC w/ Auto Diff Ferritin Iron Level Lab Specimen Collect 01766 Thyroid Stimulating Hormone TIBC Calculated US Thyroid Vitamin D 25 Hydroxy 5. Smoker (F17.200: Nicotine dependence, unspecified, uncomplicated) consider not smoking Ordered: CBC w/ Auto Diff Ferritin Iron Level Lab Specimen Collect [id number] Thyroid Stimulating Hormone TIBC Calculated US Abdomen, Limited US Thyroid Vitamin D 25 Hydroxy 6. Generalized swelling, mass, or lump of abdomen or pelvis (R19.07: Generalized intra-abdominal and pelvic swelling, mass and lump) pt has pea sized palpable mass middle of abdomen. she says it is starting to bother her, its tender. will order u/s for further evaluation Ordered: US Abdomen, Limited Follow-up No qualifying data available Problem List/Past Medical History Ongoing BMI 24.0-24.9, adult Carotid artery stenosis Chest pain Constipation COPD, mild Cough Daytime somnolence Fatigue Fluid level behind tympanic membrane of both ears Generalized anxiety disorder Generalized swelling, mass, or lump of abdomen or pelvis Hyperlipemia Hypertension Hyperthyroidism Loud snoring Major depressive disorder, recurrent episode, moderate Mild CAD Multiple thyroid nodules Rectal bleed Restless leg Screening for colon cancer Sinusitis Sleep apnea Smoker Thyroid goiter Historical Depression Hypertension Procedure/Surgical History Colonoscopy (08/21/2024), pinched nerve in neck (1959), colonoscopy. Medications Albuterol (Eqv-ProAir HFA) 90 mcg/inh inhalation aerosol, 2 puff(s), Inhalation, q6hr, 4 refills amLODIPine 5 mg Tab, 5 mg= 1 tab(s), Oral, Daily aspirin 81 mg Oral EC Tab, Oral, Daily calcium (as carbonate)-vitamin D 500 mg-200 intl units oral tablet, 1 tab(s), Oral, BID, 1 refills chlorthalidone 25 mg Tab, 25 mg= 1 tab(s), Oral, Daily escitalopram 5 mg oral tablet, 5 mg= 1 tab(s), Oral, Daily, 3 refills losartan 50 mg Tab, 50 mg= 1 tab(s), Oral, Daily methimazole 5 mg Tab, 5 mg= 1 tab(s), Oral, BID Potassium Chloride (Eqv-K-Tab) 10 mEq oral tablet, extended release, 10 mEq= 1 tab(s), Oral, BID Symbicort 80/4.5 inhalation aerosol with adapter, 2 puff(s), Inhalation, BID Narayan (more content not included)...[facility] HospitalComment on above:Result Comment: Electronically Signed By: Josephine Flores\.br\Date and Time Signed: 08/29/24 09:13 EDTFerritinon 68-08-9956Faxhspjs [Mass/Vol]73 ng/mL Xeexjp62-594VcstkaPremier Health Atrium Medical CenterComment on above:Performed By: #### [id number] #### [facility] [address] [place] [id number] By: SYSTEM SYSTEM on 55-56-2947Wyfftjqfq/100 WBC (Bld)1.0 %Normal0.0 - 2.0 %Remisol HemeBasophils/Leukocytes Auto (Bld) [Pure # fraction]0.1 E9/LNormal0.0 - 0.2 E9/LRemisol HemeEosinophils (Bld) [#/Vol]0.3 E9/LNormal0.0 - 0.5 E9/LRemisol HemeEosinophils/100 WBC (Bld)3.9 %Normal0.0 - 8.0 %Remisol HemeErythrocyte distribution width (RBC) [Ratio]13.8 %Hmuowc73.9 - 14.2 %Remisol HemeHematocrit (Bld) [Volume fraction]39.6 %Colosg34.0 - 46.0 % Remisol HemeHemoglobin (Bld) [Mass/Vol]13.4 g/uAPiauwq27.0 - 16.0 gm/dLRemisol HemeLymphocytes (Bld) [#/Vol]2.0 E9/LNormal1.0 - 4.0 E9/LRemisol Heme Lymphocytes/100 WBC (Bld)30.4 %Gcrpkl98.0 - 50.0 %Remisol HemeMCH (RBC) [Entitic mass]30.2 bsOiacmk15.0 - 34.0 pgRemisol HemeMCHC (RBC) [Mass/Vol]33.8 g/dL Hfuixx43.4 - 36.0 gm/dLRemisol HemeMCV (RBC) [Entitic vol]89.4 bCMzeqpd59.0 - 100.0 fLRemisol HemeMonocytes (Bld) [#/Vol]0.6 E9/LNormal0.2 - 1.0 E9/LRemisol HemeMonocytes/100 WBC (Bld)9.4 %Normal4.0 - 14.0 %Remisol HemeNeutrophils (Bld) [#/Vol]3.7 E9/LNormal2.0 - 7.5 E9/LRemisol HemeNeutrophils/100 WBC (Bld)55.3 % Pyjctc54.0 - 75.0 %Remisol HemePlatelet mean volume (Bld) [Entitic vol]8.6 fL Normal6.4 - 10.8 fLRemisol HemePlatelets (Bld) [#/Vol]315.0 E9/LRyaaiv791.0 - 500.0 E9/LRemisol HemeRBC (Bld) [#/Vol]4.4 E12/LNormal4.3 - 5.9 E12/LRemisol HemeWBC corrected for nucl RBC Auto (Bld) [#/Vol]6.6 E9/LNormal4.0 - 11.0 E9/L Remisol HemeIronon 67-81-6817Hsmj [Mass/Vol]98 microgram/qXLbwsqp57-020YbynspPremier Health Atrium Medical CenterComment on above:Performed By: #### [id number] #### [facility] [address], [place] [address]XZLR Calculatedon 01-59-9020Eroy binding capacity [Mass/Vol]329 microgram/fPEkqwkb161-260NkpcxwPremier Health Atrium Medical CenterComment on above:Performed By: #### [id number] #### [facility] [address], [place] [address]Bcivrbmjgiy [Mass/Vol]235 mg/vYJsiile768-352OmlcwjPremier Health Atrium Medical CenterComment on above:Performed By: #### [id number] #### [facility] [address], [place] [address]SNOcl 62-85-6150JNW Qn1.05 m[IU]/LNormal0.34-5.60[facility] Atrium Medical CenterComment on above:Performed By: #### [id number] #### [facility] [address], [place] [address]Hzeopno D 25 Hydroxyon 251456-jktidlwcfrbdwc D3 [Mass/Vol]28.4 ng/mLLow30.0-100.0Prem[facility] Atrium Medical CenterComment on above: Performed By: #### [id number] #### [facility] [address], [place] [address]Xmdh OR Intraoperative Recordon [id number] OR Intraoperative RecordMain OR Intraoperative Record IntraOp Document Type FT Summary Primary Physician: Marilyn Hopson MD Finalized Date/Time: 08/24/24 09:25:23 Pt. Name: SANDHYA MALDONADO/Sex: 1960 Female Med Rec #: [id number] Physician: Marilyn Hopson MD Financial #: [id number] Pt. Type: O Room/Bed: / Admit/Disch: 08/21/24 10:46:17 - 08/21/24 23:59:59 Institution: Case Times FT Entry 1 Patient Times In Room 08/21/24 12:08:00 Out Room 08/21/24 12:32:00 Procedure Times Start 08/21/24 12:11:00 Stop 08/21/24 12:30:00 Anesthesia Times Start 08/21/24 12:08:00 Stop 08/21/24 12:32:00 Time at [facility] 08/21/24 12:16:00 Last Modified By: Frankie BRYAN, Rosa Sharma 08/21/24 12:32:54 General Comments: 08/24/24 Chart opened to review and send charges LRoth CSFA Case Attendance FT Entry 1 Entry 2 Entry 3 Case Attendee Amador Chapa DO, Hunter David RN, Rosa Verduzco STEAM TUNNEL FEEDER, Romy Treviño Role Performed Anesthesiologist of Die Set Up Worker - Primary Scrub - Primary Record Time In 08/21/24 12:08:00 08/21/24 12:08:00 08/21/24 12:08:00 Time Out 08/21/24 12:13:00 08/21/24 12:32:00 08/21/24 12:32:00 Procedure COLONOSCOPY(.) COLONOSCOPY(.) COLONOSCOPY(.) Comments Last Modified By: Frankie RN, Rosa David RN, Rosa David RN, Rosa F 08/21/24 12:32:55 F 08/21/24 12:32:55 F 08/21/24 12:32:55 Entry 4 Entry 5 Case Attendee Emiliana SMILEY, Marilyn GARCIA, Hipolito Burton Role Performed Surgeon - Primary Anesthesiologist Rug Scratcher Time In 08/21/24 12:08:00 08/21/24 12:11:00 Time Out 08/21/24 12:32:00 08/21/24 12:32:00 Procedure COLONOSCOPY(.) COLONOSCOPY(.) Comments Dr. English supervising case Last Modified By: Frankie RN, Rosa David RN, Rosa Sharma 08/21/24 12:32:55 F 08/21/24 12:32:55 Perioperative Protocols FT Pre-Care Text: Implements protective measures prior to operative or invasive procedure, confirms identity before the operative or invasive procedure, verifies operative procedure, surgical site, and laterality Entry 1 Procedure(s) COLONOSCOPY(.) Patient Identity Birthday, ID Band Verified (select at Check, Patient least 2): Participation Consents / H and P Anesthesia Consent, Operative Site N/A Verified H&P, Surgery/Procedure Marking Verified Consent Surgical Site No Laterality Verified n/a Verified Procedure Verified Yes Correct Patient Yes Position Verified Availability Equipment, Medication Prep Dry n/a Verified (If Applicable) PreOp Antibiotic No Time Out Amador Chapa DO, Hunter Yeh, Given Participants Rosa David RN, Dax NOLASCO, Emiliana De Jesus MD, Marilyn Burton Time Out Complete 08/21/24 12:09:00 Outcomes Met? Yes Last Modified By: Rosa David RN 08/21/24 12:09:48 Post-Care Text: The patient is free from signs and symptoms of injury caused by extraneous objects Allergy Information FT Pre-Care Text: Verifies allergies Entry 1 Allergies Reviewed? Yes Allergies Reviewed Self/Patient With Outcomes Met? Yes Last Modified By: Rosa David RN 08/21/24 12:04:37 Post-Care Text: The patient received appropriate medication(s) safely administered during the perioperative period Surgical Procedures FT Entry 1 Procedure Description Procedure COLONOSCOPY Modifiers . Surgeon Description Colonoscopy with cecal polyp injected with lifting (Everlift) and removed using cold snare, sigmoid colon polypectomy x2. Primary Procedure Yes Primary Surgeon Emiliana SMILEY, Marilyn Burton Start 08/21/24 12:11:00 Stop 08/21/24 12:30:00 Anesthesia Type General Surgical Service Gastroenterology Wound Class 2 - Clean-Contaminated Last Modified By: Rosa David RN 08/21/24 12:30:44 General Case Data FT Pre-Care Text: Classifies surgical wound, implements aseptic technique, initiates traffic control Entry 1 Case Information OR ENDO 1 FT Case Level Level 2 Wound Class 2 - Clean-Contaminated Specialty Gastroenterology ASA Class 3 Preop Diagnosis Screen for colon cancer Postop Same As Preop No Postop Diagnosis External hemorrhoids, Outcomes Met? Yes cecal polyp, sigmoid colon polyps x2, internal hemorrhoids, diverticulosis Last Modified By: Rosa David RN 08/21/24 12:30:56 Post-Care Text: The patient is free from signs and symptoms of infection Skin Assessment (Pre Procedure) FT Pre-Care Text: Implements protective measures to prevent skin/ tissue injury due to thermal or mechanical sources Evaluates for signs and symptoms of physical injury to skin and tissue Entry 1 Skin Integrity Intact, [place], Warm, & Skin Abnormality No Dry Outcomes Met? Yes Last Modified By: Rosa David RN 08/21/24 12:04:32 Post-Care Text: The patient is free from signs and symptoms of injury caused by extraneous objects Patient Positioning FT Pre-Care Text: Identifies physical alterations that require addit (more content not included)...[facility] Centerurgical Pathology Reporton [id number] Pathology Report[address] [address]- Surgical Pathology Report Collected Date/Time: 08/21/2024 12:24 EDT Pathologist: Owen SMILEY PhD, Stuart Ferguson Received Date/Time: 08/21/2024 12:44 EDT Emiliana SMILEY, Marilyn Hopson MD, Marilyn Burton 07 Surgical Pathology Report - 08/23/2024 12:26 EDT - Auth (Verified) Final Diagnosis A: POLYP, CECUM, POLYPECTOMY: - TUBULAR ADENOMA. B: POLYPS, SIGMOID COLON, POLYPECTOMY: - HYPERPLASTIC POLYP. (Electronic Signature) Stuart Weaver MD PhD 08/23/2024 12:26 Clinical Information Screen for colon cancer Pre-Op Diagnosis: Screen for colon cancer Procedure: Colonoscopy Post-Op Diagnosis: 1. Small internal and external hemorrhoids 2. 2 sessile polyps in the sigmoid colon resected with cold snare together, 5 mm in size, retrieved 3. 1 cm sessile polyp in the cecum, used EMR technique to remove it, injected 3 ml of Everlift, resected using cold snare completely and retrieved 4. Normal examined terminal ileum Specimen(s) Received A.Cecal polyp B.Sigmoid colon polyps Gross Description A: Received in formalin labeled with patient name, number, and cecal polyp are three fragments of raphael/pink soft tissue measuring 0.2 to 0.5 cm in greatest dimension. Entire specimen submitted in one cassette. B: Received in formalin labeled with patient name, number, and sigmoid colon polyps is one fragment of raphael soft tissue measuring 0.4 cm in greatest dimension. Entire specimen submitted in one cassette. (YC) YL:[facility] Microscopic Description Microscopic examination performed unless gross only specified. This report was transcribed using voice recognition technology and might contain unintended computerized wagon drill operator errors.[facility] HospitalComment on above:Performed By: #### [id number] #### [facility] [address], [place] [address]Exlqqyjng Instructionson [id number] Instructions Discharge Instructions SANDHYA MALDONADO Rao :1960 Visit Date:08/21/2024 Inpatient Discharge Instructions Your Care Team Admitting Physician - Marilyn Hopson MD Referring Physician - Emiliana SMILEY, Marilyn Burton Reason for Your Visit SCREEN FOR COLON CANCER Your Diagnosis Colon polyp Tests Performed Pathology Tissue Exam -- Results Pending -- Please visit your patient portal for your results or contact your primary care physician. This Is Your Medications List albuterol (Albuterol (Eqv-ProAir HFA) 90 mcg/inh inhalation aerosol) amlodipine (amLODIPine 5 mg Tab) aspirin (aspirin 81 mg Oral EC Tab) budesonide-formoterol (Symbicort 80/4.5 inhalation aerosol with adapter) chlorthalidone (chlorthalidone 25 mg Tab) escitalopram (escitalopram 5 mg oral tablet) losartan (losartan 50 mg Tab) methimazole (methimazole 5 mg Tab) potassium chloride (Potassium Chloride (Eqv-K-Tab) 10 mEq oral tablet, extended release) Procedure History pinched nerve in neck (1959), colonoscopy. Discharge Vitals Temperature (Temporal Artery) 36.6 ???C Heart Rate (Monitored) 77 Respiratory Rate 11 Blood Pressure 128/62 Height 151 cm Weight 53 kg BMI 23.24 What to do next Instructions From Your Doctor Event Name Event Result Discharge Activity Resume normal activities in 24 hours Discharge Restrictions No driving for 24 hrs Discharge Diet(s) Regular Call Your Doctor For Persistent or heavy bleeding Discharge Instructions Discharge Instructions Previously Scheduled Follow-Up Appointments Wednesday 8:20 AM EDT With: Josephine Flores Where: [address] [address]- [id number] 8:00 AM EST With: Where: [address] [address]- New Follow Up Appointments after Discharge Follow Up with Marilyn Hopson When: Comments: Call for any problems. Where: [address] [place], [place] [address], [facility] [address] [phone] Business (1) Medications What How Much When Why Instructions Next Dose Unchanged albuterol (Albuterol (Eqv-ProAir HFA) 90 mcg/ inh inhalation aerosol) 2 Puffs Inhalation Every 6 hours Unchanged amlodipine (amLODIPine 5 mg Tab) 1 Tablets By Mouth Every day Hypertension Sleep apnea Loud snoring Restless leg Daytime somnolence BMI 23.0- 23.9, adult Former smoker Unchanged aspirin (aspirin 81 mg Oral EC Tab) By Mouth Every day Unchanged budesonide-formoterol (Symbicort 80/ 4.5 inhalation aerosol with adapter) 2 Puffs Inhalation 2 times a day COPD, mild Carotid artery stenosis Multiple thyroid nodules Chest pain Goiter Hyperlipemia BMI 23.0-23.9, adult Smoker Unchanged chlorthalidone (chlorthalidone 25 mg Tab) 1 Tablets By Mouth Every day Hypertension Sleepapnea Loud snoring Restless leg Daytime somnolence BMI 23.0- 23.9, adult Former smoker Unchanged escitalopram (escitalopram 5 mg oral tablet) 1 Tablets By Mouth Every day COPD, mild Carotid artery stenosis Multiple thyroid nodules Chest pain Goiter Hyperlipemia BMI 23.0-23.9, adult Smoker Duration: 90 Days Unchanged losartan (losartan 50 mg Tab) 1 Tablets By Mouth Every day Unchanged methimazole (methimazole 5 mg Tab) 1 Tablets By Mouth 2 times a day Unchanged potassium chloride (Potassium Chloride (Eqv-K-Tab) 10 mEq oral tablet, extended release) 1 Tablets By Mouth 2 times a day Hypertension Sleep apnea Loud snoring Restless leg Daytime somnolence BMI 23.0-23.9, adult Former smoker Test Results No qualifying data available. Allergies No Known Allergies Problems Ongoing - [...] no longer receiving treatment for. Depression Hypertension Education Materials Hemorrhoids Hemorrhoids are swollen veins that may form: ??? In the butt (rectum). These are called internal hemorrhoids. ??? Around the opening of the butt (anus). These are called external hemorrhoids. Most hemorrhoids do not cause very bad problems. They often get better with changes to your lifestyle and what you eat. What are the causes? Having trouble pooping (constipation) or watery poop (diarrhea). ??? Pushing too hard when you poop. ??? . ??? Being very overweight (obese). ??? Sitti (more content not included)...[facility] HospitalComment on above:Result Comment: Electronically Signed By: Damian BRYAN, Sonia\.br\Date and Time Signed: 08/21/24 12:40 EDTInpatient Patient Summaryon 08-21-2024 Inpatient Patient SummaryInpatient Patient Summary [place] [id number] [facility] Clinical Discharge Instructions PERSON INFORMATION Name: SANDHYA MALDONADO PHYSICIANS Admitting Physician: Marilyn Hopson MD Attending Physician: Marilyn Hopson MD PCP: Josephine Flores Discharge Diagnosis: Colon polyp Comment: PATIENT EDUCATION INFORMATION Instructions: Medication Leaflets: Follow up: Type Location Start Finish State FM Open [facility] [place] 08/29/2024 8:20 AM 08/29/2024 8:40 AM Confirmed [facility] 8:00 AM 07/18/2025 9:00 AM Confirmed MEDICATION LIST Medications to Continue with No Changes Other Medications albuterol (Albuterol (Eqv-ProAir HFA) 90 mcg/inh inhalation aerosol) 2 Puffs Inhalation every 6 hours. Refills: 4. amlodipine (amLODIPine 5 mg Tab) 1 Tablets By Mouth every day. Refills: 0. aspirin (aspirin 81 mg Oral EC Tab) By Mouth every day. budesonide-formoterol (Symbicort 80/4.5 inhalation aerosol with adapter) 2 Puffs Inhalation 2 timesa day. Refills: 0. chlorthalidone (chlorthalidone 25 mg Tab) 1 Tablets By Mouth every day. Refills: 0. escitalopram (escitalopram 5 mg oral tablet) 1 Tablets By Mouth every day for 90 Days. Refills: 3. losartan (losartan 50 mg Tab) 1 Tablets By Mouth every day. Refills: 0. methimazole (methimazole 5 mg Tab) 1 Tablets By Mouth 2 times a day. Refills: 0. potassium chloride (Potassium Chloride (Eqv-K-Tab) 10 mEq oral tablet, extended release) 1 Tablets By Mouth 2 times a day. Refills: 0. Comment:[facility] Intraoperative Recordon [id number] OR Intraoperative RecordMain OR Intraoperative Record IntraOp Document Type FT Summary Primary Physician: Marilyn Hopson MD Finalized Date/Time: 08/21/24 12:33:01 Pt. Name: SANDHYA MALDONADO/Sex: 1960 Female Med Rec #: [id number] Physician: Marilyn Hopson MD Financial #: [id number] Pt. Type: O Room/Bed: / Admit/Disch: 08/21/24 10:46:17 - Institution: Case Times FT Entry 1 Patient Times In Room 08/21/24 12:08:00 Out Room 08/21/24 12:32:00 Procedure Times Start 08/21/24 12:11:00 Stop 08/21/24 12:30:00 Anesthesia Times Start 08/21/24 12:08:00 Stop 08/21/24 12:32:00 Time at [facility] 08/21/24 12:16:00 Last Modified By: Frankie BRYAN, Rosa Sharma 08/21/24 12:32:54 Case Attendance FT Entry 1 Entry 2 Entry 3 Case Attendee Amador Chapa DO, Hunter David RN, Rosa Verduzco CST, Romy Treviño Role Performed Anesthesiologist of Die Set Up Worker - Primary Scrub - Primary Record Time In 08/21/24 12:08:00 08/21/24 12:08:00 08/21/24 12:08:00 Time Out 08/21/24 12:13:00 08/21/24 12:32:00 08/21/24 12:32:00 Procedure COLONOSCOPY(.) COLONOSCOPY(.) COLONOSCOPY(.) Comments Last Modified By: Frankie RN, Rosa David RN, Rosa David RN, Rosa Sharma 08/21/24 12:32:55 F 08/21/24 12:32:55 F 08/21/24 12:32:55 Entry 4 Entry 5 Case Attendee Emiliana SMILEY, Marilyn GARCIA, Hipolito Burton Role Performed Surgeon - Primary Anesthesiologist Rug Scratcher Time In 08/21/24 12:08:00 08/21/24 12:11:00 Time Out 08/21/24 12:32:00 08/21/24 12:32:00 Procedure COLONOSCOPY(.) COLONOSCOPY(.) Comments Dr. English supervising case Last Modified By: Frankie RN, Rosa David RN, Rosa Sharma 08/21/24 12:32:55 F 08/21/24 12:32:55 Perioperative Protocols FT Pre-Care Text: Implements protective measures prior to operative or invasive procedure, confirms identity before the operative or invasive procedure, verifies operative procedure, surgical site, and laterality Entry 1 Procedure(s) COLONOSCOPY(.) Patient Identity Birthday, ID Band Verified (select at Check, Patient least 2): Participation Consents / H and P Anesthesia Consent, Operative Site N/A Verified H&P, Surgery/Procedure Marking Verified Consent Surgical Site No Laterality Verified n/a Verified Procedure Verified Yes Correct Patient Yes Position Verified Availability Equipment, Medication Prep Dry n/a Verified (If Applicable) PreOp Antibiotic No Time Out Hunter English Jr, DO, Given Participants Frankie BRYAN, Rosa F, DaxRomy wise CST, Sarmini MD, Marilyn Burton Time Out Complete 08/21/24 12:09:00 Outcomes Met? Yes Last Modified By: Rosa David RN 08/21/24 12:09:48 Post-Care Text: The patient is free from signs and symptoms of injury caused by extraneous objects Allergy Information FT Pre-Care Text: Verifies allergies Entry 1 Allergies Reviewed? Yes Allergies Reviewed Self/Patient With Outcomes Met? Yes Last Modified By: Rosa David RN 08/21/24 12:04:37 Post-Care Text: The patient received appropriate medication(s) safely administered during the perioperative period Surgical Procedures FT Entry 1 Procedure Description Procedure COLONOSCOPY Modifiers . Surgeon Description Colonoscopy with cecal polyp injected with lifting (Everlift) and removed using cold snare, sigmoid colon polypectomy x2. Primary Procedure Yes Primary Surgeon Emiliana SMILEY, Marilyn Burton Start 08/21/24 12:11:00 Stop 08/21/24 12:30:00 Anesthesia Type General Surgical Service Gastroenterology Wound Class 2 - Clean-Contaminated Last Modified By: Rosa David RN 08/21/24 12:30:44 General Case Data FT Pre-Care Text: Classifies surgical wound, implements aseptic technique, initiates traffic control Entry 1 Case Information OR ENDO 1 FT Case Level Level 2 Wound Class 2 - Clean-Contaminated Specialty Gastroenterology ASA Class 3 Preop Diagnosis Screen for colon cancer Postop Same As Preop No Postop Diagnosis External hemorrhoids, Outcomes Met? Yes cecal polyp, sigmoid colon polyps x2, internal hemorrhoids, diverticulosis Last Modified By: Rosa David RN 08/21/24 12:30:56 Post-Care Text: The patient is free from signs and symptoms of infection Skin Assessment (Pre Procedure) FT Pre-Care Text: Implements protective measures to prevent skin/ tissue injury due to thermal or mechanical sources Evaluates for signs and symptoms of physical injury to skin and tissue Entry 1 Skin Integrity Intact, [place], Warm, & Skin Abnormality No Dry Outcomes Met? Yes Last Modified By: Rosa David RN 08/21/24 12:04:32 Post-Care Text: The patient is free from signs and symptoms of injury caused by extraneous objects Patient Positioning FT Pre-Care Text: Identifies physical alterations that require additional precautions for procedure-specific positioning, verifies presence of prosthetics or correctiv (more content not included)... [facility] II Recordon [id number] OR PACU II RecordMain OR PACU II Record PACU Phase II Document Type FT Summary Primary Physician: Marilyn Hopson MD Finalized Date/Time: 08/21/24 14:57:00 Pt. Name: SANDHYA MALDONADO Rao Garcia/Sex: 1960 Female Med Rec #: [id number] Physician: Marilyn Hopson MD Financial #: [id number] Pt. Type: O Room/Bed: / Admit/Disch: 08/21/24 10:46:17 - Institution: Case Times PACU II FT Pre-Care Text: Identifies barriers to communication and implements measures to provide psychological support and determines knowledge level Develops individualized plan of care, and ensures continuity of care Maintains patient's dignity and privacy, and maintains patient confidentiality Identifies and reports philosophical, cultural, and spiritual beliefs and values Identifies individual values and wishes concerning care administers prescribed antibiotic therapy and immunizing agents as ordered, Evaluates postoperative tissue perfusion Implements thermoregulation measures, and monitors body temperature Evaluates postoperative respiratory statusEvaluates postoperative cardiac status Evaluates postoperative neurological status Assesses pain control, collaborated in initiating patient-controlled analgesia and implements alternative methods of pain control Verifies allergies, administers prescribed medications and solutions, evaluates response to medications Entry 1 In PACU II 08/21/24 12:33:00 Discharge from PACU 08/21/24 13:05:00 II Outcomes Met? Yes Last Modified By: Sonia Salgado RN 08/21/24 14:56:54 Post-Care Text: The patient demonstrates knowledge of the expected response to the operative or invasive procedure The patient's care is consistent with the individualized perioperative plan of care The patient's rightto privacy is maintained The patient's value system, lifestyle, ethnicity, and culture are considered, respected, and incorporated into the perioperative plan of care The patient participates in decisions affecting his or her perioperative plan of care. The patient is free from signs and symptoms of infection The patient has wound/tissue perfusion consistent with or improved from baseline levels established preoperatively The patient is at or returning to normothermia at the conclusion of the immediate postoperative period The patient's respiratory function is consistent with or improved from baseline levels established preoperativelyThe patient's cardiovascular status is consistent with or improved from baseline levels established preoperatively The patient's neurological status is consistent with or improved from baseline levels established preoperatively The patient demonstrates and/or reports adequate pain control throughout the perioperative period The patient received appropriate medication(s), safely administered during the perioperativeperiod Finalized By: Sonia Salgado RN Document Signatures Signed By: Sonia Salgado RN 08/21/24 14:57NormalPremier Health [facility] CenterMain OR Preoperative Recordon [id number] OR Preoperative RecordMain OR Preoperative Record Holding Area Document Type FT Summary Primary Physician: Marilyn Hopson MD Finalized Date/Time: 08/21/24 10:56:47 Pt. Name: JOELSANDHYA/Sex: 1960 Female Med Rec #: [id number] Physician: Marilyn Hopson MD Financial #: [id number] Pt. Type: O Room/Bed: / Admit/Disch: 08/21/24 10:46:17 - Institution: Case Times Holding FT Pre-Care Text: Verifies consent for planned procedure, identifies individual values and wishes concerning care, includes family members in perioperative teaching Secures patient's records' belongings, and valuables, maintains patient's dignity and privacy, and maintains patient confidentiality Entry 1 In Holding 08/21/24 10:55:00 Outcomes Met? Yes Last Modified By: Rosa David RN 08/21/24 10:55:45 Post-Care Text: The patient participates in decisions affecting his or her perioperative plan of care The patient'sright to privacy is maintained Surgery Checklist FT Entry 1 Patient Birthday, ID Band Procedure History and Physical, Identification: Check, Patient Verification: Surgical Consent, With Participation Patient NPO after Midnight: Yes Date/Time: 08/21/24 08:00:00 Personal Items: Dentures, Glasses Personal Items glasses, dentures, Comment: clothes, shoes Limitations: n/a Complaints of Pain: No Pain Comment: denies Operative Site n/a Marking: Marked By: n/a Availability Equipment Verified: Does Patient Smoke No Patient states Yes Comment - Adult grandson- Vamsi postop adult Supervision supervision available Case Cancelled in No Holding Area see comments below for reason Last Modified By: Rosa David RN 08/21/24 10:56:46 General Comments: Pt finished colon prep at 0800, states stool is clear liquid yellow, has been NPO since./ ,RN Finalized By: Rosa David RN Document Signatures Signed By: Rosa David RN 08/21/24 10:56No[facility] Discharge Instructionon [id number] Surgery Discharge InstructionOutpatient Surgery Discharge Instruction [place] [id number] Patient Discharge Instructions PERSON INFORMATION Name: SANDHYA MALDONADO Date of : 1960 Current Date: 08/21/2024 12:34:26 PHYSICIANS Admitting Physician: Emiliana SMILEY, Marilyn Burton Discharge Diagnosis: Colon polyp SANDHYA MALDONADO Rao has been given the following list of follow-up instructions, prescriptions, and patient education materials: PATIENT FOLLOW-UP INFORMATION Diet: Regular Discharge Activity: Resume normal activities in 24 hours Discharge Restrictions: No driving for 24 hrs Call Your Doctor For: Persistent or heavy bleeding IF UNABLE TO CONTACT YOUR PHYSICIAN AND YOU FEEL IT IS AN EMERGENCY, GO TO THE NEAREST EMERGENCY ROOM OR CALL 911 IJOEL CAROL A, have received the attached patient education materials/instructions and have verbalized understanding: May we do a follow up call? Yes No I was present when discharge instructions were given Patient Signature Date Clinican/Nurse Signature Date Follow up: Type Location Start Finish State FM Open [facility] [place] 08/29/2024 8:20 AM 08/29/2024 8:40 AM Confirmed FM Medicare Wellness Subsequent [facility] [place] 07/18/2025 8:00 AM 07/18/2025 9:00 AM Confirmed Pharmacy Information: You may receive a survey from Chance Castillo asking you to rate your care experience. Your feedback is important and will help us understand what we do well and how we can improve the quality of care we provide to you, your loved ones and our community. It???s an honor to serve you. Thank you for choosing [facility] HERE ARE THE MEDICATION CHANGES THAT OCCURRED DURING YOUR HOSPITAL STAY Medications to Continue with No Changes Other Medications albuterol (Albuterol (Eqv-ProAir HFA) 90 mcg/inh inhalation aerosol) 2 Puffs Inhalation every 6 hours. Refills: 4. amlodipine (amLODIPine 5 mg Tab) 1 Tablets By Mouth every day. Refills: 0. aspirin (aspirin 81 mg Oral EC Tab) By Mouth every day. budesonide-formoterol (Symbicort 80/4.5 inhalation aerosol with adapter) 2 Puffs Inhalation 2 timesa day. Refills: 0. chlorthalidone (chlorthalidone 25 mg Tab) 1 Tablets By Mouth every day. Refills: 0. escitalopram (escitalopram 5 mg oral tablet) 1 Tablets By Mouth every day for 90 Days. Refills: 3. losartan (losartan 50 mg Tab) 1 Tablets By Mouth every day. Refills: 0. methimazole (methimazole 5 mg Tab) 1 Tablets By Mouth 2 times a day. Refills: 0. potassium chloride (Potassium Chloride (Eqv-K-Tab) 10 mEq oral tablet, extended release) 1 Tablets By Mouth 2 times a day. Refills: 0. PATIENT EDUCATION INFORMATION Instructions: Medication Leaflets:[facility] 08-21-2024 RemindersReminders From: Josephine Flores To: [facility] Clinical; Sent: 08/10/2024 13:45:04 EST Show up: 08/10/2024 13:44:00 EST Subject: Ambulatory Reminder Due Date/Time: 08/11/2024 13:43:00 EST Bone density showed osteopenia. will need to start calcium and Vitamin D. Does she want to get thatOTC or would she like me to send in prescription for it. Results: Date Result Type Result Name 08/10/2024 13:34 Radiology BD Bone Density DEXA From: Melissa Anaya M.A. ([facility]) To: Josephine Flores; Sent: 08/11/2024 12:38:21 EST Show up: 08/11/2024 12:32:00 EST Subject: RE: Ambulatory Reminder she would like a prescription sent in so she knows she is taking the right thing pt. called to check on script. . From: Melissa Anaya M.A. ([facility] Clinical) To: Josephine Flores; [facility] Clinical; Sent: 08/14/2024 09:33:30 EST ! Show up: 08/14/2024 09:33:00 EST Subject: RE: Ambulatory Reminder From: Josephine Flores To: [facility]; Sent: 08/21/2024 13:32:43 EDT Show up: 08/21/2024 13:32:00 EDT Subject: RE: [facility]ulatory [facility] [id number] Reminders From: Josephine Flores To: [facility] - Clinical; Sent: 08/11/2024 13:34:30 EST Show up: 08/11/2024 13:35:00 EST Subject: Ambulatory Reminder Due Date/Time: 08/12/2024 13:34:[address] of chest was negative Results: Date Result Type Result Name 08/11/2024 12:[address] Chest, Low Dose Screening LVM for pt to return call, please advise pt of message below LVM for pt to return call pt made awareNormalRiley [facility], Low Dose Screeningon [id number] Chest, Low Dose ScreeningExam Date/Time: 08/10/2024 09:11 EST Reason for Exam: [...] Flor FINAL REPORT Dictated: 08/11/2024 12:52 pm Dilaln Camarillo MD Signed (Electronic Signature): 08/11/2024 12:52 pm Signed by: Dillan Camarillo MD Transcribed by: CHAPIN Technologist: [facility] HospitalBD [facility] Density DEXAon [id number] Bone Density DEXAExam Date/Time: 08/10/2024 09:08 EST Reason for Exam: [...] REPORT Dictated: 08/10/2024 1:31 pm Mitchell Carrera MD Signed (Electronic Signature): 08/10/2024 1:31 pm Signed by: Mitchell Carrera MD Transcribed by: CHAPIN Technologist: Miguel AngelPremier Health Atrium Medical CenterAmbulatory Visit Summaryon [id number] Visit SummaryAmbulatory Visit Summary SANDHYA MALDONADO :1960 Visit Date:08/07/2024 Ambulatory Visit Instructions Your Diagnosis Screening for colon cancer Your Care Team Attending Physician - Emiliana SMILEY, Marilyn Burton Primary Care Physician - Josephine Flores This Is Your Medications List polyethylene glycol 3350 with electrolytes (NuLYTELY [place] oral powder for reconstitution) Contact prescribing physician if questions or concerns albuterol (Albuterol (Eqv-ProAir HFA) 90 mcg/inh inhalation aerosol) amlodipine (amLODIPine 5 mg Tab) aspirin (aspirin 81 mg Oral EC Tab) budesonide-formoterol (Symbicort 80/4.5 inhalation aerosol with adapter) chlorthalidone [...] Appointments Wednesday 10:20 AM EST With: Where: [address] [address] 2024 9:00 AM EST With: Where: [facility] 2024 9:30 AM EST With: Where: [facility] Wednesday 8:20 AM EDT With: Josephine Flores Where: [address] [address]- Wednesday2025 8:00 AM EST With: Where: [address] [address]- Medications What How Much When Why Instructions New polyethylene glycol 3350 with electrolytes (NuLYTELY [place] oral powder for reconstitution) Seeinstructions follow up physicians insctructions Pickup at [facility]/pharmacy #[id number] Unchanged albuterol (Albuterol (Eqv-ProAir HFA) 90 mcg/ inh inhalation aerosol) 2 Puffs Inhalation Every 6 hours Contact prescribing physician if questions or concerns Unchanged amlodipine (amLODIPine 5 mg Tab) 1 Tablets By Mouth Every day Hypertension Sleep apnea Loud snoring Restless leg Daytime somnolence BMI 23.0- 23.9, adult Former smoker Contact prescribing physician if questions or concerns Unchanged aspirin (aspirin 81 mg Oral EC Tab) By Mouth Every day Contact prescribing physician if questions or concerns Unchanged budesonide-formoterol (Symbicort 80/ 4.5 inhalation aerosol with adapter) 2 Puffs Inhalation 2 times a day COPD, mild Carotid artery stenosis Multiple thyroid nodules Chest pain Goiter Hyperlipemia BMI 23.0-23.9, adult Smoker Contact prescribing physician if questions or concerns Unchanged chlorthalidone (chlorthalidone 25 mg Tab) 1 Tablets By Mouth Every day Hypertension Sleepapnea Loud snoring Restless leg Daytime somnolence BMI 23.0- 23.9, adult Former smoker Contact prescribing physician if [...] physician if questions or concerns Pharmacy Information [facility]/pharmacy #[id number]: [address], [place] [phone] Allergies No Known Allergies Problems Ongoing - [...] us by complet (more content not included)... [facility] Office/Clinic Noteon [id number] Office/Clinic NoteGastroenterology Office/Clinic Note Chief Complaint screening colonoscopy HPI Staff New patient is a(n) 64 year old female who was referred by [facility] for a screening colonoscopy. Denies Fhx colon cancer/diseases. previous EGD/Colonoscopy- [place] about 30 years ago. Cologuard - 5 [...] 5 mg= 1 tab(s), Oral, BID NuLYTELY [place] oral powder for reconstitution, See Instructions Potassium [...] 09/20/2020 Recorded SARS-CoV-2 (COVID-19) mRNA-1273 vaccine 08/20/2020 RecordedWVUMedicine Barnesville HospitalComment on above:Result Comment: Electronically Signed By: Marilyn Hopson MD\.br\Date and Time Signed: 08/07/24 09:08 EST\.br\Electronically Co-Signed By: Emmanuelle Gee MA\.br\Date and Time Co- Signed: 08/07/24 09:06 ESTAmbulatory Visit Summaryon [id number] Visit SummaryAmbulatory Visit Summary SANDHYA MALDONADO :1960 Visit Date:08/01/2024 Ambulatory Visit Instructions Your Diagnosis Sleep apnea Hypertension BMI 23.0-23.9, adult Former smoker Your Care Team Attending Physician - Josephine Flores Primary Care Physician - Josephine Flores This Is Your Medications List albuterol (Albuterol (Eqv-ProAir HFA) 90 mcg/inh inhalation aerosol) aspirin (aspirin 81 mg Oral EC Tab) budesonide-formoterol (Symbicort 80/4.5 inhalation aerosol with adapter) escitalopram [...] EST With: Emiliana SMILEY, Marilyn Burton Where: [facility] [address] [place] [address] Ave [address] [place] [address]- Wednesday 10:20 AM EST With: Where: [address] [address] 2024 9:00 AM EST With: Where: [facility] 2024 9:30 AM EST With: Where: [facility] Wednesday 8:20 AM EDT With: Josephine Flores Where: [address] [address]- Wednesday2025 8:00 AM EST With: Where: [address] [address]- Medications What How Much When Why Instructions Unchanged albuterol (Albuterol (Eqv-ProAir HFA) 90 mcg/ inh inhalation aerosol) 2 Puffs Inhalation Every 6 hours Unchanged aspirin (aspirin 81 mg Oral EC Tab) By Mouth Every day Unchanged budesonide-formoterol (Symbicort 80/ 4.5 inhalation aerosol with adapter) [...] you for choosing us for your care. [facility] Office/Clinic Noteon [id number] Medicine Office/Clinic NoteFapondville state hospital Medicine Office/Clinic Note HPI Staff Sandhya is a 64 year old female presenting for ER follow up ER followup: 07/25/24 started Losartan 50mg Hospital: [facility] Visit date: 07/25/24 Symptoms the patient [...] Daily, # 90 tab(s), Refills(s) 0, Pharmacy: [facility]/pharmacy #[id number], 151, cm, 08/01/24 11:07:00 EST, Height/Length Dosing, 54, kg, 08/01/24 11:07:00 EST, Weight Dosing chlorthalidone, 25 mg = 1 tab(s), Oral, Daily, # 90 tab(s), Refills(s) 0, Pharmacy: [facility]/pharmacy #[id number], 151, cm, 08/01/24 11:07:00 EST, Height/Length Dosing, 54, kg, 08/01/24 11:07:00 EST, Weight Dosing potassium chloride, 10 mEq = 1 tab(s), Oral, BID, # 90 tab(s), Refills(s) 0, [id number], 151, cm, 08/01/24 11:07:00 EST, Height/Length Dosing, 54, kg, 08/01/24 11:07:00 EST, Weight Dosing Influenza Type A&B POC 91619 Rapid COVID POC 07561 2. Sleep apnea (G47.30: Sleep apnea, unspecified) pt c/o snoring, gasping, frequent wakening, restless leg, daytime fatigue will order sleep apnea testing through [facility]. pt is convinced her BP is elevated due to sleep apnea issues. Ordered: amlodipine, 5 mg = 1 tab(s), Oral, Daily, # 90 tab(s), Refills(s) 0, [id number], 151, cm, 08/01/24 11:07:00 EST, Height/Length Dosing, 54, kg, 08/01/24 11:07:00 EST, Weight Dosing chlorthalidone, 25 mg = 1 tab(s), Oral, Daily, # 90 tab(s), Refills(s) 0, [id number], 151, cm, 08/01/24 11:07:00 EST, Height/Length Dosing, 54, kg, 08/01/24 11:07:00 EST, Weight Dosing potassium chloride, 10 mEq = 1 tab(s), Oral, BID, # 90 tab(s), Refills(s) 0, [id number], 151, cm, 08/01/24 11:07:00 EST, Height/Length Dosing, 54, kg, 08/01/24 11:07:00 EST, Weight Dosing Influenza Type A&B POC 16524 Rapid COVID POC 44487 3. Loud snoring (R06.83: Snoring) see above Ordered: amlodipine, 5 mg = 1 tab(s), Oral, Daily, # 90 tab(s), Refills(s) 0, [id number], 151, cm, 08/01/24 11:07:00 EST, Height/Length Dosing, 54, kg, 08/01/24 11:07:00 EST, Weight Dosing chlorthalidone, 25 mg = 1 tab(s), Oral, Daily, # 90 tab(s), Refills(s) 0, Pharmacy: [facility]/pharmacy #[id number], 151, cm, 08/01/24 11:07:00 EST, Height/Length Dosing, 54, kg, 08/01/24 11:07:00 EST, Weight Dosing potassium chloride, 10 mEq = 1 tab(s), Oral, BID, # 90 tab(s), Refills(s) 0, Pharmacy: [facility]/pharmacy#[id number], 151, cm, 08/01/24 11:07:00 EST, Height/Length Dosing, 54, kg, 08/01/24 11:07:00 EST, Weight Dosing 4. Restless leg (G25.81: Restless legs syndrome) see above Ordered: amlodipine, 5 mg = 1 tab(s), Oral, Daily, # 90 tab(s), Refills(s) 0, Pharmacy: [facility]/pharmacy #[id number], 151, cm, 08/01/24 11:07:00 EST, Height/Length Dosing, 54, kg, 08/01/24 11:07:00 EST, Weight Dosing chlorthalidon (more content not included)...[facility] Comment on above:Result Comment: Electronically Signed By: Josephine Flores\.br\Date and Time Signed: 08/01/24 11:51 Charline [id number] Reminders From: Yadira Junior To: [facility] - Clinical; Sent: 07/25/2024 15:23:06 EST Show up: 07/25/2024 15:23:00 EST Subject: Ambulatory Reminder Due Date/Time: 07/27/2024 15:23:00 EST Reminder/Recall Check to see if pt scheudled a 2 week ER follow up for blood pressure. Pt went to [facility] 07/25/14 for elevated blood pressure in office to when she stopped in 250/110. pt has appt 08/07 for follow upNoKindred HealthcareFami Medicine Phone Visit - Telehealthon 81-20-6706Esxgqy Medicine Phone Visit - Telehealth Family Medicine Phone Visit - Telehealth Physical Exam Vitals & Measurements BP: 250/110 Assessment/Plan 1. Hypertension (I10: Essential (primary) hypertension) pt walked into office to have BP checked. Was sent to [facility] ER. they treated her with IV medication and wanted to keep her but she insisted on going home. will order losartan. pt will return in 2 weekswith BP log. Orders: losartan, 50 mg = 1 tab(s), Oral, Daily, # 90 tab(s), Refills(s) 0, Pharmacy: [facility]/pharmacy #[id number], 151, cm, 07/18/24 8:27:00 EST, Height/Length [...] 09/20/2020 Recorded SARS-CoV-2 (COVID-19) mRNA-1273 vaccine 08/20/2020 RecordedNormrobertaPremier Health Atrium Medical CenterComment on above:Result Comment: Electronically Signed By: Josephine Flores\.br\Date and Time Signed: 07/25/24 15:24 ESTAmbulatory Visit Summary on 92-61-7144Ggsjsivxtw Visit SummaryAmbulatory Visit Summary SANDHYA MALDONADO Rao :1960 Visit [...] aspirin (aspirin 81 mg Oral EC Tab) budesonide-formoterol (Symbicort 80/4.5 inhalation aerosol with adapter) carvedilol [...] Bone Density Wednesday2025 8:00 AM EST Where: [address] [address]- You Need to Complete the Following BD Bone Density DEXA, 07/25/24, Routine, Order for Future Visit, Transport Mode: Ambulatory, Reason: Post menopausal, Reason: E28.39, Ovarian failure due to menopause, No, 121, pp_set_radiology_subspecialty, Not Required, [facility] CT Chest, Low Dose Screening, 07/18/24, Routine, Order for future visit, Transport Mode: Ambulatory, Reason: Screening, No, Yes, Yes, 1, 40, Yes, 4, [id number], No, History of smoking, pp_set_radiology_subspecialty, Not Required, [facility] Medications What How Much When Why Instructions Unchanged albuterol (Albuterol (Eqv-ProAir HFA) 90 mcg/ inh inhalation aerosol) 2 Puffs Inhalation Every 6 hours Unchanged aspirin (aspirin 81 mg Oral EC Tab) By Mouth Every day Unchanged budesonide-formoterol (Symbicort 80/ 4.5 inhalation aerosol with adapter) [...] Mouth 2 times a day Pickup at [facility]/pharmacy #[id number] Pharmacy Information [facility]/pharmacy #[id number]: [address] [place], [place] [phone] Allergies No Known Allergies Problems Ongoing - [...] have a fall. Your health care provider mayrecommend: ??? Regular vision checks. Poor vision and conditions such as cataracts can make you more likely to have a fall. If you wear glasses, make sure to (more content not included)...[facility] Medicine Office/Clinic Note on 20-02-0884Sipuqd Medicine Office/Clinic NoteFapondville [facility]/Clinic Note Chief Complaint Welcome to [...] day(s), # 90 tab(s), Refills(s) 3, Pharmacy: [facility]/pharmacy #[id number], 151, cm, 07/18/24 8:27:00 EST, Height/Length Dosing, 55, kg, 07/18/24 8:27:00 EST, Weight Dosing escitalopram, 5 mg = 1 tab(s), Oral, Daily, # 90 tab(s), Refills(s) 0, Pharmacy: [facility]/pharmacy #6177, 151, cm, 05/31/24 14:29:00 EST, Height/Length [...] day(s), # 90 tab(s), Refills(s) 3, [id number], 151, cm, 07/18/24 8:27:00 EST, Height/Length Dosing, 55, kg, 07/18/24 8:27:00 EST, Weight Dosing escitalopram, 5 mg = 1 tab(s), Oral, Daily, # 90 tab(s), Refills(s) 0, [id number], 151, cm, 05/31/24 14:29:00 EST, Height/Length Dosing, 53.6, kg, 05/31/24 14:29:00 EST, Weight Dosing 11. Screening for malignant neoplasm of colon (Z12.11: Encounter for screening for malignant neoplasm of colon) colonoscopy ordered Ordered: [facility] Referral BMI 23.0-23.9, adult (Z68.23: Body mass index [BMI] 23.0-23.9, adult) BMI education given Ordered: escitalopram, 5 mg = 1 tab(s), Oral, Daily, X 90 day(s), # 90 tab(s), Refills(s) 3, [id number], 151, cm, 07/18/24 8:27:00 EST, Height/Length Dosing, 55, kg, 07/18/24 8:27:00 EST, Weight Dosing escitalopram, 5 mg = 1 tab(s), Oral, Daily, # 90 tab(s), Refills(s) 0, Pharmacy: [facility]/pharmacy #6177, 151, cm, 05/31/24 14:29:00 EST, Height/Length Dosing, 53.6, kg, 05/31/24 14:29:00 EST, Weight Dosing Carotid artery stenosis (I65.29: Occlusion and stenosis of unspecified carotid artery) w (more content not included)...[facility] HospitalComment on above:Result Comment: Electronically Signed By: Josephine Flores\.br\Date and Time Signed: 07/18/24 09:56 ESTPre-Visit Planningon 60-47-3744Ckt-Visit Planning Pre-Visit Planning From: Eunice Taylor To: Josephine Flores; Sent: 07/17/2024 08:58:38 EST Subject: Pre-Visit Planning Due Date/Time: 07/17/2024 08:58:00 EST Caller Name: SANDHYA MALDONADO; Caller Number: Ernestina , Frederic Burton. During a pre-visit planning [...] feel free to contact me at extension [phone]. Thank you! Eunice Taylor LPN Clinical Americanization Teacher [place] [address] Extension: [phone] [email or web address] From: Josephine Flores To: Eunice Taylor; Sent: 07/17/2024 10:40:35 EST Subject: RE: Pre-Visit Planning Caller Name: SANDHYA MALDONADO; Caller Number: Ernestina , major depressive disorder moderate recurrentNormalFisher [facility] Reminderson 22-22-2180OwsrichqkIvjuyjggp From: Josephine Flores To: [facility] - Clinical; Sent: 07/17/2024 08:09:47 EST Show [...] (2.0-4.4 - ) pt notified of message belowNormalPremier Health Atrium Medical CenterT3 Freeon 60-61-2572Qdkd T3 [Mass/Vol]2.6 pg/mLInvalid Interpretation Code2.0-4.4Fisher [facility]c Western MarylandComment on above:Result Comment: Performed at: [facility] [place] [id number] [place], [place] [id number] PhD Piyush AaronPerformed By: #### [id number] ####[facility] [address] [place], [place] [address]EPGNZZMGMOwsiwjr By: SYSTEM SYSTEM on 48-36-1084Sczj T4 [Mass/Vol]1.13 ng/dLNormal0.58 - 1.64 ng/dL Remisol ChemTSH Qn0.25 m[IU]/LLow0.34 - 5.60 mcIU/mLRemisol ChemFree T4on 71-21-5109Buyq T4 [Mass/Vol]1.13 ng/dLNormal0.58-1.64[facility] Comment on above:Performed By: #### [id number] #### [facility] [address], [place] [address]HMSug 08-41-3261PHN Qn0.25 m[IU]/LLow0.34-5.60Premier Health Atrium Medical CenterComment on above:Performed By: #### [id number] #### [facility] [address], [place] [address]Kiioecmqkjf 98-99-6296YeqfvsihcImcowvvso From: Josephine Flores To: [facility] - Clinical; Sent: 06/09/2024 15:17:57 EST Show up: 06/09/2024 15:18:00 EST Subject: Ambulatory Reminder Due Date/Time: 06/10/2024 15:17:00 EST mammogram negative Results: Date Result Type Result Name 06/08/2024 14:17 Radiology MA Mamm Screen w/CAD if perf and 3D Kush From: Melissa Anaya M.A. ([facility] - Clinical) To: Josephine Flores; [facility] - Clinical; Sent: 06/09/2024 15:31:07 EST Show up: 06/09/2024 15:30:00 EST Subject: RE: Ambulatory Reminder left message for her to call back to relay below message Pt has been notified.[facility] HospitalMA Mamm Screen w/CAD if perf and 3D Bilon 62-64-6762YU Mamm Screen w/CAD if perf and 3D BilExam Date/Time: 06/06/2024 09:39 EST Reason for Exam: [...] VERY IMPORTANT TO YOUR HEALTH. THE CURRENT [employer] CANCER [...] Assessment: BI-RADS Category 1-Negative Recommendation: Normal interval follow-upWVUMedicine [facility]ville Hospital Reminderson 59-29-5622MhdtncozbYfcsnhewy From: Josephine Flores To: [facility] Clinical; Sent: 06/08/2024 11:41:25 EST Show up: 06/08/2024 11:41:00 EST Subject: Ambulatory Reminder Due Date/Time: 06/09/2024 11:40:00 EST thyroid goiter is stable. has not changed since last ultrasound. Results: Date Result Type Result Name 06/06/2024 15:42 Radiology US Thyroid From: Melissa Anaya M.A. ([facility] - Clinical) To: Josephine Flores; Sent: 06/08/2024 12:38:17 EST Show up: 06/08/2024 12:37:00 EST Subject: RE: Ambulatory Reminder verbalizes understandingNoKindred HealthcareUS Thyroidon 06-06-2024 US ThyroidExam Date/Time: 06/05/2024 10:26 EST Reason for Exam: [...] Olayinka Yost MD Transcribed by: CHAPIN Technologist: [facility] [id number] From: Josephine Flores To: [facility] - Clinical; [...] Result Name Ind Value Ref Range 05/31/2024 15:29 WBC 6.3 E9/L (4.0 - 11.0) 05/31/2024 15:29 RBC 4.3 E12/L (4.3 - 5.9) 05/31/2024 15:29 HGB 13.6 gm/dL (12.0 - 16.0) 05/31/2024 15:29 Hct 40.0 % (34.0 - 46.0) 05/31/2024 15:29 MCV 92.0 fL (80.0 - 100.0) 05/31/2024 15:29 MCH 31.2 pg (27.0 - 34.0) 05/31/2024 15:29 MCHC 33.9 gm/dL (31.4 - 36.0) 05/31/2024 15:29 RDW 13.9 % (10.9 - 14.2) 05/31/2024 15:29 Platelet 271.0 E9/L (150.0 - 500.0) 05/31/2024 15:29 MPV 8.6 fL (6.4 - 10.8) 05/31/2024 15:29 Neutro Auto 49.2 % (36.0 - 75.0) 05/31/2024 15:29 Lymph Auto 39.3 % (14.0 - 50.0) 05/31/2024 15:29 Leslie Auto 6.5 % (4.0 - 14.0) 05/31/2024 15:29 Eos Auto 3.7 % (0.0 - 8.0) 05/31/2024 15:29 Basophil Auto 1.3 % (0.0 - 2.0) 05/31/2024 15:29 Neutro Absolute 3.1 E9/L (2.0 - 7.5) 05/31/2024 15:29 Lymph Absolute 2.5 E9/L (1.0 - 4.0) 05/31/2024 15:29 Leslie Absolute 0.4 E9/L (0.2 - 1.0) 05/31/2024 15:29 Eos Absolute 0.2 E9/L (0.0 - 0.5) 05/31/2024 15:29 Basophil Absolute 0.1 E9/L (0.0 - 0.2) [...] Pt has been notified & transferred to front edger to schedule appt.NormalPremier Health Atrium Medical CenterCBC w/ Auto Diffon 89-43-4373Pwbqiukhj/100 WBC (Bld)1.3 % Normal0.0-2.0Premier Health Atrium Medical CenterComment on above:Performed By: #### [id number] #### [facility] [address], [place] [address]Pibypeflh/Leukocytes Auto (Bld) [Pure # fraction]0.1 E9/LNormal 0.0-0.2Fisher [facility]c Western MarylandComment on above:Performed By: #### [id number] #### [facility] [address], [place] [address]Bsjxdrjwfge (Bld) [#/Vol]0.2 E9/LNormal0.0-0.5FGlenbeigh HospitalComment on above:Performed By: #### [id number] #### [facility] [address], [place] [address]Mvgbtgnablg/100 WBC (Bld)3.7 %Normal0.0-8.0Premier Health Atrium Medical CenterComment on above:Performed By: #### [id number] #### [facility] [address], [place] [address]Ehgfyrtpgta distribution width (RBC) [Ratio]13.9 %Normal 10.9-14.2FGlenbeigh HospitalComment on above:Performed By: #### [id number] #### [facility] [address] [place] [address]Rjpgprquqs (Bld) [Volume fraction]40.0 %Qhciak82.0-46.0Premier Health Atrium Medical CenterComment on above:Performed By: #### [id number] #### [facility] [address] [place] [address]Ypouqdhuti (Bld) [Mass/Vol]13.6 g/rEHmbmea28.0-16.0Prem[facility] Atrium Medical CenterComment on above:Performed By: #### [id number] #### [facility] [address] [place] [address]Pjcjrzkwdny (Bld) [#/Vol]2.5 E9/LNormal1.0-4.0Prem[facility] Health Atrium Medical CenterComment on above:Performed By: #### [id number] #### [facility] [address], [place] [address]Tmwcbfhadsi/100 WBC (Bld)39.3 %Vhnusf25.0-50.0Prem[facility] Atrium Medical CenterComment on above:Performed By: #### [id number] #### [facility] [address] [place] [address]ARX (RBC) [Entitic mass]31.2 bmSkrlzj89.0-34.0Prem[facility] Atrium Medical CenterComment on above:Performed By: #### [id number] #### [facility] [address] [place] [address]EBJY (RBC) [Mass/Vol]33.9 g/aJRsrsua23.4-36.0Prem[facility] Atrium Medical CenterComment on above:Performed By: #### [id number] #### [facility] [address] [place] [address]TXB (RBC) [Entitic vol]92.0 pZUacwvi37.0-100.0Prem[facility] Atrium Medical CenterComment on above:Performed By: #### [id number] #### [facility] [address] [place] [address]Sazsrbiud (Bld) [#/Vol]0.4 E9/LNormal0.2-1.0Prem[facility] Atrium Medical CenterComment on above:Performed By: #### [id number] #### [facility] [address] [place] [address]Gmwvxdbiagt (Bld) [#/Vol]3.1 E9/LNormal2.0-7.5FGlenbeigh HospitalComment on above:Performed By: #### [id number] #### [facility] [address] [place] [address]Szxhspkropp/100 WBC (Bld)49.2 %Gvcvxv00.0-75.0Prem[facility] Atrium Medical CenterComment on above:Performed By: #### [id number] #### [facility] [address] [place] [address]Xilzasjd709.0 E9/HQyiloe151.0-500.0[facility] Comment on above:Performed By: #### [id number] #### [facility] [address] [place] [address]Clomcyxp mean volume (Bld) [Entitic vol]8.6 fLNormal6.4-10.8 [facility] Atrium Medical CenterComment on above:Performed By: #### [id number] #### [facility] [address], [place] [address]YAM (Bld) [#/Vol]4.3 E12/LNormal4.3-5.9Prem[facility] Health Atrium Medical CenterComment on above:Performed By: #### [id number] #### [facility] [address] [place] [address]GMR corrected for nucl RBC Auto (Bld) [#/Vol]6.3 E9/LNormal 4.0-11.0Prem[facility] Atrium Medical CenterComment on above:Performed By: #### [id number] #### [facility] [address] [place] [address]CCXva 43-30-4358Ddavsog [Mass/Vol]4.0 g/dLNormal3.3-5.0Prem[facility] Atrium Medical CenterComment on above:Performed By: #### [id number] #### [facility] [address] [place] [address]Teypzvs/Globulin (S) [Mass conc ratio]1.6Ctakgq0.1-2.2[facility]c [facility] MarylandComment on above:Performed By: #### [id number] #### [facility] [address] [place] [address]GME [Catalytic activity/Vol]63 Int._Unit/XDpmxhs71-93YbizyzPremier Health Atrium Medical CenterComment on above:Performed By: #### [id number] #### [facility] [address] [place] [address]FLN No additional P-5'-P [Catalytic activity/Vol]13 Int._Unit/L Normal6-46Prem[facility] Health Atrium Medical CenterComment on above:Performed By: #### [id number] #### [facility] [address] [place] [address]Nohrl gap [Moles/Vol]9 mmol/LNormal6-16Prem[facility] Health Atrium Medical CenterComment on above:Performed By: #### [id number] #### [facility] [address] [place] [address] [place] [address]VES [Catalytic activity/Vol]17 Int._Unit/LNormal5-43Prem[facility] Atrium Medical CenterComment on above:Performed By: #### [id number] #### [facility] [address], [place] [address]Ydbfkajic [Mass/Vol]0.3 mg/dLNormal0.0-1.1FGlenbeigh HospitalComment on above:Performed By: #### [id number] #### [facility] [address], [place] [address]Htgqyfx [Mass/Vol]9.2 mg/dLNormal8.9-11.1FGlenbeigh HospitalComment on above:Performed By: #### [id number] #### [facility] [address], [place] [address]Depozouc [Moles/Vol]105 mmol/XSmywjw444-136GkvfuwPremier Health Atrium Medical CenterComment on above:Performed By: #### [id number] #### [facility] [address], [place] [address]BG7 [Moles/Vol]29 mmol/IKdlgvq61-70DpegliPremier Health Atrium Medical Center Comment on above:Performed By: #### [id number] #### [facility] [address], [place] [address]Gvqqkzpwiy [Mass/Vol]0.8 mg/dLNormal0.5-1.3FGlenbeigh HospitalComment on above:Performed By: #### [id number] #### [facility] [address], [place] [address]Esciedgh (S) [Mass/Vol]2.9 g/dLNormal1.4-4.0Prem[facility] Atrium Medical CenterComment on above:Performed By: #### [id number] #### [facility] [address], [place] [address]Lcvrgyt [Mass/Vol]98 mg/vIWduedg91-709SacpkiPremier Health Atrium Medical CenterComment on above:Performed By: #### [id number] #### [facility] [address], [place] [address]Dxaqgimjl [Moles/Vol]4.9 mmol/LNormal3.5-5.3FGlenbeigh HospitalComment on above:Performed By: #### [id number] #### [facility] [address], [place] [address]Pjkoxmb [Mass/Vol]6.9 g/dLNormal6.0-7.8Prem[facility] Atrium Medical CenterComment on above:Performed By: #### [id number] #### [facility] [address], [place] [address]Ocuicm [Moles/Vol]138 mmol/OXaqowe184-134OnjyrmPremier Health Atrium Medical CenterComment on above:Performed By: #### [id number] #### [facility] [address], [place] [address]Wkbb nitrogen [Mass/Vol]14 mg/dLNormal5-21Prem[facility] Atrium Medical CenterComment on above:Performed By: #### [id number] #### [facility] [address], [place] [address]Pwvv nitrogen/Creatinine [Mass ratio]18 No HcvjsThyvpr87-63 [facility]rium Medical CenterComment on above:Performed By: #### [id number] #### [facility] [address], [place] [address]Mgbus Panelon 76-41-3729Rsohscgojjh [Mass/Vol]212 mg/dLHigh 120-200Prem[facility] Atrium Medical CenterComment on above:Performed By: #### [id number] #### [facility] [address], [place] [address]Emeypscfels in HDL [Mass/Vol]65 mg/dLInvalid Interpretation CodePremier Health Atrium Medical CenterComment on above:Result Comment: '>= 60 LOW RISK' '<= 40 HIGH RISK'Performed By: #### [id number] #### [facility] [address], [place] [address]Sksfscfxiyb in LDL [Mass/Vol]135 mg/dLHigh<=129Prem[facility] Health Atrium Medical CenterComment on above:Performed By: #### [id number] #### [facility] [address], [place] [address]Ngxihmywocv in VLDL [Mass/Vol]27 mg/dLNormal7-40Prem[facility] Atrium Medical CenterComment on above:Performed By: #### [id number] #### [facility] [address], [place] [address]Grzmngzqhbaz [Mass/Vol]133 mg/dLNormal<=149Prem[facility] Atrium Medical CenterComment on above:Performed By: #### [id number] #### [facility] [address], [place] [address]JTKiv 76-19-4041DMW Qn0.13 m[IU]/LLow0.34-5.60[facility] Atrium Medical CenterComment on above:Performed By: #### [id number] #### [facility] [address], [place] [address]Nldluyytsl 41-00-7320Upjvjxvj HS6.10 pg/mLLow10.10-27.10Prem[facility] Atrium Medical CenterComment on above:Result Comment: The 95% CI (Confidence Interval) PPV (Positive Predictive Value) for myocardial infarction in females is 38 pg/mL, in males 51 pg/mL. The results should be used in conjunction with clinical conditions of myocardial infarction. (Access High Sensitivity Troponin I Instructions For Use, Marlen Romina, January 2018)Performed By: #### [id number] #### [facility] [address], [place] [address]kGDCxs 17-88-9660aGPX54 mL/min/1.73 t2Ocbfkk>=59Prem[facility] Atrium Medical CenterComment on above:Performed By: #### [id number] #### [facility] [address], [place] [address]Ozfuvilibu Visit Summaryon 80-97-0421Fhkljytloj Visit Summary Ambulatory Visit Summary SANDHYA MALDONADO [...] 8:40 AM EST With: Josephine Flores Where: [address] [address]- You Need to Complete the Following US Thyroid, 05/31/24, Routine, Order for future visit, Transport Mode: Ambulatory, Reason: Other (please specify), No, Multiple thyroid nodules Goiter, pp_set_radiology_subspecialty, [facility] Medications What How Much When Why Instructions New escitalopram (escitalopram 5 mg oral tablet) 1 Tablets By Mouth Every day COPD, mild Carotid artery stenosis Multiple thyroid nodules Chest pain Goiter Hyperlipemia BMI 23.0-23.9, adult Smoker Pickup at [facility]/pharmacy #6177 Unchanged albuterol (Albuterol (Eqv-ProAir HFA) 90 mcg/ inh inhalation aerosol) 2 Puffs Inhalation Every 6 hours Unchanged aspirin (aspirin 81 mg Oral EC Tab) By Mouth Every day Unchanged nicotine (nicotine 21 mg/ 24 hr Transderm ER Film) APPLY 1 PATCH TOPICALLY DAILY Pharmacy Information [facility]/pharmacy #6177: [address], [place] [id number] [phone] Allergies No Known Allergies Problems Ongoing - [...] you for choosing us for your care. [facility] Medicine Office/Clinic Noteon 94-53-1472Dbvwam Medicine Office/Clinic NoteBenjamin [facility]/Clinic Note Chief Complaint Chronic Care [...] return in June for follow up. Ordered: budesonide-formoterol, 2 puff(s), Inhalation, BID, 10.2 gm, Refill(s) 0, [facility], 151, cm, 05/31/24 14:29:00 EST, Height/Length Dosing, 53.6, kg, 05/31/24 14:29:00 EST, Weight Dosing escitalopram, 5 mg = 1 tab(s), Oral, Daily, # 90 tab(s), Refills(s) 0, Pharmacy: [facility]/pharmacy #6177, 151, cm, 05/31/24 14:29:00 EST, Height/Length Dosing, 53.6, kg, 05/31/24 14:29:00 EST, Weight Dosing CBC w/ Auto Diff Comprehensive Metabolic Panel ECG 12 Lead Adult Lab Specimen Collect 40840 Lipid Panel Thyroid Stimulating Hormone Troponin 2. Carotid artery stenosis (I65.29: Occlusion and stenosis of unspecified carotid artery) EKG in office today normal sinus rhythm. was previously seen by DR. Restrepo. pt stopped taking all meds. Ordered: budesonide-formoterol, 2 puff(s), Inhalation, BID, 10.2 gm, Refill(s) 0, [facility]/pharmacy #6177, 151, cm, 05/31/24 14:29:00 EST, Height/Length Dosing, 53.6, kg, 05/31/24 14:29:00 EST, Weight Dosing escitalopram, 5 mg = 1 tab(s), Oral, Daily, # 90 tab(s), Refills(s) 0, Pharmacy: [facility]/pharmacy #6177, 151, cm, 05/31/24 14:29:00 EST, Height/Length Dosing, 53.6, kg, 05/31/24 14:29:00 EST, Weight Dosing CBC w/ Auto Diff Comprehensive Metabolic Panel ECG 12 Lead Adult Lab Specimen Collect 59365 Lipid Panel Thyroid Stimulating Hormone Troponin 3. COPD, mild (J44.9: Chronic obstructive pulmonary disease, unspecified) pt feeling short of breath with exertion. has never been on ICS. will send steroid inhaler today. when she returns may consider referral to pulm Ordered: budesonide-formoterol, 2 puff(s), Inhalation, BID, 10.2 gm, Refill(s) 0, [id number], 151, cm, 05/31/24 14:29:00 EST, Height/Length Dosing, 53.6, kg, 05/31/24 14:29:00 EST, Weight Dosing escitalopram, 5 mg = 1 tab(s), Oral, Daily, # 90 tab(s), Refills(s) 0, [facility] 151, cm, 05/31/24 14:29:00 EST, Height/Length Dosing, 53.6, kg, 05/31/24 14:29:00 EST, Weight Dosing CBC w/ Auto Diff Comprehensive Metabolic Panel ECG 12 Lead Adult Lab Specimen Collect 81375 Lipid Panel Thyroid Stimulating Hormone Troponin 4. Multiple thyroid nodules (E04.2: Nontoxic multinodular goiter) will order u/s of thyroid. pt was supposed to have surgery but it was canceled during covid. and she never returned Ordered: budesonide-formoterol, 2 puff(s), Inhalation, BID, 10.2 gm, Refill(s) 0, [facility]/pharmacy #[id number], 151, cm, 05/31/24 14:29:00 EST, Height/Length Dosing, 53.6, kg, 05/31/24 14:29:00 EST, Weight Dosing escitalopram, 5 mg = 1 tab(s), Oral, Daily, # 90 tab(s), Refills(s) 0, Pharmacy: [facility]/pharmacy #[id number], 151, cm, 05/31/24 14:29:00 EST, Height/Length Dosing, 53.6, kg, 05/31/24 14:29:00 EST, Weight Dosing sertraline, 25 mg = 1 tab(s), Oral, Daily, # 30 tab(s), Refills(s) 0, Pharmacy: [facility]/pharmacy #6177,151, cm, 05/03/23 10:31:00 EST, Height/Length Dosing, 47.9, kg, 05/03/23 10:31:00 EST, Weight Dosing CBC w/ Auto Diff Comprehensive Metabolic Panel ECG 12 Lead Adult Lab Specimen Collect 40154 Lipid Panel Thyroid Stimulating Hormone Troponin US Thyroid 5. Goiter (E04.9: Nontoxic goiter, unspecified) pt was supposed to go to for further evaluation but covid hit and she never went back. u/s ordered Ordered: budesonide-formoterol, 2 puff(s), Inhalation, BID, 10.2 gm, Refill(s) 0, [id number], 151, cm, 05/31/24 14:29:00 EST, Height/Length Dosing, 53.6, kg, 12 (more content not included)...[facility] HospitalComment on above:Result Comment: Electronically Signed By: Josephine Flores.br\Date and Time Signed: 05/31/24 16:14 ESTNo Panel Informationon 21-19-6506GRKV [facility] No Panel Informationon 91-44-7800GDNP HealthcareCHEMISTRYOrdered By: SYSTEM SYSTEM on 85-05-5933Lpfxkmn [Mass/Vol]3.6 g/dLNormal3.3 - 5.0 gm/dLFTMC Remisol Albumin/Globulin [Mass ratio]1.0 {ratio}Low1.1 - 2.2[facility] RemisolALP [Catalytic activity/Vol]67 [iU]/hWkqpjg31 - 98 Int._Unit/LFTMC RemisolALT No additional P-5'-P [Catalytic activity/Vol]16 [iU]/dNormal6 - 46 Int._Unit/LFTMC Remisol Anion gap [Moles/Vol]6 mmol/LNormal6 - 16 mEq/LFTMC RemisolAST [Catalytic activity/Vol]17 [iU]/dNormal5 - 43 Int._Unit/LFTMC RemisolBilirubin [Mass/Vol] 0.2 mg/dLNormal0.0 - 1.1 mg/dLFTMC RemisolCalcium [Mass/Vol]9.3 mg/dLNormal8.9 - 11.1 mg/dLFTMC RemisolChloride [Moles/Vol]106 mmol/PJfjjvb024 - 111 mmol/LFTMC RemisolCholesterol [Mass/Vol]207 mg/sQFmzo789 - 200 mg/dLFTMC RemisolCholesterol in HDL [Mass/Vol]57 mg/dLInvalid Interpretation CodeFTMC RemisolComment on above:Interpretive Data: HDL > or equal to 60 mg/dL: Low cardiovascular risk HDL < 40 mg/dL : High cardiovascular riskCholesterol in LDL [Mass/Vol]134 mg/dL High<=129mg/dLFTMC RemisolCholesterol in VLDL [Mass/Vol]16 mg/dLNormal7 - 40 mg/dLFTMC RemisolCO2 [Moles/Vol]28 mmol/YXzfxlc43 - 31 mmol/LFTMC Remisol Creatinine [Mass/Vol]0.8 mg/dLNormal0.5 - 1.3 mg/dLFTMC RemisolFree T4 [Mass/Vol]1.16 ng/dLNormal0.58 - 1.64 ng/dLFTMC RemisolGFR/1.73 sq M.predicted among non-blacks MDRD (S/P/Bld) [Vol rate/Area]83 mL/min/1.73 h0Pqouck >=59mL/min/1.73 m2FTMC Chem SComment on above:Interpretive Data: Chronic kidney disease could be indicated at eGFR's of less than 60 mL/min/1.73m2. Kidney failure is indicated at less than 15 mL/min/1.73m2.Globulin (S) [Mass/Vol]3.5 g/dLNormal1.4 - 4.0 gm/dLFTMC RemisolGlucose [Mass/Vol]84 mg/hDFcjpgx96 - 199 mg/dLFTMC RemisolComment on above:Interpretive Data: If this glucose result represents a fasting glucose, interpretation should referto the following reference range: 55-99 mg/dLPotassium [Moles/Vol]4.4 mmol/LNormal3.5 - 5.3 mmol/LFTMC RemisolProtein [Mass/Vol]7.1 g/dLNormal6.0 - 7.8 gm/dLFTMC Remisol Sodium [Moles/Vol]136 mmol/TVvfjro305 - 145 mmol/LFTMC RemisolTriglyceride [Mass/Vol]79 mg/dLNormal<=149mg/dLFTMC RemisolTSH Qn0.26 m[IU]/LLow0.34 - 5.60 mcIU/mLFTMC RemisolUrea nitrogen [Mass/Vol]16 mg/dLNormal5 - 21 mg/dLFTMC RemisolUrea nitrogen/Creatinine [Mass ratio]20 mg/qyQcnutk45 - 20[facility] Remisol Office Visit (Cardiology)on 00-87-4333Sbbemd-up visitDiagnoses/Problems Assessed Carotid stenosis (433.10) (I65.29) Mild CAD (414.00) (I25.10) Mixed hyperlipidemia (272.2) (E78.2) Pulmonary hypertension (416.8) (I27.20) Hypertension, benign (401.1) (I10) optimal in office COPD (chronic obstructive pulmonary disease) (496) (J44.9) Body mass index (BMI) of 22.0 to 22.9 in adult (V85.1) (Z68.22) Former smoker (V15.82) (Z87.891) 2019 quit Orders SocHx: Former smoker Tobacco Use Screening; Status:Complete; Done: 13May2022 Patient Instructions Please bring all medicines, vitamins, [...] she can follow-up with her primary care physicianand/or nurse practitioner. We did educate her and [...] Recorded: 13May2022 09:27AM Heart Rate66, L Radial Ejvjawuo480, LUE, Sitting Qfhgokxts35, LUE, Sitting Height5 ft 1 in Bfuqcs018 lb BMI Iztkvzhvug29.11 kg/m2 BSA Calculated1.5 Tobacco Useb) No PHQ-2 #1. Over the last 2 weeks have you felt down, depressed or hopeless? (If yes, answer PHQ-9 below)No PHQ-2 #2. Over the last 2 weeks have you felt little interest or pleasure in doing things? (If yes,answer PHQ-9 below)No Falls Screening (Age 18+)c) Not [...] May 13 2022 4:47PM EST (Author) Normal TouchworksTobacco Screening.on 58-76-9360Qiffv depression screening assessmentNo-Located Within [facility] 250 DO Work Phone: Fall risk assessmentc) Not medically indicatedOdessa [facility] 250 DO Work Phone: Tobacco use status CPHSb) NoMP-Located Within [facility] [place] 250 DO Work Phone: CHEMISTRYOrdered By: SYSTEM SYSTEM on 02-04-2022 Albumin [Mass/Vol]3.6 g/dLNormal3.3 - 5.0 gm/dLFTMC RemisolAlbumin/Globulin [Mass ratio]1.2 {ratio}Normal1.1 - 2.2FT[facility] RemisolALP [Catalytic activity/Vol]54 [iU]/rPrygio02 - 98 Int._Unit/LFTMC RemisolALT No additional P-5'-P [Catalytic activity/Vol]16 [iU]/dNormal6 - 46 Int._Unit/LFTMC RemisolAnion gap [Moles/Vol] 10 mmol/LNormal6 - 16 mEq/LFTMC RemisolAST [Catalytic activity/Vol]17 [iU]/d Normal5 - 43 Int._Unit/LFTMC RemisolBilirubin [Mass/Vol]0.3 mg/dLNormal0.0 - 1.1 mg/dLFTMC RemisolCalcium [Mass/Vol]9.0 mg/dLNormal8.9 - 11.1 mg/dLFTMC Remisol Chloride [Moles/Vol]107 mmol/MWoettq763 - 111 mmol/LFTMC RemisolCholesterol [Mass/Vol]168 mg/qPWbmfoz319 - 200 mg/dLFTMC RemisolCholesterol in HDL [Mass/Vol]54 mg/dLInvalid Interpretation CodeFTMC RemisolCholesterol in LDL [Mass/Vol]102 mg/dLNormal<=129mg/dLFTMC RemisolCholesterol in VLDL [Mass/Vol]13 mg/dLNormal7 - 40 mg/dLFTMC RemisolCO2 [Moles/Vol]27 mmol/CNnxzbz88 - 31 mmol/L [facility] RemisolCreatinine [Mass/Vol]0.9 mg/dLNormal0.5 - 1.3 mg/dLFTMC Remisol GFR/1.73 sq M.predicted among blacks MDRD (S/P/Bld) [Vol rate/Area]mL/min/1.73 c7Bgdnof>=59mL/min/1.73 m2FT Chem SGFR/1.73 sq M.predicted among non-blacks MDRD (S/P/Bld) [Vol rate/Area]mL/min/1.73 g1Lezlbr>=59mL/min/1.73 m2FT Chem S Globulin (S) [Mass/Vol]3.1 g/dLNormal1.4 - 4.0 gm/dLFTMC RemisolGlucose [Mass/Vol]93 mg/dBBvpwug14 - 199 mg/dLFTMC RemisolPotassium [Moles/Vol]4.5 mmol/LNormal3.5 - 5.3 mmol/LFTMC RemisolProtein [Mass/Vol]6.7 g/dLNormal6.0 - 7.8 gm/dLFTMC RemisolSodium [Moles/Vol]139 mmol/AAjhjjp388 - 145 mmol/LFTMC RemisolTriglyceride [Mass/Vol]67 mg/dLNormal<=149mg/dLFTMC RemisolUrea nitrogen [Mass/Vol]17 mg/dLNormal5 - 21 mg/dLFTMC RemisolUrea nitrogen/Creatinine [Mass ratio]19 mg/adZvvcav61 - 20FT[facility] RemisolChart Updateon 27-16-7349Lvago Update Chart Update This is a 61-year-old [...] Patient advised to schedule f/u with Dr. Lavertu for surgery planning. Continue MMI until surgery. [...] Shawn Sandoval MD; Nov 28 2021 9:35AM ESTNormalUH TouchworksT3, TOTAL (TRIIODOTHYRONINE)on 74-70-3957U4, TOTAL97 ng/pNCjfbqx10-957OygSamaritan HospitalComment on above:Performed By: #### A5GQTFS #### [facility] [address] [place] [address] Dr. Stuart Mcdowell T4on 51-52-7192Lozz T4 [Mass/Vol]0.94 ng/dLNormal0.76-1.46 The Grant HospitalComment on above:Performed By: #### FT4 #### [facility] [address] [place] [address] Dr. Stuart Berry 58-64-8062CHM1.249 uIU/mLCritically low0.358-3.740Samaritan HospitalComment on above:Performed By: #### TSH #### [facility] [address] [place] [address] Dr. Stuart Monique RANGESTrinity Health SystemComment on above: Result Comment: <0.34 UIU/ml HYPERTHYROID 0.34-5.60 UIU/ml EUTHYROID >5.60 UIU/ml HYPOTHYROIDPerformed By: #### TSH #### [facility] [address] [place] [address] Dr. Stuart WeaverTHYROID STIM IMMUNOGLOBon 51-01-5329WGWMHER STIM IMMUNOGLOB<1.0 Normal<=1.3University HospitalComment on above:Result Comment: Test Performed by: [address] [address] Supervisor Rice Milling: Berto Barraza M.D. Ph.D.; CLIA# [id number] By: #### TSIG #### [address] [address]MXWJNMMPWSCNC AND ANTI THYROGLOBULIN ABon 83-57-3565GOLS- THYROGLOBULIN AB2.2 IU/mLNormal0.0-4.0University HospitalComment on above:Result Comment: INTERPRETIVE INFORMATION: Thyroglobulin Antibody A value of 4.0 IU/mL or less indicates a negative result for thyroglobulin antibodies. The Thyroglobulin Antibody assay is being performed using the [employer] [place] Access DxI method.Performed By: #### THYR2 #### [facility] [address] [address]YROGKTXLIGZEF498.9 ng/mLHigh1.3-31.8[facility] Comment on above:Result Comment: INTERPRETIVE INFORMATION: Thyroglobulin, Serum or Plasma Specimens negative [...] presence of thyroid cancer in the general population.Performed By: #### THYR2 #### [facility] [address] [address]MUHPXKYYQPKEG LC-MS/MSNot ApplicableNormal1.3-31.8University HospitalComment on above:Result Comment: INTERPRETIVE INFORMATION: Thyroglobulin by LC-MS/MS, Serum/Plasma Lower limit of detection for Thyroglobulin by LC-MS/MS is 0.5 ng/mL. This test was developed and its performance characteristics determined by [facility]. It has not been cleared or approved by the [place] Food and Drug Administration. This test was performed in a CLIA certified laboratory and is intended for clinical purposes. Performed By: [facility] [address] [place] [address] Interlocking Machine Operator: ROCIO Floreserformed By: #### THYR2 #### [facility] [address] [place], [place] [address]PTJkp 46-48-0263Qolemeuezgg distribution width (RBC) [Ratio]13.5 % Mrvsrj42.5 - 14.5University HospitalComment on above:Performed By: #### CBC #### [facility] [address] [place], [place] [address]Eccbfsywjv (Bld) [Volume fraction]38.1 %Jdfzxk96.0 - 46.0University HospitalComment on above:Performed By: #### CBC #### [facility] [address] [place], [place] [address]Yuzwdshabq (Bld) [Mass/Vol]12.6 g/dFXkmuyn25.0 - 16.0University HospitalComment on above:Performed By: #### CBC #### [facility] [address] [place], [place] [address]WCOA (RBC) [Mass/Vol]33.1 g/mDCzqejm55.0 - 36.0University HospitalComment on above:Performed By: #### CBC #### [facility] [address] [place], [place] [address]XYW (RBC) [Entitic vol]92 oVKwngkk13 - 100University HospitalComment on above:Performed By: #### CBC #### [facility] [address] [place], [place] [address]XNHDTXOSY RBC0.0 /100 WBCNormal0.0-0.0University HospitalComment on above:Performed By: #### CBC #### [facility] [address] [place], [place] [address]Qiohveeyn (Bld) [#/Vol]247 10*3/cIIqxfbj824 - 450University HospitalComment on above:Performed By: #### CBC #### [facility] [address] [place], [place] [address]NWZ5.14 x10E12/LNormal4.00 - 5.20[facility] Comment on above:Performed By: #### CBC #### [facility] [address] [place], [place] [address]LTT (Bld) [#/Vol]6.4 10*3/uLNormal4.4 - 11.3UH [facility] ClinicComment on above:Performed By: #### CBC #### [facility] [address] [place], [place] [address]SLEHDNY FUNCTION PANELon 60-00-1016Zoopqjw [Mass/Vol]4.1 g/dL Normal3.4 - 5.0University HospitalComment on above:Performed By: #### HEPFP #### [facility] [address] [place], [place] [address]OOD [Catalytic activity/Vol]57 U/CCoinha96 - 136University HospitalComment on above:Performed By: #### HEPFP #### [facility] [address] [place], [place] [address]CHC [Catalytic activity/Vol]18 U/LNormal7 - 45University HospitalComment on above:Result Comment: Patients treated with Sulfasalazine may generate falsely decreased results for ALT.Performed By: #### HEPFP #### [facility] [address] [place], [place] [address]YCA [Catalytic activity/Vol]15 U/LNormal9 - 39University HospitalComment on above:Performed By: #### HEPFP #### [facility] [address] [place], [place] [address]Ytrozpirb [Mass/Vol]0.5 mg/dLNormal0.0 - 1.2University HospitalComment on above:Performed By: #### HEPFP #### [facility] [address] [place], [place] [address]Rnrcvlljg.indirect [Mass/Vol]0.1 mg/dLNormal0.0 - 0.3University HospitalComment on above:Performed By: #### HEPFP #### [facility] [address] [place], [place] [address]Fcpwzgn [Mass/Vol]6.7 g/dLNormal6.4 - 8.2University HospitalComment on above:Performed By: #### HEPFP #### [facility] [address] [place], [place] [address]Ilnyovd Function Panelon 93-17-6782Mnzjyip BCP dye [Mass/Vol] 4.1 g/dL3.4 - 5.9AP-Jaeawjbrlsutt-UBH [employer] Work Phone: [phone] [Catalytic activity/Vol]57 U/L33 - 136 LE-Jpfplhbngywyq-KIN [employer] Work Phone: [phone] With P-5'-P [Catalytic activity/Vol]18 U/L7 - 45 VK-Krdmkdtmmqyum-SIV [employer] Work Phone: [phone] on above:Patients treated with Sulfasalazine may generate falsely decreased results for ALT.AST With P-5'-P [Catalytic activity/Vol]15 U/L9 - 56JL-Nlhdoeubjxcrc-CXX [employer] Work Phone: [phone] [Mass/Vol]0.5 mg/dL0.0 - 1.2 PQ-Mitjnqquapgab-DOE [employer] Work Phone: [phone].direct [Mass/Vol]0.1 mg/dL0.0 - 0.3 IO-Gbkqenbzmlklo-RSJ [employer] Work Phone: [phone] [Mass/Vol]6.7 g/dL6.4 - 8.2 YV-Bcbkwxyotsjhk-XZQ [employer] Work Phone: [phone] Visit (Endocrinology)on 32-86-0136Ooekmmo Visit (Endocrinology)Diagnoses/Problems Assessed Thyroid goiter (240.9) (E04.9) Hyperthyroidism (242.90) (E05.90) Orders Thyroid goiter Start: methIMAzole 5 MG Oral Tablet; take one tablet twice a day Rx By: Jose Guadalupe Bowden; Dispense: 30 Days ; #:60 Tablet; Refill: 0;For: Thyroid goiter; LIDIA = N; Verified Transmission to [facility]; Last Updated By: Kirsten Hester; 10/24/2021 11:48:40 AM Complete Blood Count; Status:Resulted - Requires Verification; Done: 24Oct2021 11:02AM Performed:[facility]; Due:29Oct2021;Ordered; For:Thyroid goiter; Ordered By:Ovidio Williamson; Hepatic Function Panel; Status:In Progress - Specimen/Data Collected; Done: 24Oct2021 Perform:Lab Services - Lab To Draw (Blood Test); Due:29Oct2021;Ordered; For:Thyroid goiter; OrderedBy:Ovidio Williamson; T4 - Free Thyroxine, Serum; Status:Active; Requested for:07Nov2021; Perform:Lab Services - Lab To Draw (Blood Test); Due:12Nov2021; Last Updated By:Jose Guadalupe Bowden; 10/24/2021 10:28:50 AM;Ordered; For:Thyroid goiter; Ordered By:Ovidio Williamson; T4 - Free Thyroxine, Serum; Status:In Progress - Specimen/Data Collected; Done: 24Oct2021 Perform:Lab Services - Lab To Draw (Blood Test); Due:29Oct2021;Ordered; For:Thyroid goiter; OrderedBy:Ovidio Williamson; THYROGLOBULIN AND ANTI-THYRGLOBULIN AB; Status:In Progress - Specimen/Data Collected; Done: 24Oct2021 Perform:Lab Services - Lab To Draw (Blood Test); Due:29Oct2021;Ordered; For:Thyroid goiter; OrderedBy:Ovidio Williamson; Thyroid Stimulating Immunoglobulin; Status:In Progress - Specimen/Data Collected; Done: 24Oct2021 Perform:Lab Services - Lab To Draw (Blood Test); Due:29Oct2021;Ordered; For:Thyroid goiter; OrderedBy:Ovidio Williamson; Triiodothyronine, Level (T3); Status:Active; Requested for:07Nov2021; Perform:Lab Services - Lab To Draw (Blood Test); Due:12Nov2021; Last Updated By:Jose Guadalupe Bowden; 10/24/2021 10:28:50 AM;Ordered; For:Thyroid goiter; Ordered By:Ovidio Williamson; Triiodothyronine, Level (T3); Status:In Progress - Specimen/Data Collected; Done: 24Oct2021 Perform:Lab Services - Lab To Draw (Blood Test); Due:29Oct2021;Ordered; For:Thyroid goiter; OrderedBy:Ovidio Williamson; TSH - Thyroid Stimulating Hormone, Serum; Status:Active; Requested for:07Nov2021; Perform:Lab Services - Lab To Draw (Blood Test); Due:12Nov2021; Last Updated By:Jose Guadalupe Bowden; 10/24/2021 10:28:50 AM;Ordered; For:Thyroid goiter; Ordered By:Ovidio Williamson; TSH - Thyroid Stimulating Hormone, Serum; Status:In Progress - Specimen/Data Collected; Done: 24Oct2021 Perform:Lab Services - Lab To Draw (Blood Test); Due:29Oct2021;Ordered; For:Thyroid goiter; OrderedBy:Ovidio Williamson; Provider Impressions This is a 61-year-old [...] depression Endocrine: No p (more content not included)...NormalUH TouchworksLaboratory - Chemistry and Chemistry - challengeon 78-43-0397Ufjglcjcomben [Mass/Vol]Not Applicable1.3-31.7UX-Kvnxavlktyzzd-OMT [employer] [address] Work Phone: comment on above:INTERPRETIVE INFORMATION: Thyroglobulin by LC-MS/MS, Serum/PlasmaLower limit of detection for Thyrog lobulin by LC-MS/MS is 0.5 ng/mL.This test was developed and its performance characteristics determined by [facility]. It has not been cleared or approved by the US Food and Drug Administration. This test was performed in a CLIA certified laboratory and is intended for clinical purposes.Performed By: [facility] [place] [address]Dkfkkxsnlo Director: Georgina Chao MDThyroglobulin [Mass/Vol]108.9 ng/mLabove high threshold 1.3-31.4JV-Krjaxupbjwwhj-EAF [employer] [address] Work Phone: comment on above:INTERPRETIVE INFORMATION: Thyroglobulin, Serum or PlasmaSpecimens negative for thyroglobulin antibodies (TgAb) are tested for thyroglobulin (Tg) by chemiluminescent immunoassay (MIKY) using the [employer] Access DxI method. Specimens with TgAb results [...] presence of thyroid cancer in the general population.Laboratory - Hematology and Cell counts on 98-42-7097Nhhwgarniso distribution width (RBC) [Ratio]13.5 %See Below [facility] [employer] [address] Work Phone: [phone] on above:Reference Range: 11.5 - 14.5 Hematocrit (Bld) [Volume fraction]38.1 %See FagzgHT-Bvtwatsrgzdkm-RGS [facility] Work Phone: [phone] on above:Reference Range: 36.0 - 46.0 Hemoglobin (Bld) [Mass/Vol]12.6 g/dLSee BctapBN-Pxyhorvfvtpas-PUL [employer] [facility] Work Phone: [phone] on above:Reference Range: 12.0 - 16.0MCHC (RBC) [Mass/Vol]33.1 g/dLSee UuqnhZI-Ncahwmwevmjkw-[facility] [place] [address] Work Phone: [phone] on above:Reference Range: 32.0 - 36.0MCV (RBC) [Entitic vol]92 fL80 - 421FH-Ghqqhyspwfngq-KTX [place] [facility] Work Phone: [phone] (Bld) [#/Vol]247 10*3/uL150 - 450 [facility] [employer] Work Phone: [phone] (Bld) [#/Vol]4.14 {x10E12/L}See Below [facility] [employer] [facility] Work Phone: [phone] on above:Reference Range: 4.00 - 5.20WBC (Bld) [#/Vol]6.4 10*3/uL4.4 - 11.6SP-Fjpddvvxqctqk-BZR [facility] [facility] Work Phone: [phone] - Serology - non-microon 10-24-2021 Thyroglobulin Ab Qn2.2 [IU]/mL0.0-4.4EA-Olstuuplwmpib-[facility] [employer] Work Phone: comment on above:INTERPRETIVE INFORMATION: Thyroglobulin Antibody A value of 4.0 IU/mL or less indicates a negative result for thyroglobulin antibodies.The Thyroglobulin Antibody assay is being performed using the [employer] Access DxI method.No Panel Informationon 10-24-2021 0.0 {/100_WBC}0.0-0.7ZU-Gecatejwtptvt-FGL [employer] Work Phone: [phone] - Free Thyroxine, Serumon 36-49-8956Dfzf T4 [Mass/Vol]1.36 ng/dLSee VycjqCW-Olkivavhptulj-WNF [employer] Work Phone: comment on above:Reference Range: 0.78 - 1.48 Thyroxine Free testing is performed using different testing methodology at [facility] than at other [facility]. Direct result comparisons should only be made within the same method.THYROXINE,FREEon 43-77-7583NTXWUMWVF,FREE1.36 ng/dLNormal0.78 - 1.48[facility] Comment on above:Result Comment: Thyroxine Free testing is performed using different testing methodology at [facility] than at other [facility]. Direct result comparisons should only be made within the same method.Performed By: #### T4FRE #### [facility] [address] [place], [place] [address]ESZZBOPWINUHKSXVla 64-08-2817ZWRHZCPPKOOFFYEH029 ng/dLNormal 60 - 200University HospitalComment on above:Performed By: #### T3 #### [facility] [address] [place], [place] [address]YSFjf 47-38-9463HZM Qn0.04 m[IU]/LLow0.44 - 3.98University HospitalComment on above:Result Comment: TSH testing is performed using different testing methodology at [facility] than at other [facility]. Direct result comparisons should only be made within the same method.Performed By: #### TSH2 #### [facility] [address] [place], [place] [address]ZUV - Thyroid Stimulating Hormone, Serumon 64-53-6763VMP Qn 0.04 m[IU]/Lbelow low thresholdSee MtaxqDL-Zobgdybmihfyu-NQA [employer] [address] Work Phone: Comment on above:Reference Range: 0.44 - 3.98 TSH testing is performed using different testing methodology at [facility] than at other [facility]. Direct result comparisons should only be made within the same method.Thyroid Stimulating Immunoglobulinon 10-24-2021 Thyroid stimulating immunoglobulins Qn (S)<1.0<=1.1GI-Bcgqjzwkglrld-XXU [employer] [address] Work Phone: Comment on above:Test Performed by:[address] Director: Berto Barraza M.D. Ph.D.; CLIA# [id number] Screening.on 76-92-4218Uikc risk assessmenta) No falls within the last year [facility] [employer] [address] Work Phone: Tobacco use status CPHSb) UxPR-Hjhbmznhruehn-FRU [employer] [address] Work Phone: Triiodothyronine, Level (T3)on 84-26-2966B8 [Mass/Vol] 115 ng/dL60 - 689BV-Yovvmtrvsgbma-UMF [employer] Work Phone: bASIC METABOLIC PANELon 74-45-4203Ldplh gap [Moles/Vol]15 mmol/HOpjizp31 - 20University HospitalComment on above: Performed By: #### BMP #### [facility] [address] [place], [place] [address]Lkfpflc [Mass/Vol]9.4 mg/dLNormal8.6 - 10.6UH [facility] ClinicComment on above:Performed By: #### BMP #### [facility] [address] [place], [place] [address]Dipazdyh [Moles/Vol]105 mmol/HQovxdt44 - 107University HospitalComment on above:Performed By: #### BMP #### [facility] [address] [place], [place] [address]Pkiobrpesc [Mass/Vol]0.77 mg/dLNormal0.50 - 1.05University HospitalComment on above:Performed By: #### BMP #### [facility] [address] [place], [place] [address]YPS/1.73 sq M.predicted among non-blacks MDRD (S/P/Bld) [Vol rate/Area]87 mL/min/{1.73_m2}Normal>90University HospitalComment on above:Result Comment: CALCULATIONS OF ESTIMATED GFR ARE PERFORMED USING THE 2020 CKD-EPI STUDY REFIT EQUATION WITHOUT THE RACE VARIABLE FOR THE IDMS-TRACEABLE CREATININE METHODS. https://jasn.asnjournals.org/content/early/ASN.0468357385Jnszchjmc By: #### BMP #### [facility] [address] [place], [place] [address]Zgehzpa [Mass/Vol]87 mg/yPLnzmci36 - 99University HospitalComment on above:Performed By: #### BMP #### [facility] [address] [place], [place] [address]DWD2 (Bld) [Moles/Vol]25 mmol/MTmlyus96 - 32University HospitalComment on above:Performed By: #### BMP #### [facility] [address] [place], [place] [address]Hxntfvvji [Moles/Vol]4.4 mmol/LNormal3.5 - 5.3University HospitalComment on above:Performed By: #### BMP #### [facility] [address] [place], [place] [address]Paprkc [Moles/Vol]141 mmol/GSbmbrd267 - 145University HospitalComment on above:Performed By: #### BMP #### [facility] [address] [place], [place] [address]Pzxu nitrogen [Mass/Vol]16 mg/dLNormal6 - 23University HospitalComment on above:Performed By: #### BMP #### [facility] [address] [place], [place] [address]Hbysdie Visit (Otolaryngology)on [id number] Visit (Otolaryngology)Diagnoses/Problems Thyroid goiter (240.9) (E04.9) Orders TSH - [...] of a thyroid goiter History of Present IllnessThis is a 62-year-old lady is seen at [...] for about 40 years plus. She stopped abouta year year and a half ago. She [...] was carried out. Under topical Xylocaine and Jorge- Synephrine the scope was introduced through the nostril. The nasopharynx, base of tongue, hypopharynx, and larynx are visualized. The vocal cords are normally mobile. There is no pooling of secretions in the piriform sinuses. There is no evidence of any mucosal lesions. 'Scores and Scales' Signatures Electronically signed by : Shawn Sandoval MD; Sep 19 2021 11:10AM EST (Author) [facility] TouchworksTSHon [id number] Qn0.02 m[IU]/LLow0.44 - 3.98University HospitalComment on above:Result Comment: TSH testing is performed using different testing methodology at [facility] than at other [facility]. Direct result comparisons should only be made within the same method.Performed By: #### TSH2 #### [facility] [address] [place], [place] [address]Tqdrwea Screening.on 65-88-4310Iree risk assessmenta) No falls within the last vgnxZF-Mdzzdcvnartlqv-Nzeqbln Work Phone: Tobacco use status CPHSb) XaFH-Rghbcxexjiezle-Sriknwp Work Phone: basic Metabolic Panelon 78-56-8153Vqkcefw [Mass/Vol] 8.9 mg/dLNormal8.2-10.2FOhioHealth Mansfield HospitalComment on above:Order Comment: PT IS NON FASTINGResult Comment: PERFORMED BY: [place] [address] PATHOLOGIST CUSTOMER ENGINEER ERNESTO ALCARAZ M.D.Performed By: #### BMP #### [facility] [address] [place] [address] USAChloride [Moles/Vol]103 mmol/VCfygke41-345VhupqmqkjThe Metrohealth SystemComment on above:Order Comment: PT IS NON FASTING Performed By: #### BMP #### [facility] [address] [id number] USACO2 [Moles/Vol]22.9 mmol/UFxnzqp50.0-30.0The Metrohealth SystemComment on above:Order Comment: PT IS NON FASTING Performed By: #### BMP #### [facility] [address] [place] [address] USACreatinine [Mass/Vol]0.78 mg/dLNormal0.44-1.03The Metrohealth SystemComment on above:Order Comment: PT IS NON FASTING Performed By: #### BMP #### [facility] [address] [place] [address] USAEstimated GFR ( Lillie> 60NormOhioHealth Dublin Methodist HospitalComment on above:Order Comment: PT IS NON FASTINGResult Comment: GFR estimated reference range: According to KDOQI guidelines, <60 ml/min/1.73m2 is sufficient to diagnose a patient with chronic kidney disease.Performed By: #### BMP #### [facility] [address] [place] [address] USAEstimated GFR (Non- Am> 60NormOhioHealth Dublin Methodist HospitalComment on above:Order Comment: PT IS NON FASTINGPerformed By: #### BMP #### [facility] [address] [id number] USAGlucose [Mass/Vol]88 mg/fWAfibyp70-105WlysitlrpThe Metrohealth SystemComment on above:Order Comment: PT IS NON FASTINGResult Comment: Random Glucose Reference Range is dependent on time and content of last meal. Glucose of more than 200 mg/dL in a nonstressed, ambulatory subject supports the diagnosis of Diabetes Mellitus. ADA recommended reference rangePerformed By: #### BMP #### [facility] [address] [place] [address] USAPotassium [Moles/Vol]4.4 mmol/LNormal3.5-5.1FOhioHealth Mansfield HospitalComment on above:Order Comment: PT IS NON FASTING Performed By: #### BMP #### [facility] [address] [place] [address] USASodium [Moles/Vol]135 mmol/IZwv204-687FwosmqegrThe Metrohealth SystemComment on above:Order Comment: PT IS NON FASTINGPerformed By: #### BMP #### [facility] [address] [place] [address] USAUrea nitrogen [Mass/Vol]10 mg/dLNormal9-23The Metrohealth SystemComment on above:Order Comment: PT IS NON FASTING Performed By: #### BMP #### [facility] [address] [place] [address] USACreatinine and Glomerular filtration rate.predicted panel (S/P/Bld)Ordered By: Simona Vargas on 27-32-0423Alhwffopga [Mass/Vol]0.78 mg/dL 0.44-1.03The Metrohealth SystemEstimated glomerular filtration rate (GFR) non- AmericanOrdered By: Simona Vargas on 77-14-9746JXK/1.73 sq M.predicted among non-blacks MDRD (S/P/Bld) [Vol rate/Area]> 60 mL/MinThe Metrohealth SystemNo Panel InformationOrdered By: Simona Vargas on 09-03-2021 Estimated GFR ()> 60 mL/MinThe Metrohealth System Comment on above:GFR estimated reference range: According to KDOQI guidelines, <60 ml/min/1.73m2 is sufficient todiagnose a patient with chronic kidney disease.Pharmacy Creatinine Clearance (ChemN/[facility] No Panel Informationon .9\S\8.9Xwxruf7.2-10.2MP-Located Within [facility] [place] [address] DO Work Phone: Comment on above:PERFORMED BY:[address] [place], [place] [id number] MEDICAL DIRECTORERNESTO ALCARAZ M.D.22.9\S\22.0Cstund03.0-30.0MP-Located Within [facility] 250 DO Work Phone: [phone]\S\146Xgsfmt11-295BT-Hzxql [place] [facility] 250 DO Work Phone: [phone]\S\4.7Rdehel1.5-5.1MP-Located Within [facility] 250 DO Work Phone: [phone]\S\135below low furgkdfcg878-335US-Mpeel [place] [facility] 250 DO Work Phone: > 60NormalMP-Located Within [facility] 250 DO Work Phone: Comment on above:GFR estimated reference range: According to KDOQI guidelines, <60 ml/min/1.73m2 is sufficient todiagnose a patient with chronic kidney disease.0.78\S\0.26Rfdbgb0.44-1.03MP-Located Within [facility] 250 DO Work Phone: [phone]\S\75Kurxmu7-53WL-Khihr [place] [facility] 250 DO Work Phone: [phone]\S\05Xbnulu39-765CD-Zrpem [place] [facility] 250 DO Work Phone: Comment on above:Random Glucose Reference Range is dependent on time and content of last meal. Glucose of more than 200 mg/dL in a nonstressed, ambulatory subject supports the diagnosis of Diabetes Mellitus. ADA recommended reference rangeOffice Visit (Cardiology)on 13-56-6484Qxgjte-up visit Diagnoses/Problems Assessed Mild CAD (414.00) (I25.10) [...] making process incorporating patients unique circumstances, the followingtreatment plan will be initiated: 1. Prescription drug [...] chest pain. August 12, 2021 transferred from [place] to [facility] due to chest pain/? STEMI. Managed emergently by Dr. Mott - [facility] mild CAD, normal LVEF. Type II NSTEMI due to medical illness, hyponatremia, COPD. Added: asa, lipitor, coreg. Left groin access site healed with adverse sequelae. Tolerating meds without concerns. August 2021 Inpatient USN Carotids: ALANIS 50-69%, LICA no significant Jul 2020 CT neck with contrast: ALANIS 99%, LICA 68% - saw someone at [facility] but did not hear any follow-up Will plan to repeat CTA carotids Thyroid: to see ENT at [facility] Hyponatremia; off HCTZ since discharge (also [...] Recorded: 03Sep2021 08:42AM Heart Rate62, L Radial Hjqjlusy357, LUE, Sitting Alxnsneoa54, LUE, Sitting Height5 ft 1 in Hxfocz911 lb BMI Idgtkbzhon08.97 kg/m2 BSA Calculated1.47 Tobacco Useb) No PHQ-2 #1. Over the last 2 weeks have you felt down, depressed or hopeless? (If yes, a (more contentnot included)...NormalUH TouchworksSerum or plasma calcium measurement (mass/volume)Ordered By: Simona Vargas on 69-77-9317Cxinyxs [Mass/Vol] 8.9 mg/dL8.2-10.2FParma Community General Hospitalerum or plasma chloride measurement (moles/volume)Ordered By: Simona Vargas on 69-38-9708Soobwgbq [Moles/Vol]103 mmol/R24-620QxelmmndpUC Medical Centererum or plasma glucose measurement (mass/volume)Ordered By: Simona Vargas on 24-91-2034Phnkfeb [Mass/Vol]88 mg/hZ37-908GbwrlsqlgThe Metrohealth SystemComment on above:ADA recommended reference rangeRandom Glucose Reference Range is dependent on time and content of last meal. Glucose of more than 200 mg/dL in a nonstressed, ambulatory subject supports the diagnosisof Diabetes Mellitus.Serum or plasma potassium measurement (moles/volume)Ordered By: Simona Vargas on 09-03-2021 Potassium [Moles/Vol]4.4 mmol/L3.5-5.1FParma Community General Hospitalerum or plasma sodium measurement (moles/volume)Ordered By: Simona Vargas on 09-03-2021 Sodium [Moles/Vol]135 mmol/G451-965CokbnzhlsUC Medical Centererum or plasma total carbon dioxide measurement (moles/volume)Ordered By: Simona Vargas on 84-59-6869GP4 [Moles/Vol]22.9 mmol/L22.0-30.0[facility] Serum or plasma urea nitrogen measurement (mass/volume)Ordered By: Simona Vargas on 26-27-8784Wtll nitrogen [Mass/Vol]10 mg/dL9-The Metrohealth SystemTobacco Screening.on 42-08-4285Bnbng depression screening assessmentRidgeview Medical Center 250 DO Work Phone: Fall risk assessmenta) No falls within the last year [facility] 250 DO Work Phone: Tobacco use status CPHSb) NoMGillette Children'S [facility] 250 DO Work Phone: Basic Metabolic Panelon 92-38-5369Cweddgl [Mass/Vol] 8.4 mg/dLNormal8.2-10.2FOhioHealth Mansfield HospitalComment on above: Performed By: #### DIFF CBC, BMP #### [facility] [address] [place] [address] USAChloride [Moles/Vol]97 mmol/VQtcqpu55-127ZraimlijhThe Metrohealth SystemComment on above:Performed By: #### DIFF CBC, BMP #### [facility] [address] [place] [address] USACO2 [Moles/Vol]24.6 mmol/KDrcbva30.0-30.0The Metrohealth SystemComment on above:Performed By: #### DIFF CBC, BMP #### [facility] [address] [place] [address] USACreatinine [Mass/Vol]0.75 mg/dLNormal0.44-1.03The Metrohealth SystemComment on above:Performed By: #### DIFF CBC, BMP #### [facility] [address] [place] [address] USACreatinine Clr Calc Nupemqfj26.67NoLicking Memorial HospitalComment on above:Result Comment: PERFORMED BY: [place] [address] PATHOLOGIST CUSTOMER ENGINEER ERNESTO ALCARAZ M.D.Performed By: #### DIFF CBC, BMP #### [place] [address] USAEstimated GFR ( Lillie> 60Trumbull Regional Medical CenterComment on above:Result Comment: GFR estimated reference range: According to KDOQI guidelines, <60 ml/min/1.73m2 is sufficient to diagnose a patient with chronic kidney disease.Performed By: #### DIFF CBC, BMP #### [place] [address] USAEstimated GFR (Non- Am> 60Trumbull Regional Medical CenterComment on above:Performed By: #### DIFF CBC, BMP #### [place] [address] USAGlucose [Mass/Vol]88 mg/vKLsahsb82-254FnqbnjtgyThe Metrohealth SystemComment on above:Result Comment: Random Glucose Reference Range is dependent on time and content of last meal. Glucose of more than 200 mg/dL in a nonstressed, ambulatory subject supports the diagnosis of Diabetes Mellitus. ADA recommended reference rangePerformed By: #### DIFF CBC, BMP #### [facility] [address] [place] [address] USAPotassium [Moles/Vol]4.2 mmol/LNormal3.5-5.1FOhioHealth Mansfield HospitalComment on above:Performed By: #### DIFF CBC, BMP #### [place] [address] USASodium [Moles/Vol]128 mmol/ZNtt696-809GttceqfeoThe Metrohealth SystemComment on above:Performed By: #### DIFF CBC, BMP #### [facility] [address] [place] [address] USAUrea nitrogen [Mass/Vol]7 mg/dLLow9-23The Metrohealth SystemComment on above:Performed By: #### DIFF CBC, BMP #### [facility] [address] [id number] USABasophils Auto (Bld) [#/Vol]Ordered By: Luisa Mott on 25-60-5146Uohrrstzd (Bld) [#/Vol]N/[facility] Basophils/100 WBC Auto (Bld)Ordered By: Luisa Mott on 62-45-7152Puqwnclei/100 WBC (Bld)N/[facility] HospitalBlood hemoglobin measurement (mass/volume)Ordered By: Luisa Mott on 91-14-8911Cmsukfclji (Bld) [Mass/Vol]12.4 g/dL11.8-15.4FOhioHealth Mansfield HospitalBlood leukocytes automated count (number/volume)Ordered By: Luisa Mott on 53-14-9781FPK (Bld) [#/Vol]5.9 10*3/uL 4.5-11.0The Metrohealth SystemCreatinine and Glomerular filtration rate.predicted panel (S/P/Bld)Ordered By: Luisa Mott on 44-41-8035Vdpczmbqgx [Mass/Vol]0.75 mg/dL0.44-1.03The Metrohealth SystemDiff and CBCon 46-56-5905Gunelybmvjh/100 WBC (Bld)1 %Normal1-3FOhioHealth Mansfield Hospital Comment on above:Performed By: #### DIFF CBC, BMP #### [facility] [address] [place] [address] USAErythrocyte distribution width (RBC) [Ratio]13.3 %Normal 11.9-15.3FOhioHealth Mansfield HospitalComment on above:Performed By: #### DIFF CBC, BMP #### [facility] [address] [id number] USAHematocrit (Bld) [Volume fraction]35.6 %Aijohz16.0-46.4 The Metrohealth SystemComment on above:Performed By: #### DIFF CBC, BMP #### [facility] [address] [place] [address] USAHemoglobin (Bld) [Mass/Vol]12.4 g/iGJqyrlk56.8-15.4 The Metrohealth SystemComment on above:Performed By: #### DIFF CBC, BMP #### [facility] [address] [place] [address] USALymphocytes/100 WBC (Bld)31 %Wesjby71-09ZdwrsbiakThe Metrohealth SystemComment on above:Performed By: #### DIFF CBC, BMP #### [place] [address] USAMCH (RBC) [Entitic mass]30.8 iuTbxcqe76.7-34.3FOhioHealth Mansfield HospitalComment on above:Performed By: #### DIFF CBC, BMP #### [place] [address] USAMCV (RBC) [Entitic vol]88.4 fGFygpnc19-539SohshnsefThe Metrohealth SystemComment on above:Performed By: #### DIFF CBC, BMP #### [place] [address] USAMean Corpuscular HGB Conc34.9 g/zNYqahhr37.0-35.0The Metrohealth SystemComment on above:Performed By: #### DIFF CBC, BMP #### [place] [id number] USAMonocytes/100 WBC (Bld)14 %High2-11The Metrohealth SystemComment on above:Performed By: #### DIFF CBC, BMP #### [place] [id number] USAMyelocytes3 %High0-0[facility] Comment on above:Performed By: #### DIFF CBC, BMP #### [place] [address] USANucleated RBC/100 WBC (Bld) [Ratio]0.2 %Normal0-0.5 The Metrohealth SystemComment on above:Result Comment: PERFORMED BY: [place] [address] PATHOLOGIST CUSTOMER ENGINEER ERNESTO ALCARAZ M.D.Performed By: #### DIFF CBC, BMP #### [place] [address] USAPlatelet EstimateNormalNormalTrumbull Regional Medical CenterComment on above:Performed By: #### DIFF CBC, BMP #### [place] [address] USAPlatelet mean volume (Bld) [Entitic vol]7.2 fLNormal 6.3-10.7FOhioHealth Mansfield HospitalComment on above:Performed By: #### DIFF CBC, BMP #### [place] [address] USAPlatelet MorphologyNormalNormalTrumbull Regional Medical CenterComment on above:Result Comment: PERFORMED BY: [place] [address] PATHOLOGIST CUSTOMER ENGINEER ERNESTO ALCARAZ M.D.Performed By: #### DIFF CBC, BMP #### [place] [address] USAPlatelets (Bld) [#/Vol]290 10*3/tAQqyzaf304-162SetpiifzgThe Metrohealth SystemComment on above:Performed By: #### DIFF CBC, BMP #### [place] [address] USARBC (Bld) [#/Vol]4.03 10*6/uLNormal3.60-5.00The Metrohealth SystemComment on above:Performed By: #### DIFF CBC, BMP #### [place] [address] USARBC morphology finding Nom (Bld)NormalTrumbull Regional Medical CenterComment on above:Performed By: #### DIFF CBC, BMP #### [facility] [address] [place] [address] USAReactive Lymphocytes4 %Normal0-12The Metrohealth SystemComment on above:Performed By: #### DIFF CBC, BMP #### [facility] [address] [place] [address] USASegmented neutrophils/100 WBC (Bld)47 %Abu37-47HkcsftsewThe Metrohealth SystemComment on above:Performed By: #### DIFF CBC, BMP #### [facility] [address] [place] [address] USAWBC (Bld) [#/Vol]5.9 10*3/uLNormal4.5-11.0The Metrohealth SystemComment on above:Performed By: #### DIFF CBC, BMP #### [facility] [address] [place] [address] USAECG 12 lead ECGon 13-27-3494ZOE 12 lead ECGWADSWORTH-RITTM[facility] Main [place] [address] [place] [address] Electrocardiograph Report Signed Patient: Sandhya Maldonado MR#: [id number] : 1960 Acct:[id number] Age/Sex: 61 / F ADM Date: 08/12/21 Loc: Room: [address] [place] [address] Type: DIS INOo Attending Dr: Luisa Mott [...] longer evident in Lateral leads Confirmed by VETO SMILEY, PRECIOUS ([id number]) on 08/14/2021 11:38:08 AM Referred By: Electronically Signed By:PRECIOUS LAWS MD Transcribed By: MUS Signed By Precious Laws MD 0 08/14/21 1138NormalThe Metrohealth SystemEosinophils Auto (Bld) [#/Vol]Ordered By: Luisa Mott on 62-69-7366Hvawfztulzb (Bld) [#/Vol]N/[facility] HospitalEosinophils/100 WBC Auto (Bld)Ordered By: Luisa Mott on 60-75-6135Yqaygodbvny/100 WBC (Bld)N/[facility] Erythrocyte distribution width Auto (RBC) [Ratio]Ordered By: Luisa Mott on 59-36-9045Fpoqybgsvqu distribution width (RBC) [Ratio]13.3 %11.9-15.3FOhioHealth Mansfield HospitalEstimated glomerular filtration rate (GFR) non- AmericanOrdered By: Luisa Mott on 52-91-8059IFW/1.73 sq M.predicted among non- blacks MDRD (S/P/Bld) [Vol rate/Area]> 60 mL/MinThe Metrohealth SystemHematocrit Auto (Bld) [Volume fraction]Ordered By: Luisa Mott on 08-14-2021 Hematocrit (Bld) [Volume fraction]35.6 %34.0-46.4FOhioHealth Mansfield HospitalLaboratory - Hematology and Cell countsOrdered By: Luisa Mott on 08-14-2021 Nucleated RBC/100 WBC (Bld) [Ratio]0.2 %0-0.5FOhioHealth Mansfield Hospital Lymphocytes Auto (Bld) [#/Vol]Ordered By: Luisa Mott on 97-74-1967Asnpynxumkv (Bld) [#/Vol]N/[facility] HospitalLymphocytes/100 WBC Auto (Bld) Ordered By: Luisa Mott on 25-29-0836Vjdppelhtia/100 WBC (Bld)NSelect Medical Cleveland Clinic Rehabilitation Hospital, Edwin ShawLymphocytes/100 WBC (Bld)31 %18-42The Metrohealth SystemLymphocytes/100 WBC Manual cnt (Bld)Ordered By: Luisa Mott on 59-10-7330Gvtfemqdptk/100 WBC (Bld)4 %0-12[facility] Auto (RBC) [Entitic mass]Ordered By: Luisa Mott on 87-95-7475VEH (RBC) [Entitic mass]30.8 pg24.7-34.3FSouthern [place] Medical CenterHC Auto (RBC) [Mass/Vol] Ordered By: Luisa Mott on 60-19-7263KXUF (RBC) [Mass/Vol]34.9 g/dL32.0-35.0 [facility] HospitalV Auto (RBC) [Entitic vol]Ordered By: Luisa Mott on 47-82-1173OAK (RBC) [Entitic vol]88.4 cE38-886DfilotipnThe Metrohealth SystemMonocyte %Ordered By: Luisa Mott on 56-85-5681Uqfeuvojw/100 WBC (Bld)1 %1-3FOhioHealth Mansfield HospitalMonocytes Auto (Bld) [#/Vol]Ordered By: Luisa Mott on 16-66-8256Jrvbzlfdd (Bld) [#/Vol]N/[facility] HospitalMonocytes/100 WBC Auto (Bld)Ordered By: Luisa Mott on 08-14-2021 Monocytes/100 WBC (Bld)N/[facility] HospitalMonocytes/100 WBC Manual cnt (Bld)Ordered By: Luisa Mott on 39-55-5886Jptrvnqyi/100 WBC (Bld)14 % 2-11The Metrohealth SystemMyelocytes/100 WBC Manual cnt (Bld)Ordered By: Luisa Mott on 51-41-9318Pgtyfhnata/100 WBC (Bld)3 %0-0The Metrohealth SystemNeutrophils Auto (Bld) [#/Vol]Ordered By: Luisa Mott on 08-14-2021 Neutrophils (Bld) [#/Vol]N/[facility] HospitalNeutrophils/100 WBC Auto (Bld)Ordered By: Luisa Mott on 40-10-0948Hdjgjovhqhd/100 WBC (Bld)N/A The [facility] SystemNo Panel InformationOrdered By: Luisa Mott on 41-49-1669Qtluhuwzc GFR ()> 60 mL/MinThe Metrohealth SystemComment on above:GFR estimated reference range: According to KDOQI guidelines, <60 ml/min/1.73m2 is sufficient todiagnose a patient with chronic kidney disease.Pharmacy Creatinine Clearance (Chem59.67The [facility] SystemPlatelet EstimateNormalNormOhioHealth Dublin Methodist Hospital Platelet Morphology CommentNormalTrumbull Regional Medical CenterPlatelet mean volume Auto (Bld) [Entitic vol]Ordered By: Luisa Mott on 07-70-2630Uglfsguw mean volume (Bld) [Entitic vol]7.2 fL6.3-10.7FOhioHealth Mansfield Hospital Platelets Auto (Bld) [#/Vol]Ordered By: Luisa Mott on 06-82-4646Iwrgqavbo (Bld) [#/Vol]290 10*3/iM881-465SolsvqrapThe Metrohealth SystemRBC Auto (Bld) [#/Vol] Ordered By: Luisa Mott on 51-86-3519UPC (Bld) [#/Vol]4.03 10*6/uL3.60-5.00 The Metrohealth SystemRBC morphologyOrdered By: Luisa Mott on 43-11-3529VSO morphology finding Nom (Bld)NormalUC Medical Centeregmented neutrophils/100 WBC Manual cnt (Bld)Ordered By: Luisa Mott on 77-48-7328Jhigzizja neutrophils/100 WBC (Bld)47 %50-70UC Medical Centererum or plasma calcium measurement (mass/volume)Ordered By: Luisa Mott on 32-85-9998Bfjlkdi [Mass/Vol]8.4 mg/dL8.2-10.2FOhioHealth Mansfield Hospital Serum or plasma chloride measurement (moles/volume)Ordered By: Luisa Mott on 86-83-4740Lowpcvat [Moles/Vol]97 mmol/R59-259WxtwfdsepThe [facility]health System Serum or plasma glucose measurement (mass/volume)Ordered By: Luisa Mott on 86-44-5422Razalik [Mass/Vol]88 mg/dZ96-340LhrgoprlcThe [facility]health System Comment on above:ADA recommended reference rangeRandom Glucose Reference Range is dependent on time and content of last meal. Glucose of more than 200 mg/dL in a nonstressed, ambulatory subject supports the diagnosisof Diabetes Mellitus. Serum or plasma potassium measurement (moles/volume)Ordered By: Luisa Mott on 38-23-7021Zmesytchq [Moles/Vol]4.2 mmol/L3.5-5.1FParma Community General Hospitalerum or plasma sodium measurement (moles/volume)Ordered By: Luisa Mott on 84-68-5608Xkvrdo [Moles/Vol]128 mmol/P988-954QvzsrzdrnThe Metrohealth System Serum or plasma total carbon dioxide measurement (moles/volume)Ordered By: Luisa Mott on 40-71-5194VW9 [Moles/Vol]24.6 mmol/L22.0-30.0UC Medical Centererum or plasma urea nitrogen measurement (mass/volume)Ordered By: Luisa Mott on 10-48-1314Qhdu nitrogen [Mass/Vol]7 mg/dL9-23The [facility] SystemBasic Metabolic Panelon 35-46-1810Sycovve [Mass/Vol]7.6 mg/dLLow 8.2-10.2FOhioHealth Mansfield HospitalComment on above:Performed By: #### BMP #### [facility] [address] [place] [address] USAChloride [Moles/Vol]92 mmol/GEqt66-543ItshkygbsThe Metrohealth SystemComment on above:Performed By: #### BMP #### [facility] [address] [place] [address] USACO2 [Moles/Vol]23.9 mmol/VQlgghp00.0-30.0The Metrohealth SystemComment on above:Performed By: #### BMP #### [facility] [address] [place] [address] USACreatinine [Mass/Vol]0.73 mg/dLNormal0.44-1.03The Metrohealth SystemComment on above:Performed By: #### BMP #### [facility] [address] [place] [address] USACreatinine Clr Calc Pnqmypzz67.49NormalThe Metrohealth SystemComment on above:Result Comment: PERFORMED BY: [place] [address] PATHOLOGIST CUSTOMER ENGINEER ERNESTO ALCARAZ M.D.Performed By: #### BMP #### [facility] [address] [place] [address] USAEstimated GFR ( Lillie> 60NormOhioHealth Dublin Methodist HospitalComment on above:Result Comment: GFR estimated reference range: According to KDOQI guidelines, <60 ml/min/1.73m2 is sufficient to diagnose a patient with chronic kidney disease.Performed By: #### BMP #### [facility] [address] [place] [address] USAEstimated GFR (Non- Am> 60NormOhioHealth Dublin Methodist HospitalComment on above:Performed By: #### BMP #### [place] [address] USAGlucose [Mass/Vol]103 mg/oUMprm95-810JdzrgnzzdThe Metrohealth SystemComment on above:Result Comment: Random Glucose Reference Range is dependent on time and content of last meal. Glucose of more than 200 mg/dL in a nonstressed, ambulatory subject supports the diagnosis of Diabetes Mellitus. ADA recommended reference rangePerformed By: #### BMP #### [place] [address] USAPotassium [Moles/Vol]3.3 mmol/LLow3.5-5.1FOhioHealth Mansfield HospitalComment on above:Performed By: #### BMP #### [place] [address] USASodium [Moles/Vol]123 mmol/LOff scale brj163-561AipyschciThe Metrohealth SystemComment on above:Result Comment: Results called at 0610 on 08/13/21Performed By: #### BMP #### [place] [address] USAUrea nitrogen [Mass/Vol]7 mg/dLLow9-23The Metrohealth SystemComment on above:Performed By: #### BMP #### [place] [address] USAComplete Blood Count Auto Diffon 01-40-9390Oasxsufhd (Bld) [#/Vol]0.0 10*3/uLNormal0.0-0.2FOhioHealth Mansfield HospitalComment on above:Result Comment: PERFORMED BY: [place] [address] PATHOLOGIST CUSTOMER ENGINEER ERNESTO ALCARAZ M.D.Performed By: #### CBC, BMP #### [place] [address] USABasophils/100 WBC (Bld)0.6 %Normal.The Metrohealth SystemComment on above:Performed By: #### CBC, BMP #### [place] [address] USAEosinophils (Bld) [#/Vol]0.1 10*3/uLNormal0.0-0.45 The Metrohealth SystemComment on above:Performed By: #### CBC, BMP #### [place] [address] USAEosinophils/100 WBC (Bld)1.9 %Normal.The Metrohealth SystemComment on above:Performed By: #### CBC, BMP #### [place] [address] USAErythrocyte distribution width (RBC) [Ratio]13.4 %Normal 11.9-15.3FOhioHealth Mansfield HospitalComment on above:Performed By: #### CBC, BMP #### [place] [address] USAHematocrit (Bld) [Volume fraction]32.8 %Low34.0-46.4 The Metrohealth SystemComment on above:Performed By: #### CBC, BMP #### [place] [address] USAHemoglobin (Bld) [Mass/Vol]11.6 g/dLLow11.8-15.4FOhioHealth Mansfield HospitalComment on above:Performed By: #### CBC, BMP #### [place] [address] USALymphocytes (Bld) [#/Vol]1.6 10*3/uLNormal1.00-4.8 The Metrohealth SystemComment on above:Performed By: #### CBC, BMP #### [place] [address] USALymphocytes/100 WBC (Bld)29.8 %Normal.The Metrohealth SystemComment on above:Performed By: #### CBC, BMP #### [facility] [address] [place] [address] USAH (RBC) [Entitic mass]31.1 lfOxruwh57.7-34.3FOhioHealth Mansfield HospitalComment on above:Performed By: #### CBC, BMP #### [place] [address] USAMCV (RBC) [Entitic vol]88.2 tZNpryna49-615QqhelnwxeThe Metrohealth SystemComment on above:Performed By: #### CBC, BMP #### [place] [address] USAMean Corpuscular HGB Conc35.3 g/zUNtuv32.0-35.0The Metrohealth SystemComment on above:Performed By: #### CBC, BMP #### [place] [address] USAMonocytes (Bld) [#/Vol]0.7 10*3/uLNormal0.0-0.8The Metrohealth SystemComment on above:Performed By: #### CBC, BMP #### [place] [address] USAMonocytes/100 WBC (Bld)12.9 %Normal.The Metrohealth SystemComment on above:Performed By: #### CBC, BMP #### [place] [address] USANeutrophils (Bld) [#/Vol]2.9 10*3/uLNormal1.8-7.7FOhioHealth Mansfield HospitalComment on above:Performed By: #### CBC, BMP #### [place] [id number] USANeutrophils/100 WBC (Bld)54.8 %Normal.The Metrohealth SystemComment on above:Performed By: #### CBC, BMP #### [facility] [address] [place] [address] USANucleated RBC/100 WBC (Bld) [Ratio]0.4 %Normal0-0.5 The Metrohealth SystemComment on above:Performed By: #### CBC, BMP #### [facility] [address] [place] [address] USAPlatelet mean volume (Bld) [Entitic vol]7.4 fLNormal 6.3-10.7FOhioHealth Mansfield HospitalComment on above:Performed By: #### CBC, BMP #### [place] [address] USAPlatelets (Bld) [#/Vol]278 10*3/qHZlmytj932-319OepxpmmowThe Metrohealth SystemComment on above:Performed By: #### CBC, BMP #### [place] [address] USARBC (Bld) [#/Vol]3.72 10*6/uLNormal3.60-5.00The Metrohealth SystemComment on above:Performed By: #### CBC, BMP #### [place] [address] USAWBC (Bld) [#/Vol]5.3 10*3/uLNormal4.5-11.0The Metrohealth SystemComment on above:Performed By: #### CBC, BMP #### [place] [address] USAECG 12 lead ECGon 16-90-3494CCK 12 lead ECGWADSWOR[facility] Main [place] [address] [place] [address] Electrocardiograph Report Signed Patient: Sandhya Maldonado MR#: [id number] 692 : 1960 Acct:[id number] Age/Sex: 61 / F ADM Date: 08/12/21 Loc: Room: [address] [place] [address] Type: DIS INOo Attending Dr: Luisa Mott [...] Signed By Precious Laws MD 0 08/13/[address] [place] [address] echo transthoracicon 63-59-2292RBW echo transthoracicWADSWORTH-[place] [address] Echocardiogram Signed Patient: Sandhya Maldonado MR#: [id number] 692 : 1960 Acct:[id number] Age/Sex: 61 / F ADM Date: 08/12/21 Loc: 3T Room: [address] [place] [address] Type: DIS INOo Attending Dr: Luisa Mott DO Ordering Provider: Luisa Mott DO Date of Service: 08/13/2108/05/499 [facility] echo transthoracic: Possible STEMI Copies to: MD [...] mmHg Transcribed By: SCV Performed At: 08/13/21 09 Signed By: Precious Laws MD 08/13/21 1127[facility] Medical CenterTroponin I High Sensitivityon 13-10-9409Zrikxyfq I High Yioyqxifcew37 pg/mLOff scale high0-15The Metrohealth SystemComment on above:Result Comment: Results called at 0609 on 08/13/21 PERFORMED BY: [address] [address] PATHOLOGIST CUSTOMER ENGINEER ERNESTO ALCARAZ M.D.Performed By: #### HS TROP #### [facility] [address] [place] [address] USATroponin I High Hzymkgzsept25 pg/mLOff scale high0-15 The Metrohealth SystemComment on above:Result Comment: Results called at 0140 on 08/13/21 PERFORMED BY: [address] [address] PATHOLOGIST CUSTOMER ENGINEER ERNESTO ALCARAZ M.D.Performed By: #### HS TROP #### [facility] [address] [place] [address] USATroponin I.cardiac [Mass/volume] in Serum or Plasma by High sensitivity methodOrdered By: Luisa Mott on 53-64-8978Gdvpfhpx I.cardiac High sensitivity method [Mass/Vol]60 pg/mL-[address] [place] [address] Comment on above:Results calledat 0609 on 08/13/21US carotid doppler BIon 29-51-7024XA carotid doppler [facility] Main [place] [address] [place] [address] Ultrasound Report Signed Patient: Sandhya Maldonado MR#: [id number] 692 : 1960 Acct:[id number] Age/Sex: 61 / F ADM Date: 08/12/21 Loc: Room: [address] [place] [address] Type: ADM INOo Attending Dr: Luisa Mott [...] 92.2 cm/s peak systolic and 28.5 cm/s end- diastolic proximally and 179 cm/s peak systolic and [...] Christian Ross MD08/13/2021 11:45 AM Dictation Location: [facility] Tech: Gilda Streeter Transcribed By: RUIZ 08/13/21 1145 Dictated By: Christian Ross MD 08/13/21 1143 Signed By: 08/13/21 1145[facility] Medical CenterBNPon 38-51-8564Ucbradpktkv peptide B (Bld) [Mass/Vol]5542.0 pg/mLCritically high<=900.0The Grant HospitalComment on above:Performed By: #### HSTROPN, BNP, BMP #### [facility] [address] [place] [address] Dr. Stuart Graham AUTO DIFFon 04-19-5304YRUL #0.1 103/ulNormal0.0-0.1The Grant HospitalComment on above:Performed By: #### CBC #### [facility] [address] [place] [address] Dr. Stuart WeaverBasophils/100 WBC (Bld)0.6 %Normal0.2-2.0[facility] Comment on above:Performed By: #### CBC #### [facility] [address] [place] [address] Dr. Stuart Rodriguez #0.1 103/ulNormal0.0-0.7The Grant HospitalComment on above: Performed By: #### CBC #### [facility] [address] [place] [address] Dr. Stuart Meyersosinophils/100 WBC (Bld)1.4 %Normal0.9-7.0[facility] Comment on above:Performed By: #### CBC #### [facility] [address] [place] [address] Dr. Stuart Meyersrythrocyte distribution width (RBC) [Ratio]12.6 %Fivpsg07.0-15.0 The Grant HospitalComment on above:Performed By: #### CBC #### [facility] [address] [place] [address] Dr. Stuart WeaverHematocrit (Bld) [Volume fraction]37.7 %Bcdcdn68.0-48.0The Grant HospitalComment on above:Performed By: #### CBC #### [facility] [address] [place] [address] Dr. Stuart WeaverHemoglobin (Bld) [Mass/Vol]13.4 g/jXVbmfta51.0-16.0The Grant HospitalComment on above:Performed By: #### CBC #### [facility] [address] [place] [address] Dr. Stuart Black #0.02 10e3/ulNormal0.00-0.03The [facility] on above:Performed By: #### CBC #### [facility] [address] [place] [address] Dr. Stuart Black %0.2 %Normal0.0-0.5The [facility] HospitalCommymichigan medical center gladwin on above: Performed By: #### CBC #### [facility] [address] [place] [address] Dr. Stuart Padilla #3.1 103/ulNormal1.2-3.8The [facility] HospitalCommymichigan medical center gladwin on above:Performed By: #### CBC #### [facility] [address] [place] [address] Dr. Stuart Villanuevahocytes/100 WBC (Bld)37.7 %Lgfsdl98.5-60.0The [facility] on above:Performed By: #### CBC #### [facility] [address] [place] [address] Dr. Stuart WoodardUAL DIFF REQNONormalThe [facility] on above: Performed By: #### CBC #### [facility] [address] [place] [address] Dr. Stuart Navas (RBC) [Entitic mass]30.3 iuZxpfzx27.7-34.0The [facility] on above:Performed By: #### CBC #### [facility] [address] [place] [address] Dr. Stuart Navas (RBC) [Mass/Vol]35.5 g/dLCritically high29.9-35.2The [facility] on above:Performed By: #### CBC #### [facility] [address] [place] [address] Dr. Stuart Navas (RBC) [Entitic vol]85.3 uXIunyaa75.0-99.0The [facility] on above:Performed By: #### CBC #### [facility] [address] [place] [address] [address] Stuart Catherine #1.2 103/ulCritically high0.3-0.8[facility] Comment on above:Performed By: #### CBC #### [facility] [address] [place] [address] [address] Stuart WeaverMonocytes/100 WBC (Bld)13.8 %Critically high1.7-12.0The Grant HospitalComment on above:Performed By: #### CBC #### [facility] [address] [place] [address] Dr. Stuart Abdi #3.8 103/ulNormal1.4-6.5The Grant HospitalComment on above:Performed By: #### CBC #### [facility] [address] [place] [address] Dr. Stuart Villafanautrophils/100 WBC (Bld)46.3 %Zrflaz81.0-75.0The Grant HospitalComment on above:Performed By: #### CBC #### [facility] [address] [place] [address] Dr. Stuart Schultz mean volume (Bld) [Entitic vol]9.1 fLCritically low 9.5-13.5The Grant HospitalComment on above:Performed By: #### CBC #### [facility] [address] [place] [address] Dr. Stuart WeaverPLT322 103/niWskkbt383-432Hhx Grant HospitalComment on above: Performed By: #### CBC #### [facility] [address] [place] [address] Dr. Stuart WeaverRBC4.42 106/ulNormal4.20-5.40The [facility] HospitalComment on above:Performed By: #### CBC #### [facility] [address] [place] [address] Dr. Stuart WeaverWBC8.3 103/ulNormal4.0-11.0The Grant HospitalComment on above: Performed By: #### CBC #### [facility] [address] [place] [address] Dr. Stuart WeaverCovid-19 PCR (CVDTB)on 38-94-5044ZLCE-CoV-2 (COVID-19) RNA RAFIA+probe Ql (Unsp spec)Not detectedNormalNOT DETECTEDThe [facility] Comment on above:Result Comment: This test is not yet approved or cleared by the [place] FDA. When there are no FDA-approved or cleared tests available, and other criteria are met, FDA can make tests available under an emergency access mechanism called an Emergency Use Authorization (EUA). The EUA for this test is supported by the [employer] of Health and Human Service's (HHS's) declaration that circumstances exist to justify the emergency use of in vitro diagnostics for the detection and/or diagnosis of the virus that causes COVID- 19. This EUA will remain in effect (meaning [...] of clinical signs and symptoms consistent with SARS-CoV-2.Performed By: #### CVDTBH #### [facility] [address] [place] [address] Dr. Stuart WeaverPROF CHEM 8 (BAS METB)on 50-76-9977Kavqc gap [Moles/Vol]7.0 mmol/LNormalThe Grant HospitalComment on above:Performed By: #### HSTROPN, BNP, BMP #### [facility] [address] [place] [address] Dr. Stuart WeaverCalcium [Mass/Vol]8.6 mg/dLNormal8.4-10.2[facility] Comment on above:Performed By: #### HSTROPN, BNP, BMP #### [facility] [address] [place] [address] Dr. Stuart WeaverChloride [Moles/Vol]87 mmol/LCritically ies80-974Tgq Grant HospitalComment on above:Performed By: #### HSTROPN, BNP, BMP #### [facility] [address] [place] [address] [address] Stuart WeaverCO2 [Moles/Vol]28.3 mmol/EMgauad90.0-30.0[facility] Comment on above:Performed By: #### HSTROPN, BNP, BMP #### [facility] [address] [place] [address] Dr. Stuart WeaverCreatinine [Mass/Vol]0.82 mg/dLNormal0.52-1.04The [facility] HospitalComment on above:Performed By: #### HSTROPN, BNP, BMP #### [facility] [address] [place] [address] Dr. Stuart MeyersGFR-AF CHILEAN>60Normal>=60The [facility] HospitalComment on above:Performed By: #### HSTROPN, BNP, BMP #### [facility] [address] [place] [address] Dr. Stuart MeyersGFR-NON AF CHILEAN>60Normal>=60The [facility] HospitalComment on above:Performed By: #### HSTROPN, BNP, BMP #### [facility] [address] [place] [address] Dr. Stuart WeaverGlucose [Mass/Vol]111 mg/dLCritically brbk40-118Art [facility] Hospitalment on above:Performed By: #### HSTROPN, BNP, BMP #### [facility] [address] [place] [address] Dr. Stuart WeaverPotassium [Moles/Vol]4.3 mmol/LNormal3.4-5.0[facility] Comment on above:Performed By: #### HSTROPN, BNP, BMP #### [facility] [address] [place] [address] Dr. Stuart WeaverSodium [Moles/Vol]117 mmol/LCritically hym028-265Sfj [facility] on above:Result Comment: TEST REPEATED CRITICAL VALUE VERIFIED Performed By: #### HSTROPN, BNP, BMP #### [facility] [address] [place] [address] [address] Stuart WeaverUrea nitrogen [Mass/Vol]9.0 mg/dLNormal7.0-17.0[facility] HospitalComment on above:Performed By: #### HSTROPN, BNP, BMP #### [facility] [address] [place] [address] [address] Stuart WeaverUrea nitrogen/Creatinine [Mass ratio]11.0 mg/mgNormalThe Grant HospitalComment on above:Performed By: #### HSTROPN, BNP, BMP #### [facility] [address] [place] [address] [address] Stuart Webster, HIGH SENSITIVITYon 16-64-6512RIHDOE983.4 pg/mL Critically high4.0-35.5The Grant HospitalComment on above:Result Comment: CUT-OFF POINTS HAVE BEEN ESTABLISHED BASED ON THE FOURTH UNIVERSAL DEFINITIONS OF MYOCARDIAL INFARCTION. THE UPPER REFERENCE LIMIT (URL) OF TROPONIN, DEFINED THE 99TH PERCENTILE OF cTnI DISTRIBUTION IN A REFERENCE POPULATION, HAS BEEN CONFIRMED THE DECISION THRESHOLD FOR MD DIAGNOSIS. TEST REPEATED CRITICAL VALUE VERIFIEDPerformed By: #### HSTROPN, BNP, BMP #### [facility] [address] [place] [address] [address] Stuart Webster I High Sensitivityon 45-22-3995Ksgtgylm I High Flistzyrjpt93 pg/mLOff scale [facility]0-[address] [place], [place] [address]Comment on above:Result Comment: Results called at 2227 on 08/12/21 PERFORMED BY: [place] [address] PATHOLOGIST CUSTOMER ENGINEER ERNESTO ALCARAZ M.D.Performed By: #### HS TROP #### [place] [address] USATroponin I High Yittfhsyqzq59 pg/mLOff scale [facility]015 The Metrohealth SystemComment on above:Result Comment: QUANTITY NOT SUFFICIENT FOR REPEAT TESTING. FIBRIN MAY FALSELY ELEVATE RESULTS. Results called at 2056 on 08/12/21 PERFORMED BY: [place] [id number] PATHOLOGIST CUSTOMER ENGINEER ERNESTO ALCARAZ M.D.Performed By: #### HS TROP #### [place] [id number] USAXR CHEST 1 Von 81-31-9384JP CHEST 1 VEXAMINATION: XR CHEST 1 V HISTORY: SHORTNESS OF [...] Electronically authenticated by: JOHNATHAN BETANCOURT Date: 2021-08-12 16:28[facility] Vital Signs Date TimeVital SignValuePerforming FzmzdnjocHebyalou11-51-7859 13:00-0400 Diastolic blood hogvjshr72 mm[Hg]Sanders Sarmini [facility]03-10-2025 13:00-0400Heart rate66 /minMuhammad Sarmini [facility]03-10-2025 13:00-0400Mean blood ogwgofas939 mm[Hg]Sanders Sarmini [facility]03-10-2025 13:00-0400 Respiratory rate25 /minMuhammad Sarmini [facility]03-10-2025 13:00-0400 Systolic blood onllwjhm014 mm[Hg]Sanders Sarmini [facility]03-10-2025 12:45-0400Blood Pressure LocationMuhammad Sarmini [facility]03-10-2025 12:45-0400 Diastolic blood hcgxlpet49 mm[Hg]Sanders Sarmini [facility]03-10-2025 12:45-0400Heart rate74 /minMuhammad Sarmini [facility]03-10-2025 12:45-0400Mean blood xdkuvcjv81 mm[Hg]Sanders Sarmini [address] [place], [place] 2280703-10-2025 12:45-0400 Respiratory rate18 /minMuhammad Sarmini [address] [place], [place] 2280703-10-2025 12:45-3788JlN9% (BldA) [Mass fraction]97 %Sanders Sarmini [address] [place], [place] 2280703-10-2025 12:45-0400 Systolic blood tsilbjsx805 mm[Hg]Sanders Sarmini [address] [place], [place] 2280703-10-2025 12:40-0400 Diastolic blood yfdjmqdc30 mm[Hg]Sanders Sarmini [address] [place], [place] 2280703-10-2025 12:40-0400Heart rate76 /minMuhammad Sarmini [address] [place], [place] 2280703-10-2025 12:40-0400Mean blood vbtpesdv48 mm[Hg]Sanders Sarmini [address] [place], [place] 2280703-10-2025 12:40-0400 Respiratory rate19 /minMuhammad Sarmini [address] [place], [place] 2280703-10-2025 12:40-0400 Systolic blood bjlyhijq438 mm[Hg]Sanders Sarmini [address] [place], [place] 2280703-10-2025 12:33-0400Body .88 [degF]Sanders Sarmini [facility]03-10-2025 12:30-0400 Respiratory rate15 /minMuhammad Sarmini [facility]03-10-2025 12:25-0400 Respiratory rate15 /minMuhammad Sarmini [facility]03-10-2025 12:20-0400 Respiratory rate15 /minMuhammad Sarmini [address] [place], [place] 2280703-10-2025 11:04-0400Body qtsnpnzspfi21.88 [degF]Sanders Sarmini [address] [place], [place] 2280702-24-2025 08:43-0500Blood Pressure LocationMuhammad Sarmini 412-2974Kumjyw-Nxfra[address] [place], [place] 2429302-24-2025 08:43-0500Diastolic blood vnxzgoop24 mm[Hg]Sanders Sarmini 603-5308Xxktxx-Smipd[address] [place], [place] 2429302-24-2025 08:43-0500Heart rate75 /minMuhammad Sarmini 837-6252Cnigih-Jgowf[address] [place], [place] 2429302-24-2025 08:43-0500Respiratory rate14 /minMuhammad Sarmini 408-2982Jiazrp-Bogoz[address] [place], [place] 2429302-24-2025 08:43-0500Systolic blood zlgzyjhd466 mm[Hg]Sanders Sarmini 043-4060Txxyli-Ngqxl[address] [place], [place] 2429310-23-2023 08:00-0400Blood Pressure LocationSBELEM AHN 596-1291Blirke-QqvvgHol[facility] 04-05-2023 08:00-0400Diastolic blood apdtmoqk19 mm[Hg]VIRY AHN 168-3369Dhlqjr-FcatfHolzer Medical Center [facility] 04-05-2023 08:00-0400Heart rate69 /minSHELLY ANABELLE 875-1161Fwbasd-Vpplg[address] [place] [address] 04-05-2023 08:00-3279YjA0% (BldA) [Mass fraction]100 %VIRY ANABELLE 657-3263Gytonk-Doslf[address] [place] [address] 04-05-2023 08:00-0400Systolic blood kwzihfoq820 mm[Hg]VIRY ANABELLE 606-1375Nihxrr-Etrdq[address] [place] [address] 03-17-2023 09:26-0400Diastolic blood fycfnbzw08 mm[Hg]VIRY ANABELLE 844-8793Rxmepw-Utxgg[address] [place] [address] 03-17-2023 09:26-0400Mean blood mm[Hg]VIRY ANABELLE 353-1404Vwjzej-Ebqwv[address] 03-17-2023 09:26-0400Systolic blood nhfalvya549 mm[Hg]VIRY ANABELLE 015-2824Udomtd-Qpred[address] [place] [address] 03-17-2023 09:20-0400Blood Pressure LocationSHELLY ANABELLE 176-3613Hiwljg-Nlbwh[address] [place] [address] 03-17-2023 09:20-0400Body fxkctoevjtu76.6 [degF]VIRY ANABELLE 240-1192Gpcqer-Hubkn[address] [place] [address] 03-17-2023 09:20-0400Diastolic blood gwiusaem99 mm[Hg]VIRY ANABELLE 118-0502Hsamfu-Vnntg[address] [place] [address] 03-17-2023 09:20-0400Heart rate54 /minSHELLY ANABELLE 830-7348Dhskpn-Wxmku[address] [place] [address] 03-17-2023 09:20-0400Respiratory rate19 /minSHELLY ANABELLE 581-3843Ungkih-BtduiHolzer Medical Center [facility] 03-17-2023 09:20-0167WjI3% (BldA) [Mass fraction]98 %VIRY AHN 955-1075Nnfjfj-PkgwnHolzer Medical Center [facility] 03-17-2023 09:20-0400Systolic blood azkbiczq215 mm[Hg]VIRY AHN 071-4130Zlrsnc-UozflHolzer Medical Center [facility] 05-13-2022 09:27-0500Body .94 Margie Sandoval MD Work Phone: [phone]-Njhfg [facility] [address] DO Work Phone: [phone] 490-484111-30-2022 09:27-0500Body mass index (BMI) [Ratio] 22.11 kg/w5MexcolShawn Sandoval MD Work Phone: [phone]-Dyxlb [facility] [address] DO Work Phone: [phone] 09:27-0500Body surface area Derived from formula1.5 d1QthxvaShawn Sandoval MD Work Phone: [phone]-Hlkxx [facility] [address] DO Work Phone: [phone] 09:27-0500Body xuxwrs56.07 kgShawn Sandoval MD Work Phone: [phone]-Gvswu [facility] 250 DO Work Phone: [phone] 09:27-0500Diastolic blood bjymmaod68 mm[Hg] Shawn Sandoval MD Work Phone: [phone]-Cajzh [facility] 250 DO Work Phone: [phone] 09:27-0500Heart rate66 /minShawn Sandoval MD Work Phone: GM-Fcdbn [facility] 250 DO Work Phone: [phone] 09:27-0500Systolic blood jfydxxvg296 mm[Hg] Shawn Sandoval MD Work Phone: [phone]-Zzmqq [facility] 250 DO Work Phone: [phone] 10:22-0400Blood Pressure LocationKamilah MASCORRO 004-6515Ohkzou-FlklrBrown [facility] Oysd26-76-8105 10:22-0400Body hychccyduiv36.7 [degF]Kamilah MASCORRO 305-1855Dgbnos-UjighBrown Memorial Hospital [facility] Aqze69-73-0046 10:22-0400Diastolic blood mkfovvej36 mm[Hg]Kamilah MASCORRO 711-7570Naryno-NptgyBrown [facility] Adob28-35-9742 10:22-0400Heart rate63 /minKamilah MASCORRO 909-3984Xcuhgo-LddkbBrown [facility] Tcvl94-89-9240 10:-7930JyS2% (BldA) [Mass fraction]98 %Kamilah MASCORRO 661-9042Vuxsgu-MpvdpBrown [facility] Sfjk98-04-3127 10:22-0400Systolic blood aqxogpmu551 mm[Hg]Kamilah MASCORRO 354-1881Afhawt-ZgtkbBrown [facility] Ntsz14-06-2792 15:01-0400Diastolic blood qgbgutab45 mm[Hg]Karo Nava 638-5630Fqzyvb-DyahrHolzer Medical Center – [facility] 08-22-2022 15:01-0400Mean blood yxmpocmn467 mm[Hg] Karo Nava 109-3889Pwbhhu-XsoltHolzer Medical Center – [facility] 08-22-2022 15:01-0400Systolic blood zbbktyxl412 mm[Hg] Karo Nava 484-9323Xezabq-ZhekcHolzer Medical Center – [facility] 08-22-2022 14:23-0400Blood Pressure LocationKaro Nava 829-0907Uedzda-IrlyaHolzer Medical Center – [facility] 08-22-2022 14:23-0400Body mpuontyypqj02.16 [degF]Karo Nava 857-8921Pnhfob-HwuixHolzer Medical Center – [facility] 08-22-2022 14:23-0400Diastolic blood hnrofcsw148 mm[Hg] Karo Nava 811-0816Blqkkr-LdkdwHolzer Medical Center – [facility] 08-22-2022 14:23-0400Heart rate70 /minKaro Nava 563-3962Poohoz-PrnahHolzer Medical Center [facility] 08-22-2022 14:23-5752ZrG4% (BldA) [Mass fraction]98 % Karo Nava 708-8978Mwbuwr-JgywiHolzer Medical Center – [facility] 08-22-2022 14:23-0400Systolic blood xyhecymd879 mm[Hg] Karo Nava 196-4714Cuhysk-IjgjiHolzer Medical Center – [facility] 05-13-2022 08:58-0400Body .94 cmOvidio Williamson MD Work Phone: [phone]-Jfadczkhdkpzt-[facility] [place] [address] Work Phone: [phone] 08:58-0400Body mass index (BMI) [Ratio]20.6 kg/m2Ovidio Williamson MD Work Phone: [phone]-Hlonaoyccinum-[facility] [place] [address] Work Phone: [phone] 08:58-0400Body surface area Derived from formula1.46 m2Ovidio Williamson MD Work Phone: [phone]-Tonuhyyykeqnr-[facility] [place] [address] Work Phone: [phone] 08:58-0400Body ssiolk36.44 kgOvidio Williamson MD Work Phone: DF-Sdwupfspykkkp-[facility] [place] [address] Work Phone: [phone] 08:58-0400Diastolic blood twaeqfrb24 mm[Hg] Ovidio Williamson MD Work Phone: YD-Taydgvyfthdqp-[facility] [address] Work Phone: [phone] 08:58-0400Heart rate57 /Vasquez Williamson MD Work Phone: WV-Ymstjncxmjmis-[facility] [place] [address] Work Phone: [phone] 08:58-0400Systolic blood eralnnou694 mm[Hg] Ovidio Williamson MD Work Phone: QT-Aukjowwrclkgm-[facility] [address] Work Phone: [phone] 10:03-0400Body dyxobz974.94 cmSimona Vargas SERVICE DELIVERY ANALYST-FINANCIAL INSTITUTION TREASURER Work Phone: [phone]-Dfpptrjtudtqrx-Fidelia Work Phone: [phone] 10:03-0400Body mass index (BMI) [Ratio] 21.01 kg/c0FtiqiSimona Vargas SERVICE DELIVERY ANALYST-FINANCIAL INSTITUTION TREASURER Work Phone: [phone]-Pgfduxhjaaankw-[facility] Work Phone: [phone] 10:03-0400Body surface area Derived from formula1.47 x7CiodaSimona Vargas SERVICE DELIVERY ANALYST-FINANCIAL INSTITUTION TREASURER Work Phone: EC-Atpjvruipltoqf-[facility]idelia Work Phone: [phone] 10:03-0400Body pdircgnqgvg93.88 [degF]Simona Vargas SERVICE DELIVERY ANALYST-FINANCIAL INSTITUTION TREASURER Work Phone: [phone]-Ddznwwtjnhaxdc-Fidelia Work Phone: [phone] 10:03-0400Body gtcquy58.44 kgSimona Vargas SERVICE DELIVERY ANALYST-FINANCIAL INSTITUTION TREASURER Work Phone: [phone]-Fyyatcokjyvzts-Fidelia Work Phone: 1(104) [phone] 10:03-0400Respiratory rate16 /May Vargas SERVICE DELIVERY ANALYST-FINANCIAL INSTITUTION TREASURER Work Phone: [phone]-Tnietwuchygsop-Fidelia Work Phone: 1([phone]) [phone] 08:42-0400Body oyargc470.94 cmBisylvia Mesacorrie Vargas SERVICE DELIVERY ANALYST-FINANCIAL INSTITUTION TREASURER Work Phone: [phone]-Ctlzu [facility] 250 DO Work Phone: 1(277) 341-614803-23-2022 08:42-0400Body mass index (BMI) [Ratio] 20.97 kg/i3Pdewu Crow Vargas SERVICE DELIVERY ANALYST-FINANCIAL INSTITUTION TREASURER Work Phone: [phone]-Ezegk [facility] 250 DO Work Phone: 1(308) [phone] 08:42-0400Body surface area Derived from formula1.47 t3LtmhzSimona Vargas SERVICE DELIVERY ANALYST-FINANCIAL INSTITUTION TREASURER Work Phone: [phone]-Zxesx [facility] 250 DO Work Phone: 1(479) 777-866003-23-2022 08:42-0400Body acbncy32.35 kgBisylvia Mesacorrie Vargas SERVICE DELIVERY ANALYST-FINANCIAL INSTITUTION TREASURER Work Phone: [phone]-Urdfr [facility] 250 DO Work Phone: 1(625) 376-170303-23-2022 08:42-0400Diastolic blood vmzcerrk81 mm[Hg] Simona Vargas SERVICE DELIVERY ANALYST-FINANCIAL INSTITUTION TREASURER Work Phone: [phone]-Mtzzc [facility] 250 DO Work Phone: 1([phone] 352-731303-23-2022 08:42-0400Heart rate62 /May Vargas SERVICE DELIVERY ANALYST-FINANCIAL INSTITUTION TREASURER Work Phone: [phone]-Ndtmg [facility] 250 DO Work Phone: 1([phone]) 194-166203-23-2022 08:42-0400Systolic blood agqwnfyn917 mm[Hg] Simona Vargas SERVICE DELIVERY ANALYST-FINANCIAL INSTITUTION TREASURER Work Phone: YZ-Mrimy[address] [place] [address] [facility] 250 DO Work Phone: 1(344) [phone] 11:23-0500Diastolic blood jirbnoja94 mm[Hg] DO W Waldo Mott Work Phone: [phone] [place], [place] 5991103-03-2022 11:23-0500 Heart rate67 /minDO W Waldo Mott Work Phone: [phone] [place], [place] 5991103-03-2022 11:23-0500 Respiratory rate14 /minDO W Waldo Mott Work Phone: [phone] [place], [place] 5991103-03-2022 11:23-0500 SaO2% (BldA) [Mass fraction]95 %DO W Waldo Mott Work Phone: [phone]03-03-2022 11:23-0500 Systolic blood wlcsxujn167 mm[Hg]DO W Waldo Mott Work Phone: [phone]03-03-2022 08:00-0500 Body bifiofkrgaj37.8 [degF]DO W Waldo Mott Work Phone: [phone] [place], [place] 5991103-03-2022 04:01-0500 Body jxkeao97.6 kgDO W Waldo Mott Work Phone: [phone]03-02-2022 12:12-0500 Body .56 cmDO W Waldo Mott Work Phone: [phone] [place], [place] 5991103-01-2022 19:11-0500 Body mass index (BMI) [Ratio]20.2 kg/m2DO W Waldo Mott Work Phone: [phone] [place] [address] Encounters Encounter DateEncounter TypeCare ProviderFacilityStart: 88-40-7860wedkwyycfhShme L SchwabFacility:FT BellevueStart: 04-11-2025 End: 68-29-2529cracwoeiljGttn L SchwabFacility:FT BellevueStart: 10-19-2024 End: 12-45-7374Jxmonh Damon CORRAL Work Phone: noms SWS DERMStart: 10-19-2024 End: 36-00-5167Oweepi [facility] PA Work Phone: NOJG SWS DERMStart: 10-19-2024 End: 30-51-9162Zsjwds [facility] Work Phone: NODN SWS DERMComment on above:Actinic keratosis (Primary Dx)Start: 10-19-2024 End: 43-30-2704abmqrfittxWVQDG NORTHEIMNot AvailableStart: 10-10-2024 End: 53-22-1440jwzvkiykfhZdbe L SchwabFacility:FT FM BellevueStart: 09-21-2024 End: 07-73-8852Qeuxai [facility] PA Work Phone: NOET SWS DERMStart: 09-21-2024 End: 82-96-9780Fipafs [facility] PA Work Phone: NOUG SWS DERMStart: 09-21-2024 End: 92-07-4970Zlussz outpatient visit 10 [facility] PA Work Phone: NOMS SWS DERMComment on above:Seborrheic keratosis (Primary Dx); Actinic keratosisStart: 09-21-2024 End: 47-05-2763meuzxspbbhOWKOA NORTHEIMNot AvailableStart: 09-07-2024 End: 63-79-7288cofhnzkbibJnma L SchwabFacility:FTMCStart: 09-07-2024 End: 81-99-3372Wdufhod encounter procedureJodi L Chacho [facility] Start: 08-29-2024 End: 32-85-2699Mxc Drop offJodi L Chacho [facility] Start: 08-29-2024 End: 30-92-3202qedxxddlnvWBC Josephine L SchwabFacility:FT FM BellevueStart: 08-21-2024 End: 85-40-0876lbvxdnjzssKnlojeph Talal SarminiFacility:FTMCStart: 08-21-2024 End: 35-29-8206Acqtamc encounter procedureMuhammad Talal Sarmini [facility] Start: 08-10-2024 End: 36-24-1826bpnkvdtdsyZMH Josephine L SchwabFacility:FTMCStart: 08-10-2024 End: 10-21-7564Rmtpuna encounter procedureJodi L Chacho [facility] Start: 08-08-2024 End: 68-64-8942ocfjjdyrkuTWI Josephine L SchwabFacility:FT BellevueStart: 08-07-2024 End: 67-57-2335mscegxkxyqUhpvpjxj Talal SarminiFacility:[facility] DHStart: 08-07-2024 End: 01-26-2925Txermkd encounter procedureMuhammad Talal Sarmini [phone]-IbtdpBrown [facility] Start: 08-01-2024 End: 62-13-9630ltjdidwrmoUDB Josephine L SchwabFacility:FT FM BellevueStart: 07-25-2024 End: 37-57-5410ffqklktxwlYVY Josephine L SchwabFacility:FT FM BellevueStart: 07-18-2024 End: 92-05-4389doizhwqxswHjtj L SchwabFacility:FT FM BellevueStart: 07-14-2024 End: 33-75-3253Mkb Drop offJodi L Chacho [facility] Start: 07-14-2024 End: 83-11-2896pghtdbjwkdUCO Josephine L SchwabFacility:FTMCStart: 06-19-2024 ambulatoryJodi L SchwabFacility:FT FM BellevueStart: 06-06-2024 End: 07-69-6447cikaweskwdITWQ REFERRALFacility:FTMCStart: 06-06-2024 End: 71-69-2276Fpxctlw encounter procedureSELF REFERRALOur Lady Of [facility] Start: 06-05-2024 End: 71-99-8261emxqhwwmdmHmth L SchwabFacility:FTMCStart: 06-05-2024 End: 94-97-2928Mqcytkm encounter procedureJodi L Chacho [facility] Start: 05-31-2024 End: 41-12-4971Ter Drop offJodi L Chacho [facility] Start: 05-31-2024 End: 74-23-1802nsztaixlqpIlaj L SchwabFacility:FTMCStart: 05-29-2024 End: 90-51-0794Dbcfpnm encounter procedureRyeva Reyesdenia CORRAL Work Phone: noms SWS DERMComment on above:Actinic keratosis (Primary Dx)Start: 05-29-2024 End: 09-09-9921rdiyuwleuvBNMFT [facility] AvailableStart: 05-25-2024 End: 75-29-4653jngdecsxhnJduc L SchwabFacility:FT BellevueStart: 05-09-2024 End: 52-78-8824Lslyxf flowsheetMounika [facility] PA Work Phone: NOMS SWS DERMStart: 05-09-2024 End: 98-95-8926Tapuxu [facility] PA Work Phone: NOAH SWS DERMStart: 05-09-2024 End: 96-28-7751Uzuxqn outpatient new 20 minutesRyleedwin Diazdenia CORRAL Work Phone: [facility] DERMComment on above:Seborrheic keratosis (Primary Dx); Actinic keratosisStart: 05-09-2024 End: 54-33-3468ggvrsxtgmwHCVLS NORTHEIMNot AvailableStart: 04-07-2023 End: 72-84-6861Oep-SiteSHELRANDELL AHN [phone]-YebibHolzer Medical Center [facility] Start: 04-05-2023 End: 85-34-1801Wdx Drop offSHELLY A [facility] Start: 04-05-2023 End: 51-12-2226Dgjduok encounter procedureSHELRANDELL A ANABELLE [phone]-IdktjHolzer Medical Center [facility] Start: 03-17-2023 End: 43-08-9012Vevspyv encounter procedureSHELLY A ANABELLE [phone]-PlhneHolzer Medical Center – [facility] Start: 99-77-0006pqrcbealkmJyBrett Mott Facility:06852Vpute: 04-02-2022 End: 39-09-5357Yrlgdqr encounter procedureKamilah MASCORRO [phone]-ExwpnBrown Memorial Hospital [facility] Start: 02-04-2022 End: 47-84-9202Aprqvxm encounter procedureKaro Nava [facility] Start: 02-02-2022 End: 78-02-3814Lqjwoni encounter procedureKaro Nava [phone]-RxcgqHolzer Medical Center – [facility] Start: 89-44-1970CTBLDPlnv Arafah MD Work Phone: IG-Dlwgmpfwdezqg-[facility] [place] [address] Work Phone: [phone]: 90-21-5004Jezrk Savannah Bowden MD Work Phone: SH-Adygwngslowih-[place] 1600 Inj Work Phone: [phone]: 11-17-2021 End: 59-91-8279kasdfezoirJS DOCTOR MISCFacility:J8Hevze: 02-65-8405Ewkybrc encounter procedureShawn Sandoval MD Work Phone: [phone]-Fcevd [facility] 250 DO Work Phone: Start: 99-81-1737Oxnwt Rosemary Williamson MD Work Phone: TD-Vjcniflxzgkve-[facility] [place] [address] Work Phone: [phone]: 51-49-6635Bpfsr Rosemary Williamson MD Work Phone: XE-Esdjbfzwzdmij-[facility] [place] [address] Work Phone: [phone]: 24-04-6242Ytyazm outpatient new 60 minutesOvidio Williamson MD Work Phone: QA-Xulcqyebhmvku-[facility] [place] [address] Work Phone: [phone]: 06-68-8310lxnzapwwvkTu. OVIDIO WILLIAMSON Facility:[id number]: 15-20-8568vrpxzmuytkNa. SHAWN SNEEDUFacility:UHtart: 09-03-2021 End: 60-07-2248jfyuwjfastSeinjz R KlonkFacility:[facility] Centertart: 63-32-8300Gdohzh outpatient visit 25 minutesSimona Vargas SERVICE DELIVERY ANALYST-FINANCIAL INSTITUTION TREASURER Work Phone: [phone]-Durmr [facility] 250 DO Work Phone: Start: 50-86-0396totykwfcupZm. Berto Mott Facility:09885Gynfx: 09-03-2021 End: 02-21-1566Opquaez encounter procedureSimona Vargas SERVICE DELIVERY ANALYST-FINANCIAL INSTITUTION TREASURER Work Phone: [facility] Main CampusStart: 13-00-6655febptanacdEj. Berto MottFacility:9090Start: 08-13-2021 [address]Dr[address] Berto MottFacility:9090Start: 08-12-2021 End: 70-81-8954iqqcwzycqyE Waldo MottFacility:[facility] Centertart: 08-12-2021 End: 81-18-9803Wtnijdbpwh and management of inpatientDO Luisa Waldo Mott Work Phone: [facility] [place] [facility] SurgStart: 08-12-2021 End: 45-62-4584layvpxzdebMH DOCTOR MISCFacility:P1Aisvf: 11-29-2020 End: 41-45-4096jhnvhthuquTU SEKOU ANNAFacility:W9Zfmep: 09-17-2017 End: 89-81-7833JjmitsdvnmANJRJO [facility] Procedures DateProcedureProcedure DetailPerforming ClinicianStart: 02-24-0299CUGTSDTAIMJ SKIN LESIONRylee [facility] PA Work Phone: Start: 77-09-9244VmqtcklrkbtNxcaa [facility] PA Work Phone: Start: 59-29-7917FljgrqdqaxpAnjmwkmb Sarmini Start: 31-72-1467KWNQBOMWPAD SKIN LESIONRylee [facility] PA Work Phone: Start: 42-57-2036TYQCWHCHELC SKIN LESIONRylee [facility] PA Work Phone: Start: 92-31-2176Tcgqesf ultrasonography of bilateral carotid arteriesDO Luisa Mott Work Phone: Start: 32-85-8126VM Closure Device Placement 0DO Luisa Mott Work Phone: Start: 99-22-8002XI LHC [facility] COR AngioDO Luisa Mott Work Phone: Start: 14-67-3632csghous nerve in neckKaro Nava ColonoscopyKaro Nava Procedure on Rafiq Vargas SERVICE DELIVERY ANALYST-FINANCIAL INSTITUTION TREASURER Work Phone: Plan of Treatment DateCare ActivityDetailAuthorStart: 09-84-9410Uuwiawztz for malignant neoplasm of colonNOMS HealthcareStart: 01-51-1745xislvvmwbjZghorkgldxGzlzanwu:FT FM BellevueStart: 21-95-3331Zwxnkezbf vaccinationInfluenza Vaccine (Season Ended) NOMS HealthcareStart: 11-16-2024 End: 58-92-4483Cnakpej encounter raczpgtaj28/05/2025 9:10 AM EDT [facility] [address] [place] [address] Mounika Goins PA [address] [place] [address] [facility] DERMStart: 10-19-2024 End: 55-44-3769Ulfzzji encounter procedureNOMS [facility] DERMComment on above:Arrived Start: 09-21-2024 End: 89-56-1366Qzgaogk encounter jgntqaffk19/10/2025 10:30 AM EDT Office [facility] [address] [place] [address] Mounika Goins PA [address] [place] [address] ArrivedNOMS [facility] DERMComment on above:ArrivedStart: 66-50-6400Dqivkhdofexw Vaccine: 65+ Years (1 of 1 - PCV)Pneumococcal Vaccine: 65+ Years (1 of 1 - PCV)NOMS HealthcareStart: 63-82-7168Qprzeiylo vaccination Influenza Vaccine (#1)NOM HealthcareStart: 49-58-1977Uccmbnynt for malignant neoplasm of colonNOMS HealthcareStart: 93-26-5662NBY, Provider: Berto Mott, Status: Pen, Time: 9:30 AMFUV, Provider: Berto Mott, Status: Pen, Time: 9:30 AMMPMinneapolis Va [facility] Care [facility] 250 DO Work Phone: Start: 69-10-7044CPY, Provider: Shawn Sandoval, Status: Pen, Time: 10:30 AMNPV, Provider: Shawn Sandoval, Status: Pen, Time: 10:30 AMEss[facility]ia Health 250 DO Work Phone: Start: 77-01-3606Dnhlxazaowts Vaccine: 65+ Years (1 of 1 - PCV)Pneumococcal Vaccine: 65+ Years (1 of 1 - PCV)NOMS HealthcareStart: 30-90-3219Sguptdjsq for malignant neoplasm of breastMammogramNOMS Healthcare Start: 89-55-3093Pscfalrjc for malignant neoplasm of cervixNOMS HealthcareStart: 57-21-5945Epoagaeks for malignant neoplasm of cervixPap SmearNOMS Healthcare Start: 71-12-4195Oeewbkkrw for malignant neoplasm of colonNOMS HealthcarePatient referralOhiohealth Dublin Methodist Hospital Work Phone: Immunizations Immunization DateImmunizationNotesCare FdvcmjjoDtvlifyn97-03-8893epfkzmedn, high dose seasonal, preservative-freeVIRY AHN 466-9986Odgbnv-GtzaiBrown Memorial Hospital [facility] [place] 29-59-5322wpkyhmfit virus vaccine, unspecified formulationeva CORRAL Work Phone: [facility] BransonOzoeblholg70-44-6039ycwkiafja virus vaccine, unspecified formulationKamilah MASCORRO 978-3798Jpxiks-DvpmcBrown Memorial Hospital Convenient Pgxm52-87-4763 influenza, injectable, quadrivalent, preservative Avani Vargas SERVICE DELIVERY ANALYST-FINANCIAL INSTITUTION TREASURER Work Phone: [facility]12-23-2021Moderna COVID-19 Vaccine 100 MCG/0.5ML Intramuscular SuspensionSimona Vargas SERVICE DELIVERY ANALYST-FINANCIAL INSTITUTION TREASURER Work Phone: [facility] SystemComment on above: Series:Result Comment: 2022-04-02: WIX5953-58-1564bptigrynkl, tetanus toxoids and pertussis vaccineSimona Vargas SERVICE DELIVERY ANALYST-FINANCIAL INSTITUTION TREASURER Work Phone: [phone]-Yayak [place] [facility] 250 DO Work Phone: [phone]) [phone] COVID-19 Vaccine 100 MCG/0.5ML Intramuscular SuspensionSimona Mesacorrie Vargas SERVICE DELIVERY ANALYST-FINANCIAL INSTITUTION TREASURER Work Phone: [facility]04-09-2021Pfizer- BioNTech COVID-19 Vacc 30 MCG/0.3ML Intramuscular SuspensionSimona Mesacorrie Vargas SERVICE DELIVERY ANALYST-FINANCIAL INSTITUTION TREASURER Work Phone: [phone]-Typnsiqzrckvog-[facility] Work Phone: comment on above:Series:26-38-1176Txurmom COVID-19 Vaccine 100 MCG/0.5ML Intramuscular SuspensionSimona Mesacorrie Vargas SERVICE DELIVERY ANALYST-FINANCIAL INSTITUTION TREASURER Work Phone: [facility]03-09-2021Pfizer- BioNTech COVID-19 Vacc 30 MCG/0.3ML Intramuscular SuspensionSimona Mesacorrie Vargas SERVICE DELIVERY ANALYST-FINANCIAL INSTITUTION TREASURER Work Phone: [phone]-Jxrfqbsqkfnuld-[facility] Work Phone: comment on above:Series: Payers DatePayer CategoryPayerPolicy [id number] 2025Medicare [id number] Health InsuranceMUTPROVIDENCE [facility] [place] [address] [id number] [id number] 2020Medicaid (Managed Care) [employer] Member Subscriber Plan / Payer (Effective 2020- Present) Name: [place] j[place] R[place] Relation to Subscriber: Self Name: Sandhya Maldonado Payer ID: Not on file Group ID: Not on file Type: Not on file Address: [place] [id number] [id number] 2.0.1.340584.3.57[id number] 2.16840.1.056310.3.57[id number] 2.0.1.399742.3.579.2.6[id number] 2.16840.1.369931.3.579.2.0[id number] 2.16840.1.410743.3.579.2.15079-71-8971Dgfhhhq767589544 2.16840.1.257958.3.579.2.46558-63-3821Ejifqhb434433459 2.16840.1.588922.3.579.2.43009-87-2309Rutrlxk642657938 2.16.840.1.434175.3.57[id number] 2.16.840.1.107618.3.579.2.75469-65-6994Gmwfbft191030410 2.16.840.1.032967.3.579.2.51408-38-7538Dacfyof166899167 2.16.840.1.421438.3.579.2.75583-35-1752Eqiaygj174447823 2.16.840.1.805625.3.579.2.90343-72-2151Zucutjs38555346 2.16.840.1.336651.3.579.2.91444-29-5436Opbuuur35723223 2..840.1.801602.3.579.2.86796-82-6378Irttmmu64457367 2.16.840.1.044347.3.579.2.07456-17-2768Cdiglog26358862 2..840.1.691359.3.579.2.64355-05-0183Uqlalva96196886 2.16.840.1.991462.3.579.2.92403-29-0187Ugoymqc19623373 2..840.1.107896.3.579.2.39075-70-3097Illzvmo84017663 2.16.840.1.424742.3.579.2.58998-60-9598Egmijne30357506 2.16.840.1.105072.3.579.2.90338-44-7518Ohembvy58803483 2.16.840.1.917293.3.579.2.17862-32-0702Wkkdwam26342474 2.16.840.1.448764.3.579.2.73497-62-0933Jttwfrs28714991 2.16.840.1.207559.3.579.2.38477-36-6069Wytuaaq98038363 2.16.840.1.203577.3.579.2.15113-90-6995Azzgmdp43668611 2.16.840.1.445023.3.579.2.80745-61-9462Nnhmcyi19916471 2.16.840.1.362362.3.579.2.46739-49-6322Bdgsrsf10681056 2.16.840.1.436586.3.579.2.69620-01-2703Xgyenvv5988493 2.16.840.1.769387.3.579.2.001905-04-6443Mwecxht6289640 2.16.840.1.669336.3.579.2.965864-96-1788Sknptwx8991407 2.16.840.1.359444.3.579.2.163191-50-2135Vgomyaa3260448 2.16.840.1.840909.3.579.2.890334-79-2965Cmgjyvl09558346 2.16.840.1.631686.3.579.2.79744-19-6647Nyeocrk36776119 2.16.840.1.976765.3.579.2.79140-24-7759Vkqetks27787657 2.16.840.1.511581.3.579.2.71971-65-6024Nmnnqyk63791862 2.16.840.1.337631.3.579.2.80990-56-1224Vqmubwu38773070 2.16.840.1.425725.3.579.2.54803-90-0545Dpybekk18761325 2.16.840.1.271400.3.579.2.59749-88-7843Uloxwca46144615 2.0.1.333662.3.579.2.50103-61-2356Pncgqwt99884712 2.0.1.416549.3.579.2.90867-26-8217Bypcjim874256867980 38221598-b470-74ur-7414-e6s0k1z21573Frskndi67317400 2..840.1.368370.3.579.2.615Zguhfrj31885723 2.0.1.209845.3.579.2.531 Social History DateTypeDetailFacilityFormer smokerFormer smoker-Located Within [facility] 250 DO Work Phone: Comment on above:QUIT 6 MONTHS AGO;10 CUPS OF COFFEE DAILY;2020 quit;Start: 08-12-2021 End: 02-85-4710Aeecluh smoking status NHISSmoker (finding)[facility] SystemComment on above:stoppped smoking dec 2019stoppped smoking dec 2020Start: 35-23-7759Gkm Assigned At BirthC[facility] Clinic Ment[facility] HospitalNeMet[facility]Health [facility] Comment on above:stoppped smoking dec 2019stoppped smoking dec 2019[facility] Start: 04-02-2022 End: 18-77-3004Mihsspk smoking statusEx-smoker (finding)[facility] CareStart: 80-25-6175Ywfhtxt smoking status NHISTobacco smoking consumption unknownNOMS HealthcareStart: 38-92-2647Wyp assigned at Not on fileNOMS HealthcareSexual [facility] Start: 51-61-9865KrfGiojiz (finding)[facility] Medical Equipment Procedure CodeEquipment CodeEquipment Original TextEquipment IdentifierDates Femoral artery closure plug/patch, synthetic polymer [id number] FDAStart: 08-12-2021 Goals DatePatient GoalDesired Activity/State Functional Status OuvcAypelcymgkKoaolhBzckllte59-98-8175Odzcbmgmee StatusN/[facility]02-24-2025Functional StatusN/[facility]estive Dyaaap29-54-8293Lnffskkyup StatusN/[facility] Family [facility] ErQsrmv52-15-3881Ekwovuzrpf StatusN/[facility]10-20-2022Functional StatusN/[facility] Care 02-02-2022N/[facility] 03422499-13-9235Gxoesqjpra statusPatient at BaselineOhiohealth Dublin Methodist Hospital Work Phone: Mental Status QxubRdsqwfmdidIomcjfVtfrejpu13-05-6306Yqmppyzog functionCognitive Status Patient at BaselineOhiohealth Dublin [facility] Hospital Work Phone: Clinical Notes 05-15-2021 to 10-19-2024 Note Date & LulgOdfoHjzawizl56-17-1180 History of Present illness Narrative* SHAYNA Mcdonald - 10/19/2024 9:30 AM EDT Follow up Diagnosis: Actinic Keratosis Location: left nasal sidewall Last visit: 09/21/2024 Symptoms: dark spot Status: some improvement Procedure performed: Cryotherapy Date of procedure: 09/21/24 Number of treatments to date: 3 All pertinent medical history, medications, and allergies were reviewed. General Exam: alert, oriented to person, place, and time, normal affect, well appearing Unaccompanied A focused exam completed based on patient reported problems, see below: Skin Exam 1. ACTINIC KERATOSIS Left Tip of Nose Erythematous scaly papule, improved since last visit. Clear today. Discussed that residual redness will take time to fade. Follow up in 4 weeks, can cancel if no recurrence. Next Visit: 4 weeks documented in this encounterCox BransonOhtatlcxuj47-83-3275 History of Present illness Narrative* SHAYNA Mcdonald - 09/21/2024 10:30 AM EDT Follow up Diagnosis: Actinic Keratosis Location: left nasal sidewall Last visit: 05/29/2024 Symptoms: the darkness has gone done a little bit Status: no change Procedure performed: Cryotherapy Date of procedure: 05/29/2024 Number of treatments to date: 2 All pertinent medical history, medications, and allergies were reviewed. General Exam: alert, oriented to person, place, and time, normal affect, well appearing Unaccompanied A focused exam completed based on patient reported problems, see below: 1. Seborrheic keratosis Left Forehead Stuck on verrucous, raphael-brown papules and plaques. Patient was counseled regarding these benign growths. Removal is normally not necessary, but they may be removed if they are symptomatic or for cosmetic reasons. 2. Actinic keratosis Left Tip of Nose Erythematous scaly papules Patient was counseled regarding these sun-induced growths that can develop into squamous cell carcinoma if left untreated. Discussed treatment with cryotherapy. It was emphasized that any treated lesions that fail to resolve should be re- evaluated. Cryotherapy performed today; see procedure note. Discussed that residual redness will take time to fade. Will consider biopsy if no improvement. Diagnosis: Actinic keratosis Indication: Precancerous Location: see skin exam Consent: Verbal consent was obtained and risks were discussed, including, but not limited to risks of scarring, darker or customer counter associate pigmentary changes, recurrence, incomplete removal and infection. [...] or tenderness Cryotherapy, skin lesion - Left Tip of Nose Next Visit: 4 weeks documented in this encounterNOMS [id number] NoteProgress Note-Physician Patient: SANDHYA MALDONADO Age: 64 years Sex: Female : 1960 Associated Diagnoses: None Author: Hunter English Jr, DO Preoperative Information Anesthesia Preop Info: Time patient last ate or drank 08/21/2024 00:00:00. Anesthesia history: Patient history: None. Family history+: None. Informed consent: Signed by patient. Re-evaluation prior to induction: Initial evaluation reviewed: No significant change. Review of Systems Eye: Negative except as documented in history of present illness. Ear/Nose/Mouth/Throat: Negative except as documented in history of present illness. Respiratory: Negative except as documented in history of present illness. Cardiovascular: Negative except as documented in history of present illness. Musculoskeletal: Negative except as documented in history of present illness. Neurologic: Negative except as documented in history of present illness. Health Status Allergies: Allergic Reactions (Selected) No Known Allergies Problem list: All Problems Loud snoring / SNOMED CT 481611921 / Confirmed Smoker / IMO [id number] / Confirmed Added secondary to documentation in Social History. Sleep apnea / SNOMED CT 849399921 / Confirmed Sinusitis / SNOMED CT 00822973 / Confirmed Restless leg / SNOMED CT 68287341 / Confirmed Rectal bleed / SNOMED CT 272404512 / Confirmed Screening for colon cancer / SNOMED CT 530668416 / Confirmed Multiple thyroid nodules / SNOMED CT 383359334 / Confirmed Major depressive disorder, recurrent episode, moderate / SNOMED CT 88866281 / Confirmed added per 07/17/2024 query response. COPD, mild / SNOMED CT 895332741 / Confirmed Hyperthyroidism / SNOMED CT 67905918 / Confirmed Hypertension / SNOMED CT 5030647084 / Confirmed Hyperlipemia / SNOMED CT 18580769 / Confirmed Thyroid goiter / SNOMED CT 8701663 / Confirmed Generalized anxiety disorder / SNOMED CT 88467187 / Confirmed Fluid level behind tympanic membrane of both ears / SNOMED CT 130616251 / Confirmed Daytime somnolence / SNOMED CT 2549858088 / Confirmed Cough / SNOMED CT 28403216 / Confirmed Mild CAD / SNOMED CT 7044119447 / Confirmed Constipation / SNOMED CT 96362385 / Confirmed Chest pain / SNOMED CT 86982713 / Confirmed Carotid artery stenosis / SNOMED CT 176289049 / Confirmed BMI 24.0-24.9, adult / SNOMED CT 8984153036 / Confirmed Resolved: Hypertension / SNOMED CT 64421435 Resolved: Depression / SNOMED CT 27225400 Canceled: Right otitis media / SNOMED CT 072042513557335 Canceled: Otitis media / SNOMED CT 725178423 Canceled: Goiter / SNOMED CT 5051672 Canceled: BMI 23.0-23.9, adult / SNOMED CT 4762064501 Canceled: BMI 24.0-24.9, adult / SNOMED CT 4166989382 Canceled: Benign hypertension / SNOMED CT 55722932 Histories Procedure history: pinched nerve in neck on 1960 at 2 Weeks. colonoscopy. Social History Social & Psychosocial Habits Alcohol 08/07/2024 Risk Assessment: Denies Alcohol Use 08/07/2024 Use: Never Exercise 08/07/2024 Risk Assessment: Does not exercise Substance Abuse 08/07/2024 Risk Assessment: Denies Substance Abuse 08/07/2024 Use: Never Tobacco 08/07/2024 Risk Assessment: High Risk 08/07/2024 Tobacco Use: Former smoker, quit more Smokeless tobacco use: Never Type: Cigarettes Concerns about tobacco use in household: No Smoking Cessation Yes Comment: stoppped smoking may 2020 - 08/07/2020 16:04 - Michelle Fairchild MA; stopped smoking 2019 1 ppd smoker 40 years. - 07/18/2024 08:12 - Maricruz Verduzco 08/07/2024 Tobacco Use: Former smoker, quit more . Physical Examination Airway: Mallampati classification: II (soft palate, fauces, uvula visible). Respiratory: adequate air exchange. Cardiovascular: Regular rhythm. Plan [place] [employer] (ASA) physical status classification: Class III. Anesthetic Preoperative Plan: Anesthesia General.[facility] Comment on above:Result Comment: Electronically Signed By: Hunter English Jr, DO\.br\Date and Time Signed: 08/23/24 09:50 [id number] NoteProgress Note-Physician Patient: SANDHYA MALDONADO Rao Age: 64 years Sex: Female : 1960 Associated Diagnoses: None Author: Hunter English Jr, DO Postoperative Information Postoperative disposition: Postoperative disposition: To PACU. Optimetrix number: Optimetrix number [id number]. Anesthetic utilized: General. Health Status Allergies: Allergic Reactions (Selected) No Known Allergies Physical Examination Vital Signs 08/21/2024 13:00 EDT Heart Rate Monitored 66 bpm Respiratory Rate Monitored 25 br/min Systolic Blood Pressure 142 mmHg HI Diastolic Blood Pressure 82 mmHg Blood Pressure Location Left arm Mean Arterial Pressure, Cuff 102 mmHg SpO2 97 % 08/21/2024 12:45 EDT Heart Rate Monitored 74 bpm Respiratory Rate Monitored 18 br/min Systolic Blood Pressure 129 mmHg Diastolic Blood Pressure 73 mmHg Blood Pressure Location Left arm Mean Arterial Pressure, Cuff 92 mmHg SpO2 97 % 08/21/2024 12:40 EDT Heart Rate Monitored 76 bpm Respiratory Rate Monitored 19 br/min Systolic Blood Pressure 129 mmHg Diastolic Blood Pressure 65 mmHg Blood Pressure Location Left arm Mean Arterial Pressure, Cuff 86 mmHg SpO2 97 % 08/21/2024 12:35 EDT Heart Rate Monitored 77 bpm Respiratory Rate Monitored 11 br/min Systolic Blood Pressure 128 mmHg Diastolic Blood Pressure 62 mmHg Blood Pressure Location Left arm Mean Arterial Pressure, Cuff 84 mmHg SpO2 98 % 08/21/2024 12:33 EDT Temperature Temporal Artery 36.6 DegC Heart Rate Monitored 80 bpm Respiratory Rate Monitored 27 br/min Systolic Blood Pressure 129 mmHg Diastolic Blood Pressure 60 mmHg Blood Pressure Location Left arm Mean Arterial Pressure, Cuff 83 mmHg SpO2 98 % Pain Assessment: Controlled. General: Awake, Alert, Appropriate. Respiratory: Adequate air exchange. Cardiovascular: Stable, Normal peripheral perfusion. Neurological: Normal sensory function, Normal motor function. Assessment Anesthetic outcome No anesthetic complications noted. Adequate pain relief. able to void without difficulty, able to ambulate with assist, tolerating PO intake, no N/V. Review / Management Condition: Stable. Plan Transfer/Discharge: Transfer/Discharge Discharge when meets criteria ( To home ).[facility] Comment: Electronically Signed By: Hunter English Jr, DO\.br\Date and Time Signed: 08/23/24 08:48 EDT 08-21-2024 Hospital Discharge instructions Patient Education 08/21/2024 12:40:04 Hemorrhoids, Uvxd-kc-Zubh Hemorrhoids Hemorrhoids are swollen veins that may form: In the butt (rectum). These are called internal hemorrhoids. Around the opening of the butt (anus). These are called external hemorrhoids. Most hemorrhoids do not cause very bad problems. They often get better with changes to your lifestyle and what you eat. What are the causes? Having trouble pooping (constipation) or watery poop (diarrhea). Pushing too hard when you poop. . Being very overweight (obese). Sitting for too long. Riding a bike for a long time. Heavy lifting or other things that take a lot of effort. Anal sex. What are the signs or symptoms? Pain. Itching or soreness in the butt. Bleeding from the butt. Leaking poop. Swelling. One or more lumps around the opening of your butt. How is this treated? In most cases, hemorrhoids can be treated at home. You may be told to: Change what you eat. Make changes to your lifestyle. If these treatments do not help, you may need to have a procedure done. Your doctor may need to: Place rubber bands at the bottom of the hemorrhoids to make them fall off. Put medicine into the hemorrhoids to shrink them. Shine a type of light on the hemorrhoids to cause them to fall off. Do surgery to get rid of the hemorrhoids. Follow these instructions at home: Medicines Take zwek-vio-ypgodvr and prescription medicines only as told by your doctor. Use creams with medicine in them or medicines that you put in your butt as told by your doctor. Eating and drinking Eat foods that have a lot of fiber in them. These include whole grains, beans, nuts, fruits, and vegetables. Ask your doctor about taking products that have fiber added to them (fibersupplements). Take in less fat. You can do this by: ?Eating low-fat dairy products. ?Eating less red meat. ?Staying away from processed foods. Drink enough fluid to keep your pee (urine) pale yellow. Managing pain and swelling Take a warm-water bath (sitz bath) for 20 minutes to ease pain. Do this 3 4 times a day. You may dothis in a bathtub. You may also use a portable sitz bath that fits over the toilet. If told, put ice on the painful area. It may help to use ice between your warm baths. ?Put ice in a plastic bag. ?Place a towel between your skin and the bag. ?Leave the ice on for 20 minutes, 2 3 times a day. If your skin turns bright red, take off the ice right away to prevent skin damage. The risk of damage is higher if you cannot feel pain, heat, or cold. General instructions Exercise. Ask your doctor how much and what kind of exercise is best for you. Go to the bathroom when you need to poop. Do not wait. Try not to push too hard when you poop. Keep your butt dry and clean. Use wet toilet paper or moist towelettes after you poop. Do not sit on the toilet for a long time. Contact a doctor if: You have pain and swelling that do not get better with treatment. You have trouble pooping. You cannot poop. You have pain or swelling outside the area of the hemorrhoids. Get help right away if: You have bleeding from the butt that will not stop. This information is not intended to replace advice given to you by your health care provider. Make sure you discuss any questions you have with your health care provider. Document Revised: 02/10/2023 Document Reviewed: 02/10/2023 [employer] Patient Education 2023 [employer]. 08/21/2024 12:40:00 Diverticulosis MAGR (CUSTOM) Diverticulosis Many people have small pouches in their colon called diverticulum. The diverticulum bulge outward through weak spots in the colon. You could have one or more of these pouches in the colon. The condition of having these pouches in the colon is called diverticulosis or diverticular disease. Diverticulosis is usually diagnosed by tests to evaluate something else. For example, you may have had a colonoscopy to screen for colon cancer when the diverticulosis was found. Most people with diverticulosis do not have any discomfort or problems. If symptoms develop, they may include mild cramps, bloating, and constipation. A complication of this condition is called diverticulitis. This is when the diverticulum become inflamed and infected. How to treat diverticulosis: Increasing the amount of fiber in the diet may reduce symptoms of diverticulosis and prevent complications such as diverticulitis (infected diverticuli). Fiber keeps stool soft and lowers pressure inside the colon so that bowel contents can move througheasily. You should eat 20 to 35 grams of fiber each day. The table below shows the amount of fiber in some foods that you can easily add to your diet. Adding fiber slowly may decrease the bloating and fullness sometimes felt with an immediate high fiber diet. The doctor may also recommend taking a fiber product such as Citrucel or Metamucil once a day. In the past people with diverticulosis were to avoid nuts, corn, and seeds. This has not been foundto be true. If you find that certain foods create cramping or bloating, avoid that food. Foods high in fiber include: Fresh fruits, fresh vegetables, legumes (beans), whole wheat bread, bran muffins or cereal, and nuts. See the table below for examples of high fiber foods. Remember, your goal is 20- 35 grams per day. Amount of fiber in different foods Food Serving Grams of fiber Fruits Apple (with skin) 1 medium apple 4.4 Banana 1 medium banana 3.1 Oranges 1 orange 3.1 Prunes 1 cup, pitted 12.4 Juices Apple, unsweetened, w/added ascorbic acid 1 cup 0.5 Grapefruit, white, canned, sweetened 1 cup 0.2 Grape, unsweetened, w/added ascorbic acid 1 cup 0.5 [place] 1 cup 0.7 Vegetables Cooked Green beans 1 cup 4.0 Carrots 1/2 cup sliced 2.3 Peas 1 cup 8.8 Potato (baked, with skin) 1 medium potato 3.8 Raw [place] (with peel) 1 cucumber 1.5 Lettuce 1 cup shredded 0.5 Tomato 1 medium tomato 1.5 Spinach 1 cup 0.7 Legumes Baked beans, canned, no salt added 1 cup 13.9 Kidney beans, canned 1 cup 13.6 Bowers beans, canned 1 cup 11.6 Lentils, boiled 1 cup 15.6 Breads, pastas, flours Bran muffins 1 medium muffin 5.2 Oatmeal, cooked 1 cup 4.0 White bread 1 slice 0.6 Whole-wheat bread 1 slice 1.9 Pasta and rice, cooked Macaroni 1 cup 2.5 Rice, brown 1 cup 3.5 Rice, white 1 cup 0.6 Spaghetti (regular) 1 cup 2.5 Nuts Almonds 1/2 cup 8.7 Peanuts 1/2 cup 7.9 Chart from [facility] 2013. SEEK IMMEDIATE MEDICAL CARE IF: You develop abdominal (belly) pain. An oral temperature above _ 101 F__develops. Repeated vomiting occurs. Blood is being passed in stools (bright red or black tarry stools). You develop any bowel problems or changes which you have not had before. Extra Information: To learn how much fiber and other nutrients are in different foods, visit the [place] Department of Agriculture (USDA) National Nutrient Database at: http://www.The Hitch.usda.gov/fnic/foodcomp/search/ Created using data from the USDA National Nutrient Database for Standard Reference. Available at http://www.The Hitch.[employer].gov/fnic/foodcomp/search/. Information adapted from: [facility] Patient Information 2009 [employer]. [employer] 2012 http://www.Intellinote/contents/rlkuqpsjtqpr-wqbxwbg-phrihr-the-basics 08/21/2024 12:39:54 Colon Polyps Colon Polyps Colon polyps are tissue growths inside the colon, which is part of the large intestine. They are one of the types of polyps that can grow in the body. A polyp may be a round bump or a mushroom-shapedgrowth. You could have one polyp or more than one. Most colon polyps are noncancerous (benign). However, some colon polyps can become cancerous over time. Finding and removing the polyps early can help prevent this. What are the causes? The exact cause of colon polyps is not known. What increases the risk? The following factors may make you more likely to develop this condition: Having a family history of colorectal cancer or colon polyps. Being older than 45 years of age. Being younger than 45 years of age and having a significant family history of colorectal cancer or colon polyps or a genetic condition that puts you at higher risk of getting colon polyps. Having inflammatory bowel disease, such as ulcerative colitis or Crohn's disease. Having certain conditions passed from parent to child (hereditary conditions), such as: ?Familial adenomatous polyposis (FAP). ?Carrasco syndrome. ?Turcot syndrome. ?Peutz Jeghers syndrome. ?MUTYH-associated polyposis (MAP). Being overweight. Certain lifestyle factors. These include smoking cigarettes, drinking too much alcohol, not gettingenough exercise, and eating a diet that is high in fat and red meat and low in fiber. Having had childhood cancer that was treated with radiation of the abdomen. What are the signs or symptoms? Many times, there are no symptoms. If you have symptoms, they may include: Blood coming from the rectum during a bowel movement. Blood in the stool (feces). The blood may be bright red or very dark in color. Pain in the abdomen. A change in bowel habits, such as constipation or diarrhea. How is this diagnosed? This condition is diagnosed with a colonoscopy. This is a procedure in which a lighted, flexible scope is inserted into the opening between the buttocks (anus) and then passed into the colon to examine the area. Polyps are sometimes found when a colonoscopy is done as part of routine cancer screening tests. How is this treated? This condition is treated by removing any polyps that are found. Most polyps can be removed during a colonoscopy. Those polyps will then be tested for cancer. Additional treatment may be needed depending on the results of testing. Follow these instructions at home: Eating and drinking Eat foods that are high in fiber, such as fruits, vegetables, and whole grains. Eat foods that are high in calcium and vitamin D, such as milk, cheese, yogurt, eggs, liver, fish, and broccoli. Limit foods that are high in fat, such as fried foods and desserts. Limit the amount of red meat, precooked or cured meat, or other processed meat that you eat, such as hot dogs, sausages, an, or meat loaves. Limit sugary drinks. Lifestyle Maintain a healthy weight, or lose weight if recommended by your health care provider. Exercise every day or as told by your health care provider. Do not use any products that contain nicotine or tobacco, such as cigarettes, e- cigarettes, and chewing tobacco. If you need help quitting, ask your health care provider. Do not drink alcohol if: ?Your health care provider tells you not to drink. ?You are , may be , or are planning to become . If you drink alcohol: ?Limit how much you use to: ?0 1 drink a day for women. ?0 2 drinks a day for men. ?Know how much alcohol is in your drink. In the [place] one drink equals one 12 oz bottle of beer (355 mL), one 5 oz glass of wine (148 mL), or one 1 oz glass of hard liquor (44 mL). General instructions Take tagc-agc-cboncom and prescription medicines only as told by your health care provider. Keep all follow-up visits. This is important. This includes having regularly scheduled colonoscopies. Talk to your health care provider about when you need a colonoscopy. Contact a health care provider if: You have new or worsening bleeding during a bowel movement. You have new or increased blood in your stool. You have a change in bowel habits. You lose weight for no known reason. Summary Colon polyps are tissue growths inside the colon, which is part of the large intestine. They are one type of polyp that can grow in the body. Most colon polyps are noncancerous (benign), but some can become cancerous over time. This condition is diagnosed with a colonoscopy. This condition is treated by removing any polyps that are found. Most polyps can be removed during a colonoscopy. This information is not intended to replace advice given to you by your health care provider. Make sure you discuss any questions you have with your health care provider. Document Revised: 09/18/2020 Document Reviewed: 09/18/2020 [employer] Patient Education 2023 [employer]. 08/21/2024 12:39:53 Colonoscopy, Care After Surgery Salam (CUSTOM) Colonoscopy Care After Surgery Please read the instructions outlined below and refer to this sheet in the next few weeks. These discharge instructions provide you with general information on caring for [facility] Your doctor may also give you specific instructions. While your treatment has been planned according to the most current medical practices available, unavoidable complications occasionally occur. If you have any problems or questions after discharge, please call your doctor. ACTIVITY You may resume your regular activity, but move at a slower pace for the next 24 hours. Take frequent rest periods for the next 24 hours. Walking will help get rid of the air and reduce the bloated feeling in your abdomen (belly). No driving for 24 hours (because of the anesthesia (medicine) used during the test). You may shower. Do not sign any important legal documents or operate any machinery for 24 hours (because of the anesthesia used during the test). NUTRITION Drink plenty of fluids. You may resume your normal diet as instructed by your doctor. Begin with a light meal and progress to your normal diet. Heavy or fried foods are harder to digestand may make you feel nauseated (sick to your stomach). Avoid alcoholic beverages for 24 hours or as instructed. MEDICATIONS You may resume your normal medications unless your doctor tells you otherwise. WHAT YOU CAN EXPECT TODAY Some feelings of bloating in the abdomen. Passage of more gas than usual. Spotting of blood in your stool or on the toilet paper. FOLLOW-UP Your doctor will discuss the results of your test with you. SEEK IMMEDIATE MEDICAL ATTENTION IF: There is more than a spotting of blood in your stool. There is abdominal distention (your abdomen is swollen). There is vomiting. You have a temperature over 101.5 F. There is abdominal pain or discomfort that is severe or gets worse throughout the day. Follow Up Care 08/07/2024 09:38:49 With:Marilyn Hopson Address: [address] [place] [phone] Business (1) When: Unknown Comments:Call for any problems. [facility] 03-10-2025 Evaluation + Plan noteExtracted from:Title: 1Preop H&PAuthor:Marilyn Hopson MDate:08/21/24 Impression and Plan Impression: Screening for colon cancer Plan: Colonoscopy Future Appointments Appointment Date:08/29/2024 08:20:00 AM Scheduled Provider:Josephine Flores Location:[facility] Appointment Type: Open Appointment Date:07/18/2025 08:00:00 AM Scheduled Provider: Location:[facility] Appointment Type: Medicare Wellness Subsequent [facility] 03-10-2025 NotePatient Education - Text Diverticulosis Many people have small pouches in their colon called diverticulum. The diverticulum bulge outward through weak spots in the colon. You could have one or more of these pouches in the colon. The condition of having these pouches in the colon is called diverticulosis or diverticular disease. Diverticulosis is usually diagnosed by tests to evaluate something else. For example, you may have had a colonoscopy to screen for colon cancer when the diverticulosis was found. Most people with diverticulosis do not have any discomfort or problems. If symptoms develop, they may include mild cramps, bloating, and constipation. A complication of this condition is called diverticulitis. This is when the diverticulum become inflamed and infected. How to treat diverticulosis: Increasing the amount of fiber in the diet may reduce symptoms of diverticulosis and prevent complications such as diverticulitis (infected diverticuli). Fiber keeps stool soft and lowers pressure inside the colon so that bowel contents can move througheasily. You should eat 20 to 35 grams of fiber each day. The table below shows the amount of fiber in some foods that you can easily add to your diet. Adding fiber slowly may decrease the bloating and fullness sometimes felt with an immediate high fiber diet. The doctor may also recommend taking a fiber product such as Citrucel or Metamucil once a day. In the past people with diverticulosis were to avoid nuts, corn, and seeds. This has not been foundto be true. If you find that certain foods create cramping or bloating, avoid that food. Foods high in fiber include: Fresh fruits, fresh vegetables, legumes (beans), whole wheat bread, bran muffins or cereal, and nuts. See the table below for examples of high fiber foods. Remember, your goal is 20- 35 grams per day. Amount of fiber in different foods Food Serving Grams of fiber Fruits Apple (with skin) 1 medium apple 4.4 Banana 1 medium banana 3.1 Oranges 1 orange 3.1 Prunes 1 cup, pitted 12.4 Juices Apple, unsweetened, w/added ascorbic acid 1 cup 0.5 Grapefruit, white, canned, sweetened 1 cup 0.2 Grape, unsweetened, w/added ascorbic acid 1 cup 0.5 [place] 1 cup 0.7 Vegetables Cooked Green beans 1 cup 4.0 Carrots 1/2 cup sliced 2.3 Peas 1 cup 8.8 Potato (baked, with skin) 1 medium potato 3.8 Raw [place] (with peel) 1 cucumber 1.5 Lettuce 1 cup shredded 0.5 Tomato 1 medium tomato 1.5 Spinach 1 cup 0.7 Legumes Baked beans, canned, no salt added 1 cup 13.9 Kidney beans, canned 1 cup 13.6 Bowers beans, canned 1 cup 11.6 Lentils, boiled 1 cup 15.6 Breads, pastas, flours Bran muffins 1 medium muffin 5.2 Oatmeal, cooked 1 cup 4.0 White bread 1 slice 0.6 Whole-wheat bread 1 slice 1.9 Pasta and rice, cooked Macaroni 1 cup 2.5 Rice, brown 1 cup 3.5 Rice, white 1 cup 0.6 Spaghetti (regular) 1 cup 2.5 Nuts Almonds 1/2 cup 8.7 Peanuts 1/2 cup 7.9 Chart from [facility] 2013. SEEK IMMEDIATE MEDICAL CARE IF: You develop abdominal (belly) pain. An oral temperature above _ 101??? F__develops. Repeated vomiting occurs. Blood is being passed in stools (bright red or black tarry stools). You develop any bowel problems or changes which you have not had before. Extra Information: To learn how much fiber and other nutrients are in different foods, visit the [place] Department of Agriculture (USDA) National Nutrient Database at: http://www.nal.usda.gov/fnic/foodcomp/search/ Created using data from the USDA National Nutrient Database for Standard Reference. Available at http://www.The Hitch.usda.gov/fnic/foodcomp/search/. Information adapted from: [facility] [place] Patient Information ???2009 [employer]. [facility] 2012 http://www.Intellinote/contents/unqmpeaskcjz-rapscqd-vnppou-the-basics Colonoscopy Care After Surgery Please read the instructions outlined below and refer to this sheet in the next few weeks. These discharge instructions provide you with general information on caring for [facility] Your doctor may also give you specific instructions. While your treatment has been planned according to the most current medical practices available, unavoidable complications occasionally occur. If you have any problems or questions after discharge, please call your doctor. ACTIVITY You may resume your regular activity, but move at a slower pace for the next 24 hours. Take frequent rest periods for the next 24 hours. Walking will help get rid of the air and reduce the bloated feeling in your abdomen (belly). No driving for 24 hours (because of the anesthesia (medicine) used during the test). You may shower. Do not sign any important legal documents or operate any machinery for 24 hours (because of the anesthesia used during the test). NUTRITION Drink plenty of fluids. You may resume your normal diet as instructed by your doctor. Beg (more content not included)...[facility]03-10-2025 Note Endoscopic Procedure Report - Other Patient: SANDHYA MALDONADO Age: 64 years Sex: Female : 1960 Associated Diagnoses: None Author: Marilyn Hopson MD Pre-Procedure Procedure Date 08/21/2024 12:31:00 . Procedure Type: Colonoscopy with removal of tumor(s), polyp(s), or other lesion(s) by cold snare technique. Procedure provider Performed by Marilyn Hopson MD. Current history and physical Documented on chart. Past Medical History reviewed. Family History reviewed. Colorectal neoplasm risk assessment Average risk. Informed Consent After discussing the rationale, risks and benefits, and alternatives to this procedure, the patient provided signed consent for the procedure. Pre-procedure diagnosis: Screening. Medications reviewed. ASA Classification: Class II. . Monitoring: See anesthesia record. . Procedure The procedure was performed in the hospital. See anesthesia record for sedation given during procedure. The patient was positioned starting in the left lateral decubitus position. Endoscope type usedwas an adult-size. The endoscope was lubricated then introduced through the anus. The scope was advanced to the terminal ileum. No difficulties encountered during the procedure. The bowel preparationquality was adequate (see polyps greater than or equal to 6 millimeters). The patient tolerated theprocedure well. Time to Cecum: 5 min Withdrawal time 14 min Findings 1. Small internal and external hemorrhoids 2. 2 sessile polyps in the sigmoid colon resected with cold snare together, 5 mm in size, retrieved 3. 1 cm sessile polyp in the cecum, used EMR technique to remove it, injected 3 ml of Everlift, resected using cold snare completely and retrieved 4. Normal examined terminal ileum Images Procedure images: Rec1_hd_video_2024_03_[id number].jpg Rec1_hd_video_2024___[id number].jpg Rec1_hd_video_2024___[id number].jpg Rec1_hd_video_2024___[id number].jpg Rec1_hd_video___35_[id number].jpg Rec1_hd_video_2024___[id number].jpg Rec1_hd_video___34_[id number].jpg Rec1_hd_video_2024___[id number]_[id number].jpg Rec1_hd_video___31_30_[id number].jpg Rec1_hd_video___29_[id number].jpg Rec1_hd_video___[id number]_[id number].jpg Rec1_hd_video___28_19_650.jpg Rec1_hd_video___28_10_872.jpg . Post-Procedure Complications: none. Estimated blood loss: Minimal. Specimens: sent to pathology. Devices/ implants: none left in place. Impression and Plan 1. Small internal and external hemorrhoids 2. 2 sessile polyps in the sigmoid colon resected with cold snare together, 5 mm in size, retrieved 3. 1 cm sessile polyp in the cecum, used EMR technique to remove it, injected 3 ml of Everlift, resected using cold snare completely and retrieved 4. Normal examined terminal ileum Recommendations: Repeat colonoscopy:: In 3 years, Based on path . Follow-up:: in clinic for 1-2 weeks when pathology is available. Diet:: Previous. Medication resumption:: Continue current medications, Avoid NSAIDs. Return to activities:: After 24 hours. Education and Follow-up: Counseled: Patient, Family.[facility] Comment on above:Result Comment: Electronically Signed By: Marilyn Hopson MD\.br\Date and Time Signed: 08/21/24 12:33 EDTOther Comment: Missing Attachment - attachment storage system not supported [id number] Can be viewed in source system Missing Attachment - attachment storage system not supported [id number] Can be viewed in source systemMissing Attachment - attachment storage system not supported [id number] Can be viewed in source systemMissing Attachment - attachment storage system not supported [id number] Can be viewed in source systemMissing Attachment - attachment storage system not supported [id number] Can be viewed in source systemMissing Attachment - attachment storage system not supported [id number] Can be viewed in source systemMissing Attachment - attachment storage system not supported [id number] Can be viewed in source systemMissing Attachment - attachment storage system not supported [id number] Can be viewed in source system Missing Attachment - attachment storage system not supported [id number] Can be viewed in source systemMissing Attachment - attachment storage system not supported [id number] Can be viewed in source systemMissing Attachment - attachment storage system not supported [id number] Can be viewed in source systemMissing Attachment - attachment storage system not supported [id number] Can be viewed in source systemMissing Attachment - attachment storage system not supported [id number] Can be viewed in source [id number] NoteHistory and Physical Patient: SANDHYA MALDONADO Age: 64 years Sex: Female : 1960 Associated Diagnoses: None Author: Marilyn Hopson MD Preoperative Information Indication for procedure and diagnosis: Screening for colon cancer Chief Complaint as above Review of Systems All systems reviewed, negative except as mentioned above Health Status Current medications: (Selected) Inpatient Medications Ordered Sodium Chloride 0.9% IV Marisel 1000 mL 1,000 mL: 1,000 mL, IV, 20 mL/hr, Routine, Start date 08/21/24 6:46:00 EDT, 50 hour(s), Total volume (mL): 1,000, 53 kg, 1.49, m2 Prescriptions Prescribed Albuterol (Eqv-ProAir HFA) 90 mcg/inh inhalation aerosol: 2 puff(s), Inhalation, q6hr, 1 EA, [facility]ill(s) 4[id number], cm, 05/03/23 10:31:00 EST, Height/Length Dosing, 47.9, kg, 05/03/23 10:31:00 EST, Weight Dosing Potassium Chloride (Eqv-K-Tab) 10 mEq oral tablet, extended release: 10 mEq = 1 tab(s), Oral, BID, # 90 tab(s), Refills(s) 0, [id number], 151, cm, 08/01/24 11:07:00 EST, Height/Length Dosing, 54, kg, 08/01/24 11:07:00 EST, Weight Dosing Symbicort 80/4.5 inhalation aerosol with adapter: 2 puff(s), Inhalation, BID, 10.2 gm, Refill(s) 0,[id number], 151, cm, 05/31/24 14:29:00 EST, Height/Length Dosing, 53.6, kg, 05/31/24 14:29:00 EST, Weight Dosing amLODIPine 5 mg Tab: 5 mg = 1 tab(s), Oral, Daily, # 90 tab(s), Refills(s) 0, [id number], 151, cm, 08/01/24 11:07:00 EST, Height/Length Dosing, 54, kg, 08/01/24 11:07:00 EST, WeightDosing chlorthalidone 25 mg Tab: 25 mg = 1 tab(s), Oral, Daily, # 90 tab(s), Refills(s) 0, [id number], 151, cm, 08/01/24 11:07:00 EST, Height/Length Dosing, 54, kg, 08/01/24 11:07:00 EST, Weight Dosing escitalopram 5 mg oral tablet: 5 mg = 1 tab(s), Oral, Daily, X 90 day(s), # 90 tab(s), Refills(s) 3, Pharmacy: [facility] #[id number], 151, cm, 07/18/24 8:27:00 EST, Height/Length Dosing, 55, kg, 07/18/24 8:27:00 EST, Weight Dosing losartan 50 mg Tab: 50 mg = 1 tab(s), Oral, Daily, # 90 tab(s), Refills(s) 0, [id number], 151, cm, 07/18/24 8:27:00 EST, Height/Length Dosing, 55, kg, 07/18/24 8:27:00 EST, Weight Dosing methimazole 5 mg Tab: 5 mg = 1 tab(s), Oral, BID, # 180 tab(s), Refills(s) 0, [id number], 151, cm, 05/31/24 14:29:00 EST, Height/Length Dosing, 53.6, kg, 05/31/24 14:29:00 EST, Weight Dosing Documented Medications Documented aspirin 81 mg Oral EC Tab: mg tab(s), Oral, Daily, Refills(s) 0, Prophylaxis, Home Medications (9) Active Albuterol (Eqv-ProAir HFA) 90 mcg/inh inhalation aerosol 2 puff(s), Inhalation, q6hr amLODIPine 5 mg Tab 5 mg = 1 tab(s), Oral, Daily aspirin 81 mg Oral EC Tab , Oral, Daily chlorthalidone 25 mg Tab 25 mg = 1 tab(s), Oral, Daily escitalopram 5 mg oral tablet 5 mg = 1 tab(s), Oral, Daily losartan 50 mg Tab 50 mg = 1 tab(s), Oral, Daily methimazole 5 mg Tab 5 mg = 1 tab(s), Oral, BID Potassium Chloride (Eqv-K-Tab) 10 mEq oral tablet, extended release 10 mEq = 1 tab(s), Oral, BID Symbicort 80/4.5 inhalation aerosol with adapter 2 puff(s), Inhalation, BID Problem list: All Problems Smoker / IMO [id number] / Confirmed Added secondary to documentation in Social History. Generalized anxiety disorder / SNOMED CT 02815096 / Confirmed COPD, mild / SNOMED CT 608216076 / Confirmed Carotid artery stenosis / SNOMED CT 271356750 / Confirmed Constipation / SNOMED CT 87247507 / Confirmed Rectal bleed / SNOMED CT 797954334 / Confirmed Multiple thyroid nodules / SNOMED CT 076960453 / Confirmed Mild CAD / SNOMED CT 5803020348 / Confirmed Thyroid goiter / SNOMED CT 1811880 / Confirmed Cough / SNOMED CT 75708762 / Confirmed Fluid level behind tympanic membrane of both ears / SNOMED CT 289437510 / Confirmed Sinusitis / SNOMED CT 48233456 / Confirmed Chest pain / SNOMED CT 77048262 / Confirmed Hyperlipemia / SNOMED CT 47713088 / Confirmed Hypertension / SNOMED CT 3389693440 / Confirmed Major depressive disorder, recurrent episode, moderate / SNOMED CT 81763591 / Confirmed added per 07/17/2024 query response. BMI 24.0-24.9, adult / SNOMED CT 6653784474 / Confirmed Sleep apnea / SNOMED CT 546287382 / Confirmed Loud snoring / SNOMED CT 956169818 / Confirmed Restless leg / SNOMED CT 97053078 / Confirmed Daytime somnolence / SNOMED CT 2083904790 / Confirmed Hyperthyroidism / SNOMED CT 79538924 / Confirmed Screening for colon cancer / SNOMED CT 991135700 / Confirmed Histories Past Medical History: Resolved Hypertension (24592207): Resolved. Depression (79887656): Resolved. Family History: Father: () Age at unknown. Cardiac arrest Mother Lupus Brother Hypertension Sister History is negative. Brother Hypertension Procedure history: pinched nerve in neck on 1960 at 2 Weeks. colonoscopy. Social History Social & Psychosocial Habits Alcohol 0 (more content not included)...[facility]: Result Comment: Electronically Signed By: Emiliana SMILEY, Marilyn Burton\.ayesha\Date and Time Signed: 08/21/24 12:07 [id number] NoteNurse Consultation Note Reason for Visit patient cam IO today [...] 5 mg= 1 tab(s), Oral, BID NuLYTELY [place] oral powder for reconstitution, See Instructions Potassium [...] 09/20/2020 Recorded SARS-CoV-2 (COVID-19) mRNA-1273 vaccine 08/20/2020 [facility]ed[facility] NoteNurse Consultation Note Physical Exam Vitals & Measurements BP: 250/110 pt stopped into office her blood pressure has been running high at home 200's/100's for the last few days. C/o vision changes, headache and numbness to bilateral hands. Blood pressure in office todayis 250/110. Notified Josephine of patient blood pressure and she advises pt go straight to ER. Notified patient she needed to go to ER pt left office and is going straight to [facility]. Once pt left sql report writer called [facility] and gave report on patient. Medications [...] 09/20/2020 Recorded SARS-CoV-2 (COVID-19) mRNA-1273 vaccine 08/20/2020 [facility]ed[facility] NoteNurse Consultation Note Reason for Visit Welcome to Medicare Physical [...] and all current CDC recommended immunizations, relevant riskrecommendations and the following patient brochures were given. Reviewed Medicare Prevention Services checklist. CDC-Falls Prevention and home safety screening reviewed. Patient denies any falls in last 12 months, voices no worry about falling. Exhibits no problems with sitting, standing or ambulation. Patient aware with keeping walk way area free of clutter to prevent tripping and/or falling. [place] Advance Directives reviewed. See #8. Patient denies any problems with ADL???s and Instrumental ADL???s. Cognitive screening completed with memory and clock face drawing. No deficits noted. Immunization record reviewed, discussed Shingrix vaccine with educational handout and availability.2 COVID vaccines have been administered, with 1 [...] exercise regimen. When you are overweight our bodyproduces more lipids. Risk also increases with family history of hyperlipidemia and with monitoringalcohol use and avoid smoking. Pt voices understanding with importance of monitoring dietary intaketo reduce risk factors associated with CVA. Patient is not on statin. Will continue to follow up with office visits with updated labs as directed. 4. Hypertension (I10: Essential (primary) hypertension) Patient is taking carvedilol daily as directed. Does not monitor BP pressure at home. HTN stoplightreviewed with BP goal to be <140/90. Reviewed different factors that can alter blood pressure readings. Education handout provided with s/s to monitor for and report to provider. Patient is encouraged to increase portions of fruit, vegetables, fiber and increase exercise as much as tolerable. Reviewed importance with monitoring foods high in salt content and encouraged to (more content not included)...[facility]02-04-2025 Note Patient Education Cardiovascular Hypertension, Adult Hypertension is another name for high blood pressure. High blood pressure forces your heart to workharder to pump blood. This can cause problems [...] at each meal with low-fat (lean) proteins. Low- fat proteins includefish, chicken without skin, eggs, beans, and tofu. [...] Keep all follow-up visits. Medicines ??? Take rosc-ptg-chylaui and prescription medicines only as told by your doctor. Follow directionscarefully. ??? Do not skip doses of blood [...] ??? Hypertension is a (more content not included)...[facility] 05-29-2024 History of Present illness Narrative* SHAYNA Mcdonald - 05/29/2024 10:10 AM EST Follow up Diagnosis: Actinic Keratosis Location: left [...] lesions that fail to resolve should be re- evaluated. Cryotherapy performed today; see procedure note Diagnosis: Actinic keratosis Indication: Precancerous Location: see skin exam Consent: Verbal consent was obtained and risks were discussed, including, but not limited to risks of scarring, darker or customer counter associate pigmentary changes, recurrence, incomplete removal and infection. [...] 3-4 weeks if unresolved. documented in this encounterCox [id number] History of Present illness Narrative* SHAYNA Mcdonald - 05/09/2024 1:50 PM EST Lesions: Location: left nasal side wall Duration: [...] lesions that fail to resolve should be re- evaluated. Cryotherapy performed today; see procedure note Diagnosis: Actinic keratosis Indication: Precancerous Location: see skin exam Consent: Verbal consent was obtained and risks were discussed, including, but not limited to risks of scarring, darker or customer counter associate pigmentary changes, recurrence, incomplete removal and infection. [...] Next Visit: Recommend FBSE documented in this encounterCox [id number] Hospital Discharge instructions Patient Education 04/05/2023 08:29:44 Generalized Anxiety Disorder, Adult Generalized Anxiety Disorder, Adult Generalized anxiety disorder (ISHAAN) is a mental health condition. Unlike normal worries, anxiety related to ISHAAN is not triggered by a specific event. These worries do not fade or get better with time.ISHAAN interferes with relationships, work, and school. ISHAAN symptoms can vary from mild to severe. People with severe ISHAAN can have intense waves of anxietywith physical symptoms that are similar to panic [...] learn coping skills and self-calming techniques to easetheir physical symptoms. They learn to identify unrealistic [...] can increase anxiety. Avoid caffeine and certain lxet-nux-gwhxdfd cold medicines. These may make you feel worse. Ask yourpharmacist which medicines to avoid. General instructions Take abhl-aiv-satfqzs and prescription medicines only as told by your health care provider. Understand that you are likely to have setbacks. Accept this and be kind to yourself as you persistto take better care of yourself. Anticipate stressful situations. Create a plan and allow extra time to work with your plan. Recognize and accept your accomplishments, even if you observer electrical prospecting them as small. Spend time with people who care about you. Keep all follow-up visits. This is important. Where to find more information [place] of Mental Health: www.nimh.nih.gov Substance Abuse and [...] or have thoughts about taking your own life,get help right away. Go to your nearest emergency department or: Call your local emergency services (911 in the [place] Call a suicide crisis helpline, such as the National Suicide Prevention Lifeline at or 681 in the [place] This is open 24 hours a day in the [place] Text the Crisis Text Line at 346716 (in the [place] Summary Generalized anxiety disorder [...] provider. Document Revised: 12/24/2021 Document Reviewed: 09/21/2021 [employer] Patient Education 2022 [employer] Follow Up Care 03/17/2023 09:52:22 With:VIRY AHN CNP, FAM Address: [address] [place], [place] [id number]- Business (1) When:4 weeks Comments:Depression [facility] [place] 10-04-2023 Hospital Discharge instructions Patient Education 03/17/2023 09:58:44 Sinus Infection, Adult, Clnt-vg-Btzl Sinus Infection, Adult A sinus infection is [...] saline washes). ?Medicines that treat allergies (antihistamines). ?Amfp-srv-blshujh pain relievers. If caused by bacteria, your doctor may wait to see if you will get better without treatment. You may be given antibiotic medicine if you have: ?A very bad infection. ?A weak body defense system. If caused by growths in the nose, surgery may be needed. Follow these instructions at home: Medicines Take, use, or apply whku-bcd-yjfcrsa and prescription medicines only as told by [...] cannot use soap and water, use hand compliance project manager. Do not smoke. Avoid being around people [...] that become inflamed or swollen. This traps germs.These can lead to infection. If you were [...] provider. Document Revised: 05/05/2022 Document Reviewed: 05/05/2022 [employer] Patient Education 2022 [employer]. Follow Up Care 03/10/2023 08:10:45 With:VIRY AHN CNP, FAM Address: When: Unknown [facility] 10-20-2022 Hospital Discharge instructions Patient Education 04/02/2022 10:57:51 Viral Respiratory Infection, Hbgr-Fp-Jmbn Viral Respiratory Infection A viral respiratory infection [...] at home: Managing pain and congestion Take ebxj-dxa-osyvvqi and prescription medicines only as told by [...] nicotine or tobacco, such as cigarettes and e- cigarettes. If you need help quitting, ask your [...] and water are not available, use hand compliance project manager. Avoid contact with people who are sick [...] 05/13/2009 Document Revised: 06/08/2019 Document Reviewed: 07/11/2018 [employer] Patient Education [employer]. Follow Up Care 04/02/2022 09:42:29 With:Elijah DOSS, Karo Pereira, [facility] Address: [facility] [address] [place] [address] [phone] When: Unknown [facility] 12-02-2021 Evaluation + Plan note Future Scheduled Tests Laboratory* Rapid COVID Antigen ([facility]) 05/15/21 * Comprehensive Metabolic Panel 02/02/22 * Lipid Panel 02/02/22 Radiology* MA Mamm Screen w/CAD if perf and 3D Kush 02/02/22 [facility] 12-02-2021 Evaluation + Plan note Future Scheduled Tests Laboratory* Rapid COVID Antigen ([facility]) [facility] Appointment Date:04/05/2023 08:00:00 AM Scheduled Provider:VIRY AHN CNP Location:[facility] Appointment Type:[facility] Evaluation + Plan note Future Appointments Appointment Date:05/03/2023 08:00:00 AM Scheduled Provider:VIRY AHN CNP Location:[facility] Appointment Type:[facility] Evaluation + Plan note Future Appointments Appointment Date:06/19/2024 08:40:00 AM Scheduled Provider:Josephine Flores Location:[facility] Appointment Type:FM Open Diagnostic Tests Pending * CBC w/ Auto Diff 05/31/24 * Comprehensive Metabolic Panel 05/31/24 * Lipid Panel 05/31/24 * Thyroid Stimulating Hormone 05/31/24 * Troponin 05/31/24 Future Scheduled Tests Radiology* US Thyroid 05/31/24 [facility] evaluation + Plan note Future Appointments Appointment Date:06/06/2024 10:15:00 AM Scheduled Provider: [facility] App[facility] Type:MA Screen () Appointment Date:06/19/2024 08:40:00 AM Scheduled Provider:Josephine Flores Location:[facility] Appointment Type:FM Open Appointment Date:07/14/2024 10:00:00 AM Scheduled Provider: Location:[facility] Appointment Type:FM Lab Draw Future Scheduled Tests Radiology* MA Mamm Screen w/CAD if perf and 3D Kush 06/06/24 [facility] evaluation + Plan note Future Appointments Appointment Date:06/19/2024 08:40:00 AM Scheduled Provider:Josephine Flores [facility] Type:FM Open Appointment Date:07/14/2024 10:00:00 AM Scheduled Provider: Location:[facility] Appointment Type:FM Lab Draw [facility] Evaluation + Plan note Future Appointments Appointment Date:07/18/2024 08:40:00 AM Scheduled Provider:Josephine Flores [facility] App[facility] Type:FM Open Diagnostic Tests Pending * T3 Free 07/14/24 [facility] evaluation + Plan note Future Appointments Appointment Date:08/08/2024 10:20:00 AM Scheduled Provider: Location:[facility] Appointment Type:FM Nurse Visit Appointment Date:08/10/2024 09:00:00 AM Scheduled Provider: Location[facility] Appointment Type:CT Chest, Low Dose Screening (FT) Appointment Date:08/10/2024 09:30:00 AM Scheduled Provider: Location:[facility] Appointment Type:BD Bone Density (FT) Appointment Date:08/21/2024 12:15:00 PM Scheduled Provider: Location:[facility] Appointment Type:Surgery FT Appointment Date:08/29/2024 08:20:00 AM Scheduled Provider:Josephine Flores [facility] Type: Open Appointment Date:07/18/2025 08:00:00 AM Scheduled Provider: [facility] App[facility] Type: Medicare Wellness Subsequent Future Scheduled Tests Radiology* CT Chest, Low Dose Screening 08/10/24 * BD Bone Density DEXA 08/10/24 [facility] evaluation + Plan note Future Appointments Appointment Date:08/21/2024 12:15:00 PM Scheduled Provider: Location:[facility] Appointment Type:Surgery FT Appointment Date:08/29/2024 08:20:00 AM Scheduled Provider:Josephine Flores [facility] Type: Open Appointment Date:07/18/2025 08:00:00 AM Scheduled Provider: [facility] App[facility] Type: Medicare Wellness Subsequent [facility] evaluation + Plan note Future Appointments Appointment Date:09/07/2024 10:00:00 AM Scheduled Provider: [facility] Appointment Type:US Abdominal/Pelvis (FT) Appointment Date:09/07/2024 10:30:00 AM Scheduled Provider: [facility] Appointment Type:US Thyroid/Neck/Chest (FT) Appointment Date:10/10/2024 10:00:00 AM Scheduled Provider:[facility] Flores [facility]: Open Appointment Date:07/18/2025 08:00:00 AM Scheduled Provider: [facility] Type: Medicare Wellness Subsequent Future Scheduled Tests Radiology* US Thyroid 09/07/24 * US Abdomen, Limited 09/07/24 [facility] Evaluation + Plan note Future Appointments Appointment Date:10/10/2024 10:00:00 AM Scheduled Provider:Josephine Flores [facility] App[facility] Type:FM Open Appointment Date:07/18/2025 08:00:00 AM Scheduled Provider: [facility] Type[facility]FM Medicare Wellness Subsequent [facility] Evaluation note* Diagnosis Onset Date Resolution Status Acute coronary syndrome acuteBilateral carotid artery diseaseacuteHyponatremiaacuteTobacco abuseDayton [facility] Work Phone: Evaluation note* Diagnosis Seborrheic keratosis- Primary Actinic keratosis [facility] Diagnosis Actinic keratosis- Primary [facility] in [facility]* Diagnosis Seborrheic keratosis- Primary Actinic keratosis [...] medication regimen. She denies medication side effects. [facility]-Marissa 250 DO Work Phone: History of [...] medication regimen. She denies medication side effects. -Located Within [facility]-Marissa 250 DO Work Phone: History of [...] medication regimen. She denies medication side effects. [facility]-Srwdmnxtmubx[facility]-[id number] Work Phone: History of Present illness Narrative* [...] EMR * Pertinent labs and images reviewed. RG-Raegwhattyxha-JNA Maurisio 1600 Work Phone: Hospital course Narrative No data available for this section [facility] Work [facility]: Hospital Discharge instructions No data available for this section [facility] Progress note No data available for this section [facility] Summary Purpose Family History No Family History Records FoundUnknown Family Member Name Dates Details : Father Status:ActiveFamily history of myocardial infarction: Father(V17.3, Z82.49) Status:ActiveLupus: Mother Status:ActiveFamily history of atrial fibrillation: Mother(V17.49, Z82.49) Status:ActiveFamily history of hypertension: Brother(V17.49, Z82.49) Status:Active Relationship Condition Age at Onset Recorded Date/T spike father Myocardial infarction Unknown Not SpecifiedMalignant neoplasmUnknownUnknown Family Member Name Dates Details : Father Status:ActiveFamily history of myocardial infarction: Father(V17.3, Z82.49) Status:ActiveLupus: Mother Status:ActiveFamily history of atrial fibrillation: Mother(V17.49, Z82.49) Status:ActiveFamily history of hypertension: Brother(V17.49, Z82.49) Status:Active Unknown Family Member Name Dates Details : Father Status:ActiveFamily history of myocardial infarction: Father(V17.3, Z82.49) Status:ActiveLupus: Mother Status:ActiveFamily history of atrial fibrillation: Mother(V17.49, Z82.49) Status:ActiveFamily history of hypertension: Brother(V17.49, Z82.49) Status:Active Unknown Family Member Name Dates Details : Father Status:ActiveFamily history of myocardial infarction: Father(V17.3, Z82.49) Status:ActiveLupus: Mother Status:ActiveFamily history of atrial fibrillation: Mother(V17.49, Z82.49) Status:ActiveFamily history of hypertension: Brother(V17.49, Z82.49) Status:Active Unknown Family Member Name Dates Details : Father Status:ActiveFamily history of myocardial infarction: Father(V17.3, Z82.49) Status:ActiveLupus: Mother Status:ActiveFamily history of atrial fibrillation: Mother(V17.49, Z82.49) Status:ActiveFamily history of hypertension: Brother(V17.49, Z82.49) Status:Active Unknown Family Member Name Dates Details : Father Status:ActiveFamily history of myocardial infarction: Father(V17.3, Z82.49) Status:ActiveLupus: Mother Status:ActiveFamily history of atrial fibrillation: Mother(V17.49, Z82.49) Status:ActiveFamily history of hypertension: Brother(V17.49, Z82.49) Status:Active Unknown Family Member Name Dates Details : Father Status:ActiveFamily history of myocardial infarction: Father(V17.3, Z82.49) Status:ActiveLupus: Mother Status:ActiveFamily history of atrial fibrillation: Mother(V17.49, Z82.49) Status:ActiveFamily history of hypertension: Brother(V17.49, Z82.49) Status:Active Unknown Family Member Name Dates Details : Father Status:ActiveFamily history of myocardial infarction: Father(V17.3, Z82.49) Status:ActiveLupus: Mother Status:ActiveFamily history of atrial fibrillation: Mother(V17.49, Z82.49) Status:ActiveFamily history of hypertension: Brother(V17.49, Z82.49) Status:Active Unknown Family Member Name Dates Details : Father Status:ActiveFamily history of myocardial infarction: Father(V17.3, Z82.49) Status:ActiveLupus: Mother Status:ActiveFamily history of atrial fibrillation: Mother(V17.49, Z82.49) Status:ActiveFamily history of hypertension: Brother(V17.49, Z82.49) Status:Active Unknown Family Member Name Dates Details : Father Status:ActiveFamily history of myocardial infarction: Father(V17.3, Z82.49) Status:ActiveLupus: Mother Status:ActiveFamily history of atrial fibrillation: Mother(V17.49, Z82.49) Status:ActiveFamily history of hypertension: Brother(V17.49, Z82.49) Status:Active Advance Directives No Advanced Directives Records Found Advance Directive Response Recorded Date/ Time Advance Directives Yes August 25 12:44pm Chief Complaint * I am doing ok * SANDHYA MALDONADO is being seen for follow-up of a hospitalization for chest pain. * August 12, 2021 transferred from [place] to [facility] due to chest pain/? STEMI. Managed emergently [...] 99%, LICA 68% - saw someone at [facility] but did not hear any follow-up * Will plan to repeat CTA carotids * Thyroid: to see ENT at [facility] * Hyponatremia; off HCTZ since discharge (also lisinopril) - has not been repeated since discharge * Daily activity: housework, stairs at home * I am doing ok * SANDHYA MALDONADO is being seen for follow-up of a hospitalization for chest pain. * August 12, 2021 transferred from [place] to [facility] due to chest pain/? STEMI. Managed emergently [...] 99%, LICA 68% - saw someone at [facility] but did not hear any follow-up * Will plan to repeat CTA carotids * Thyroid: to see ENT at [facility] * Hyponatremia; off HCTZ since discharge (also lisinopril) - has not been repeated since discharge * Daily activity: housework, stairs at home * I am doing ok * SANDHYA MALDONADO is being seen for follow-up of a hospitalization for chest pain. * August 12, 2021 transferred from [place] to [facility] due to chest pain/? STEMI. Managed emergently by Dr. Mott - angela villa mild CAD, normal LVEF. Type II NSTEMI due to medical illness, hyponatremia, COPD. Added: asa, lipitor, coreg. * Left groin access site healed with adverse sequelae. * Tolerating meds without concerns. * August 2021 Inpatient USN Carotids: ALANIS 50-69%, LICA no significant * Jul 2020 CT neck with contrast: ALANIS 99%, LICA 68% - saw someone at [facility] but did not hear any follow-up * Will plan to repeat CTA carotids * Thyroid: to see ENT at [facility] * Hyponatremia; off HCTZ since discharge (also lisinopril) - has not been repeated since discharge * Daily activity: housework, stairs at home Referred by ENT for thyroid goiter. Chief Complaint and Reason for Visit Chief Complaint STEMI E87.1Reason for VisitAcute coronary syndrome Bilateral carotid artery disease Hyponatremia Tobacco abuse Additional Source Comments INFORMATION SOURCE (unrecogn ized section and content) DATE CREATED AUTHOR 12/02/2017 [facility] DATE CREATED AUTHOR AUTHOR'S ORGANIZ ATION 11/21/2021 [facility] DATE CREATED AUTHOR AUTHOR'S ORGANIZ ATION 05/13/2022 [facility] DATE CREATED AUTHOR AUTHOR'S ORGANIZ ATION 05/14/2022 [facility] DATE CREATED AUTHOR AUTHOR'S ORGANIZ ATION 07/18/2022 [facility] DATE CREATED AUTHOR AUTHOR'S ORGANIZ ATION 06/05/2024 [facility] DATE CREATED AUTHOR AUTHOR'S ORGANIZ ATION 07/17/2024 [facility] DATE CREATED AUTHOR AUTHOR'S ORGANIZ ATION 08/26/2024 [facility] DATE CREATED AUTHOR AUTHOR'S ORGANIZ ATION 09/01/2024 [facility] DATE CREATED AUTHOR AUTHOR'S ORGANIZ ATION 09/02/2024 [facility] DATE CREATED AUTHOR AUTHOR'S ORGANIZ ATION 09/17/2024 [facility] DATE CREATED AUTHOR AUTHOR'S ORGANIZ ATION 10/12/2024 [facility] DATE CREATED AUTHOR AUTHOR'S ORGANIZ ATION 10/21/2024 [facility] DATE CREATED AUTHOR AUTHOR'S ORGANIZ ATION 11/15/2024 [facility] DATE CREATED AUTHOR AUTHOR'S ORGANIZ ATION 04/12/2025 [facility] Care Teams (unrecognized sec tion and content) Team Status: Inactive Member Role Status Dates Luisa Mott , DO Admit Provider, Attending Provide r Active Karo Nava NP-CPrimary Care ProviderActive Team Status: Inactive Member Role Status Dates Karo Nava , ROMARIO-C Primary Care Provider Active Jj Nuñez ProviderActive Team Status: Active Member Role Status Dates Karo Nava , ROMARIO-C Primary Care Provider Active Reason for Visit (unrecogniz ed section and content) ReasonCommentsSuspicious Skin LesionReasonCommentsFollow-up FOR RECORDS PERTAINING TO PATIENTS WHO ARE [...] BE BASED ON THE PRIMARY CLINICAL RECORDS. [facility] [employer] [facility]. provides no warranty or guarantee of the accuracy or completeness of information in this document.
--- NOTE | 2025-04-17 21:28 | ED.GENADUL1 ---
HPI HPI - General Adult General Chief complaint: Headache Stated complaint: Hypertension Time Seen by Provider: 04/17/25 21:14 Source: patient Mode of arrival: walk-in History of Present Illness HPI narrative: presents complaining of a headache and hypertension. Cataract surgery left eye today. No nausea or chest pain Related Data Home Medications ?Medication ?Instructions ?Recorded ?Confirmed albuterol sulfate 90 mcg/actuation 2 puff inhalation Q6H PRN 07/25/24 07/25/24 aerosol inhaler shortness of breath or wheezing aspirin 81 mg tablet,delayed 81 mg PO DAILY 07/25/24 07/25/24 release (Adult Aspirin Regimen) carvedilol 3.125 mg tablet 3.125 mg PO Q12H 07/25/24 07/25/24 escitalopram oxalate 5 mg tablet 5 mg PO DAILY 07/25/24 07/25/24 methimazole 5 mg tablet 5 mg PO .q12 07/25/24 07/25/24 Allergies Allergy/AdvReac Type Severity Reaction Status Date / Time No Known Drug Allergies Allergy Verified 07/25/24 13:54 Opioid HPI Opioid Management Most Recent Opioid Data: Last Pain Scale 7 Today, 21:46 Review of Systems ROS Status of ROS 10 or more systems reviewed and unremarkable except as noted in history and below [facility] Medical History (Updated 04/17/25 @ 23:23 by Blas Diaz MD) Anxiety disorder ?F41.9 - Anxiety disorder, unspecified (ICD-10) HTN (hypertension) ?I10 - Essential (primary) hypertension (ICD-10) Hyperthyroidism ?E05.90 - Thyrotoxicosis, unspecified without thyrotoxic crisis or storm (ICD-10) Surgical History (Updated 07/25/24 @ 15:08 by Deborah Villalobos) Hx of cardiac catheterization ?Z98.890 - Other specified postprocedural states (ICD-10) Social History Little interest or pleasure in doing things: not at all Feeling down, depressed, or hopeless: not at all Exam Constitutional Vital Signs, click to edit/add: Last Vital Signs Temp 97.7 F 04/17/25 20:29 Pulse 71 04/17/25 22:50 Resp 23 H 04/17/25 22:50 BP 138/64 04/17/25 22:31 Pulse Ox 95 04/17/25 22:50 Common normals: no apparent distress, average body habitus, oriented x3, no limitations, healthy appearing, alert and well nourished [facility] Common normals: normocephalic and head/scalp atraumatic Eye Common normals: EOMs intact bilaterally and conjunctivae normal Other: left pupil dilated and not reactive Respiratory Common normals: normal respiratory effort, no retractions, no use of accessory muscles and clear to auscultation bilaterally Cardio Common normals: regular rate, regular rhythm, S1 normal heart sound and S2 normal heart sound GI Common normals: Normal to inspection, nondistended, normoactive bowel sounds present, soft to palpation and non-tender Extremity Common normals: normal to inspection and full ROM Neuro Common normals: oriented x3, CN's II-XII intact bilaterally, moves all extremities and no focal motor deficits Psych Appearance: grossly normal Course Vital Signs Vital signs: Vital Signs Temperature 97.7 F 04/17/25 20:29 Pulse Rate 65 04/17/25 20:29 Respiratory Rate 18 04/17/25 20:29 Blood Pressure 200/98 H 04/17/25 20:29 Pulse Oximetry 98 04/17/25 20:29 Temperature 97.7 F 04/17/25 20:29 Pulse Rate 71 04/17/25 22:50 Respiratory Rate 23 H 04/17/25 22:50 Blood Pressure 138/64 04/17/25 22:31 Pulse Oximetry 95 04/17/25 22:50 Medical Decision Making MDM Narrative Medical decision making narrative: patient presents with HTN and headache. labs included neg troponin , normal EKG. BP improved after hydralazine. She became nauseated after her BP improved. Given zofran with resolution of her nausea. She now feels well. Advised to go home and take her normal BP medication and to follow up with her doctor for recheck Lab Data Labs: Lab Results 04/17/25 Range/Units 21:40 WBC 6.5 (4.0-11.0) 10^3/uL RBC 4.03 L (4.20-5.40) 10^6/uL Hgb 12.2 (12.0-16.0) g/dL Hct 36.6 (36.0-48.0) % MCV 90.8 (81.0-99.0) fL MCH 30.3 (26.7-34.0) pg MCHC 33.3 (29.9-35.2) g/dL RDW 13.2 (11.0-15.0) % Plt Count 266 (150-450) 10^3/uL MPV 10.4 (9.5-13.5) fL Neut % (Auto) 55.2 (43.0-75.0) % Lymph % (Auto) 33.6 (20.5-60.0) % Parker % (Auto) 8.8 (1.7-12.0) % Eos % (Auto) 1.2 (0.9-7.0) % Baso % (Auto) 0.9 (0.2-2.0) % Neut # (Auto) 3.6 (1.4-6.5) 10^3/uL Lymph # (Auto) 2.2 (1.2-3.8) 10^3/uL Parker # (Auto) 0.6 (0.3-0.8) 10^3/uL Eos # (Auto) 0.1 (0.0-0.7) 10^3/uL Baso # (Auto) 0.1 (0.0-0.1) 10^3/uL Abs Immat Gran (auto) 0.02 (0.00-0.03) 10^3/uL Imm/Tot Granulo (auto) 0.3 (0.0-0.5) % Sodium 136 (136-145) mmol/L Potassium 3.6 (3.5-5.1) mmol/L Chloride 103 (98-107) mmol/L Carbon Dioxide 26.7 (21.0-32.0) mmol/L Anion Gap 9.9 BUN 17.0 (7.0-18.0) mg/dL Creatinine 0.97 (0.55-1.02) mg/dL Est GFR ( Amer) >60 (>=60 mL/min/1.73m^2) Est GFR (Non-Af Amer) 58 L (>=60 mL/min/1.73m^2) BUN/Creatinine Ratio 17.5 Glucose 97 (74-106) mg/dL Calcium 8.7 (8.5-10.1) mg/dL Troponin I High Sens 4.7 (4.0-51.3) pg/mL Discharge Plan Discharge Chief Complaint: Headache Clinical Impression: Hypertension Qualifiers: Hypertension type: unspecified Qualified Code(s): I10 - Essential (primary) hypertension Headache Qualifiers: Headache type: unspecified Headache chronicity pattern: acute headache Intractability: not intractable Qualified Code(s): R51.9 - Headache, unspecified Patient Disposition: Home, Self-Care Prescriptions / Home Meds: No Action albuterol sulfate 90 mcg/actuation HFA aerosol inhaler 2 puff INHALATION Q6H PRN (Reason: shortness of breath or wheezing) carvedilol 3.125 mg tablet 3.125 mg PO Q12H escitalopram oxalate 5 mg tablet 5 mg PO DAILY methimazole 5 mg tablet 5 mg PO .q12 aspirin [Adult Aspirin Regimen] 81 mg tablet,delayed release (DR/EC) 81 mg PO DAILY Print Language: Irish Instructions: Acute Headache (ED), Hypertension (ED) Additional Instructions: follow up with your doctor in the next 1-2 days for recheck Referrals: JAQUELINE SPEARS [Primary Care Provider, [employer]] - 1 week
--- NOTE | 2025-04-17 21:30 | ECG_ITS ---
[facility] Test Date: 2025-04-17 Pat Name: LING MALDONADO Department: Room: - Gender: Female Marinator: : 1960 Requested By: [id number] Order Number: [id number] Reading MD: BAILEY BILL M.D. Measurements Intervals [place] Rate: 57 P: 68 AL: 166 QRS: 74 QRSD: 78 T: 61 QT: 444 QTc: 438 Interpretive Statements 1100 Sinus rhythm 9110 normal ECG Compared to ECG 07/25/2024 14:21:33 No significant changes Electronically Signed On 04-18-2025 7:36:06 EST by BAILEY BILL M.D.
--- NOTE | 2025-04-17 21:49 | PC.NURSE ---
Pt presents to ER for HTN which correlates with a headache Pt had cataract surgery done in her left eye today and this evening took her regular medications and her blood pressure and found it to be elevated Pt states when she has had high blood pressure in the past it has been in the 150's-160's systolic, never before over 200 Pt denies nausea, chest pain, or shortness of breath
[2025-04-17] MEDS: HYDRALAZINE HCL 20 MG/ML VIAL 10 MG IVP (21:57)
--- NOTE | 2025-04-17 22:32 | PC.NURSE ---
patient called out and stated she is nauseated and hot. Patient appears flushed. given basin. Notified physician and patient nurse
[2025-04-17 22:34] LABS: Hematocrit 36.6 % (36.0-48.0); Hemoglobin 12.2 g/dL (12.0-16.0); Immature Granulocytes Abs Auto 0.02 10^3/uL (0.00-0.03); Immature Granulocytes Pct Auto 0.3 % (0.0-0.5); Lymphocytes Absolute Auto 2.2 10^3/uL (1.2-3.8); Mean Corpuscular HGB Conc 33.3 g/dL (29.9-35.2); Mean Corpuscular Hemoglobin 30.3 pg (26.7-34.0); Mean Corpuscular Volume 90.8 fL (81.0-99.0); Platelet Count 266 10^3/uL (150-450); Red Blood Count 4.03 10^6/uL (4.20-5.40); White Blood Count 6.5 10^3/uL (4.0-11.0)
[2025-04-17 22:58] LABS: Anion Gap 9.9; Blood Urea Nitrogen 17.0 mg/dL (7.0-18.0); Calcium 8.7 mg/dL (8.5-10.1); Carbon Dioxide 26.7 mmol/L (21.0-32.0); Chloride 103 mmol/L (98-107); Estimated GFR (African America >60 (>=60 mL/min/1.73m^2); Estimated GFR (Non-African Ame 58 (>=60 mL/min/1.73m^2); Glucose 97 mg/dL (74-106); Potassium 3.6 mmol/L (3.5-5.1); Sodium 136 mmol/L (136-145)
== END 2025-04-17 23:35 | disposition home or self-care (01) ==
PROVIDERS: Emergency Provider Internal Medicine; PCP Nurse Practitioner
DX: R51.9 Headache, unspecified (principal); I10 Essential (primary) hypertension; Z98.42 Cataract extraction status, left eye
CPT/HCPCS: 36415; 80048; 84484; 85025; 93005; 96374; 96375; 99285; J0360; J2405